=== PATIENT | female | born 1995 | race Caucasian/White ===

== ENCOUNTER → 2021-03-18 12:07 | Outpatient (CLI) | payer OTHER, SELFPAY ==
[2021-03-18 09:28] VITALS: BMI 33.2
[2021-03-31 20:36] LABS: HPV Reflexed? NOT INDICATED
== END ==
PROVIDERS: PCP Registered Nurse; Referring Provider Nurse Practitioner Women's Health; Visit Provider Nurse Practitioner Women's Health
DX: Z12.4 Encounter for screening for malignant neoplasm of cervix (principal)
CPT/HCPCS: 88175; G0145

== ENCOUNTER → 2021-04-01 13:58 | Outpatient (CLI) | payer OTHER, SELFPAY ==
[2021-03-18 09:28] VITALS: BMI 33.2
== END ==
PROVIDERS: PCP Registered Nurse; Referring Provider Nurse Practitioner Women's Health; Visit Provider Nurse Practitioner Women's Health
DX: N97.0 Female infertility associated with anovulation (principal)
CPT/HCPCS: 36415

== ENCOUNTER → 2021-04-20 07:49 | Outpatient (CLI) | payer OTHER, SELFPAY ==
[2021-03-18 09:28] VITALS: BMI 33.2
[2021-04-20 08:50] LABS: Progesterone Level 0.51 ng/mL (See Comment)
== END ==
PROVIDERS: PCP Registered Nurse; Referring Provider Nurse Practitioner Women's Health; Visit Provider Nurse Practitioner Women's Health
DX: N91.2 Amenorrhea, unspecified (principal)
CPT/HCPCS: 36415; 84144

== ENCOUNTER → 2021-05-25 07:36 | Outpatient (CLI) | payer OTHER, SELFPAY ==
[2021-05-25 08:19] LABS: Progesterone Level 6.31 ng/mL (See Comment)
== END ==
PROVIDERS: PCP Registered Nurse; Referring Provider Nurse Practitioner Women's Health; Visit Provider Nurse Practitioner Women's Health
DX: N91.2 Amenorrhea, unspecified (principal)
CPT/HCPCS: 36415; 84144

== ENCOUNTER → 2021-06-23 16:00 | Outpatient (CLI) | payer OTHER, SELFPAY ==
--- NOTE | 2021-06-23 16:02 | US_ITS ---
History: viability-bleeding Pelvic Ultrasound: Findings: Endovaginal ultrasound imaging of the pelvis performed No evidence of an intra- or extrauterine gestational sac. Uterus is normal in size. 10 mm nabothian cyst is noted. Endometrial stripe measures 13 mm mm. No adnexal mass or cul de sac fluid noted. Ovaries are normal in size, echogenicity and perfusion. Right ovary measures 4.2 x 3.2 x 2.2 cm. Left ovary measures 3.2 x 3.0 x 2.0 cm. IMPRESSION: No evidence of intra- or extra-uterine . Follow up US in 7 to 10 days recommended to further differentiate between early intrauterine , ectopic and miscarriage if hCG titers are positive. at 1654 Reported and signed by: Rashad Gonzalez MD Electronically Signed: Rashad Gonzalez MD at 16:53 EDT Tel , Service support , US/Transvaginal w/Preg US
[2021-06-23 17:00] LABS: hCG Titer Quant., Serum 779 mIU/mL (1-3)
== END ==
PROVIDERS: PCP Registered Nurse; Referring Provider Obstetrics & Gynecology; Visit Provider Obstetrics & Gynecology
DX: O20.0 Threatened abortion (principal)
CPT/HCPCS: 36415; 76817; 84702; 86850; 86900; 86901

== ENCOUNTER → 2021-06-25 07:45 | Outpatient (CLI) | payer OTHER, SELFPAY ==
[2021-06-25 08:44] LABS: hCG Titer Quant., Serum 184 mIU/mL (1-3)
== END ==
PROVIDERS: Obstetrics & Gynecology; PCP Registered Nurse; Referring Provider Nurse Practitioner Women's Health; Visit Provider Nurse Practitioner Women's Health
DX: Z34.90 Encounter for supervision of normal pregnancy, unspecified, unspecified trimester (principal)
CPT/HCPCS: 36415; 84702

== ENCOUNTER → 2021-07-02 10:52 | Outpatient (CLI) | payer OTHER, SELFPAY ==
[2021-07-02 11:38] LABS: hCG Titer Quant., Serum 6 mIU/mL (1-3)
== END ==
PROVIDERS: PCP Registered Nurse; Referring Provider Obstetrics & Gynecology; Visit Provider Obstetrics & Gynecology
DX: O03.9 Complete or unspecified spontaneous abortion without complication (principal)
CPT/HCPCS: 36415; 84702

== ENCOUNTER 2021-11-30 07:38 | Outpatient (CLI) | payer OTHER, SELFPAY ==
[2021-11-30 08:26] LABS: Progesterone Level 1.05 ng/mL (See Comment); Vitamin D,25 Hydroxy 21.1 ng/mL
[2021-11-30 08:35] LABS: Cholesterol 172 mg/dL (200); Glucose 95 mg/dL (74-106); High Density Lipoprotein 60 mg/dL; Thyroid Stim Hormone (TSH) 2.41 uIU/mL (0.358-3.74); Triglycerides 77 mg/dL; Very Low Density Lipoprotein 15 mg/dL (5-40)
== END 2021-11-30 23:59 | disposition home or self-care (01) ==
LOC: PAVLAB 07:39
PROVIDERS: PCP Registered Nurse; Referring Provider Obstetrics & Gynecology; Visit Provider Obstetrics & Gynecology
DX: E28.2 Polycystic ovarian syndrome (principal); N97.9 Female infertility, unspecified
CPT/HCPCS: 36415; 80061; 82306; 82947; 84144; 84443

== ENCOUNTER 2021-12-24 07:40 | Outpatient (CLI) | payer OTHER, SELFPAY ==
[2021-12-24 08:36] LABS: hCG Titer Quant., Serum 257 mIU/mL (1-3)
== END 2021-12-24 23:59 | disposition home or self-care (01) ==
LOC: PAVLAB 07:41
PROVIDERS: PCP Registered Nurse; Referring Provider Obstetrics & Gynecology; Visit Provider Obstetrics & Gynecology
DX: Z34.90 Encounter for supervision of normal pregnancy, unspecified, unspecified trimester (principal)
CPT/HCPCS: 36415; 84702

== ENCOUNTER 2021-12-26 07:26 | Outpatient (CLI) | payer OTHER, SELFPAY ==
[2021-12-26 09:02] LABS: hCG Titer Quant., Serum 369 mIU/mL (1-3)
== END 2021-12-26 23:59 | disposition home or self-care (01) ==
LOC: LAB 07:28
PROVIDERS: PCP Registered Nurse; Referring Provider Obstetrics & Gynecology; Visit Provider Obstetrics & Gynecology
DX: Z87.59 Personal history of other complications of pregnancy, childbirth and the puerperium (principal)
CPT/HCPCS: 36415; 84702

== ENCOUNTER 2021-12-28 11:24 | Outpatient (CLI) | payer OTHER, SELFPAY ==
[2021-12-28 12:34] LABS: hCG Titer Quant., Serum 496 mIU/mL (1-3)
== END 2021-12-28 23:59 | disposition home or self-care (01) ==
LOC: PAVLAB 11:25
PROVIDERS: PCP Registered Nurse; Referring Provider Obstetrics & Gynecology; Visit Provider Obstetrics & Gynecology
DX: O20.0 Threatened abortion (principal)
CPT/HCPCS: 36415; 84702

== ENCOUNTER 2021-12-30 07:44 | Outpatient (CLI) | payer OTHER, SELFPAY ==
[2021-12-30 08:21] LABS: hCG Titer Quant., Serum 582 mIU/mL (1-3)
== END 2021-12-30 23:59 | disposition home or self-care (01) ==
LOC: PAVLAB 07:44
PROVIDERS: PCP Registered Nurse; Referring Provider Obstetrics & Gynecology; Visit Provider Obstetrics & Gynecology
DX: Z87.59 Personal history of other complications of pregnancy, childbirth and the puerperium (principal)
CPT/HCPCS: 36415; 84702

== ENCOUNTER 2022-01-04 10:23 | Outpatient (CLI) | payer OTHER, SELFPAY ==
[2022-01-04 10:58] LABS: hCG Titer Quant., Serum 289 mIU/mL (1-3)
== END 2022-01-04 23:59 | disposition home or self-care (01) ==
LOC: PAVLAB 10:23
PROVIDERS: PCP Registered Nurse; Referring Provider Nurse Practitioner Women's Health; Visit Provider Nurse Practitioner Women's Health
DX: Z87.59 Personal history of other complications of pregnancy, childbirth and the puerperium (principal)
CPT/HCPCS: 36415; 84702

== ENCOUNTER 2022-01-12 07:41 | Outpatient (CLI) | payer OTHER, SELFPAY ==
[2022-01-12 09:02] LABS: hCG Titer Quant., Serum 317 mIU/mL (1-3)
== END 2022-01-12 23:59 | disposition home or self-care (01) ==
LOC: PAVLAB 07:42
PROVIDERS: PCP Registered Nurse; Referring Provider Nurse Practitioner Women's Health; Visit Provider Nurse Practitioner Women's Health
DX: Z87.59 Personal history of other complications of pregnancy, childbirth and the puerperium (principal)
CPT/HCPCS: 36415; 84702

== ENCOUNTER 2022-01-12 11:30 | Emergency (ER) | payer OTHER, SELFPAY ==
[2022-01-12 11:31] VITALS: BP 154/106; PULSE 103; RESP 16; TEMP 36.1; O2SAT 100; BMI 34.9
--- NOTE | 2022-01-12 11:42 | US_ITS ---
STUDY: FIRST TRIMESTER OBSTETRICAL ULTRASOUND REASON FOR EXAM: Female, 26 years old increased HCG, prior miscarriage LMP: 11/10/2021 TECHNIQUE: Transvaginal TECHNICAL QUALITY: Adequate. PRIOR ULTRASOUND: None. FINDINGS: There is no demonstrated intrauterine gestational sac. The uterus measures 7.3 x 4.1 x 4.5 cm. There is no demonstrated uterine fibroid. There are nabothian cysts. The right ovary measures 3.8 x 2.7 x 2.2 cm. There is no right ovarian cyst. There is no visualized right adnexal mass or complex lesion. The left ovary measures 3.2 x 3.2 x 2.0 cm. There is no left ovarian cyst. There is no visualized left adnexal mass or complex lesion. There is no fluid in the cul de sac. US/Transvaginal w/Preg US IMPRESSION: 1. No intrauterine . No adnexal masses. Electronically Signed: Lee Corral MD (Brooks) at 13:14 EDT ,
[2022-01-12 12:16] LABS: Absolute Neutrophil Count 5.2 X10^3/uL (2.0-7.7); Basophil# 0.04 X10^3/uL; Basophil% 0.5 % (0-1); Eosinophil# 0.29 X10^3/uL; Eosinophils% 3.7 % (0-5); Hemoglobin 13.6 g/dL (12.0-15.0); Lymphocyte % 23.2 % (19-41); Mean Corp Hgb Conc 34.9 g/dL (32-36); Mean Corpuscular Hgb 31.6 pg (27.0-32.0); Mean Corpuscular Volume 90.5 fL (81-99); Mean Platelet Vol. 10.1 fl (6.2-12.0); Monocyte# 0.44 X10^3/uL; Monocyte% 5.7 % (0-10); NRBC Flagged by Analyzer 0 % (0-5); Neutrophil # 5.16 X10^3/uL (2.7-7.7); Neutrophil % 66.6 % (47-70); Platelet Count 266 K/mm3 (150-450); RBC Distribution Width CV 11.6 % (11.6-14.6); RBC Distribution Width SD 38.6 fl (35.1-43.9); Red Blood Count 4.31 M/mm3 (4.2-5.4); White Blood Count 7.8 K/mm3 (4.4-11.0)
--- NOTE | 2022-01-12 12:23 | ED.VIS.FEGU ---
HPI HPI - Female History of Present Illness Chief Complaint: Vag Bld, Preg Informant: patient Associated Symptoms P: 0 Narrative Narrative: Patient is 26-year-old female presenting for evaluation after miscarriage. Patient follows with Dr. Mackey. Patient has a history of PCOS and is on Femara for infertility. She had a positive quant on 12/24 at 257. She and up trending quant until 01/04 when she started having vaginal bleeding. She had 1 week of bleeding which subsided 4 days ago. She denies any pelvic pain or discomfort. Denies any urinary symptoms. Was sent in for evaluation as she is not had an ultrasound this and her quant is stagnant. No other complaints at this time. [facility] Medical History PCOS (polycystic ovarian syndrome) Home Medications letrozole 2.5 mg tablet 5 mg PO QDAY #10 tab 11/02/21 [Rx Last Taken Unknown] letrozole 2.5 mg tablet 7.5 mg PO QDAY 5 Days #15 tab 11/02/21 [Rx Last Taken Unknown] medroxyprogesterone 10 mg tablet 10 mg PO QDAY #5 tab 11/02/21 [Rx Last Taken Unknown] Allergy/AdvReac Type Severity Reaction Status Date / Time No Known Allergies Allergy Unverified 01/12/22 11:31 Social History household members: spouse number of children: 0 current occupational status: employed current occupation: [employer] history of recent travel: No sexually active: Yes Smoking Status: Never smoker alcohol intake: current alcohol intake frequency: a few times a month substance use type: does not use diet: other what type of physical activity do you participate in: walking seatbelt use: always do you feel safe at home: Yes additional social history: - [employer] ED Constitutional Constitutional ED: Denies chills or fever(s) Eyes Eyes: Denies change in vision ENT ENT ED: Denies rhinorrhea Cardiovascular Cardiovascular: Denies chest pain or palpitations Respiratory/Chest Respiratory/Chest: Denies dyspnea Gastrointestinal Gastrointestinal: Denies abdominal pain, nausea or vomiting Genitourinary Genitourinary ED: Denies dysuria, hematuria or urinary frequency Musculoskeletal Musculoskeletal: Denies myalgias Integumentary Denies rash Neurologic Neurologic: Denies headache(s) or weakness Psychiatric Psychiatric: Denies depression EXAM Physical Exam Const Vital Signs: 01/12/22 11:31 Temperature 96.9 F L Temperature Source Temporal Pulse Rate 103 H Respiratory Rate 16 Blood Pressure 154/106 H Blood Pressure Mean 122 Pulse Ox 100 Oxygen Delivery Method Room Air Positive well nourished and well developed General Appearance ED: well developed; Negative for pallor HEENT Reports moist mucous membranes Eyes PERRL and EOMs intact bilaterally General Eye ED: Negative for pale conjunctiva Neck supple Chest Wall inspection of chest normal Resp normal respiratory effort and clear to auscultation bilaterally Cardio regular rate, regular rhythm and no murmurs GI normal to inspection, nondistended, normoactive bowel sounds, soft to palpation and non-tender no CVA tenderness Neuro oriented x3 Sensorium / Orientation: alert Motor Exam: Negative for general weakness Psych mental status grossly normal Skin no rashes or lesions noted General Skin Exam: Negative for pallor MDM MDM MDM Narrative Medical decision making narrative: Patient evaluated for miscarriage and concern for ectopic versus incomplete miscarriage. Hemoglobin is normal at 13.6. Patient's quant is stable at 310. Its not going down significantly however it is not going up anymore. Patient is a positive and does not require RhoGAM. Ultrasound shows no intrauterine and no adnexal masses. Low likelihood for significant retained products of conception or ectopic at this time. Case is discussed with her VICE PRESIDENT OF SOFTWARE DEVELOPMENT who will follow the patient with serial hCGs. She will order for a 48-hour hCG. Patient is counseled return precautions including signs and symptoms of an ectopic . She verbalizes agreement and understands this plan. Patient discharged home in stable condition. Lab Data Attestation: I reviewed the patient's lab results. Labs: Laboratory Results - last 24 hr 01/12/22 01/12/22 01/12/22 11:50 11:56 11:56 WBC 7.8 RBC 4.31 Hgb 13.6 Hct 39.0 MCV 90.5 MCH 31.6 MCHC 34.9 RDW Std Deviation 38.6 RDW Coeff of Jacqueline 11.6 Plt Count 266 MPV 10.1 Immature Gran % (Auto) 0.300 Neut % (Auto) 66.6 Lymph % (Auto) 23.2 [place] % (Auto) 5.7 Eos % (Auto) 3.7 Baso % (Auto) 0.5 Absolute Neuts (auto) 5.2 Absolute Lymphs (auto) 1.80 Nucleated RBC % 0 HCG, Quant 310 H Blood Type A POSITIVE Antibody Screen NEGATIVE Radiography Diagnostic Testing: Clinical Impression(s) from Imaging Studies Obstetrics Ultrasound 01/12/22 11:42 IMPRESSION: 1. No intrauterine . No adnexal masses. Electronically Signed: Lee Corral MD (Brooks) at 13:14 EDT Reading Location ID and State: [facility] / [place] , Service support , Discharge Plan Triage Chief Complaint: Vag Bld, Preg ED Provider: Miriam Coleman Dx/Rx/DC Orders Clinical Impression: Miscarriage Instructions: ED MISCARRIAGE Completed Prescriptions: No Action medroxyprogesterone [Provera] 10 mg tablet 10 mg PO QDAY Qty: 5 RF: 9 letrozole 2.5 mg tablet 5 mg PO QDAY Qty: 10 RF: 0 letrozole 2.5 mg tablet 7.5 mg PO QDAY 5 Days Qty: 15 RF: 2 Primary Care Provider: Margaux Jay NP Referrals: Paradise Mackey MD [STAFF PHYSICIAN] - 2 Days (for HCG check ) Margaux Jay NP, DIRECTOR BIOLOGICS-C [Primary Care Provider] - Disposition Disposition: Home, Self Care
[2022-01-12 12:47] LABS: hCG Titer Quant., Serum 310 mIU/mL (1-3)
== END 2022-01-12 13:42 | disposition home or self-care (01) ==
PROVIDERS: Emergency Provider Emergency Medicine; PCP Registered Nurse; Visit Provider Emergency Medicine
DX: O03.9 Complete or unspecified spontaneous abortion without complication (principal); E28.2 Polycystic ovarian syndrome
CPT/HCPCS: 76817; 84702; 85025; 86850; 86900; 86901; 99282

== ENCOUNTER → 2022-01-14 | Outpatient (CLI) | payer OTHER, SELFPAY ==
[2022-01-14 08:11] LABS: hCG Titer Quant., Serum 325 mIU/mL (1-3)
== END | disposition home or self-care (01) ==
PROVIDERS: PCP Registered Nurse; Referring Provider Obstetrics & Gynecology; Visit Provider Obstetrics & Gynecology
DX: Z87.59 Personal history of other complications of pregnancy, childbirth and the puerperium (principal)
CPT/HCPCS: 36415; 84702

== ENCOUNTER → 2022-01-18 | Outpatient (CLI) | payer OTHER, SELFPAY ==
[2022-01-18 08:28] LABS: ALB/GLOB Ratio 1.3 RATIO (0.9-2.4); AST(SGOT) 17 U/L (15-37); Alanine Aminotransfer ALT/SGPT 34 U/L (13-56); Albumin, Serum 3.8 g/dL (3.2-5.0); Alkaline Phosphatase 36 U/L (45-117); Anion Gap 4 (5-15); BUN 6 mg/dL (7-18); BUN/Creat Ratio 7.2 RATIO (10-20); Calcium,Total 8.5 mg/dL (8.5-10.1); Chloride 107 mmol/L (98-107); Creatinine, Serum 0.83 mg/dL (0.55-1.02); EST Glomerular Filtration Rate 89 mL/min (>60); Est Glom Filt Rate - Afr Amer 107 mL/min (>60); Globulin 2.9 g/dL (2.2-4.2); Glucose 116 mg/dL (74-106); Potassium 3.7 mmol/L (3.5-5.1); Protein, Total 6.7 g/dL (6.4-8.2); Sodium Level 139 mmol/L (136-145); hCG Titer Quant., Serum 337 mIU/mL (1-3)
[2022-01-19 17:07] LABS: Dilute Prothrombin Time (dPT) 35.7 sec (0.0-47.6); Dilute Russell Viper Venom 33.6 sec (0.0-47.0); PTT-LA 31.4 sec (0.0-51.9); Thrombin Time 17.8 sec (0.0-23.0); dPT Confirm Ratio 1.02 Ratio (0.00-1.34)
[2022-01-19 20:11] LABS: Anti-Cardiolipin Ab, IgA, Qn < 9 APL U/mL (0-11); Anti-Cardiolipin Ab, IgG, Qn < 9 GPL U/mL (0-14); Anti-Cardiolipin Ab, IgM, Qn 12 MPL U/mL (0-12); Beta-2-Glycoprotein I IgA <9 (0-25); Beta-2-Glycoprotein I IgG <9 (0-20); Beta-2-Glycoprotein I IgM <9 (0-32); Interpretation Comment: (.)
== END | disposition home or self-care (01) ==
PROVIDERS: PCP Registered Nurse; Referring Provider Obstetrics & Gynecology; Visit Provider Obstetrics & Gynecology
DX: O03.9 Complete or unspecified spontaneous abortion without complication (principal); N96 Recurrent pregnancy loss
CPT/HCPCS: 36415; 80053; 84702; 86146; 86147

== ENCOUNTER → 2022-01-23 | Outpatient (CLI) | payer OTHER, SELFPAY ==
[2022-01-23 08:42] LABS: hCG Titer Quant., Serum 214 mIU/mL (1-3)
== END | disposition home or self-care (01) ==
LOC: LAB 07:52
PROVIDERS: PCP Registered Nurse; Referring Provider Nurse Practitioner Women's Health; Visit Provider Nurse Practitioner Women's Health
DX: O00.90 Unspecified ectopic pregnancy without intrauterine pregnancy (principal)
CPT/HCPCS: 36415; 84702

== ENCOUNTER → 2022-01-26 | Outpatient (CLI) | payer OTHER, SELFPAY ==
[2022-01-26 09:09] LABS: hCG Titer Quant., Serum 25 mIU/mL (1-3)
== END | disposition home or self-care (01) ==
LOC: PAVLAB 07:42
PROVIDERS: Obstetrics & Gynecology; PCP Registered Nurse; Referring Provider Nurse Practitioner Women's Health; Visit Provider Nurse Practitioner Women's Health
DX: O00.90 Unspecified ectopic pregnancy without intrauterine pregnancy (principal)
CPT/HCPCS: 36415; 84702

== ENCOUNTER → 2022-01-29 | Outpatient (CLI) | payer OTHER, SELFPAY ==
[2022-01-29 09:17] LABS: hCG Titer Quant., Serum 4 mIU/mL (1-3)
== END | disposition home or self-care (01) ==
LOC: PAVLAB 08:40
PROVIDERS: PCP Registered Nurse; Referring Provider Obstetrics & Gynecology; Visit Provider Obstetrics & Gynecology
DX: O09.90 Supervision of high risk pregnancy, unspecified, unspecified trimester (principal)
CPT/HCPCS: 36415; 84702

== ENCOUNTER → 2022-05-20 | Outpatient (CLI) | payer OTHER, SELFPAY ==
[2022-05-20 10:30] LABS: hCG Titer Quant., Serum 2023 mIU/mL (1-3)
== END | disposition home or self-care (01) ==
LOC: PAVLAB 09:14
PROVIDERS: PCP Registered Nurse; Referring Provider Obstetrics & Gynecology; Visit Provider Obstetrics & Gynecology
DX: N96 Recurrent pregnancy loss (principal)
CPT/HCPCS: 36415; 84702

== ENCOUNTER → 2022-05-22 | Outpatient (CLI) | payer OTHER, SELFPAY ==
[2022-05-22 11:38] LABS: hCG Titer Quant., Serum 4445 mIU/mL (1-3)
== END | disposition home or self-care (01) ==
LOC: LAB 09:39
PROVIDERS: PCP Registered Nurse; Referring Provider Obstetrics & Gynecology; Visit Provider Obstetrics & Gynecology
DX: N96 Recurrent pregnancy loss (principal)
CPT/HCPCS: 36415; 84702

== ENCOUNTER → 2022-06-01 | Outpatient (CLI) | payer OTHER, SELFPAY ==
--- NOTE | 2022-06-01 16:20 | US_ITS ---
STUDY: FIRST TRIMESTER OBSTETRICAL ULTRASOUND REASON FOR EXAM: Female, 26 years old patient presents for evaluation of viability. LMP: 04/12/2022. TECHNIQUE: Transvaginal TECHNICAL QUALITY: Adequate. PRIOR ULTRASOUND: None. FINDINGS: There is visualization of a single gestational sac in a normal intrauterine position. The mean sac diameter (MSD) measures 1.9 cm, indicating an estimated gestational age (EGA) of 6 weeks, 6 days. The gestational sac shape is within normal limits. There is a visualized yolk sac. The yolk sac measures 3 mm. The placenta is non-visualized. There is a small subchorionic hemorrhage measuring 10.3 x 3 mm in size. There is visualization of a live embryo. The crown-rump length (CRL) measures 8.4 mm, indicating an estimated gestational age (EGA) of 6 weeks, 6 days. There is demonstrated cardiac activity with a heart rate of 129 bpm. The estimated gestation age (EGA) by LMP is 7 weeks, 1 days. The estimated date of delivery (ANT) by LMP is 01/17/2023. The estimated gestation age (EGA) by US is 6 weeks, 6 days. The estimated date of delivery (ANT) by US is 01/19/2023. The uterus measures 9.2 x 4.7 x 6.4 cm. There is no demonstrated uterine fibroid. The cervix is closed. The right ovary measures 4.7 x 3.1 x 3.4 cm. There are multiple follicles of the right ovary with a dominant cyst. There is no visualized right adnexal mass or complex lesion. The left ovary measures 2.9 x 2.0 x 2.6 cm. There are multiple follicles of the left ovary without a dominant cyst. There is no visualized left adnexal mass or complex lesion. Color Doppler and Doppler documents posterior to both ovaries. There is no fluid in the cul de sac. US/Transvaginal w/Preg US IMPRESSION: 1. Single living intrauterine gestation with estimated gestational age by size of 6 weeks 6 days. 2. Small subchorionic hemorrhage. Electronically Signed: Eneida White MD at 3:02 EDT ,
== END | disposition home or self-care (01) ==
LOC: US 16:19
PROVIDERS: PCP Registered Nurse; Referring Provider Obstetrics & Gynecology; Visit Provider Obstetrics & Gynecology
DX: O20.0 Threatened abortion (principal)
CPT/HCPCS: 76817

== ENCOUNTER → 2022-06-17 | Outpatient (CLI) | payer OTHER, SELFPAY ==
[2022-06-17 18:48] LABS: Amphetamine Urine VISTA NEGATIVE (<1000 ng/mL); Barbiturate Urine VISTA NEGATIVE (< 200 ng/mL); Benzodiazepine Urine VISTA NEGATIVE (< 200 ng/mL); Cocaine Urine VISTA NEGATIVE (< 300 ng/mL); Ecstacy Urine VISTA NEGATIVE (< 500 ng/mL); Methadone Urine VISTA NEGATIVE (< 300 ng/mL); PCP Urine VISTA NEGATIVE (< 25 ng/mL); THC Urine VISTA NEGATIVE (< 50 ng/mL); Vista UDS pH Range 6
[2022-06-21 05:06] LABS: Chlamydia By Nucleic Acid AMP Negative (Negative)
[2022-06-21 08:36] LABS: Gonococcus By Nucleic Acid AMP Negative (Negative)
== END | disposition home or self-care (01) ==
PROVIDERS: PCP Registered Nurse; Visit Provider Obstetrics & Gynecology
DX: Z34.90 Encounter for supervision of normal pregnancy, unspecified, unspecified trimester (principal)
CPT/HCPCS: 80307; 87086; 87088; 87491; 87591

== ENCOUNTER → 2022-07-08 | Outpatient (CLI) | payer OTHER, SELFPAY ==
[2022-07-08 13:10] LABS: Absolute Lymphocyte Count 1.67 X10^3/uL (0.83-4.51); Absolute Neutrophil Count 7.2 X10^3/uL (2.0-7.7); Basophil# 0.05 X10^3/uL; Basophil% 0.5 % (0-1); Eosinophil# 0.12 X10^3/uL; Eosinophils% 1.3 % (0-5); Hematocrit 36.5 % (37-47); Lymphocyte # 1.67 X10^3/ul (0.83-4.51); Lymphocyte % 17.5 % (19-41); Mean Corp Hgb Conc 35.6 g/dL (32-36); Mean Corpuscular Volume 89.9 fL (81-99); Mean Platelet Vol. 10.1 fl (6.2-12.0); Monocyte# 0.45 X10^3/uL; Monocyte% 4.7 % (0-10); NRBC Flagged by Analyzer 0 % (0-5); Neutrophil % 75.7 % (47-70); Platelet Count 266 K/mm3 (150-450); RBC Distribution Width CV 11.3 % (11.6-14.6); RBC Distribution Width SD 36.9 fl (35.1-43.9); Red Blood Count 4.06 M/mm3 (4.2-5.4); White Blood Count 9.5 K/mm3 (4.4-11.0)
[2022-07-08 13:20] LABS: Glucose Challenge Gest 1H 50g 147 mg/dL (70-140)
[2022-07-08 14:25] LABS: HIV - WCH Non-Reactive (Nonreactive); Hepatitis B Surface Antigen Non-Reactive (Nonreactive); Hepatitis C Antibody Non-Reactive (Nonreactive); Rubella IgG Reactive (Nonreactive); Syphilis Antibodies Non-reactive
== END | disposition home or self-care (01) ==
LOC: PAVLAB 12:40
PROVIDERS: PCP Registered Nurse; Referring Provider Obstetrics & Gynecology; Visit Provider Obstetrics & Gynecology
DX: Z34.90 Encounter for supervision of normal pregnancy, unspecified, unspecified trimester (principal)
CPT/HCPCS: 36415; 82950; 85025; 86703; 86762; 86780; 86803; 86850; 86900; 86901; 87340

== ENCOUNTER → 2022-07-20 | Outpatient (CLI) | payer OTHER, SELFPAY ==
[2022-07-20 08:00] LABS: Glucose GTT-Gestation. Fasting 88 mg/dL (<105)
[2022-07-20 09:12] LABS: Glucose GTT-Gestational 1 Hr 159 mg/dL (<190)
[2022-07-20 09:25] LABS: Glucose GTT-Gestational 2 Hr 146 mg/dL (<165)
[2022-07-20 11:19] LABS: Glucose GTT-Gestational 3 Hr 75 L (<145)
== END | disposition home or self-care (01) ==
LOC: LAB 06:58
PROVIDERS: PCP Registered Nurse; Referring Provider Obstetrics & Gynecology; Visit Provider Obstetrics & Gynecology
DX: Z13.1 Encounter for screening for diabetes mellitus (principal)
CPT/HCPCS: 36415; 82951; 82952

== ENCOUNTER → 2022-10-19 | Outpatient (CLI) | payer OTHER, SELFPAY ==
[2022-10-19 08:04] LABS: Absolute Lymphocyte Count 1.62 X10^3/uL (0.83-4.51); Absolute Neutrophil Count 5.9 X10^3/uL (2.0-7.7); Basophil# 0.03 X10^3/uL; Basophil% 0.4 % (0-1); Eosinophil# 0.24 X10^3/uL; Hematocrit 33.5 % (37-47); Hemoglobin 11.8 g/dL (12.0-15.0); Lymphocyte # 1.62 X10^3/ul (0.83-4.51); Lymphocyte % 19.9 % (19-41); Mean Corp Hgb Conc 35.2 g/dL (32-36); Mean Corpuscular Volume 90.8 fL (81-99); Mean Platelet Vol. 9.9 fl (6.2-12.0); Monocyte# 0.36 X10^3/uL; Monocyte% 4.4 % (0-10); NRBC Flagged by Analyzer 0 % (0-5); Neutrophil # 5.85 X10^3/uL (2.7-7.7); Neutrophil % 71.9 % (47-70); Platelet Count 236 K/mm3 (150-450); RBC Distribution Width CV 12.6 % (11.6-14.6); RBC Distribution Width SD 41.4 fl (35.1-43.9); Red Blood Count 3.69 M/mm3 (4.2-5.4); White Blood Count 8.1 K/mm3 (4.4-11.0)
[2022-10-19 08:16] LABS: Glucose Challenge Gest 1H 50g 170 mg/dL (70-140)
[2022-10-19 09:03] LABS: HIV - WCH Non-Reactive (Nonreactive); Syphilis Antibodies Non-reactive
== END | disposition home or self-care (01) ==
PROVIDERS: PCP Registered Nurse; Referring Provider Registered Nurse; Visit Provider Registered Nurse
DX: O09.90 Supervision of high risk pregnancy, unspecified, unspecified trimester (principal)
CPT/HCPCS: 36415; 82950; 85025; 86703; 86780

== ENCOUNTER → 2022-11-11 | Outpatient (CLI) | payer OTHER, SELFPAY ==
[2022-11-11 08:22] LABS: Glucose GTT-Gestation. Fasting 88 mg/dL (<105)
[2022-11-11 09:24] LABS: Glucose GTT-Gestational 1 Hr 193 mg/dL (<190)
[2022-11-11 10:13] LABS: Glucose GTT-Gestational 2 Hr 174 mg/dL (<165)
[2022-11-11 11:30] LABS: Glucose GTT-Gestational 3 Hr 100 L (<145)
== END | disposition home or self-care (01) ==
LOC: LAB 06:54
PROVIDERS: PCP Registered Nurse; Referring Provider Nurse Practitioner Women's Health; Visit Provider Nurse Practitioner Women's Health
DX: Z13.1 Encounter for screening for diabetes mellitus (principal)
CPT/HCPCS: 36415; 82951; 82952

== ENCOUNTER 2022-11-29 08:30 | Outpatient (RCR) | payer OTHER, SELFPAY | END 2022-12-24 23:59 | LOC: DC 08:30 | PROVIDERS: PCP Registered Nurse; Visit Provider Nurse Practitioner Women's Health | DX: O24.419 Gestational diabetes mellitus in pregnancy, unspecified control (principal); Z3A.00 Weeks of gestation of pregnancy not specified | CPT/HCPCS: 97802 ==

== ENCOUNTER → 2022-12-21 | Outpatient (CLI) | payer OTHER, SELFPAY | END | disposition home or self-care (01) | LOC: LABSPEC 11:44 | PROVIDERS: PCP Registered Nurse; Referring Provider Obstetrics & Gynecology; Visit Provider Obstetrics & Gynecology | DX: O09.90 Supervision of high risk pregnancy, unspecified, unspecified trimester (principal) | CPT/HCPCS: 87081 ==

== ENCOUNTER → 2022-12-21 | Outpatient (CLI) | payer OTHER, SELFPAY ==
--- NOTE | 2022-12-21 12:55 | US_ITS ---
EXAM: US , LIMITED CLINICAL INDICATION: growth scan, gestational diabetes TECHNIQUE: Real-time limited ultrasound of the maternal uterus with image documentation. This report was created using Lasso report generation technology. COMPARISON: None. FINDINGS: FETUS: Single intrauterine gestation. GESTATIONAL AGE: Composite gestational age is 37 weeks 4 days. ANT: 01/07/2023. EFW: Estimated weight is 3036 g corresponding to the 69th percentile. BPD: 38 weeks 4 days. HC: 38 weeks 4 days. AC: 36 weeks 5 days. FL: 35 weeks 1 day. POSITION: Cephalic presentation. HEART RATE: heart rate 144 bpm. PLACENTA: Placenta is posterior without placenta previa. AMNIOTIC FLUID: Amniotic fluid index is 17.1 cm. Deepest vertical pocket is 4.9 cm. CERVIX: Cervix not visualized. US/OB Limited With Biometrics IMPRESSION: Single intrauterine at approximately 37 weeks 4 days. No specific abnormality. Electronically Signed: Levy Patel MD at 0:23 EDT ,
== END | disposition home or self-care (01) ==
PROVIDERS: PCP Registered Nurse; Visit Provider Obstetrics & Gynecology
DX: O24.419 Gestational diabetes mellitus in pregnancy, unspecified control (principal)
CPT/HCPCS: 76816

== ENCOUNTER 2023-01-18 07:05 | Inpatient (IN) | payer OTHER, SELFPAY ==
[2023-01-18] VITALS (43 sets, daily range): BP systolic 98–138; BP diastolic 51–98; PULSE 77–129; TEMP 36.4–37.3; O2SAT 97–100; BMI 38.9
[2023-01-18] MEDS: Lactated Ringers 1,000 ML 50 ML IV ×2 (07:25→16:45)
[2023-01-18 07:39] LABS: Absolute Lymphocyte Count 1.43 X10^3/uL (0.83-4.51); Absolute Neutrophil Count 4.2 X10^3/uL (2.0-7.7); Basophil# 0.04 X10^3/uL; Basophil% 0.6 % (0-1); Eosinophil# 0.17 X10^3/uL; Eosinophils% 2.8 % (0-5); Hematocrit 36.2 % (37-47); Hemoglobin 12.4 g/dL (12.0-15.0); Lymphocyte # 1.43 X10^3/ul (0.83-4.51); Lymphocyte % 23.2 % (19-41); Mean Corp Hgb Conc 34.3 g/dL (32-36); Mean Corpuscular Hgb 31.6 pg (27.0-32.0); Mean Corpuscular Volume 92.3 fL (81-99); Mean Platelet Vol. 10.9 fl (6.2-12.0); Monocyte# 0.33 X10^3/uL; Monocyte% 5.3 % (0-10); NRBC Flagged by Analyzer 0 % (0-5); Neutrophil # 4.16 X10^3/uL (2.7-7.7); Neutrophil % 67.5 % (47-70); Platelet Count 157 K/mm3 (150-450); RBC Distribution Width CV 12.9 % (11.6-14.6); RBC Distribution Width SD 42.1 fl (35.1-43.9); Red Blood Count 3.92 M/mm3 (4.2-5.4); White Blood Count 6.2 K/mm3 (4.4-11.0)
--- NOTE | 2023-01-18 07:55 | HP.PCM.OB_ITS ---
HPI - General General Date of Admission: 01/18/23 Date of Service: 01/18/23 HPI Narrative WAGNER IABRRA, is a 27 F at 40.1 weeks who presents for IOL secondary to GDM Maternal Data Information ANT Calculator Estimated Delivery Date Method Current WG Current Estimate 01/17/23 LMP (Certain) 40w 1d Final ANT: 01/17/23 Final ANT Source: US >20 weeks Gestational age: 40 weeks 1 day PFSH PFSH Medical History PCOS (polycystic ovarian syndrome) Home Medications multivitamin no.47-iron fum 27 mg-folate no.1 1 mg-dha 300 mg capsule (PNV-DHA) 1 cap PO DAILY Check with primary doctor 06/11/22 [History Last Taken 01/17/23 21:00] blood sugar diagnostic (True Metrix Glucose Test Strip) #100 ea 11/15/22 [Rx La st Taken Unknown] blood-glucose meter (True Metrix Air Glucose Meter) #1 ea 11/15/22 [Rx Last Taken Unknown] magnesium 1 cap PO/SL DAILY leg cramps 01/18/23 [History Last Taken 01/17/23 21:00] Allergy/AdvReac Type Severity Reaction Status Date / Time No Known Allergies Allergy Verified 01/13/23 08:33 no significant family history no surgical history Social History adopted: No household members: spouse housing: house number of children: 0 current occupational status: employed current occupation: [employer] current occupational exposures/hazards: No pets and animals: Yes pets and animals: dog(s) history of recent travel: No sexually active: Yes Smoking Status: Never smoker alcohol intake: former details: social substance use type: does not use well-balanced diet: about half the time caffeine: No eating out: 1-3 times/week during the past year weight has: remained stable what type of physical activity do you participate in: walking frequency: 1-2 times per week duration: 15-30 minutes/day ok/latter day: Religious seatbelt use: always do you feel safe at home: Yes additional social history: - [employer] History 3 Elective abortions Hx Para 0 Spontaneous abortions 1 Hx # Term Pregnancies Ectopic pregnancies 1 Hx # Pregnancies Multiple births # of living children 0 Visit Details Expected Delivery Route/Plan Labor Preferences- CB/BF classes: encouraged labor support person: Cody labor intervention preferences: min intervention pain management options preferred: limited intervention. epidural ok cut cord/dad catch: cord : yes PP control planned: discussed discussed possible routes of delivery and associated risks: [] special requests: [] Plans Covid status: discussed Flu vaccine: declines Tdap vaccine: Rhogam: na LARC form signed: yes movement and labor precautions reviewed. Problem list reviewed and updated with the most current plan of care details and appropriate orders placed. Relevant counseling for the gestational age provided. Continue routine care and follow up unless otherwise noted in visit notes/problem list details OB Flowsheet Initial Weight: Not Recorded Date -?-?-?-?-?-?-?-?-?-?-?-?- EGA Weight BP Urine Prot -?-?-?-?-?-?-?-?-?-?-?-?- Glucose FHR FuHt Pres Dilation -?-?-?-?-?-?-?-?-?-?-?-?- Effaced St Visit Note 06/17/22 -?-?-?-?-?-?-?-?-?-?-?-?- 9w 3d 202 lb 123/75 -?-?-?-?-?-?-?-?-?-?-?-?- 160 -?-?-?-?-?-?-?-?-?-?-?-?- SM- CRL 2.18cm c ons with LMP 07/08/22 -?-?-?-?-?-?-?-?-?-?-?-?- 12w 3d 202 lb 6 oz 116/73 -?-?-?-?-?-?-?-?-?-?-?-?- 160 -?-?-?-?-?-?-?-?-?-?-?-?- JV- CRL consiste nt with 12 weeks. no complaints. wants to continue progesterone for another 2 weeks. 07/22/22 -?-?-?-?-?-?-?-?-?-?-?-?- 14w 3d 203 lb 127/60 -?-?-?-?-?-?-?-?-?-?-?-?- 150 -?-?-?-?-?-?-?-?-?-?-?-?- SM- no vb crampi ng 08/16/22 -?-?-?-?-?-?-?-?-?-?-?-?- 18w 0d 209 lb 118/80 Negative -?-?-?-?-?-?-?-?-?-?-?-?- Negative 150 -?-?-?-?-?-?-?-?-?-?-?-?- Lc- no vb, cramp ing. has anatomy scan ordered. discussed and declined afp 09/22/22 -?-?-?-?-?-?-?-?-?-?-?-?- 23w 2d 210 lb 12.8 oz 104/74 -?-?-?-?-?-?-?-?-?-?-?-?- 141 24 -?-?-?-?-?-?-?-?-?-?-?-?- LC- no vb/crampi ng. being followed by MFM for short cervix. being seen tomorrow. on vag progesterone. 10/19/22 -?-?-?-?-?-?-?-?-?-?-?-?- 27w 1d 216 lb 4 oz 124/78 Nega tive -?-?-?-?-?-?-?-?-?-?-?-?- Negative 141 28 -?-?-?-?-?-?-?-?-?-?-?-?- MH-no VB, LOF. G ood FM. Taking prometrium PV. No further fu at this time with MFM. Larc. 28 wk labs:needs 3 hr GTT. 11/10/22 -?-?-?-?-?-?-?-?-?--?-?-?- 30w 2d 218 lb 8 oz 130/83 Nega tive -?-?-?-?-?-?-?-?-?-?-?-?- Negative 145 30 -?-?-?-?-?-?-?-?-?-?-?-?- LC-no vb/lof. no concerns. has 3 hr gtt scheduled for tomorrow. getting a belly band for comfort. 11/23/22 -?-?-?-?-?-?-?-?-?-?-?-?- 32w 1d 220 lb 123/77 Negative -?-?-?-?-?-?-?-?-?-?-?-?- Negative 135 33 -?-?-?-?-?-?-?-?-?-?-?-?- SM- BS controlle d with diet, hasn't met with level vial setter yet. 12/07/22 -?-?-?-?-?-?-?-?-?-?-?-?- 34w 1d 222 lb 2 oz 118/77 Nega tive -?-?-?-?-?-?-?-?-?-?-?-?- Negative 155 35 -?-?-?-?-?-?-?-?-?-?-?-?- KW- +FM. No VB/L OF/Ctx. BS controlled and testing 2x/daily. Encouraged to do fasting as one of them. All under 95 and 120 per pt. Discussed GBS at next appt. would like minimal interventions for 12/21/22 -?-?-?-?-?-?-?-?-?-?-?--?- 36w 1d 225 lb 8 oz 120/82 Nega tive -?-?-?-?-?-?-?-?-?-?-?-?- Negative 138 37 -?-?-?-?-?-?-?-?-?-?-?-?- JV- glucose leve ls normal. has growth scan scheduled for today. declines pelvic exam. 12/28/22 -?-?-?-?-?-?-?-?-?-?-?-?- 37w 1d 225 lb 2 oz 119/80 Nega tive -?-?-?-?-?-?-?-?-?-?-?-?- Negative 125 39 Cephalic -?-?-?-?-?-?-?-?-?-?-?-?- KW- +FM. No lof/ vb. BH Ctx noted. Declines exam today. D/C'ed vaginal progesterone. Fasting BS still 85-90. postprandial 120-125 over last couple days. Continue to monitor and notify end of week if still elevated. 01/04/23 -?-?-?-?-?-?-?-?-?-?-?-?- 38w 1d 226 lb 124/82 Negative -?-?-?-?-?-?-?-?-?-?-?-?- Negative 138 40 Cephalic -?-?-?-?-?-?-?-?-?-?-?-?- KW-+ FM. No lof/ vb/ctx KW-+ FM. No lof/vb/ctx. BS s table. declines VE today. discussed setting up IOL at next visit. 01/11/23 -?-?-?-?-?-?-?-?-?-?-?-?- 39w 1d 227 lb 4 oz 131/87 Nega tive -?-?-?-?-?-?-?-?-?-?-?-?- Negative 140 41 Cephalic 3 -?-?-?-?-?-?-?-?-?-?-?-?- 70 -2 KW- +FM. N o Lof/vb. some ctx noted. membrane sweep done. labor precautions reviewed. BS stable. KW- +FM. No Lof/vb. some ctx noted. BS stable. membrane sweep done. labor precautions reviewed. Plan for another membrane sweep or tuesday if needed and set up IOL for tuesday. 01/13/23 -?-?-?-?-?-?-?-?-?-?-?-?- 39w 3d 224 lb 8 oz 112/72 Nega tive -?-?-?-?-?-?-?-?-?-?-?-?- Negative 140 41 Cephalic 4 -?-?-?-?-?-?-?-?-?-?-?-?- 80 -2 KW- +FM KW- +FM. no lof/vb. ctx note d after last sweep. BS stable. IOL scheduled Jordan score 10. 04/ -?-?-?-?-?-?-?-?-?-?-?-?- 40w 1d 227 lb 1.218 oz 135/77 -?-?-?-?-?-?-?-?-?-?-?-?- -?-?-?-?-?-?-?-?-?-?-?-?- NST FHR Rate Baby A Baseline: 130 Variability:: Moderate Accelerations:: 15 x 15 Decelerations:: None NST Reactive:: Yes FHR Category:: Category I FHR Rate Baby B Uterine Activity:: no contractions noted at this time ROS Constitutional Constitutional: Denies change in weight, fatigue, fever(s), headache(s), poor appetite or weakness Eyes Eyes: Denies blurry vision, change in vision, floaters, seeing flashes or spots in vision ENT HEENT: Denies dizziness, headache(s), loss taste/smell or sore throat Cardiovascular Cardiovascular: Denies chest pain, dizziness, dyspnea, irregular heart rhythm, lightheadedness, palpitations or rapid heart rate Respiratory/Chest Respiratory/Chest: Denies change in mental status, chest tightness, cough, dyspnea or breast pain Gastrointestinal Gastrointestinal: Denies anorexia, chewing difficulty, constipation, diarrhea or weight changes Genitourinary Genitourinary: Denies difficulty urinating, dysuria, flank pain, genital pain, urinary frequency or urinary urgency Musculoskeletal Musculoskeletal: Denies back pain, difficulty walking, extremity pain, joint pain, muscle cramps or muscle weakness Integumentary Integumentary: Denies lesions or unusual bruising Neurologic Neurologic: Denies abnormal movements, abnormal speech, dizziness, numbness, seizure-like activity, syncope or weakness Psychiatric Psychiatric: Denies behavioral changes, change in appetite, confusion, depression, homicidal ideation, suicidal ideation or suicidal thoughts Endocrine Endocrinology: Denies excessive sweating, polydipsia or polyuria Hematologic/Lymphatic Hematologic/Lymphatic: Denies anemia Allergic/Immunologic Allergic/Immunologic: Denies itchy eyes, lip swelling, throat swelling, tongue swelling or wheezing Vital Signs Vital Signs Vital Signs: 01/18/23 07:31 01/18/23 07:31 01/18/23 07:32 Pulse Rate 105 H 109 H Blood Pressure 135/77 H BP Systolic 135 BP Diastolic 77 Pulse Ox 01/18/23 07:32 Pulse Rate Blood Pressure BP Systolic BP Diastolic Pulse Ox 97 Weight Weight: 227 lb 1.218 oz Body Mass Index (BMI) 38.9 Physical Exam Const alert, oriented x3 and no apparent distress General Appearance: cooperative Orientation / Consciousness: awake HEENT normocephalic Neck full ROM Lymph Lymphatic: no lymphadenopathy noted Chest inspection of chest normal Resp normal respiratory effort and normal air movement Effort and Inspection: able to speak in complete sentences and symmetric chest movement GI soft to palpation and non-tender Inspection: gravid Palpation: soft; Negative for tender external exam normal Manual OB Exam: estimated gestational size, presentation cephalic, dilated 4, effaced 70 and station -2 Back/Spine normal to inspection Extremity normal to inspection and full ROM Skin no rashes or lesions noted Psych mental status grossly normal Appearance: grossly normal Speech: normal speech Labs Labs Labs: Blood Type A POSITIVE Antibody Screen NEGATIVE Hct 36.2 % (37-47) L Hgb 12.4 g/dL (12.0-15.0) Obstetrics US Syphilis Total Ab Non-reactive Rubella IgG Antibody Reactive (Nonreactive) Hep Bs Antigen Non-Reactive (Nonreactive) Chlamydia DNA (MINDY) Negative (Negative) Neisseria gonorrhoeae DNA (MINDY) Negative (Negative) HIV 1&2 Antibody Non-Reactive (Nonreactive) Glucose 1 Hr 50 gm 170 mg/dL (70-140) H Miscellaneous Test Assessment & Plan (1) Gestational diabetes: COMMENT: divisional storekeeper referral done, Glucose testing 2x/day-controlled PLAN: per protocol (2) Supervision of high risk , antepartum: COMMENT: PRR , ANT 01/19/23(per US), boy Spouse Guerrero PLAN: Patient presents IOL, plan management for with pitocin/AROM. Pain management: plans no epidural, but is open to it if needed GBS negative. Management of any complications: GDM I have reviewed the PFSH and made any clinically relevant updates. Reviewed POC with Dr Garcia and she agrees with plan of care (3) : QUALIFIERS: Weeks of gestation: 39 weeks Qualified Code(s): Z3A.39 - 39 weeks gestation of COMMENT: GBS neg, declined ntd genetic & carrier testing. nl anatomy. 12/22 nl growth EFW 3036, 69th% Charges/Coding Multi Select Codes Urinary/Genital Urinary/Genital CPT Codes: No Charge
[2023-01-18] MEDS: Oxytocin 15 Units/NS 250ml 15 UNITS/250 ML IV.SOLN 2 UNITS IV (08:20)
[2023-01-18 08:54] LABS: Syphilis Antibodies Non-reactive
[2023-01-18 08:56] LABS: Bedside Glucose 82 mg/dL (74-106)
[2023-01-18 10:11] LABS: Bedside Glucose 78 mg/dL (74-106)
[2023-01-18 10:56] LABS: Bedside Glucose 73 mg/dL (74-106)
[2023-01-18 12:16] LABS: Bedside Glucose 72 mg/dL (74-106)
[2023-01-18 13:00] LABS: Bedside Glucose 64 mg/dL (74-106)
[2023-01-18 13:45] LABS: Bedside Glucose 87 mg/dL (74-106)
--- NOTE | 2023-01-18 14:00 | PCM.PN.BLA ---
Progress Note Patient coping well with contractions. Denies need for epidural. current tracing: FHT: 115 Moderate variability reactive no decelerations category I tracing [place]: moderate to strong Contractions q 4 minutes Pitocin at 14mu AROM for bloody fluid at 1315 6/80/-1 A/P: Epidural PRN continue current POC anticipate Reviewed with CEE. Agrees with POC Multi Select Codes Urinary/Genital Urinary/Genital CPT Codes: No Charge
[2023-01-18 14:30] LABS: Bedside Glucose 86 mg/dL (74-106)
[2023-01-18 15:45] LABS: Bedside Glucose 77 mg/dL (74-106)
[2023-01-18 16:26] LABS: Bedside Glucose 73 mg/dL (74-106)
--- NOTE | 2023-01-18 16:34 | PCM.PN.BLA ---
Progress Note Patient tolerating contractions well. denies need for epidural current tracing: FHT: 115 Moderate variability reactive no decelerations category I tracing [place]: every 2-3 minutes strong Contractions Pitocin at 18 SVE 8/90/0 A/P: continue position changes anticipate Multi Select Codes Urinary/Genital Urinary/Genital CPT Codes: No Charge
[2023-01-18 18:30] LABS: Bedside Glucose 91 mg/dL (74-106)
[2023-01-18] MEDS: LACTATED RINGERS 500 ML 999 ML IV ×2 (18:40→19:55)
[2023-01-18 19:05] LABS: Bedside Glucose 88 mg/dL (74-106)
[2023-01-18] MEDS: fentaNYL-bupivacaine (epidural) 100 ML BAG EPIDURAL (19:27)
[2023-01-18 20:11] LABS: Bedside Glucose 82 mg/dL (74-106)
--- NOTE | 2023-01-18 20:40 | PCM.PN.BLA ---
Progress Note Comfortable with epidural current tracing: FHT: 120 Moderate variability reactive, some variables and early decelerations noted, category II tracing, overall reassuring [place]: Contractions every 2-3 palpating strong Pitocin at 5 mu Internal monitors placed SVE 9.5/90/0 A/P: anticipate Multi Select Codes Urinary/Genital Urinary/Genital CPT Codes: No Charge
[2023-01-18 21:16] LABS: Bedside Glucose 90 mg/dL (74-106)
[2023-01-18 21:56] LABS: Bedside Glucose 85 mg/dL (74-106)
[2023-01-19] VITALS (49 sets, daily range): BP systolic 103–137; BP diastolic 41–68; PULSE 73–138; RESP 15–18; TEMP 36.4–37.1; O2SAT 93–100
[2023-01-19] MEDS: fentaNYL-bupivacaine (epidural) 100 ML BAG EPIDURAL (00:02)
[2023-01-19] MEDS: Lactated Ringers 1,000 ML 200 ML IV (00:38)
[2023-01-19] MEDS: LACTATED RINGERS 500 ML 999 ML IV (00:45)
[2023-01-19] MEDS: Oxytocin 15 Units/NS 250ml 15 UNITS/250 ML IV.SOLN 83 UNITS IV (01:28)
[2023-01-19] MEDS: Oxytocin 10 UNITS/ML Vial IM (01:28)
[2023-01-19] MEDS: Ondansetron 4 MG/2 ML Vial IV (01:31)
--- NOTE | 2023-01-19 01:41 | EX.PCM.OBRPT ---
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 discussed chromosomal testing also. discussed progesterone 1tm support- ordered prometrium (3) : QUALIFIERS: Weeks of gestation: 39 weeks Qualified Code(s): Z3A.39 - 39 weeks gestation of COMMENT: GBS neg, declined ntd genetic & carrier testing. nl anatomy. 12/22 nl growth EFW 3036, 69th% (4) Supervision of high risk , antepartum: COMMENT: PRR , ANT 01/19/23(per [place]), boy Spouse Guerrero (5) Short cervix affecting : COMMENT: D/Glenn at 37 weeks- prometrium 200 mg PV . 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, Glucose testing 2x/day-controlled Maternal Data Information ANT Calculator Estimated Delivery Date Method Current WG Current Estimate 01/17/23 LMP (Certain) 40w 2d Final ANT: 01/17/23 Final ANT Source: LMP Doctor Who Attended Delivery: Leela Puentes Vaginal Delivery Operative Information Date of Procedure: 01/19/23 Pre-Operative Diagnosis: 27 y/o @ 40 weeks 2 days, gestational diabetes, diet controlled Post-Operative Diagnosis: 27 y/o @ 40 weeks 2 days, gestational diabetes, diet controlled, bradycardia, maternal exhaustion Surgery / Procedure Performed: Vacuum Assisted Vaginal Delivery Type of Anesthesia: Epidural Drain: Howe to straight drain Estimated Blood Loss: 400cc Findings Description of Procedure: Details of delivery: This is a[ 27 year old woman who was admitted to labor and delivery for induction of labor at 40 weeks for gestational diabetes. The decision was made to perform a vacuum extraction due to decelerations and maternal exhaustion of pushing for 3 hours. The risk benefits and alternatives of the procedure were discussed with the patient and verbal consent was obtained. The was noted to be at a +2 station, the cervix was completely dilated. The 's head was noted to be in the right occiput posterior presentation. The vacuum was placed in the correct placement in front of the posterior fontanelle. This was confirmed digitally. With the patient's next contraction, the vacuum was inflated and a gentle downward pressure was used to assist with bringing the baby's head to a +3 station. With 3 pull and 3 pop offs. a small right mediolateral episiotomy was performed and the head was repositioned to a LOP and the patient pushed another 4- 5 times. The head was then at a more than +3 station, the vacuum was applied one last time and only pumped to just below the green zone to allow for a light suction. With one last gentle pull, the head was delivered atraumatically. No nuchal cord was noted. The anterior shoulder followed by the posterior shoulder were delivered without difficulty. The was handed off to the patient's chest. The infant was found to be vigorous and crying and moving of all 4 extremities. The mouth and nares were bulb suctioned. After 45 second delay the cord was clamped and cut and the was handed off to the awaiting nurses for routine assessment. The placenta was delivered with gentle traction and uterine massage. Inspection of the vagina cervix and perineum was performed. There were no lacerations to the vagina or to the cervix. The peritoneum was found to have a 2nd degree perineal laceration. The perineal laceration was closed using a 2-0 Vicryl in the usual sterile fashion. The patient tolerated the procedure well sponge lap and needle counts were correct x2 and she is now recovering in stable condition. Presentation: Vertex Amniotic Fluid Description: Clear Placental Delivery Description: Spontaneous Placenta Disposition: [facility] Cord Vessel Description: 3 Vessels Cord Entanglement: None Cord Gases: ABG and VBG Infant A Gender: Male (1 minute): 8 (5 minute): 9 Delayed Cord Clamping: Yes Post Vaginal Delivery Medications Given After Delivery: IV Pitocin and IM Pitocin Episiotomy Description: Right Mediolateral Laceration: 2nd degree Complication Complications: None Multi Select Codes Urinary/Genital Urinary/Genital CPT Codes: 03317 Vaginal Delivery global pkg and Other Procedure See Report (vacuum assisted vaginal delivery )
--- NOTE | 2023-01-19 01:45 | PCM.DC ---
Discharge Instructions Diet Discharge Diet: No restrictions Activity Discharge Activity: Return to Normal Activity May resume sexual activity in: 6-8 weeks Dressing / Incision Call your doctor if you observe: Fever of 101 or Higher, Coldness, Increased Pain, Numbness or Tingling, Change in Color, Inability to urinate, Inability to have a bowel movement, Using more than 1 pad per hour, Shortness of breath, Dizziness, Fainting spells, Swelling in the ankles, Chest pain, Increased palpitations (irregular heartbeat), Calf discomfort and Uncontrolled pain Follow Up Care Please Follow Up With: Margarita Rollins CNM When: Please call the office to schedule your follow up appointment in 6 weeks. If you had high blood pressure please call to schedule an appointment in 2 weeks. Test Results: Test results from this visit will be discussed in further detail at your follow-up appointment, if applicable. Discharge Plan Admission Admit Date/Time: 01/18/23 07:05 Attending Provider: Guadalupe Garcia Primary Care Provider: Margaux Jay NP Discharge Orders/Prescriptions Prescriptions: No Action PNV-DHA 27 mg iron-1 mg -300 mg capsule 1 cap PO DAILY magnesium capsule 1 cap PO/SL DAILY (DME) blood-glucose meter [True Metrix Air Glucose Meter[place] [facility] [place] Inst[place] .ROUTE .MEDSUPPLY Qty: 1 0RF Rx Instructions: As directed (DME) True Metrix Glucose Test Strip Strip See Rx Instructions .ROUTE .MEDSUPPLY Qty: 100 4RF Rx Instructions: As directed Referrals / Follow Up: Margaux Jay NP, AIRCRAFT COMMUNICATOR-[employer] [Primary Care Provider] -
[2023-01-19 02:36] LABS: Bedside Glucose 107 mg/dL (74-106)
[2023-01-19 02:36] LABS: Bedside Glucose 113 mg/dL (74-106)
[2023-01-19 02:36] LABS: Bedside Glucose 111 mg/dL (74-106)
[2023-01-19] MEDS: Ibuprofen 600 MG Tablet PO ×2 (04:29→11:02)
[2023-01-19] MEDS: 0.9% Saline Lock 10 ML Syringe IV (04:29)
[2023-01-19] MEDS: Benzocaine/Lanolin/Aloe Vera 1 SPRAY EACH TOPICAL (04:29)
[2023-01-20 01:35] VITALS: BP 105/49; PULSE 80; RESP 15; TEMP 36.8; O2SAT 97
[2023-01-20 05:12] LABS: Hematocrit 27.4 % (37-47); Hemoglobin 9.2 g/dL (12.0-15.0); Mean Corp Hgb Conc 33.6 g/dL (32-36); Mean Corpuscular Hgb 31.7 pg (27.0-32.0); Mean Corpuscular Volume 94.5 fL (81-99); Mean Platelet Vol. 11.1 fl (6.2-12.0); Platelet Count 144 K/mm3 (150-450); RBC Distribution Width CV 13.4 % (11.6-14.6); White Blood Count 12.1 K/mm3 (4.4-11.0)
[2023-01-20 06:00] LABS: Bedside Glucose 83 mg/dL (74-106)
--- NOTE | 2023-01-20 07:48 | PCM.PN.OB ---
Subjective Subjective Patient doing well without complaints. Tolerating PO. Ambulating and voiding without difficulty. Feeding well. Denies chest pain, shortness of breath, calf pain/swelling, fevers, chills, lightheadedness. Objective Data Objective Data Vital Signs: Vital Signs Temp Pulse Resp BP Pulse Ox O2 Del Method 98.2 F 80 15 105/49 L 97 Room Air 01/20/23 01:35 01/20/23 01:35 01/20/23 01:35 01/20/23 01:35 01/20/23 01:35 01/20/23 01:35 Oxygen Delivery Method Room Air Weight: 227 lb 1.218 oz Body Mass Index (BMI) 38.9 Intake & Output: Intake and Output for Last 24 Hours 01/18/23 01/19/23 01/20/23 23:59 23:59 23:59 Intake Total 1773.68 / 1773.68 1785.83 / 1785.83 Output Total 700 / 700 1500 / 1500 Balance 1073.68 / 1073.68 285.83 / 285.83 Lab / Micro Data Result Diagrams: 01/20/23 05:00 Labs: Laboratory Results - last 24 hr 01/20/23 05:00: WBC 12.1 H, RBC 2.90 L, Hgb 9.2 L, Hct 27.4 L, MCV 94.5, MCH 31.7, MCHC 33.6, RDW Std Deviation 45.0 H, RDW Coeff of Jacqueline 13.4, Plt Count 144 L, MPV 11.1 01/20/23 05:41: POC Glucose 83 Physical Exam Const alert and oriented x3 HEENT normocephalic Eyes PERRL Neck full ROM Resp normal respiratory effort GI soft to palpation GI Narrative: FF below U Assessment & Plan (1) Vacuum extractor delivery, delivered: COMMENT: VAVD 01/19/23 boy Benny MIKE (2) Gestational diabetes: COMMENT: diet controlled PLAN: Plan s/p PPD # 1 1. routine post delivery care 2. breast feeding- support given 3. rh positive 4. rubella immune 5. glucose controlled 6. home today
[2023-01-20] MEDS: Ibuprofen 600 MG Tablet PO (08:04)
[2023-01-20 08:06] VITALS: BP 108/60; PULSE 89; RESP 16; TEMP 36.3; O2SAT 96
[2023-01-20 13:01] VITALS: BP 107/64; PULSE 89; RESP 16; TEMP 36.6; O2SAT 100
== END 2023-01-20 13:45 | disposition home or self-care (01) | DRG 807 ==
PROVIDERS: Advanced Practice Midwife; Admitting Provider Obstetrics & Gynecology; PCP Registered Nurse; Visit Provider Obstetrics & Gynecology
DX: O24.429 Gestational diabetes mellitus in childbirth, unspecified control (principal); Z37.0 Single live birth; O26.23 Pregnancy care for patient with recurrent pregnancy loss, third trimester; O76 Abnormality in fetal heart rate and rhythm complicating labor and delivery; O75.81 Maternal exhaustion complicating labor and delivery; O70.1 Second degree perineal laceration during delivery; Z3A.40 40 weeks gestation of pregnancy
CPT/HCPCS: 59025; 59050; 82962; 85025; 85027; 86780; 86850; 86900; 86901; 99221; J7120; A4216; G0378; J2405

== ENCOUNTER → 2024-11-01 | Outpatient (CLI) | payer SELFPAY ==
[2024-11-02 04:07] LABS: PROGESTERONE 0.1 ng/mL (.)
== END | disposition home or self-care (01) ==
LOC: LAB 08:10
PROVIDERS: Referring Provider Advanced Practice Midwife; Visit Provider Advanced Practice Midwife
DX: N96 Recurrent pregnancy loss (principal)
CPT/HCPCS: 36415; 84144; 84443

== ENCOUNTER → 2024-12-10 | Outpatient (CLI) | payer SELFPAY ==
[2024-12-10 14:18] LABS: hCG Titer Quant., Serum 30 mIU/mL (<9 non-preg)
== END | disposition home or self-care (01) ==
LOC: BWCLAB 11:41
PROVIDERS: Referring Provider Advanced Practice Midwife; Visit Provider Advanced Practice Midwife
DX: O09.299 Supervision of pregnancy with other poor reproductive or obstetric history, unspecified trimester (principal); Z3A.00 Weeks of gestation of pregnancy not specified
CPT/HCPCS: 36415; 84702

== ENCOUNTER → 2024-12-12 | Outpatient (CLI) | payer SELFPAY ==
[2024-12-12 12:46] LABS: hCG Titer Quant., Serum 86 mIU/mL (<9 non-preg)
== END | disposition home or self-care (01) ==
PROVIDERS: Referring Provider Advanced Practice Midwife; Visit Provider Advanced Practice Midwife
DX: O09.299 Supervision of pregnancy with other poor reproductive or obstetric history, unspecified trimester (principal); Z3A.00 Weeks of gestation of pregnancy not specified
CPT/HCPCS: 36415; 84702

== ENCOUNTER → 2024-12-18 | Outpatient (CLI) | payer SELFPAY ==
[2024-12-18 13:37] LABS: hCG Titer Quant., Serum 1470 mIU/mL (<9 non-preg)
== END | disposition home or self-care (01) ==
LOC: BWCLAB 08:16
PROVIDERS: Referring Provider Advanced Practice Midwife; Visit Provider Advanced Practice Midwife
DX: O09.299 Supervision of pregnancy with other poor reproductive or obstetric history, unspecified trimester (principal); N91.2 Amenorrhea, unspecified; Z3A.00 Weeks of gestation of pregnancy not specified; O99.891 Other specified diseases and conditions complicating pregnancy
CPT/HCPCS: 36415; 84702

== ENCOUNTER → 2025-01-23 | Outpatient (CLI) | payer SELFPAY ==
[2025-01-23 12:10] LABS: Absolute Lymphocyte Count 0.62 X10^3/uL (0.83-4.51); Absolute Neutrophil Count 7.5 X10^3/uL (2.0-7.7); Basophil# 0.02 X10^3/uL; Basophil% 0.2 % (0-1); Eosinophil# 0.04 X10^3/uL; Eosinophils% 0.5 % (0-5); Hematocrit 37.8 % (37-47); Hemoglobin 13.4 g/dL (12.0-15.0); Lymphocyte # 0.62 X10^3/ul (0.83-4.51); Lymphocyte % 7.2 % (19-41); Mean Corp Hgb Conc 35.4 g/dL (32-36); Mean Corpuscular Hgb 31.5 pg (27.0-32.0); Mean Corpuscular Volume 88.7 fL (81-99); Mean Platelet Vol. 10.6 fl (6.2-12.0); Monocyte# 0.41 X10^3/uL; Monocyte% 4.8 % (0-10); NRBC Flagged by Analyzer 0 % (0-5); Neutrophil # 7.48 X10^3/uL (2.7-7.7); Platelet Count 227 K/mm3 (150-450); RBC Distribution Width CV 11.5 % (11.6-14.6); RBC Distribution Width SD 36.6 fl (35.1-43.9); Red Blood Count 4.26 M/mm3 (4.2-5.4); White Blood Count 8.6 K/mm3 (4.4-11.0)
[2025-01-23 13:15] LABS: HIV Nonreactive (Nonreactive); Hepatitis B Surface Antigen Nonreactive (Nonreactive); Hepatitis C Antibody Nonreactive (Nonreactive); Rubella IgG REAC (Nonreactive); Syphilis Antibodies Nonreactive (Nonreactive)
[2025-01-25 07:08] LABS: Chlamydia By Nucleic Acid AMP Negative (Negative); Gonococcus By Nucleic Acid AMP Negative (Negative)
[2025-01-25 21:33] LABS: HPV Reflexed? NOT INDICATED
== END | disposition home or self-care (01) ==
PROVIDERS: Referring Provider Obstetrics & Gynecology; Visit Provider Obstetrics & Gynecology
DX: O99.210 Obesity complicating pregnancy, unspecified trimester (principal); Z3A.00 Weeks of gestation of pregnancy not specified
CPT/HCPCS: 36415; 83036; 85025; 86703; 86762; 86780; 86803; 86850; 86900; 86901; 87086; 87340; 87491; 87591; 88175; G0145

== ENCOUNTER → 2025-05-15 | Outpatient (CLI) | payer SELFPAY ==
[2025-05-15 12:21] LABS: Hematocrit 32.5 % (37-47); Hemoglobin 11.5 g/dL (12.0-15.0); Immature Granulocytes Count 0.010 X10^3/uL (0.0-0.0); Mean Corp Hgb Conc 35.4 g/dL (32-36); Mean Corpuscular Volume 90.3 fL (81-99); Mean Platelet Vol. 10.6 fl (6.2-12.0); NRBC Flagged by Analyzer 0 % (0-5); Platelet Count 206 K/mm3 (150-450); RBC Distribution Width CV 12.3 % (11.6-14.6); RBC Distribution Width SD 40.2 fl (35.1-43.9); Red Blood Count 3.60 M/mm3 (4.2-5.4); White Blood Count 6.1 K/mm3 (4.4-11.0)
[2025-05-15 13:34] LABS: Glucose Challenge Gest 1H 50g 158 mg/dL (70-140); HIV Nonreactive (Nonreactive); Syphilis Antibodies Nonreactive (Nonreactive)
== END | disposition home or self-care (01) ==
LOC: BWCLAB 09:27
PROVIDERS: Visit Provider Nurse Practitioner Women's Health
DX: O09.92 Supervision of high risk pregnancy, unspecified, second trimester (principal); Z3A.00 Weeks of gestation of pregnancy not specified
CPT/HCPCS: 36415; 82950; 85025; 86703; 86780

== ENCOUNTER → 2025-07-30 | Outpatient (CLI) | payer SELFPAY ==
--- NOTE | 2025-07-30 08:52 | US_ITS ---
PROCEDURE: OB LIMITED WITH BIOMETRICS 07/30/2025 REASON FOR EXAM: GROWTH US TECHNIQUE: Procedure Code: [id number] Modality: US Procedure: OB LIMITED WITH BIOMETRICS FINDINGS Number: 1 Position: Vertex Placental Position: Anterior and not low-lying Placental Abnormalities: No evidence of previa. DIMENSIONS: Biparietal Diameter: 9.3 cm: 37 weeks and 6 days: 87 percentile/ Head Circumference: 32.8 cm: 36 weeks and 8 days: 37 percentile/ Abdominal Circumference: 33.5 cm: 37 weeks and 3 days: 81 percentile/ Femur Length: 7.3 cm: 37 weeks and 1 day: 60 percentile/ ESTIMATED WEIGHT: 3247 g plus/-487 g ESTIMATED WEIGHT PERCENTILE (24+ weeks): 76 ESTIMATED GESTATIONAL AGE: Baseline: 36 weeks and 5 days By Ultrasound: 37 weeks and 3 days ESTIMATED DATE OF DELIVERY: Baseline: August 22, 2025 By Ultrasound: August 17, 2025 BIOPHYSICAL ASSESSMENT: Amniotic Fluid Volume: 4.3 cm Amniotic Fluid Index: 11.1 cm (8-24 cm normal range) Cardiac Motion: 143 beats per minute (average) Trunk and Limb Motion: Present. MATERNAL ANATOMY: Adnexa: Neither maternal ovary is successfully identified. US/OB Limited With Biometrics IMPRESSION: Single live intrauterine gestation with a mean gestational age of 37 weeks and 3 days. Reading Location: [id number]
== END | disposition home or self-care (01) ==
LOC: OPUS 08:52
PROVIDERS: Referring Provider Advanced Practice Midwife; Visit Provider Advanced Practice Midwife
DX: O09.299 Supervision of pregnancy with other poor reproductive or obstetric history, unspecified trimester (principal); Z86.32 Personal history of gestational diabetes; Z3A.00 Weeks of gestation of pregnancy not specified
CPT/HCPCS: 76816

== ENCOUNTER → 2025-07-30 | Outpatient (CLI) | payer SELFPAY ==
[2025-07-30 12:16] LABS: Hematocrit 33.6 % (37-47); Hemoglobin 12.1 g/dL (12.0-15.0); Immature Granulocytes Count 0.020 X10^3/uL (0.0-0.0); Mean Corp Hgb Conc 36.0 g/dL (32-36); Mean Corpuscular Volume 89.1 fL (81-99); Mean Platelet Vol. 11.0 fl (6.2-12.0); NRBC Flagged by Analyzer 0 % (0-5); Platelet Count 147 K/mm3 (150-450); RBC Distribution Width CV 13.0 % (11.6-14.6); RBC Distribution Width SD 42.5 fl (35.1-43.9); Red Blood Count 3.77 M/mm3 (4.2-5.4); White Blood Count 5.2 K/mm3 (4.4-11.0)
[2025-07-30 12:36] LABS: AST(SGOT) 19 U/L (<=31); Alanine Aminotransfer ALT/SGPT 15 U/L (<=34); Albumin, Serum 3.5 g/dL (3.5-5.0); Alkaline Phosphatase 75 U/L (35-104); Anion Gap 9 (5-15); BUN 10 mg/dL (4-19); BUN/Creat Ratio 14.5 RATIO (10-20); Calcium,Total 8.6 mg/dL (7.6-11.0); Carbon Dioxide 23.8 mmol/L (21.0-32.0); Chloride 105 mmol/L (98-108); Globulin 2.3 g/dL (2.2-4.2); Glucose 112 mg/dL (70-99); Potassium 3.8 mmol/L (3.3-5.1)
== END | disposition home or self-care (01) ==
PROVIDERS: Obstetrics & Gynecology; Referring Provider Obstetrics & Gynecology; Visit Provider Obstetrics & Gynecology
DX: O09.93 Supervision of high risk pregnancy, unspecified, third trimester (principal); I49.8 Other specified cardiac arrhythmias; Z3A.36 36 weeks gestation of pregnancy; O99.413 Diseases of the circulatory system complicating pregnancy, third trimester
CPT/HCPCS: 36415; 80053; 85025; 87081

== ENCOUNTER 2025-08-24 07:12 | Inpatient (IN) | payer SELFPAY ==
[2025-08-24] VITALS (16 sets, daily range): BP systolic 111–140; BP diastolic 56–67; PULSE 64–105; RESP 16; TEMP 36.3–37.1; O2SAT 94–97; BMI 37.0
--- OUTSIDE RECORDS SUMMARY | 2025-08-24 07:05 | XMS RPT_ITS | CCD ---
Author Organization [facility] Care Team Providers Care Server Security Administrator Name Role Phone Haagen REAL ESTATE EXECUTIVE ASSISTANT, REAL ESTATE EXECUTIVE ASSISTANT-C Margaux Primary Care Provider Haagen REAL ESTATE EXECUTIVE ASSISTANT, REAL ESTATE EXECUTIVE ASSISTANT-C Margaux Referring Provider Dr. Paradise Mackey Attending Provider Haagen REAL ESTATE EXECUTIVE ASSISTANT, REAL ESTATE EXECUTIVE ASSISTANT-C Margaux Primary Care Provider [phone] Haagen REAL ESTATE EXECUTIVE ASSISTANT, REAL ESTATE EXECUTIVE ASSISTANT-C Margaux Referring Provider Dr. Paradise Mackey Attending Provider Dr. Guadalupe Garcia Attending Provider Haagen REAL ESTATE EXECUTIVE ASSISTANT, REAL ESTATE EXECUTIVE ASSISTANT-C Margaux Primary Care Provider Haagen REAL ESTATE EXECUTIVE ASSISTANT, REAL ESTATE EXECUTIVE ASSISTANT-C Margaux Referring Provider Dr. Guadalupe Garcia Attending Provider Dr. Paradise Mackey Attending Provider AVIS Hough Attending Provider Shayne REAL ESTATE EXECUTIVE ASSISTANT, REAL ESTATE EXECUTIVE ASSISTANT-C Jessica Attending Provider Haagen REAL ESTATE EXECUTIVE ASSISTANT, REAL ESTATE EXECUTIVE ASSISTANT-C Margaux Primary Care Provider Haagen REAL ESTATE EXECUTIVE ASSISTANT, REAL ESTATE EXECUTIVE ASSISTANT-C Margaux Referring Provider Igor Richardson DO Primary Care Provider Haagen REAL ESTATE EXECUTIVE ASSISTANT, REAL ESTATE EXECUTIVE ASSISTANT-C Margaux Primary Care Provider Haagen REAL ESTATE EXECUTIVE ASSISTANT, REAL ESTATE EXECUTIVE ASSISTANT-C Margaux Referring Provider AVIS Hough Attending Provider Holden REAL ESTATE EXECUTIVE ASSISTANT, REAL ESTATE EXECUTIVE ASSISTANT-C Jessica Attending Provider Dr. Paradise Mackey Attending Provider [phone] AVIS Rollins Attending Provider [phone] Dr. Guadalupe Garcia Attending Provider [phone] AVIS Rollins Admit Provider [phone] AVIS Rollins Referring Provider [phone] AVIS Rollins Other Provider [phone] Guadalupe Garcia Admit Provider Dr. Guadalupe Garcia Other Provider Haagen REAL ESTATE EXECUTIVE ASSISTANT-C, Margaux Primary Care Provider Haagen REAL ESTATE EXECUTIVE ASSISTANT-C, Margaux Referring Provider Margarita Rollins CNM Attending Provider [phone] Care Physician, No Primary Primary Care Provider Unavailable Margarita Rollins CNM Referring Provider [phone] Care Physician, No Primary Referring Provider Un available Dr. Guadalupe Garcia DO Attending Provider Dr. Guadalupe Garcia DO Referring Provider Margarita Rollins CNM Attending Provider [phone] Care Physician, No Primary Primary Care Provider Unavailable Margarita Rollins CNM Attending Provider [phone] Margarita Rollins CNM Referring Provider [phone] Holden REAL ESTATE EXECUTIVE ASSISTANT-CJessica Attending Provider [phone] GUADALUPE OCONNOR Referring Unavailab KACIE Garcia Attending Unavailable NO PRIMARY CARE, Primary Care Unavailable GUADALUPE OCONNOR Referring Unavailab KACIE Garcia Attending Unavailable NO PRIMARY CARE, Primary Care Unavailable GUADALUPE OCONNOR Referring Unavailab le NO PRIMARY CARE, Primary Care Unavailable KRYS STUART Attending Unavailable Care Physician, No Primary Primary Care Provider Unavailable Margarita Rollins CNM Attending Provider [phone] Margarita Rollins CNM Referring Provider [phone] Dr. Paradise Mackey MD Attending Provider Care Physician, No Primary Primary Care Provider Unavailable Margarita Rollins CNM Attending Provider [phone] Care Physician, No Primary Primary Care Physicia n Unavailable Care Physician, No Primary Referring Provider Un available Margarita Rollins CNM Attending Physician [phone] Shayne KNIGHT-CJessica Attending Physician [phone] Key ALLEN, Dr. Ghotra Attending Physician Care Physician, No Primary Primary Care Physicia n Unavailable Care Physician, No Primary Referring Provider Un available Yuly Reyes DO, Dr. Butcher Attending Physician Care Physician, No Primary Primary Care Physicia n Unavailable Care Physician, No Primary Referring Provider Un available Jessica Mitchell Attending Physician [phone] Margarita Rollins CNM Attending Physician [phone] Care Physician, No Primary Primary Care Unava ilable Care Physician, No Primary Referring Unava ilable Paradise Mackey Attending Unavailable Guadalupe Garcia Attending Unavailabl e Care Physician, No Primary Primary Care Unava ilable Care Physician, No Primary Referring Unava ilable Guadalupe Garcia Attending Unavailabl e Care Physician, No Primary Primary Care Unava ilable Care Physician, No Primary Referring Unava ilable Care Physician, No Primary Primary Care Unava ilable Margarita Rollins Referring Unavailable Margarita Rollins Attending Unavailable Care Physician, No Primary Primary Care Unava ilable Care Physician, No Primary Referring Unava ilable Margarita Rollins Attending Unavailable Care Physician, No Primary Primary Care Unava ilable Margarita Rollins Referring Unavailable Margarita Rollins Attending Unavailable Guadalupe Garcia Referring Unavailabl e Guadalupe Garcia Attending Unavailabl e Care Physician, No Primary Primary Care Unava ilable Jessica Bella NP Attending Unavailable Care Physician, No Primary Primary Care Unava ilable Paradise Mackey Attending Unavailable Paradise Mackey Admitting Unavailable Care Physician, No Primary Primary Care Unava ilable Care Physician, No Primary Primary Care Unava ilable Margarita Rollins Referring Unavailable Margarita Rollins Attending Unavailable Care Physician, No Primary Primary Care Unava ilable Praadise Mackey Referring Unavailable Paradise Mackey Attending Unavailable Care Physician, No Primary Primary Care Unava ilable Margarita Rollins Referring Unavailable Margarita Rollins Attending Unavailable Haagen REAL ESTATE EXECUTIVE ASSISTANT, Margaux Referring Unavailable Pierre REAL ESTATE EXECUTIVE ASSISTANT, Margaux Primary Care Unavailable Margarita Rollins Attending Unavailable Care Physician, No Primary Referring Unava ilable Guadalupe Garcia Attending Unavailabl e Care Physician, No Primary Primary Care Unava ilable Care Physician, No Primary Referring Unava ilable Care Physician, No Primary Primary Care Unava ilable Margarita Rollins Attending Unavailable Care Physician, No Primary Referring Unava ilable Shayne REAL ESTATE EXECUTIVE ASSISTANT, Jessica Attending Unavailable Care Physician, No Primary Primary Care Unava ilable Care Physician, No Primary Referring Unava ilable Care Physician, No Primary Primary Care Unava ilable Paradise Mackey Attending Unavailable Marcanthony, Paradise Attending Unavailable Care Physician, No Primary Referring Unava ilable Care Physician, No Primary Primary Care Unava ilable Care Physician, No Primary Referring Unava ilable Shayne REAL ESTATE EXECUTIVE ASSISTANT, Jessica Attending Unavailable Care Physician, No Primary Primary Care Unava ilable Care Physician, No Primary Primary Care Unava ilable Margarita Rollins Attending Unavailable Care Physician, No Primary Referring Unava ilable Care Physician, No Primary Primary Care Unava ilable Margariat Rollins Referring Unavailable Margarita Rollins Attending Unavailable Allergies Allergy Classification Reported Allergen(s) Allergy Type Date of Onset Reaction(s) Facility (2 sources) Amoxicillin / Clavulanate; Translations: [AMOXICILLIN-POT CLAVULANATE] Drug Allergy 09-04-2005 Rash [facility] Medications Current Medications Medication Drug Class(es) Dates Sig (Normalized) Sig (Original) doxylamine succinate 25 mg oral tablet (9 sources) Start: 01-10-2025 take 1 tablet by mouth at bedtime as needed Magnesium (13 sources) Start: 01-18-2023 Start: 01-18-2023 magnesium caps ule Active 1 NMA SL/PO DAILY January 18, 2023 12:00am leg cramps Complies with drug therapy Start: 01-18-2023 magnesium caps ule Active 1 NMA SL/PO DAILY January 18, 2023 12:00am leg cramps Start: 01-18-2023 magnesium caps ule Active 1 NMA SL/PO DAILY January 18, 2023 12:00am Start: 01-18-2023 take 1 capsule by [facility] once daily magnesium Active 1 CAP SL/PO DAILY January 18, 2023 12:00am Multivit 49-Dxlx-Wbkhrq 1-Dh a (Pnv-Dha) 27 mg iron-1 mg -300 mg capsule (20 sources) Start: 06-11-2022 Start: 06-11-2022 Multivit 47-Ir on-Folate 1-Dha (Pnv-Dha) 27 mg iron-1 mg -300 mg capsule Active 1 NMA PO DAILY June 11, 2022 12:00am Check with primary doctor Complies with drug therapy Start: 06-11-2022 Multivit 47-Ir on-Folate 1-Dha (Pnv-Dha) 27 mg iron-1 mg -300 mg capsule Active 1 NMA PO DAILY June 11, 2022 12:00am Check with primary doctor Start: 06-11-2022 Multivit 47-Ir on-Folate 1-Dha (Pnv-Dha) 27 mg iron-1 mg -300 mg capsule Active 1 NMA PO DAILY June 11, 2022 12:00am Start: 06-11-2022 take 1 capsule by mo uth once daily Multivit 51-Vnlh-Rucewo 1-Dha (Pnv-Dha) 27 mg iron-1 mg -300 mg capsule Active 1 CAP PO DAILY June 11, 2022 12:00am Start: 06-11-2022 Multivit 47-Ir on-Folate 1-Dha (Pnv-Dha) 27 mg iron-1 mg -300 mg capsule Active CAP PO June 10, 2022 11:00pm Start: 06-11-2022 Multivit 47-Ir on-Folate 1-Dha (Pnv-Dha) 27 mg iron-1 mg -300 mg capsule Active CAP PO June 11, 2022 12:00am progesterone 200 mg oral cap enma (20 sources) Progesterone Start: 12-10-2024 End: 04-01-2025 Start: 02-12-2022 End: 12-28-2022 Progesterone Micronized 200 mg capsule Discontinued 200 mg VAGINAL AT BEDTIME 30 30 3 February 12, 2022 12:00am December 28, 2022 8:39am continue until 10 weeks vitamin b6 10 mg oral tablet (9 sources) Start: 01-10-2025 take 1 tablet by mouth once da nain Completed/Discontinued Medications Medication Drug Class(es) Dates Sig (Normalized) Sig (Original) Blood-Glucose Meter (True Metrix Air Glucose Meter) misc (17 sources) Start: 11-15-2022 End: 01-10-2025 Blood-Glucose Meter (True Metrix Air Glucose Meter) misc Discontinued 0 .ROUTE .MEDSUPPLY 1 0 November 15, 2022 1:00am January 10, 2025 11:28am As directed Start: 11-15-2022 End: 01-10-2025 Blood-Glucose Meter (True Me trix Air Glucose Meter) misc Discontinued 0 .ROUTE .MEDSUPPLY November 15, 2022 1:00am January 10, 2025 11:28am As directed Start: 11-15-2022 Blood-Glucose Meter (True Metrix Air Glucose Meter) misc Active 0 .ROUTE .MEDSUPPLY 1 November 15, 2022 1:00am As directed Start: 11-15-2022 Blood-Glucose Meter (True Metrix Air Glucose Meter) misc Active 0 .ROUTE .MEDSUPPLY November 15, 2022 12:00am As directed docosahexaenoic acid 200 mg oral capsule (20 sources) Start: 01-14-2022 End: 06-11-2022 Docosahexaenoic Acid ( Dha) 200 mg capsule Discontinued mg PO January 14, 2022 12:00am June 11, 2022 9:04am letrozole 2.5 mg oral tablet (20 sources) Aromatase Inhibitor Start: 11-02-2024 End: 11-07-2024 Letrozole 2.5 mg tablet Discontinued 2.5 mg PO DAILY 5 5 0 November 02, 2024 1:00am November 06, 2024 1:00am November 07, 2024 1:10am Polycystic ovary syndrome Infertility Polycystic ovarian syndrome begin between days 3 and 7 of menstrual cycle Start: 11-02-2021 End: 01-14-2022 take 1 tablet by mouth once daily Letrozole 2.5 mg tablet Discontinued 5 mg PO daily 10 November 02, 2021 1:00am January 14, 2022 12:21pm take daily cycle day 3-7 Start: 11-02-2021 End: 01-14-2022 take 5 mg by mouth once daily Letrozole Discontinued 5 MG PO daily November 02, 2021 1:00am January 14, 2022 12:21pm take daily cycle day 3-7 Start: 11-02-2021 End: 01-14-2022 Letrozole Discontinued 7.5 M G PO daily 15 5 November 02, 2021 1:00am January 14, 2022 12:21pm take one daily cycle day 3-7 Start: 05-25-2021 End: 06-19-2021 take 5 mg by mouth once daily Letrozole Discontinued 5 MG PO DAILY 10 May 25, 2021 11:47am June 19, 2021 9:15am Take cycle days 3-7 Start: 04-21-2021 End: 06-19-2021 take 1 tablet by mouth once daily Letrozole 2.5 mg tablet Discontinued 5 mg PO DAILY 10 0 May 25, 2021 11:47am June 19, 2021 9:15am Take cycle days 3-7 medroxyPROGESTERone acetate 5 mg oral tablet (20 sources) Progestin Start: 10-19-2024 End: 01-10-2025 Medroxyprogesterone (Provera) 5 mg tablet Discontinued 10 mg PO DAILY 10 5 October 19, 2024 1:00am January 10, 2025 11:02am Abnormal uterine bleeding Abnormal uterine and vaginal bleeding, unspecified 2 tabs daily for 5 days. if neg preg test and no menses in 35-40 days. Start: 02-12-2022 End: 06-11-2022 Medroxyprogesterone (Provera ) 10 mg tablet Discontinued 10 mg PO daily 5 February 12, 2022 12:00am June 11, 2022 9:03am take for five days if neg preg test and no menses after 35-40 days Start: 11-02-2021 End: 01-14-2022 Medroxyprogesterone (Provera ) 10 mg tablet Discontinued 10 mg PO daily 5 November 02, 2021 1:00am January 14, 2022 12:21pm take for five days if neg preg test and no menses after 35-40 days Start: 11-10-2020 End: 06-19-2021 take 1 tablet by mouth once daily Medroxyprogesterone 10 mg tablet Discontinued 10 mg PO daily 10 10 4 March 18, 2021 12:00am June 19, 2021 9:15am Comment on above: Take 1 tablet by stan once daily. methylPREDNISolone 4 mg oral tablet (12 sources) Corticosteroid Start: 2023 End: 2023 take 1 tablet by mouth once Methylprednisolone (Medrol (Lang)) 4 mg tablets,dose pack Discontinued 4 mg PO per package directions 21 6 0 January 26, 2024 12:00am January 31, 2024 12:00am February 01, 2024 12:06am Problems Active Problems Problem Classification Problem Date Documented Date Episodic/Chronic Acute bronchitis (12 sources) Acute bronchitis; Translations: [Acute bronchitis, unspecified] 01-27-2024 Episodic Cardiac dysrhythmias (2 sources) Other specified cardiac arrhythmias; Translations: [Other specified cardiac arrhythmias] Onset: 07-30-2025 Chronic Diabetes mellitus without complication (20 sources) Abnormal glucose level; Translations: [Other abnormal glucose] Episodic Comment on above: 3 Hr GTT, 07/20 nl G TT; 3 hr GTT for trim: Diabetes or abnormal glucose tolerance complicating ; childbirth; or the puerperium (20 sources) Gestational diabetes mellitus; Translations: [Gestational diabetes mellitus in , unspecified control] Onset: 07-30-2025 11-15-2022 Episodic Comment on above: diet controlled Ectopic (20 sources) Ectopic ; Translations: [Unspecified ectopic without intrauterine ] Episodic Comment on above: MTX- 01/19, day 0-325 , d4-214 , d7- Headache; including migraine (1 source) Migraine; Translations: [Migraine, unspecified, not intractable, without status migrainosus] Onset: 10-13-2015 10-13-2015 Chronic Menstrual disorders (20 sources) Amenorrhea; Translations: [Amenorrhea, unspecified] 06-19-2021 Chronic Other complications of ; puerperium affecting management of mother (13 sources) Vacuum extractor delivery - delivered; Translations: [Complication of labor and delivery, unspecified] 01-20-2023 Episodic Comment on above: VAVD 01/19/23 boy Srinivas MIKE Other complications of ; puerperium affecting management of mother (1 source) Complication of labor and delivery, unspecified; Translations: [Forceps or vacuum extractor delivery without mention of indication, delivered, with or without mention of antepartum condition] 01-20-2023 Episodic Other complications of (20 sources) Maternal obesity complicating , childbirth and the puerperium, antepartum; Translations: [Obesity complicating , unspecified trimester] 01-10-2025 Chronic Comment on above: BMI 32.6% Other complications of (1 source) Obesity complicating , second trimester; Translations: [Obesity complicating , second trimester] Onset: 07-30-2025 Chronic Other complications of (1 source) Obesity complicating , unspecified trimester; Translations: [Obesity complicating , unspecified trimester] Onset: 03-27-2025 Chronic Other complications of (20 sources) High risk ; Translations: [Supervision of high risk , unspecified, unspecified trimester] 07-22-2022 Episodic Comment on above: PRR , ANT 01/19/ 3(per US), boy Spouse Guerrero , ANT 08/22/25, PC Benny Guerrero PRR , ANT ,boy PC Benny Guerrero Other complications of (20 sources) Short cervical length in ; Translations: [Cervical shortening, unspecified trimester] 09-08-2022 Episodic Comment on above: D/Glenn at 37 weeks- p rometrium 200 mg PV . with last preg- prom etrium 200 mg PV .mfm scan ordered for 16 weeks with last preg- prom etrium 200 mg PV .mfm scan ordered for 16 weeks:40mm with last preg- prom etrium 200 mg PV/causes her to cramp and would like to DC after anatomy scan if CX stablemfm scan ordered for 16 weeks:40mm; Anatomy US:42mm. Patient has elected to cont vag progesterone due to hx. Other complications of (20 sources) Cervical shortening, unspecified trimester; Translations: [Cervical shortening, unspecified as to episode of care or not applicable] Onset: 07-30-2025 09-22-2022 Episodic Other complications of (20 sources) History of gynecological disorder; Translations: [Supervision of with other poor reproductive or obstetric history, unspecified trimester] 01-10-2025 Episodic Other complications of (11 sources) History of gestational diabetes mellitus; Translations: [Supervision of with other poor reproductive or obstetric history, unspecified trimester] 05-15-2025 Episodic Comment on above: If abnormal 1 hr glu cose, she prefers to do QID testing and defer 3 hr GTT If abnormal 1 hr glu cose, she prefers to do QID testing and defer 3 hr GTTFailed 1 hr: will do QID BS testing. Decline chemical process project engineer consult Other complications of (2 sources) Supervision of with other poor reproductive or obstetric history, unspecified trimester; Translations: [Supervision of with other poor reproductive or obstetric history, unspecified trimester] Onset: 07-30-2025 Episodic Other complications of (1 source) Supervision of high risk , unspecified, second trimester; Translations: [Supervision of high risk , unspecified, second trimester] Onset: 07-30-2025 Episodic Other endocrine disorders (20 sources) Polycystic ovary syndrome; Translations: [Polycystic ovarian syndrome] 06-18-2022 Chronic Comment on above: conceived cycle 1 fe andreia 2.5, plan 5 mg x 1 cycle, 7.5 x 3 cycles. day 21 progesterone this 5mg cycle to confirm ovulation. fasting labs also ordered. Other endocrine disorders (19 sources) Polycystic ovarian syndrome; Translations: [Polycystic ovaries] Chronic Other female genital disorders (1 source) Abnormal uterine and vaginal bleeding, unspecified; Translations: [Abnormal uterine and vaginal bleeding, unspecified] Onset: 10-19-2024 Chronic Other female genital disorders (20 sources) Recurrent loss; Translations: [Recurrent loss without current ] Onset: 07-30-2025 Episodic Comment on above: APL negative. discus sed chromosomal testing also. discussed progesterone 1tm support- ordered prometrium Residual codes; unclassified (20 sources) H/O: miscarriage; Translations: [Personal history of other complications of , childbirth and the puerperium] 02-12-2022 Episodic Comment on above: plan serial HCGs nex t Residual codes; unclassified (16 sources) Infertile 06-18-2022 Episodic Comment on above: s/p femara Residual codes; unclassified (20 sources) H/O: ectopic ; Translations: [Personal history of other complications of , childbirth and the puerperium] 01-10-2025 Episodic Residual codes; unclassified (1 source) Personal history of other complications of , childbirth and the puerperium; Translations: [Personal history of other complications of , childbirth and the puerperium] Onset: 07-30-2025 Episodic Residual codes; unclassified (1 source) 36 weeks gestation of ; Translations: [36 weeks gestation of ] Onset: 07-30-2025 Episodic Residual codes; unclassified (1 source) 35 weeks gestation of ; Translations: [35 weeks gestation of ] Onset: 07-23-2025 Episodic Residual codes; unclassified (1 source) 33 weeks gestation of ; Translations: [33 weeks gestation of ] Onset: 07-08-2025 Episodic Residual codes; unclassified (1 source) 25 weeks gestation of ; Translations: [25 weeks gestation of ] Onset: 05-15-2025 Episodic Residual codes; unclassified (1 source) 21 weeks gestation of ; Translations: [21 weeks gestation of ] Onset: 05-10-2025 Episodic Spontaneous (20 sources) Miscarriage; Translations: [Complete or unspecified spontaneous without complication] Episodic Comment on above: follow hcg levels, n eeds to repeat tuesday due to abnormal values, discussed methotrexate versus exp management Unclassified (20 sources) Infertile; Translations: [Infertility] Past or Other Problems Problem Classification Problem Date Documented Da te Episodic/Chronic Other complications of (20 sources) Supervision of high risk , unspecified, unspecified trimester; Translations: [Supervision of unspecified high-risk ] Onset: 01-23-2025 Episodic Other and delivery including normal (20 sources) Normal ; Translations: [Encounter for supervision of normal first , unspecified trimester] Onset: 01-23-2025 Episodic Comment on above: ANT: 02/08/22 Sp ouse: Guerrero discussed carrier, g enetic and NTD GBS neg, declined nt d genetic & carrier testing. nl anatomy. 12/22 nl growth EFW 3036, 69th% NIPT w gender & flores ier - declines NIPT w gender & flores ier - declinesOn US incomplete visual of nose but states palate, lips profile ok. Patient elects not to rpt US for nose. Results Test Name Value Interpretation Reference Range Facility Airline Hostess Office Visit Reporton 08-06-2025 Airline Hostess Office Visit Report [facility] [address], [address] [place] [address] OFFICE VISIT Date of Service: 08/06/25 MR#: [id number] Acct: [id number] Name: JENNY IBARRA Rep #: [id number] : 1995 Provider: AVIS Doe ams Age/Sex: 29/F Location: [facility] [place] Status: Signed Intake Vital Signs 06/12/25 09:27 07/30/25 08:27 08/06/25 10:21 08/06/25 10:22 Height 5 ft 4 in 5 ft 4 in 5 ft 4 in 5 ft 4 in Weight: 219 lb 2 oz BMI 37.5 BP 113/71 Intake Visit Reasons: 37w 5d ob Property Maintenance Technician Required: No Is patient in pain?: No Allergies No Known Allergies Allergy (Verified 08/06/25 10:21) Medications ???Medication ???Instructions ???Recorded ???Confirmed ???Type multivitamin no.47-iron fum 27 1 cap PO DAILY Check with primary 06/11/22 08/06/25 History mg-folate no.1 1 mg-dha 300 mg doctor capsule (PNV-DHA) magnesium 1 cap PO/SL DAILY leg cramps 01/1808/06/25 History doxylamine succinate 25 mg tablet 25 mg PO QHS PRN 01/10/25 5 History (Unisom (doxylamine)) pyridoxine (vitamin B6) 10 mg 10 mg PO QDAY 01/10/25 08/06/25 Hi story tablet Last Menstrual Period: 10/08/24 Zika: Zika virus screening: Negative : No PFSH PFSH Medical History Short cervix affecting History of miscarriage, currently Gestational diabetes Infertility Vacuum extractor delivery, delivered care and examination Acute bronchitis Gestational diabetes PCOS (polycystic ovarian syndrome) Surgical History History of surgery Family History Father Cancer mouth/throat Social History adopted: No household members: spouse and children housing: house number of children: 1 current occupational status: employed current occupation: [employer] current occupational exposures/hazards: No pets and animals: Yes pets and animals: dog(s) history of recent travel: No sexually active: Yes Smoking Status: Never smoker alcohol intake: former details: not while pregnany, social only substance use type: does not use well-balanced diet: about half the time caffeine: No eating out: 1-3 times/week during the past year weight has: remained stable what type of physical activity do you participate in: walking frequency: 1-2 times per week duration: 15-30 minutes/day keturah/baptist: Uatsdin seatbelt use: always do you feel safe at home: Yes additional social history: - Guerrero, Faithful Juliet Fay History 4 Elective abortions Hx Para 1 Spontaneous abortions 1 Hx # Term Pregnancies Ectopic pregnancies 1 Hx # Pregnancies Multiple births # of living children 1 Past Pregnancies Del. Date Name GA/Weeks Outcome Route Bth Weight Infant Gen Labor Lgth Anesthesia Del Locatn Provider FOB Unknown ectopic Unknown spontaneous 01/19/23 Benny 40 live - full term Male [facility] Dr. Alma Delia Masters Delivery Date: 01/19/23 Last Updated by: Anitha Cook Shortened cervix, gestational diabetes HPI 37w 5d ob Details: JENNY IBARRA is a 29 year old who presents for routine OB visit. OB Visit ANT Calculator Estimated Delivery Date Method Current WG Current Estimate 08/22/25 Ultrasound #1 37w 5d Other Estimates 07/15/25 LMP (Uncertain) 43w 1d Expected Delivery Route/Plan Labor Preferences- CB/BF classes:no labor support person: Guerrero labor intervention preferences: [] pain management options preferred: epidural if requested cut cord/dad catch: yes : yes PP control planned: discussed discussed possible routes of delivery and associated risks: [] special requests: [] Specific Issue/Plans Covid status: [] Flu vaccine: declined Tdap vaccine: declined Rhogam: na LARC form signed: yes movement and labor precautions reviewed. Problem list reviewed and updated with the most current plan of care details and appropriate orders placed. Relevant counseling for the gestational age provided. Continue routine care and follow up unless otherwise noted in visit notes/problem list details Initial Weight: Not Recorded Date -???-???-???-???-???-?? ?-???-???-???-???-???-? ??- EGA Weight BP Urine Prot -???-???-???-???-???-?? ?-???-???-???-???-???-? ??- Glucose FHR FuHt Pres Dilation -???-???-???-???-???-?? ?-???-???-???-???-???-? ??- Effaced St Visit Note 01/23/25 -???-???-???-???-???-?? ?-???-???-???-???-???-? ??- 9w 6d 201 lb 4 oz 122/77 -???-???-???-???-???-?? ?-???-? (more content not included)... Normal [facility] Rule out Beta Strep (Grp. B) on 08-01-2025 ABILIO Group B Beta Streptococcus is not isolated. Normal [facility] Comment on above: Performed By: #### M 100.3400 ####[facility] [address] [place], [address] CBC W/Diff, Automatedon 11-0 Absolute Lymph 1.30 X10 3/uL Normal 0.83-4.51 [facility] Comment on above: Performed By: #### L 100.0100, L500.4050 ####[facility] [address] [place], [address] Absolute Neut 3.4 X10 3/uL Normal 2.0-7.7 [facility] Comment on above: Performed By: #### L 100.0100, L500.4050 ####[facility] [address] [place], [address] Basophils/100 WBC (Bld) 0.6 % Normal 0-1 [facility] Comment on above: Performed By: #### L 100.0100, L500.4050 ####[facility] [address] [place], [address] Eosinophils/100 WBC (Bld) 1.9 % Normal 0-5 [facility] Comment on above: Performed By: #### L 100.0100, L500.4050 ####[facility] [address] [place], [address] Erythrocyte distribution width (RBC) [Ratio] 13.0 % Normal 11.6-14.6 [facility] Comment on above: Performed By: #### L 100.0100, L500.4050 ####[facility] [address] [place], [address] Hematocrit (Bld) [Volume fraction] 33.6 % Low 37-47 [facility] Comment on above: Performed By: #### L 100.0100, L500.4050 ####[facility] [address] [place], [address] Hemoglobin (Bld) [Mass/Vol] 12.1 g/dL Normal 12.0-15.0 [facility] Comment on above: Performed By: #### L 100.0100, L500.4050 ####[facility] [address] [place], [address] IG% 0.400 Normal 0.0-0.9 [facility] Comment on above: Result Comment: IG% - Immature Granulocytes (promyelocytes, myelocytes and metamyelocytes) > 1% indicates that a LEFT SHIFT is Present. Performed By: #### L 100.0100, L500.4050 ####[facility] [address] [place], [address] Lymphocytes/100 WBC (Bld) 25.1 % Normal 19-41 [facility] Comment on above: Performed By: #### L 100.0100, L500.4050 ####[facility] [address] [place], [address] MCH (RBC) [Entitic mass] 32.1 pg High 27.0-32.0 [facility] Comment on above: Performed By: #### L 100.0100, L500.4050 ####[facility] [address] [place], [address] MCHC (RBC) [Mass/Vol] 36.0 g/dL Normal 32-36 [facility] Comment on above: Performed By: #### L 100.0100, L500.4050 ####[facility] [address] [place], [address] MCV (RBC) [Entitic vol] 89.1 fL Normal 81-99 [facility] Comment on above: Performed By: #### L 100.0100, L500.4050 ####[facility] [address] [place], [address] Monocytes/100 WBC (Bld) 5.4 % Normal 0-10 [facility] Comment on above: Performed By: #### L 100.0100, L500.4050 ####[facility] [address] [place], [address] Neutrophils/100 WBC (Bld) 66.6 % Normal 47-70 [facility] Comment on above: Performed By: #### L 100.0100, L500.4050 ####[facility] [address] [place], [address] Nucleated RBC (Bld) [#/Vol] 0 10*3/uL Normal 0-5 [facility] Comment on above: Performed By: #### L 100.0100, L500.4050 ####[facility] [address] [place], [address] Platelet mean volume (Bld) [Entitic vol] 11.0 fL Normal 6.2-12.0 [facility] Comment on above: Performed By: #### L 100.0100, L500.4050 ####[facility] [address] [place], [address] Platelets (Bld) [#/Vol] 147 10*3/uL Low 150-450 [facility] Comment on above: Performed By: #### L 100.0100, L500.4050 ####[facility] [address] [place], [address] RBC (Bld) [#/Vol] 3.77 10*6/uL Low 4.2-5.4 [facility] Comment on above: Performed By: #### L 100.0100, L500.4050 ####[facility] [address] [place], [address] RDW SD 42.5 fl Normal 35.1-43.9 [facility] Comment on above: Performed By: #### L 100.0100, L500.4050 ####[facility] [address] [place], [address] WBC (Bld) [#/Vol] 5.2 10*3/uL Normal 4.4-11.0 [facility] Comment on above: Performed By: #### L 100.0100, L500.4050 ####[facility] [address] [place], [address] Comprehensive Metabolic Prof ilon 07-30-2025 Albumin [Mass/Vol] 3.5 g/dL Normal 3.5-5.0 [facility] Comment on above: Performed By: #### L 100.0100, L500.4050 ####[facility] [address] [place], [address] Albumin/Globulin [Mass ratio] 1.6 {ratio} Normal 0.9-2.4 [facility] Comment on above: Performed By: #### L 100.0100, L500.4050 ####[facility] [address] [place], [address] ALK PHOS 75 U/L Normal 35-104 [facility] Comment on above: Performed By: #### L 100.0100, L500.4050 ####[facility] [address] [place], [address] ALT [Catalytic activity/Vol] 15 U/L Normal <=34 [facility] Comment on above: Performed By: #### L 100.0100, L500.4050 ####[facility] [address] [place], [address] AST [Catalytic activity/Vol] 19 U/L Normal <=31 [facility] Comment on above: Performed By: #### L 100.0100, L500.4050 ####[facility] [address] [place], [address] Bilirubin [Mass/Vol] 0.30 mg/dL Normal 0.00-1.30 [facility] Comment on above: Performed By: #### L 100.0100, L500.4050 ####[facility] [address] [place], [address] BUN/CRE 14.5 RATIO Normal 10-20 [facility] Comment on above: Performed By: #### L 100.0100, L500.4050 ####[facility] [address] [place], [address] Calcium [Mass/Vol] 8.6 mg/dL Normal 7.6-11.0 [facility] Comment on above: Performed By: #### L 100.0100, L500.4050 ####[facility] [address] [place], [address] Chloride [Moles/Vol] 105 mmol/L Normal 98-108 [facility] Comment on above: Performed By: #### L 100.0100, L500.4050 ####[facility] [address] [place], [address] CO2 [Moles/Vol] 23.8 mmol/L Normal 21.0-32.0 [facility] Comment on above: Performed By: #### L 100.0100, L500.4050 ####[facility] [address] [place], [address] Creatinine [Mass/Vol] 0.66 mg/dL Low 0.70-1.20 [facility] Comment on above: Performed By: #### L 100.0100, L500.4050 ####[facility] [address] [place], [address] GAP 9 Normal 5-15 [facility] Comment on above: Performed By: #### L 100.0100, L500.4050 ####[facility] [address] [place], [address] GFR/1.73 sq M.predicted among non-blacks MDRD (S/P/Bld) [Vol rate/Area] 122 mL/min/{1.73_m2} Normal >60 [facility] Comment on above: Result Comment: mL/m in/1.73m2 CKD-EPI Creatinine Equation (2020) Performed By: #### L 100.0100, L500.4050 ####[facility] [address] [place], [address] Globulin (S) [Mass/Vol] 2.3 g/dL Normal 2.2-4.2 [facility] Comment on above: Performed By: #### L 100.0100, L500.4050 ####[facility] [address] [place], [address] Glucose [Mass/Vol] 112 mg/dL High 70-99 [facility] Comment on above: Performed By: #### L 100.0100, L500.4050 ####[facility] [address] [place], [address] Potassium [Moles/Vol] 3.8 mmol/L Normal 3.3-5.1 [facility] Comment on above: Performed By: #### L 100.0100, L500.4050 ####[facility] [address] [place], [address] Sodium [Moles/Vol] 138 mmol/L Normal 133-145 [facility] Comment on above: Performed By: #### L 100.0100, L500.4050 ####[facility] [address] [place], [address] T PROT 5.7 g/dL Low 5.9-8.4 [facility] Comment on above: Performed By: #### L 100.0100, L500.4050 ####[facility] [address] [place], [address] Urea nitrogen [Mass/Vol] 10 mg/dL Normal 4-19 [facility] Comment on above: Performed By: #### L 100.0100, L500.4050 ####[facility] [address] [place], [address] OB Limited With Biometricson 07-30-2025 OB Limited With Biometrics [facility] [address] [place] [address] OB Limited With Biometrics MR#: [id number] Acct: [id number] Name: JENNY IBARRA Rep #: [id number] : 1995 F 29 From: Julio Cesar benitez MD PCP: Care Physician,No Primary Status: REG CLI Study: OB Limited With Biometrics Date of Exam: 07/30 Exam# [id number] Ordering Dr: Margarita Rollins CNM PROCEDURE: OB LIMITED WITH BIOMETRICS 07/30/2025 REASON FOR EXAM: GROWTH US TECHNIQUE: Procedure Code: USOBGROWTH Modality: US Procedure: OB LIMITED WITH BIOMETRICS FINDINGS Number: 1 Position: Vertex Placental Position: Anterior and not low-lying Placental Abnormalities: No evidence of previa. DIMENSIONS: Biparietal Diameter: 9.3 cm: 37 weeks and 6 days: 87 percentile/ Head Circumference: 32.8 cm: 36 weeks and 8 days: 37 percentile/ Abdominal Circumference: 33.5 cm: 37 weeks and 3 days: 81 percentile/ Femur Length: 7.3 cm: 37 weeks and 1 day: 60 percentile/ ESTIMATED WEIGHT: 3247 g plus/-487 g ESTIMATED WEIGHT PERCENTILE (24+ weeks): 76 ESTIMATED GESTATIONAL AGE: Baseline: 36 weeks and 5 days By Ultrasound: 37 weeks and 3 days ESTIMATED DATE OF DELIVERY: Baseline: August 22, 2025 By Ultrasound: 2025 BIOPHYSICAL ASSESSMENT: Amniotic Fluid Volume: 4.3 cm Amniotic Fluid Index: 11.1 cm (8-24 cm normal range) Cardiac Motion: 143 beats per minute (average) Trunk and Limb Motion: Present. MATERNAL ANATOMY: Adnexa: Neither maternal ovary is successfully identified. US/OB Limited With Biometrics IMPRESSION: Single live intrauterine gestation with a mean gestational age of 37 weeks and 3 days. Reading Location: [facility] CC: AVIS Rollins; No Primary Care Physician Back Up Machine Operator: Signed Normal [facility] Airline Hostess Office Visit Reporton 07-30-2025 Airline Hostess Office Visit Report [facility]'s [address], [address] [place] [address] OFFICE VISIT Date of Service: 07/30/25 MR#: [id number] Acct: [id number] Name: JENNY IBARRA Rep #: [id number] : 1995 Provider: Dr. Guadalupe Jarvis DO Age/Sex: 29/F Location: [facility] [place] Status: Signed Intake Vital Signs 06/12/25 09:27 07/23/25 14:05 07/30/25 08:27 Height 5 ft 4 in 5 ft 4 in 5 ft 4 in Weight: 218 lb 3 oz BMI 37.4 BP 116/69 Intake Visit Reasons: 36w 5 d ob Chief Complaint: 36wk OB Property Maintenance Technician Required: No Is patient in pain?: No Allergies No Known Allergies Allergy (Verified 07/30/25 08:30) Medications ???Medication ???Instructions ???Recorded ???Confirmed ???Type multivitamin no.47-iron fum 27 1 cap PO DAILY Check with primary 06/11/22 07/30/25 History mg-folate no.1 1 mg-dha 300 mg doctor capsule (PNV-DHA) magnesium 1 cap PO/SL DAILY leg cramps 01/1807/30/25 History doxylamine succinate 25 mg tablet 25 mg PO QHS PRN 01/10/25 5 History (Unisom (doxylamine)) pyridoxine (vitamin B6) 10 mg 10 mg PO QDAY 01/10/25 07/30/25 Hi story tablet Last Menstrual Period: 10/08/24 : No Have you fallen in the past year?: No PFSH PFSH Medical History Short cervix affecting History of miscarriage, currently Gestational diabetes Infertility Vacuum extractor delivery, delivered care and examination Acute bronchitis Gestational diabetes PCOS (polycystic ovarian syndrome) Surgical History History of surgery Family History Father Cancer mouth/throat Social History adopted: No household members: spouse and children housing: house number of children: 1 current occupational status: employed current occupation: [employer] current occupational exposures/hazards: No pets and animals: Yes pets and animals: dog(s) history of recent travel: No sexually active: Yes Smoking Status: Never smoker alcohol intake: former details: not while pregnany, social only substance use type: does not use well-balanced diet: about half the time caffeine: No eating out: 1-3 times/week during the past year weight has: remained stable what type of physical activity do you participate in: walking frequency: 1-2 times per week duration: 15-30 minutes/day keturah/baptist: Uatsdin seatbelt use: always do you feel safe at home: Yes additional social history: - Guerrero, [employer] [place] [employer] History 4 Elective abortions Hx Para 1 Spontaneous abortions 1 Hx # Term Pregnancies Ectopic pregnancies 1 Hx # Pregnancies Multiple births # of living children 1 Past Pregnancies Del. Date Name GA/Weeks Outcome Route Bth Weight Infant Gen [facility] F[facility] Unknown ectopic Unknown spontaneous 01/19/23 Benny 40 live - full term Male [facility] Dr. Alma Delia Reyes Guerrero Delivery Date: 01/19/23 Last Updated by: Anitha Cook Shortened cervix, gestational diabetes HPI 36w 5 d ob Details: JENNY IBARRA is a 29 year old who presents for routine OB visit. OB Visit ANT Calculator Estimated Delivery Date Method Current WG Current Estimate 08/22/25 Ultrasound #1 36w 5d Other Estimates 07/15/25 LMP (Uncertain) 42w 1d Expected Delivery Route/Plan Labor Preferences- CB/BF classes:no labor support person: Guerrero labor intervention preferences: [] pain management options preferred: epidural if requested cut cord/dad catch: yes : yes PP control planned: discussed discussed possible routes of delivery and associated risks: [] special requests: [] Specific Issue/Plans Covid status: [] Flu vaccine: declined Tdap vaccine: declined Rhogam: na LARC form signed: yes movement and labor precautions reviewed. Problem list reviewed and updated with the most current plan of care details and appropriate orders placed. Relevant counseling for the gestational age provided. Continue routine care and follow up unless otherwise noted in visit notes/problem list details Initial Weight: Not Recorded Date -???-???-???-???-???-?? ?-???-???-???-???-???-? ??- EGA Weight BP Urine Prot -???-???-???-???-???-?? ?-???-???-???-???-???-? ??- Glucose FHR FuHt Pres Dilation -???-???-???-???-???-?? ?-???-???-???-???-???-? ??- Effaced St Visit Note 01/23/25 -???-???-???-???-???-?? ?-???-???-???-???-???-? ??- 9w 6d 201 lb 4 oz 122/77 -???-???-???-???-???-?? ?-???-???-???- (more content not included)... Normal [facility] Airline Hostess Office Visit Reporton 07-23-2025 Airline Hostess Office Visit Report [facility]'s [address], [address] [place] [address] OFFICE VISIT Date of Service: 07/23/25 MR#: [id number] Acct: [id number] Name: JENNY IBARRA Rep #: [id number] : 1995 Provider: Dr. Paradise bright MD Age/Sex: 29/F Location: [facility] [place] Status: Signed Intake Vital Signs 06/12/25 09:27 07/08/25 10:42 07/23/25 14:05 Height 5 ft 4 in 5 ft 4 in 5 ft 4 in Weight: 219 lb 8 oz BMI 37.6 BP 127/75 H Intake Visit Reasons: 35w 5d ob Property Maintenance Technician Required: No Is patient in pain?: No Allergies No Known Allergies Allergy (Verified 07/23/25 14:01) Medications ???Medication ???Instructions ???Recorded ???Confirmed ???Type multivitamin no.47-iron fum 27 1 cap PO DAILY Check with primary 06/11/22 07/23/25 History mg-folate no.1 1 mg-dha 300 mg doctor capsule (PNV-DHA) magnesium 1 cap PO/SL DAILY leg cramps 01/1807/23/25 History doxylamine succinate 25 mg tablet 25 mg PO QHS PRN 01/10/25 5 History (Unisom (doxylamine)) pyridoxine (vitamin B6) 10 mg 10 mg PO QDAY 01/10/25 07/23/25 Hi story tablet Last Menstrual Period: 10/08/24 Zika: Zika virus screening: Negative : No PFSH PFSH Medical History Short cervix affecting History of miscarriage, currently Gestational diabetes Infertility Vacuum extractor delivery, delivered care and examination Acute bronchitis Gestational diabetes PCOS (polycystic ovarian syndrome) Surgical History History of surgery Family History Father Cancer mouth/throat Social History adopted: No household members: spouse and children housing: house number of children: 1 current occupational status: employed current occupation: [employer] current occupational exposures/hazards: No pets and animals: Yes pets and animals: dog(s) history of recent travel: No sexually active: Yes Smoking Status: Never smoker alcohol intake: former details: not while pregnany, social only substance use type: does not use well-balanced diet: about half the time caffeine: No eating out: 1-3 times/week during the past year weight has: remained stable what type of physical activity do you participate in: walking frequency: 1-2 times per week duration: 15-30 minutes/day keturah/baptist: Uatsdin seatbelt use: always do you feel safe at home: Yes additional social history: - Guerrero, [employer] History 4 Elective abortions Hx Para 1 Spontaneous abortions 1 Hx # Term Pregnancies Ectopic pregnancies 1 Hx # Pregnancies Multiple births # of living children 1 Past Pregnancies Del. Date Name GA/Weeks Outcome Route Bth Weight Infant Gen Labor Lgth Anesthesia Del Locatn Provider FOB Unknown ectopic Unknown spontaneous 01/19/23 Benny 40 live - full term Male [facility] Dr. Alma Delia Reyes Guerrero Delivery Date: 01/19/23 Last Updated by: Anitha Cook Shortened cervix, gestational diabetes HPI 35w 5d ob Details: JENNY IBARRA is a 29 year old who presents for routine OB visit. OB Visit ANT Calculator Estimated Delivery Date Method Current WG Current Estimate 08/22/25 Ultrasound #1 35w 5d Other Estimates 07/15/25 LMP (Uncertain) 41w 1d Expected Delivery Route/Plan Labor Preferences- CB/BF classes:no labor support person: Guerrero labor intervention preferences: [] pain management options preferred: epidural if requested cut cord/dad catch: yes : yes PP control planned: discussed discussed possible routes of delivery and associated risks: [] special requests: [] Specific Issue/Plans Covid status: [] Flu vaccine: declined Tdap vaccine: declined Rhogam: na LARC form signed: yes movement and labor precautions reviewed. Problem list reviewed and updated with the most current plan of care details and appropriate orders placed. Relevant counseling for the gestational age provided. Continue routine care and follow up unless otherwise noted in visit notes/problem list details Initial Weight: Not Recorded Date -???-???-???-???-???-?? ?-???-???-???-???-???-? ??- EGA Weight BP Urine Prot -???-???-???-???-???-?? ?-???-???-???-???-???-? ??- Glucose FHR FuHt Pres Dilation -???-???-???-???-???-?? ?-???-???-???-???-???-? ??- Effaced St Visit Note 01/23/25 -???-???-???-???-???-?? ?-???-???-???-???-???-? ??- 9w 6d 201 lb 4 oz 122/77 -???-???-???-???-???-?? ?-???-???-???-???-???-? ??- 170 (more content not included)... Normal [facility] - Chemistry and C hemistry - challengeOrdered By: Margarita Rollins on 10-13-2025 Glucose Ql (U) Negative [facility] - UrinalysisOrder ed By: Margarita Rollins on 07-08-2025 Protein Ql (U) Negative [facility] Airline Hostess Office Visit Reporton 07-08-2025 Airline Hostess Office Visit Report [facility] [address], [address] [place] [address] OFFICE VISIT Date of Service: 07/08/25 MR#: [id number] Acct: [id number] Name: JENNY IBARRA Rep #: [id number] : 1995 Provider: AVIS Doe ams Age/Sex: 29/F Location: [facility] [place] Status: Signed Intake Vital Signs 06/12/25 09:27 06/26/25 09:29 07/08/25 10:42 Height 5 ft 4 in 5 ft 4 in 5 ft 4 in Weight: 216 lb 9 oz 219 lb 7 oz 217 lb 9 oz BMI 37.1 37.6 37.3 BP 110/71 104/63 117/81 H Intake Visit Reasons: 33w 4d ob Chief Complaint: 33wk OB Property Maintenance Technician Required: No Is patient in pain?: No Allergies No Known Allergies Allergy (Verified 07/08/25 10:40) Medications ???Medication ???Instructions ???Recorded ???Confirmed ???Type multivitamin no.47-iron fum 27 1 cap PO DAILY Check with primary 06/11/22 07/08/25 History mg-folate no.1 1 mg-dha 300 mg doctor capsule (PNV-DHA) magnesium 1 cap PO/SL DAILY leg cramps 01/1807/08/25 History doxylamine succinate 25 mg tablet 25 mg PO QHS PRN 01/10/25 5 History (Unisom (doxylamine)) pyridoxine (vitamin B6) 10 mg 10 mg PO QDAY 01/10/25 07/08/25 Hi story tablet progesterone micronized 200 mg 200 mg vaginal ONCE #30 caps 04/0107/08/25 Rx capsule (Prometrium) Last Menstrual Period: 10/08/24 : No Have you fallen in the past year?: No PFSH PFSH Medical History Short cervix affecting History of miscarriage, currently Gestational diabetes Infertility Vacuum extractor delivery, delivered care and examination Acute bronchitis Gestational diabetes PCOS (polycystic ovarian syndrome) Surgical History History of surgery Family History Father Cancer mouth/throat Social History adopted: No household members: spouse and children housing: house number of children: 1 current occupational status: employed current occupation: [employer] [place] [employer] current occupational exposures/hazards: No pets and animals: Yes pets and animals: dog(s) history of recent travel: No sexually active: Yes Smoking Status: Never smoker alcohol intake: former details: not while pregnany, social only substance use type: does not use well-balanced diet: about half the time caffeine: No eating out: 1-3 times/week during the past year weight has: remained stable what type of physical activity do you participate in: walking frequency: 1-2 times per week duration: 15-30 minutes/day keturah/baptist: Uatsdin seatbelt use: always do you feel safe at home: Yes additional social history: - Guerrero, [employer] Fay History 4 Elective abortions Hx Para 1 Spontaneous abortions 1 Hx # Term Pregnancies Ectopic pregnancies 1 Hx # Pregnancies Multiple births # of living children 1 Past Pregnancies Del. Date Name GA/Weeks Outcome Route Bth Weight Gen Labor Lgth Anesthesia Del Locatn Provider FOB Unknown ectopic Unknown spontaneous 01/19/23 Benny 40 live - full term Male [facility] Dr. Alma Delia Masters Delivery Date: 01/19/23 Last Updated by: Anitha Cook Shortened cervix, gestational diabetes HPI 33w 4d ob Details: JENNY IBARRA is a 29 year old who presents for routine OB visit. OB Visit ANT Calculator Estimated Delivery Date Method Current WG Current Estimate 08/22/25 Ultrasound #1 33w 4d Other Estimates 07/15/25 LMP (Uncertain) 39w 0d Expected Delivery Route/Plan Labor Preferences- CB/BF classes:no labor support person: Guerrero labor intervention preferences: [] pain management options preferred: epidural if requested cut cord/dad catch: yes : yes PP control planned: discussed discussed possible routes of delivery and associated risks: [] special requests: [] Specific Issue/Plans Covid status: [] Flu vaccine: [] Tdap vaccine: [] Rhogam: na LARC form signed: yes Problem list reviewed and updated with the most current plan of care details and appropriate orders placed. Relevant counseling for the gestational age provided. Continue routine care and follow up unless otherwise noted in visit notes/problem list details Initial Weight: Not Recorded Date -???-???-???-???-???-?? ?-???-???-???-???-???-? ??- EGA Weight BP Urine Prot -???-???-???-???-???-?? ?-???-???-???-???-???-? ??- Glucose FHR FuHt Pres Dilation -???-???-???-???-???-?? ?-???-???-???-???-???-? ??- Effaced St Visit Note 01/23/25 -???-???-???-???-???-?? ?-? (more content not included)... Normal [facility] - Chemistry and C hemistry - challengeOrdered By: Guadalupe Reyes on 06-26-2025 Glucose Ql (U) Negative [facility] - UrinalysisOrder ed By: Guadalupe Reyes on 06-26-2025 Protein Ql (U) Negative [facility] Airline Hostess Office Visit Reporton 06-26-2025 Airline Hostess Office Visit Report [facility]'s [address], [address] [place] [address] OFFICE VISIT Date of Service: 06/26/25 MR#: [id number] Acct: [id number] Name: JENNY IBARRA Rep #: [id number] : 1995 Provider: Dr. Guadalupe Jarvis, Age/Sex: 29/F Location: [facility] Status: Signed Intake Vital Signs 04/16/25 15:11 06/12/25 09:27 06/26/25 09:29 Height 5 ft 4 in 5 ft 4 in 5 ft 4 in Weight: 219 lb 7 oz BMI 37.6 BP 104/63 Intake Visit Reasons: 31w 6d ob Property Maintenance Technician Required: No Is patient in pain?: No Allergies No Known Allergies Allergy (Verified 06/26/25 09:28) Medications ???Medication ???Instructions ???Recorded ???Confirmed ???Type multivitamin no.47-iron fum 27 1 cap PO DAILY Check with primary 06/11/22 06/26/25 History mg-folate no.1 1 mg-dha 300 mg doctor capsule (PNV-DHA) magnesium 1 cap PO/SL DAILY leg cramps 01/1806/26/25 History doxylamine succinate 25 mg tablet 25 mg PO QHS PRN 01/10/25 5 History (Unisom (doxylamine)) pyridoxine (vitamin B6) 10 mg 10 mg PO QDAY 01/10/25 06/26/25 Hi story tablet progesterone micronized 200 mg 200 mg vaginal ONCE #30 caps 04/0106/26/25 Rx capsule (Prometrium) Last Menstrual Period: 10/08/24 Zika: Zika virus screening: Negative : No Have you fallen in the past year?: No PFSH PFSH Medical History Short cervix affecting History of miscarriage, currently Gestational diabetes Infertility Vacuum extractor delivery, delivered care and examination Acute bronchitis Gestational diabetes PCOS (polycystic ovarian syndrome) Surgical History History of surgery Family History Father Cancer mouth/throat Social History adopted: No household members: spouse and children housing: house number of children: 1 current occupational status: employed current occupation: [employer] current occupational exposures/hazards: No pets and animals: Yes pets and animals: dog(s) history of recent travel: No sexually active: Yes Smoking Status: Never smoker alcohol intake: former details: not while pregnany, social only substance use type: does not use well-balanced diet: about half the time caffeine: No eating out: 1-3 times/week during the past year weight has: remained stable what type of physical activity do you participate in: walking frequency: 1-2 times per week duration: 15-30 minutes/day keturah/baptist: Uatsdin seatbelt use: always do you feel safe at home: Yes additional social history: - Guerrero, [employer] History 4 Elective abortions Hx Para 1 Spontaneous abortions 1 Hx # Term Pregnancies Ectopic pregnancies 1 Hx # Pregnancies Multiple births # of living children 1 Past Pregnancies Del. Date Name GA/Weeks Outcome Route Bth Weight Infant Gen Labor Lgth Anesthesia Del Locatn Provider FOB Unknown ectopic Unknown spontaneous 01/19/23 Benny 40 live - full term Male [facility] Dr. Alma Delia Masters Delivery Date: 01/19/23 Last Updated by: Anitha Cook Shortened cervix, gestational diabetes HPI 31w 6d ob Details: JENNY IBARRA is a 29 year old who presents for routine OB visit. OB Visit ANT Calculator Estimated Delivery Date Method Current WG Current Estimate 08/22/25 Ultrasound #1 31w 6d Other Estimates 07/15/25 LMP (Uncertain) 37w 2d Expected Delivery Route/Plan Labor Preferences- CB/BF classes:no labor support person: Guerrero labor intervention preferences: [] pain management options preferred: epidural if requested cut cord/dad catch: yes : yes PP control planned: discussed discussed possible routes of delivery and associated risks: [] special requests: [] Specific Issue/Plans Covid status: [] Flu vaccine: [] Tdap vaccine: [] Rhogam: na LARC form signed: yes Problem list reviewed and updated with the most current plan of care details and appropriate orders placed. Relevant counseling for the gestational age provided. Continue routine care and follow up unless otherwise noted in visit notes/problem list details Initial Weight: Not Recorded Date -???-???-???-???-???-?? ?-???-???-???-???-???-? ??- EGA Weight BP Urine Prot -???-???-???-???-???-?? ?-???-???-???-???-???-? ??- Glucose FHR FuHt Pres Dilation -???-???-???-???-???-?? ?-???-???-???-???-???-? ??- Effaced St Visit Note 01/23/25 -???-???-???-???-???-?? ?-???-???-???-???-???-? ??- (more content not included)... Normal [facility] - Chemistry and C hemistry - challengeOrdered By: Paradise Mackey on 06-12-2025 Glucose Ql (U) Negative [facility] - UrinalysisOrder ed By: Paradise Mackey on 06-12-2025 Protein Ql (U) Negative [facility] Airline Hostess Office Visit Reporton 06-12-2025 Airline Hostess Office Visit Report [facility] [address], [address] [place] [address] OFFICE VISIT Date of Service: 06/12/25 MR#: [id number] Acct: [id number] Name: JENNY IBARRA Rep #: [id number] : 1995 Provider: Dr. Paradise bright MD Age/Sex: 29/F Location: [facility] [place] Status: Signed Intake Vital Signs 04/16/25 15:11 05/15/25 09:35 06/12/25 09:27 Height 5 ft 4 in 5 ft 4 in 5 ft 4 in Weight: 216 lb 9 oz BMI 37.1 BP 110/71 Intake Visit Reasons: 30wk ob Property Maintenance Technician Required: No Is patient in pain?: No Allergies No Known Allergies Allergy (Verified 06/12/25 09:42) Medications ???Medication ???Instructions ???Recorded ???Confirmed ???Type multivitamin no.47-iron fum 27 1 cap PO DAILY Check with primary 06/11/22 06/12/25 History mg-folate no.1 1 mg-dha 300 mg doctor capsule (PNV-DHA) magnesium 1 cap PO/SL DAILY leg cramps 01/1806/12/25 History doxylamine succinate 25 mg tablet 25 mg PO QHS PRN 01/10/25 5 History (Unisom (doxylamine)) pyridoxine (vitamin B6) 10 mg 10 mg PO QDAY 01/10/25 06/12/25 Hi story tablet progesterone micronized 200 mg 200 mg vaginal ONCE #30 caps 04/0106/12/25 Rx capsule (Prometrium) Last Menstrual Period: 10/08/24 Zika: Zika virus screening: Negative : No PFSH PFSH Medical History Short cervix affecting History of miscarriage, currently Gestational diabetes Infertility Vacuum extractor delivery, delivered care and examination Acute bronchitis Gestational diabetes PCOS (polycystic ovarian syndrome) Surgical History History of surgery Family History Father Cancer mouth/throat Social History adopted: No household members: spouse and children housing: house number of children: 1 current occupational status: employed current occupation: [employer] current occupational exposures/hazards: No pets and animals: Yes pets and animals: dog(s) history of recent travel: No sexually active: Yes Smoking Status: Never smoker alcohol intake: former details: not while pregnany, social only substance use type: does not use well-balanced diet: about half the time caffeine: No eating out: 1-3 times/week during the past year weight has: remained stable what type of physical activity do you participate in: walking frequency: 1-2 times per week duration: 15-30 minutes/day keturah/baptist: Uatsdin seatbelt use: always do you feel safe at home: Yes additional social history: - Guerrero, [employer] History 4 Elective abortions Hx Para 1 Spontaneous abortions 1 Hx # Term Pregnancies Ectopic pregnancies 1 Hx # Pregnancies Multiple births # of living children 1 Past Pregnancies Del. Date Name GA/Weeks Outcome Route Bth Weight Gen Labor Lgth Anesthesia Del Locatn Provider FOB Unknown ectopic Unknown spontaneous 01/19/23 Benny 40 live - full term Male [facility] Dr. Alma Delia Reyes Guerrero Delivery Date: 01/19/23 Last Updated by: Anitha Cook Shortened cervix, gestational diabetes HPI 30wk ob Details: JENNY IBARRA is a 29 year old who presents for routine OB visit. OB Visit ANT Calculator Estimated Delivery Date Method Current WG Current Estimate 08/22/25 Ultrasound #1 29w 6d Other Estimates 07/15/25 LMP (Uncertain) 35w 2d Expected Delivery Route/Plan Labor Preferences- CB/BF classes:no labor support person: Guerrero labor intervention preferences: [] pain management options preferred: epidural if requested cut cord/dad catch: yes : yes PP control planned: discussed discussed possible routes of delivery and associated risks: [] special requests: [] Specific Issue/Plans Covid status: [] Flu vaccine: [] Tdap vaccine: [] Rhogam: na LARC form signed: yes Problem list reviewed and updated with the most current plan of care details and appropriate orders placed. Relevant counseling for the gestational age provided. Continue routine care and follow up unless otherwise noted in visit notes/problem list details Initial Weight: Not Recorded Date -???-???-???-???-???-?? ?-???-???-???-???-???-? ??- EGA Weight BP Urine Prot -???-???-???-???-???-?? ?-???-???-???-???-???-? ??- Glucose FHR FuHt Pres Dilation -???-???-???-???-???-?? ?-???-???-???-???-???-? ??- Effaced St Visit Note 01/23/25 -???-???-???-???-???-?? ?-???-???-???-???-???-? ??- 9w 6d 201 lb 4 oz 122/77 -???-???- (more content not included)... Normal [facility] Absolute lymphocyte countOrd ered By: Jessica Bella on 05-15-2025 Lymphocytes Auto (Unsp spec) [#/Vol] 1.25 10*3/uL 0.83-4.51 [facility] Absolute neutrophil countOrd ered By: Jessica Bella on 05-15-2025 Neutrophils (Bld) [#/Vol] 4.4 10*3/uL 2.0-7.7 [facility] Automated lymphocyte count a s percentage of total leukocytesOrdered By: Jessica Bella on 05-15-2025 Lymphocytes/100 WBC Auto (Unsp spec) 20.4 % 19-41 [facility] Basophil percentageOrdered B y: Jessica Bella on 05-15-2025 Basophils/100 WBC (Bld) 0.5 % 0-1 [facility] CBC W/Diff, Automatedon 04-27 Absolute Lymph 1.25 X10 3/uL Normal 0.83-4.51 [facility] Comment on above: Performed By: #### L 3890.6006, L509.8002, L501.0250, L100.0100 #### [facility] [address] [place], [address] Absolute Neut 4.4 X10 3/uL Normal 2.0-7.7 [facility] Comment on above: Performed By: #### L 3890.6006, L509.8002, L501.0250, L100.0100 #### [facility] [address] [place], [address] Basophils/100 WBC (Bld) 0.5 % Normal 0-1 [facility] Comment on above: Performed By: #### L 3890.6006, L509.8002, L501.0250, L100.0100 #### [facility] [address] [place], [address] Eosinophils/100 WBC (Bld) 2.4 % Normal 0-5 [facility] Comment on above: Performed By: #### L 3890.6006, L509.8002, L501.0250, L100.0100 #### [facility] [address] [place], [address] Erythrocyte distribution width (RBC) [Ratio] 12.3 % Normal 11.6-14.6 [facility] Comment on above: Performed By: #### L 3890.6006, L509.8002, L501.0250, L100.0100 #### [facility] [address] [place], [address] Hematocrit (Bld) [Volume fraction] 32.5 % Low 37-47 [facility] Comment on above: Performed By: #### L 3890.6006, L509.8002, L501.0250, L100.0100 #### [facility] [address] [place], [address] Hemoglobin (Bld) [Mass/Vol] 11.5 g/dL Low 12.0-15.0 [facility] Comment on above: Performed By: #### L 3890.6006, L509.8002, L501.0250, L100.0100 #### [facility] [address] [place], [address] IG% 0.200 Normal 0.0-0.9 [facility] Comment on above: Result Comment: IG% - Immature Granulocytes (promyelocytes, myelocytes and metamyelocytes) > 1% indicates that a LEFT SHIFT is Present. Performed By: #### L 3890.6006, L509.8002, L501.0250, L100.0100 #### [facility] [address] [place], [address] Lymphocytes/100 WBC (Bld) 20.4 % Normal 19-41 [facility] Comment on above: Performed By: #### L 3890.6006, L509.8002, L501.0250, L100.0100 #### [facility] [address] [place], [address] MCH (RBC) [Entitic mass] 31.9 pg Normal 27.0-32.0 [facility] Comment on above: Performed By: #### L 3890.6006, L509.8002, L501.0250, L100.0100 #### [facility] [address] [place], [address] MCHC (RBC) [Mass/Vol] 35.4 g/dL Normal 32-36 [facility] Comment on above: Performed By: #### L 3890.6006, L509.8002, L501.0250, L100.0100 #### [facility] [address] [place], [address] MCV (RBC) [Entitic vol] 90.3 fL Normal 81-99 [facility] Comment on above: Performed By: #### L 3890.6006, L509.8002, L501.0250, L100.0100 #### [facility] [address] [place], [address] Monocytes/100 WBC (Bld) 4.1 % Normal 0-10 [facility] Comment on above: Performed By: #### L 3890.6006, L509.8002, L501.0250, L100.0100 #### [facility] [address] [place], [address] Neutrophils/100 WBC (Bld) 72.4 % High 47-70 [facility] Comment on above: Performed By: #### L 3890.6006, L509.8002, L501.0250, L100.0100 #### [facility] [address] [place], [address] Nucleated RBC (Bld) [#/Vol] 0 10*3/uL Normal 0-5 [facility] Comment on above: Performed By: #### L 3890.6006, L509.8002, L501.0250, L100.0100 #### [facility] [address] [place], [address] Platelet mean volume (Bld) [Entitic vol] 10.6 fL Normal 6.2-12.0 [facility] Comment on above: Performed By: #### L 3890.6006, L509.8002, L501.0250, L100.0100 #### [facility] [address] [place], [address] Platelets (Bld) [#/Vol] 206 10*3/uL Normal 150-450 [facility] Comment on above: Performed By: #### L 3890.6006, L509.8002, L501.0250, L100.0100 #### [facility] [address] [place], [address] RBC (Bld) [#/Vol] 3.60 10*6/uL Low 4.2-5.4 [facility] Comment on above: Performed By: #### L 3890.6006, L509.8002, L501.0250, L100.0100 #### [facility] [address] [place], [address] RDW SD 40.2 fl Normal 35.1-43.9 [facility] Comment on above: Performed By: #### L 3890.6006, L509.8002, L501.0250, L100.0100 #### [facility] [address] [place], [address] WBC (Bld) [#/Vol] 6.1 10*3/uL Normal 4.4-11.0 [facility] Comment on above: Performed By: #### L 3890.6006, L509.8002, L501.0250, L100.0100 #### [facility] [address] [place], [address] Eosinophil percentageOrdered By: Jessica Bella on 05-15-2025 Eosinophils/100 WBC (Bld) 2.4 % 0-5 [facility] Erythrocyte distribution wid th ratioOrdered By: Jessica Aguiartings on 05-15-2025 Erythrocyte distribution width (RBC) [Ratio] 12.3 % 11.6-14.6 [facility] Erythrocyte distribution wid th standard deviationOrdered By: Jessicakleber Bella on 05-15-2025 Erythrocyte distribution width (RBC) [Ratio] 40.2 fl 35.1-43.9 [facility] Glucose Challenge Gest 1H 50 chevy 05-15-2025 GLU GEST 50g 1H 158 mg/dL High 70-140 [facility] Comment on above: Performed By: #### L 3890.6006, L509.8002, L501.0250, L100.0100 #### [facility] [address] [place], [address] Glucose measurement at 2 aide rs post-dose gestational glucose tolerance testOrdered By: Jessica Bella on 05-15-2025 Glucose [Mass/Vol] 158 mg/dL High 70-140 [facility] HIVon 05-15-2025 HIV Non-Reactive Normal Nonreactive [facility] Comment on above: Result Comment: Non- Reactive Reactive Repeatedly reactive samples must be confirmed according to CDC recommended confirmatory algorithms. The subresults for either HIVAG or AHIV can be used as an aid in the selection of the confirmation algorithm for reactive samples. Send out specimens with Reactive results to [facility] for confirmation. Order the HIV antibody detection and differentiation: lc#[id number] Performed By: #### L 3890.6006, L509.8002, L501.0250, L100.0100 #### [facility] [address] [place], [address] Hematocrit Auto (Bld) [Volum e fraction]Ordered By: Jessica Bella on 05-15-2025 Hematocrit (Bld) [Volume fraction] 32.5 % Low 37-47 [facility] Hemoglobin measurementOrdere d By: Jessica Bella on 05-15-2025 Hemoglobin (Bld) [Mass/Vol] 11.5 g/dL Low 12.0-15.0 [facility] Immature granulocytes/100 WB C Auto (Bld)Ordered By: Jessica Bella on 05-15-2025 Immature granulocytes/100 WBC (Bld) 0.200 % 0.0-0.9 [facility] Comment on above: IG% - Immature Granu locytes (promyelocytes, myelocytes and metamyelocytes) > 1% indicates that a LEFT SHIFT is Present. Laboratory - Chemistry and C hemistry - challengeOrdered By: Jessica Bella on 05-15-2025 Glucose Ql (U) Negative [facility] - UrinalysisOrder ed By: Jessica Bella on 05-15-2025 Protein Ql (U) Negative [facility] MCV (mean corpuscular volume ) determinationOrdered By: Jessica Bella on 05-15-2025 MCV (RBC) [Entitic vol] 90.3 fL 81-99 [facility] Mean corpuscular hemoglobin (MCH) determinationOrdered By: Jessica Bella on 05-15-2025 MCH (RBC) [Entitic mass] 31.9 pg 27.0-32.0 [facility] Mean corpuscular hemoglobin concentration (MCHC) determinationOrdered By: Jessica Bella on 05-15-2025 MCHC (RBC) [Mass/Vol] 35.4 g/dL 32-36 [facility] Mean platelet volume determi nationOrdered By: Jessica Bella on 05-15-2025 Platelet mean volume (Bld) [Entitic vol] 10.6 fL 6.2-12.0 [facility] Monocyte percentageOrdered B y: Jessica Bella on 05-15-2025 Monocytes/100 WBC (Bld) 4.1 % 0-10 [facility] Neutrophil percentageOrdered By: Jessica Bella on 05-15-2025 Neutrophils/100 WBC (Bld) 72.4 % High 47-70 [facility] No Panel InformationOrdered By: Jessica Bella on 05-15-2025 HIV (1&2) Antibody Non-Reactive Nonreactive [facility] Comment on above: Non-ReactiveReactive Repeatedly reactive samples must be confirmed according to CDC recommended confirmatory algorithms. The subresults for either HIVAG or AHIV can be used as an aid in the selection of the confirmation algorithm for reactive samples.Send out specimens with Reactive results to [facility] for confirmation.Order the HIV antibody detection and differentiation: #[id number] Nucleated red blood cell per centageOrdered By: Jessica Bella on 05-15-2025 Nucleated RBC/100 WBC (Bld) [Ratio] 0 % 0-5 [facility] Airline Hostess Office Visit Reporton 05-15-2025 Airline Hostess Office Visit Report [facility]'s [address], [address] [place] [address] OFFICE VISIT Date of Service: 05/15/25 MR#: [id number] Acct: [id number] Name: JENNY IBARRA Rep #: [id number] : 1995 Provider: KENDY brown Age/Sex: 29/F Location: [facility] [place] Status: Signed Intake Vital Signs 02/19/25 14:19 04/16/25 15:11 05/15/25 09:26 05/15/25 09:35 Height 5 ft 4 in 5 ft 4 in 5 ft 4 in 5 ft 4 in Weight: 214 lb 4 oz BMI 36.8 BP 114/72 Intake Visit Reasons: 26wk ob/glucose Chief Complaint: 26 Week OB/Glucose Property Maintenance Technician Required: No Is patient in pain?: No Allergies No Known Allergies Allergy (Verified 05/15/25 09:25) Medications ???Medication ???Instructions ???Recorded ???Confirmed ???Type multivitamin no.47-iron fum 27 1 cap PO DAILY Check with primary 06/11/22 05/15/25 History mg-folate no.1 1 mg-dha 300 mg doctor capsule (PNV-DHA) magnesium 1 cap PO/SL DAILY leg cramps 01/1805/15/25 History doxylamine succinate 25 mg tablet 25 mg PO QHS PRN 01/10/25 5 History (Unisom (doxylamine)) pyridoxine (vitamin B6) 10 mg 10 mg PO QDAY 01/10/25 05/15/25 Hi story tablet progesterone micronized 200 mg 200 mg vaginal ONCE #30 caps 04/0105/15/25 Rx capsule (Prometrium) Last Menstrual Period: 10/08/24 Zika: Zika virus screening: Negative : Yes PFSH PFSH Medical History Short cervix affecting History of miscarriage, currently Gestational diabetes Infertility Vacuum extractor delivery, delivered care and examination Acute bronchitis Gestational diabetes PCOS (polycystic ovarian syndrome) Surgical History History of surgery Family History Father Cancer mouth/throat Social History adopted: No household members: spouse and children housing: house number of children: 1 current occupational status: employed current occupation: [employer] current occupational exposures/hazards: No pets and animals: Yes pets and animals: dog(s) history of recent travel: No sexually active: Yes Smoking Status: Never smoker alcohol intake: former details: not while pregnany, social only substance use type: does not use well-balanced diet: about half the time caffeine: No eating out: 1-3 times/week during the past year weight has: remained stable what type of physical activity do you participate in: walking frequency: 1-2 times per week duration: 15-30 minutes/day keturah/baptist: Uatsdin seatbelt use: always do you feel safe at home: Yes additional social history: - Guerrero, [employer] History 4 Elective abortions Hx Para 1 Spontaneous abortions 1 Hx # Term Pregnancies Ectopic pregnancies 1 Hx # Pregnancies Multiple births # of living children 1 Past Pregnancies Del. Date Name GA/Weeks Outcome Route Bth Weight Gen Labor Lgth Anesthesia Del Locatn Provider FOB Unknown ectopic Unknown spontaneous 01/19/23 Benny 40 live - full term Male [facility] Dr. Alma Delia Masters Delivery Date: 01/19/23 Last Updated by: Anitha Cook Shortened cervix, gestational diabetes HPI 26wk ob/glucose Details: JENNY IBARRA is a 29 year old who presents for routine OB visit. OB Visit ANT Calculator Estimated Delivery Date Method Current WG Current Estimate 08/22/25 Ultrasound #1 25w 6d Other Estimates 07/15/25 LMP (Uncertain) 31w 2d Expected Delivery Route/Plan Labor Preferences- CB/BF classes:no labor support person: Guerrero labor intervention preferences: [] pain management options preferred: epidural if requested cut cord/dad catch: yes : yes PP control planned: discussed discussed possible routes of delivery and associated risks: [] special requests: [] Specific Issue/Plans Covid status: [] Flu vaccine: [] Tdap vaccine: [] Rhogam: na LARC form signed: yes Problem list reviewed and updated with the most current plan of care details and appropriate orders placed. Relevant counseling for the gestational age provided. Continue routine care and follow up unless otherwise noted in visit notes/problem list details Initial Weight: Not Recorded Date -???-???-???-???-???-?? ?-???-???-???-???-???-? ??- EGA Weight BP Urine Prot -???-???-???-???-???-?? ?-???-???-???-???-???-? ??- Glucose FHR FuHt Pres Dilation -???-???-???-???-???-?? ?-???-???-???-???-???-? ??- Effaced St Visit Note 01/23/25 - (more content not included)... Normal [facility] Platelet countOrdered By: Toño Bella on 05-15-2025 Platelets (Bld) [#/Vol] 206 10*3/uL 150-450 [facility] RBC Auto (Bld) [#/Vol]Ordere d By: Jessica Bella on 05-15-2025 RBC (Bld) [#/Vol] 3.60 10*6/uL Low 4.2-5.4 [facility] Syphilis Antibodieson 2024 Syphilis Abs Non-Reactive Normal Nonreactive [facility] Comment on above: Performed By: #### L 3890.6006, L509.8002, L501.0250, L100.0100 #### [facility] [address] [place], [address] White blood cell (WBC) count Ordered By: Jessica Bella on 05-15-2025 WBC (Bld) [#/Vol] 6.1 10*3/uL 4.4-11.0 [facility] Airline Hostess Office Visit Reporton 04-16-2025 Airline Hostess Office Visit Report [facility] [address], [address] [place] [address] OFFICE VISIT Date of Service: 04/16/25 MR#: [id number] Acct: [id number] Name: JENNY IBARRA Rep #: [id number] : 1995 Provider: Dr. Paradise bright MD Age/Sex: 29/F Location: [facility] [place] Status: Signed Intake Vital Signs 02/19/25 14:19 03/20/25 08:43 04/16/25 15:11 Height 5 ft 4 in 5 ft 4 in 5 ft 4 in Weight: 211 lb 4 oz BMI 36.2 BP 117/75 Intake Visit Reasons: 22wk ob Property Maintenance Technician Required: No Is patient in pain?: No Allergies No Known Allergies Allergy (Verified 04/16/25 15:18) Medications ???Medication ???Instructions ???Recorded ???Confirmed ???Type multivitamin no.47-iron fum 27 1 cap PO DAILY Check with primary 06/11/22 04/16/25 History mg-folate no.1 1 mg-dha 300 mg doctor capsule (PNV-DHA) magnesium 1 cap PO/SL DAILY leg cramps 01/1804/16/25 History doxylamine succinate 25 mg tablet 25 mg PO QHS PRN 01/10/25 5 History (Unisom (doxylamine)) pyridoxine (vitamin B6) 10 mg 10 mg PO QDAY 01/10/25 04/16/25 Hi story tablet progesterone micronized 200 mg 200 mg vaginal ONCE #30 caps 04/0104/16/25 Rx capsule (Prometrium) Last Menstrual Period: 10/08/24 Zika: Zika virus screening: Negative : No PFSH PFSH Medical History Short cervix affecting History of miscarriage, currently Gestational diabetes Infertility Vacuum extractor delivery, delivered care and examination Acute bronchitis Gestational diabetes PCOS (polycystic ovarian syndrome) Surgical History History of surgery Family History Father Cancer mouth/throat Social History adopted: No household members: spouse and children housing: house number of children: 1 current occupational status: employed current occupation: [employer] current occupational exposures/hazards: No pets and animals: Yes pets and animals: dog(s) history of recent travel: No sexually active: Yes Smoking Status: Never smoker alcohol intake: former details: not while pregnany, social only substance use type: does not use well-balanced diet: about half the time caffeine: No eating out: 1-3 times/week during the past year weight has: remained stable what type of physical activity do you participate in: walking frequency: 1-2 times per week duration: 15-30 minutes/day keturah/baptist: Uatsdin seatbelt use: always do you feel safe at home: Yes additional social history: - Guerrero, [employer] History 4 Elective abortions Hx Para 1 Spontaneous abortions 1 Hx # Term Pregnancies Ectopic pregnancies 1 Hx # Pregnancies Multiple births # of living children 1 Past Pregnancies Del. Date Name GA/Weeks Outcome Route Bth Weight Gen Labor Lgth Anesthesia Del Locatn Provider FOB Unknown ectopic Unknown spontaneous 01/19/23 Benny 40 live - full term Male [facility] Dr. Alma Delia Reyes Guerrero Delivery Date: 01/19/23 Last Updated by: Anitha Cook Shortened cervix, gestational diabetes HPI 22wk ob Details: JENNY IBARRA is a 29 year old who presents for routine OB visit. OB Visit ANT Calculator Estimated Delivery Date Method Current WG Current Estimate 08/22/25 Ultrasound #1 21w 5d Other Estimates 07/15/25 LMP (Uncertain) 27w 1d Expected Delivery Route/Plan Labor Preferences- CB/BF classes: [] labor support person: [] labor intervention preferences: [] pain management options preferred: [] cut cord/dad catch: [] : [] PP control planned: [] discussed possible routes of delivery and associated risks: [] special requests: [] Specific Issue/Plans Covid status: [] Flu vaccine: [] Tdap vaccine: [] Rhogam: [] LARC form signed: [] Problem list reviewed and updated with the most current plan of care details and appropriate orders placed. Relevant counseling for the gestational age provided. Continue routine care and follow up unless otherwise noted in visit notes/problem list details Initial Weight: Not Recorded Date -???-???-???-???-???-?? ?-???-???-???-???-???-? ??- EGA Weight BP Urine Prot -???-???-???-???-???-?? ?-???-???-???-???-???-? ??- Glucose FHR FuHt Pres Dilation -???-???-???-???-???-?? ?-???-???-???-???-???-? ??- Effaced St Visit Note 01/23/25 -???-???-???-???-???-?? ?-???-???-???-???-???-? ??- 9w 6d 201 lb 4 oz 122/77 -???-???-???-???-???-?? ?-???-???-???-???- (more content not included)... Normal [facility] - Chemistry and C hemistry - challengeOrdered By: Jessica Bella on 03-20-2025 Glucose Ql (U) Negative [facility] - UrinalysisOrder ed By: Jessica Bella on 03-20-2025 Protein Ql (U) Negative [facility] Airline Hostess Office Visit Reporton 03-20-2025 Airline Hostess Office Visit Report [facility] [address] [place] [address], [address] [place] [address] OFFICE VISIT Date of Service: 03/20/25 MR#: [id number] Acct: [id number] Name: JENNY IBARRA Rep #: [id number] : 1995 Provider: KENDY brown Age/Sex: 29/F Location: [facility] [place] Status: Signed Intake Vital Signs 01/23/25 08:57 02/19/25 14:19 03/20/25 08:38 03/20/25 08:43 Height 5 ft 4 in 5 ft 4 in 5 ft 4 in 5 ft 4 in Weight: 206 lb BMI 35.3 BP 120/64 Intake Visit Reasons: 18wk2d ob Chief Complaint: 18 Week OB Property Maintenance Technician Required: No Is patient in pain?: No Allergies No Known Allergies Allergy (Verified 03/20/25 08:37) Medications ???Medication ???Instructions ???Recorded ???Confirmed ???Type multivitamin no.47-iron fum 27 1 cap PO DAILY Check with primary 06/11/22 03/20/25 History mg-folate no.1 1 mg-dha 300 mg doctor capsule (PNV-DHA) magnesium 1 cap PO/SL DAILY leg cramps 01/1803/20/25 History progesterone micronized 200 mg 200 mg vaginal ONCE #30 caps 12/1003/20/25 Rx capsule (Prometrium) doxylamine succinate 25 mg tablet 25 mg PO QHS PRN 01/10/25 5 History (Unisom (doxylamine)) pyridoxine (vitamin B6) 10 mg 10 mg PO QDAY 01/10/25 03/20/25 Hi story tablet Last Menstrual Period: 10/08/24 Zika: Zika virus screening: Negative : No PFSH PFSH Medical History (Updated 03/20/25 @ 08:56 by Jessica Bella REAL ESTATE EXECUTIVE ASSISTANT, REAL ESTATE EXECUTIVE ASSISTANT-C) Short cervix affecting History of miscarriage, currently Gestational diabetes Infertility Vacuum extractor delivery, delivered care and examination Acute bronchitis Gestational diabetes PCOS (polycystic ovarian syndrome) Surgical History History of surgery Family History Father Cancer mouth/throat Social History adopted: No household members: spouse and children housing: house number of children: 1 current occupational status: employed current occupation: [employer] current occupational exposures/hazards: No pets and animals: Yes pets and animals: dog(s) history of recent travel: No sexually active: Yes Smoking Status: Never smoker alcohol intake: former details: not while pregnany, social only substance use type: does not use well-balanced diet: about half the time caffeine: No eating out: 1-3 times/week during the past year weight has: remained stable what type of physical activity do you participate in: walking frequency: 1-2 times per week duration: 15-30 minutes/day keturah/baptist: Uatsdin seatbelt use: always do you feel safe at home: Yes additional social history: - Guerrero, [employer] Fay History 4 Elective abortions Hx Para 1 Spontaneous abortions 1 Hx # Term Pregnancies Ectopic pregnancies 1 Hx # Pregnancies Multiple births # of living children 1 Past Pregnancies Del. Date Name GA/Weeks Outcome Route Bth Weight Gen Labor Lgth Anesthesia Del Locatn Provider FOB Unknown ectopic Unknown spontaneous 01/19/23 Benny 40 live - full term Male [facility] Dr. Alma Delia Reyes Guerrero Delivery Date: 01/19/23 Last Updated by: Anitha Cook Shortened cervix, gestational diabetes HPI 18wk2d ob Details: JENNY IBARRA is a 29 year old who presents for routine OB visit. OB Visit ANT Calculator Estimated Delivery Date Method Current WG Current Estimate 08/22/25 Ultrasound #1 17w 6d Other Estimates 07/15/25 LMP (Uncertain) 23w 2d Expected Delivery Route/Plan Labor Preferences- CB/BF classes: [] labor support person: [] labor intervention preferences: [] pain management options preferred: [] cut cord/dad catch: [] : [] PP control planned: [] discussed possible routes of delivery and associated risks: [] special requests: [] Specific Issue/Plans Covid status: [] Flu vaccine: [] Tdap vaccine: [] Rhogam: [] LARC form signed: [] Problem list reviewed and updated with the most current plan of care details and appropriate orders placed. Relevant counseling for the gestational age provided. Continue routine care and follow up unless otherwise noted in visit notes/problem list details Initial Weight: Not Recorded Date -???-???-???-???-???-?? ?-???-???-???-???-???-? ??- EGA Weight BP Urine Prot -???-???-???-???-???-?? ?-???-???-???-???-???-? ??- Glucose FHR FuHt Pres Dilation -???-???-???-???-???-?? ?-???-???-???-???-???-? ??- Effaced St Visit Note 01/23/25 -???-???-???-???-???-?? ?-???-???-???-???-???-? ??- 9w 6d 20 (more content not included)... Normal [facility] Progress Noteon 03-04-2025 Health Type Technician Authentication Interface Message Text [facility]- MEDICINE CONSULT Referring/Requesting Provider: Guadalupe Oconnor, * PCP: No Primary Care, MD Danielle INDICATION FOR CONSULT: prior with short cervix HISTORY OF PRESENT ILLNESS: Patient is a 29 y.o. at 15w4d who presents for consultation regarding her OB history. Her prior on 2022, she had an incidentally found short cervix. She was treated with vaginal progesterone and had a term vaginal delivery at 40w2d. No history of . She is on vaginal progesterone, and tolerating it well. No personal history of VTE. Her dad had DVT about 2 years ago, unknown if there were risk factors or provoking event. OB History Para Term AB Living 4 1 1 2 SAB IAB Ectopic Multiple Live Births 1 1 # Outcome Date GA Lbr Paresh/2nd Weight Sex Type Anes PTL Lv 4 Current 3 Term 01/19/23 40w2d 4.281 kg M Vag-Spont 2 Ectopic 2021 1 SAB 2020 Past Medical History: Diagnosis Date Gestational diabetes mellitus (GDM) diet controlled with last Obesity Past Surgical History: Procedure Laterality Date WISDOM TOOTH EXTRACTION PERTINENT FAMILY HISTORY: Family History Problem Relation Age of Onset Cancer Father MEDS: Outpatient Medications Marked as Taking for the 03/04/25 encounter (Office Visit) with aKcie Sahver, DO Medication Sig Dispense Refill Doxylamine Succinate, Sleep, 25 MG TABS 1 Tablet (25 mg) Pyridoxine HCl 10 MG TABS 1 Tablet (10 mg) Magnesium 200 MG CHEW Take by mouth [DISCONTINUED] Doxylamine Succinate, Sleep, (UNISOM PO) Take by mouth Prenat w/o G-OE-Pzbkumf-FA-DHA (PNV-DHA PO) Take by mouth Progesterone 200 MG CAPS Prometrium 200mg capsule per vagina nightly to 37 weeks 30 Capsule 5 ALLERGY: Allergies[1] REVIEW OF SYSTEMS: ROS PHYSICAL EXAM: VITAL SIGNS: BP 125/63 Pulse 69 Resp 18 Ht 162.6 cm Wt 92.5 kg (204 lb) LMP 10/08/2024 SpO2 98% BMI 35.02 kg/m Physical Exam AAOx3, NAD IMAGIN. Chandler living intrauterine at 15w 4d with biometry consistent with clinical dates. 2. Normal early appearing anatomy, with limitations as noted above. 3. Amniotic fluid appeared normal. 4. Placenta is anterior , grade 0. 5. Transvaginal cervical length to evaluate for risk for labor was performed and appeared normal, 40.3 mm. CONSULT SUMMARY: We reviewed that the information and recommendations for progesterone use in continues to evolve as we gather more data. At this time, vaginal progesterone is indicated when a is complicated by a short cervix. We don't have data to guide us when there is a history of a short cervix treated successfully with vaginal progesterone. It is reasonable to continue the vaginal progesterone until she reaches 37 0/7 weeks. Recommend first trimester MFM consult with future to review if vaginal progesterone should be used. I recommend she has a cervical length screen at her anatomy ultrasound at 18 weeks. Consider cerclage if she has cervical dilation or very short cervix <10 mm prior to viability. Recommend she reports any increase vaginal discharge, vaginal bleeding, contractions to her OB if they occur. IMPRESSION AND RECOMMENDATIONS: Jenny is a 29 y.o. at 15w4d with Active Non-Hospital Problems Diagnosis Date Noted History of prior with short cervix, currently in second trimester 03/04/2025 Cervical shortening, antepartum condition or complication 09/09/202209/02 incidental cervical length shortening 1.9 Prometrium 200mg PV initiated 09/09 Cervical length 2.1cm- 2.4cm Follow up: Detailed anatomy in 2-3 weeks with transvaginal cervical length assessment. Refill vaginal progesterone sent to Jenny's pharmacy. Chart review and preparation:.10 minutes. Face to face: 15 minutes. Documentation and care coordination: 12 minutes. Total time spent on patient care today: 37 minutes. [1] Allergies Allergen Reactions Amoxicillin-Pot Clavulanate Rash Normal [facility] - Chemistry and C hemistry - challengeOrdered By: Margarita Rollins on 02-19-2025 Glucose Ql (U) Negative [facility] - UrinalysisOrder ed By: Margarita Rollins on 02-19-2025 Protein Ql (U) Negative [facility] Airline Hostess Office Visit Reporton 02-19-2025 Airline Hostess Office Visit Report [facility] [address], [address] [place] [address] OFFICE VISIT Date of Service: 02/19/25 MR#: [id number] Acct: [id number] Name: JENNY IBARRA Rep #: [id number] : 1995 Provider: AVIS Doe ams Age/Sex: 29/F Location: [facility] [place] Status: Signed Intake Vital Signs 10/19/24 13:39 01/23/25 08:57 02/19/25 14:19 Height 5 ft 4 in 5 ft 4 in 5 ft 4 in Weight: 205 lb 6 oz BMI 35.2 BP 106/74 Intake Visit Reasons: 14wk1d ob Chief Complaint: 14wk OB Property Maintenance Technician Required: No Is patient in pain?: No Allergies No Known Allergies Allergy (Verified 02/19/25 14:15) Medications ???Medication ???Instructions ???Recorded ???Confirmed ???Type multivitamin no.47-iron fum 27 1 cap PO DAILY Check with primary 06/11/22 02/19/25 History mg-folate no.1 1 mg-dha 300 mg doctor capsule (PNV-DHA) magnesium 1 cap PO/SL DAILY leg cramps 01/1802/19/25 History progesterone micronized 200 mg 200 mg vaginal ONCE #30 caps 12/1002/19/25 Rx capsule (Prometrium) doxylamine succinate 25 mg tablet 25 mg PO QHS PRN 01/10/25 5 History (Unisom (doxylamine)) pyridoxine (vitamin B6) 10 mg 10 mg PO QDAY 01/10/25 02/19/25 Hi story tablet Last Menstrual Period: 10/08/24 : No Have you fallen in the past year?: No PFSH PFSH Medical History Short cervix affecting History of miscarriage, currently Gestational diabetes Infertility Vacuum extractor delivery, delivered care and examination Acute bronchitis Gestational diabetes PCOS (polycystic ovarian syndrome) Surgical History History of surgery Family History Father Cancer mouth/throat Social History adopted: No household members: spouse and children housing: house number of children: 1 current occupational status: employed current occupation: [employer] current occupational exposures/hazards: No pets and animals: Yes pets and animals: dog(s) history of recent travel: No sexually active: Yes Smoking Status: Never smoker alcohol intake: former details: not while pregnany, social only substance use type: does not use well-balanced diet: about half the time caffeine: No eating out: 1-3 times/week during the past year weight has: remained stable what type of physical activity do you participate in: walking frequency: 1-2 times per week duration: 15-30 minutes/day keturah/baptist: Uatsdin seatbelt use: always do you feel safe at home: Yes additional social history: - Guerrero, [employer] Juliet Fay History 4 Elective abortions Hx Para 1 Spontaneous abortions 1 Hx # Term Pregnancies Ectopic pregnancies 1 Hx # Pregnancies Multiple births # of living children 1 Past Pregnancies Del. Date Name GA/Weeks Outcome Route Bth Weight Gen Labor Lgth Anesthesia Del Locatn Provider FOB Unknown ectopic Unknown spontaneous 01/19/23 Benny 40 live - full term Male [facility] Dr. Alma Delia johnson Jordanjossy Guerrero Delivery Date: 01/19/23 Last Updated by: Anitha Cook Shortened cervix, gestational diabetes HPI 14wk1d ob Details: JENNY IBARRA is a 29 year old who presents for routine OB visit. OB Visit ANT Calculator Estimated Delivery Date Method Current WG Current Estimate 08/22/25 Ultrasound #1 13w 5d Other Estimates 07/15/25 LMP (Uncertain) 19w 1d Expected Delivery Route/Plan Labor Preferences- CB/BF classes: [] labor support person: [] labor intervention preferences: [] pain management options preferred: [] cut cord/dad catch: [] : [] PP control planned: [] discussed possible routes of delivery and associated risks: [] special requests: [] Specific Issue/Plans Covid status: [] Flu vaccine: [] Tdap vaccine: [] Rhogam: [] LARC form signed: [] Problem list reviewed and updated with the most current plan of care details and appropriate orders placed. Relevant counseling for the gestational age provided. Continue routine care and follow up unless otherwise noted in visit notes/problem list details Initial Weight: Not Recorded Date -???-???-???-???-???-?? ?-???-???-???-???-???-? ??- EGA Weight BP Urine Prot -???-???-???-???-???-?? ?-???-???-???-???-???-? ??- Glucose FHR FuHt Pres Dilation -???-???-???-???-???-?? ?-???-???-???-???-???-? ??- Effaced St Visit Note 01/23/25 -???-???-???-???-???-?? ?-???-???-???-???-???-? ??- 9w 6d 201 lb 4 oz 122/77 -???-???-???-???-???-?? ?-???-???-?? (more content not included)... Normal [facility] Chlamydia/GC MINDY aptimaon CHLAMY,NUC ACID Negative Normal Negative [facility] Comment on above: Performed By: #### L 7000.1800, L7400.0353, M1 ####[facility] [address] [place], [place], [id number] GC BY NUC ACID Negative Normal Negative [facility] Comment on above: Result Comment: Perf ormed at: =G - [facility] [address] [id number] Set Up And Lay Out Inspector: Mabel Kruse MD, Phone: [phone] Performed By: #### L 7000.1800, L7400.0353, ####[facility] [address] [place], [place], [id number] PAP I-G w/rfx hrHPV-Aptimaon 01-25-2025 ADEQ Comment Normal . [facility] Comment on above: Order Comment: Hua monsivais Comment: [id number] Comment: No. of containers..01 ThinPrep Vial Result Comment: Sati sfactory for evaluation. No endocervical component is identified. An endocervical component is not commonly seen in the patient. Performed By: #### L 7000.1800, L7400.0353, M1.2199 ####[facility] [address] [place], [address] COMM . Normal . [facility] Comment on above: Order Comment: Speci men Comment: [id number] Comment: No. of containers..01 ThinPrep Vial Performed By: #### L 7000.1800, L7400.0353, M100.2199 ####[facility] [address] [place], [address] COMMENT Comment Normal . [facility] Comment on above: Order Comment: Speci men Comment: [id number] Comment: No. of containers..01 ThinPrep Vial Result Comment: This liquid based ThinPrep(R) pap test was screened with the use of an image guided system. Performed By: #### L 7000.1800, L7400.0353, M1.2199 ####[facility] [address] [place], [place], [id number] DIAG Comment Normal . [facility] Comment on above: Order Comment: Speci men Comment: [id number] Comment: No. of containers..01 ThinPrep Vial Result Comment: NEGA TIVE FOR INTRAEPITHELIAL LESION OR MALIGNANCY. Performed By: #### L 7000.1800, L7400.0353, ####[facility] [address] [place], [place], [phone] HPV RFLX Comment Normal . [facility] Comment on above: Order Comment: Speci men Comment: [id number] Comment: No. of containers..01 ThinPrep Vial Result Comment: The HPV DNA reflex criteria were not met with this specimen result therefore, no HPV testing was performed. Performed at: [address] [id number] Set Up And Lay Out Inspector: Mable Kruse MD, Phone: [phone] Performed By: #### L 7000.1800, L7400.0353, M100.0 ####[facility] [address] [place], [place], [address] PAPSMR Comment Normal . [facility] Comment on above: Order Comment: Speci men Comment: [id number] Comment: No. of containers..01 ThinPrep Vial Result Comment: The Pap smear is a screening test designed to aid in the detection of premalignant and malignant conditions of the uterine cervix. It is not a diagnostic procedure and should not be used as the sole means of detecting cervical cancer. Both false-positive and false-negative reports do occur. Performed By: #### L 7000.1800, L7400.0353, M100.2200 ####[facility] [address] [place], [place], [phone] PERFORM Comment Normal . [facility] Comment on above: Order Comment: Speci men Comment: [id number] Comment: No. of containers..01 ThinPrep Vial Result Comment: Chichi Kasper, Team Leader Surgery (ASCP) Performed By: #### L 7000.1800, L7400.0353, M100.2200 ####[facility] [address] [place], [address] Urine Cultureon 01-24-2025 URC Culture exhibits no growth. Normal [facility] Comment on above: Performed By: #### L 7000.1800, L7400.0353, M100.2200 ####[facility] [address] [place], [address] Absolute lymphocyte countOrd ered By: Guadalupe Reyes on 01-23-2025 Lymphocytes Auto (Unsp spec) [#/Vol] 0.62 10*3/uL Low 0.83-4.51 [facility] Absolute neutrophil countOrd ered By: Guadalupe Reyes on 01-23-2025 Neutrophils (Bld) [#/Vol] 7.5 10*3/uL 2.0-7.7 [facility] Automated lymphocyte count a s percentage of total leukocytesOrdered By: Guadalupe Reyes on 01-23-2025 Lymphocytes/100 WBC Auto (Unsp spec) 7.2 % Low 19-41 [facility] Basophil percentageOrdered B y: Guadalupe Reyes on 01-23-2025 Basophils/100 WBC (Bld) 0.2 % 0-1 [facility] CBC W/Diff, Automatedon - 0-2024 Absolute Lymph 0.62 X10 3/uL Low 0.83-4.51 [facility] Comment on above: Performed By: #### L 509.4006, L3890.6301, BTS, L501.9985, L3890.6006, L3890.6102, L509.8002, L100.0100 ####[facility] [address] [place], [address] Absolute Neut 7.5 X10 3/uL Normal 2.0-7.7 [facility] Comment on above: Performed By: #### L 509.4006, L3890.6301, BTS, L501.9985, L3890.6006, L3890.6102, L509.8002, L100.0100 ####[facility] [address] [place], [address] Basophils/100 WBC (Bld) 0.2 % Normal 0-1 [facility] Comment on above: Performed By: #### L 509.4006, L3890.6301, BTS, L501.9985, L3890.6006, L3890.6102, L509.8002, L100.0100 ####[facility] [address] [place], [address] Eosinophils/100 WBC (Bld) 0.5 % Normal 0-5 [facility] Comment on above: Performed By: #### L 509.4006, L3890.6301, BTS, L501.9985, L3890.6006, L3890.6102, L509.8002, L100.0100 ####[facility] [address] [place], [address] Erythrocyte distribution width (RBC) [Ratio] 11.5 % Low 11.6-14.6 [facility] Comment on above: Performed By: #### L 509.4006, L3890.6301, BTS, L501.9985, L3890.6006, L3890.6102, L509.8002, L100.0100 ####[facility] [address] [place], [address] Hematocrit (Bld) [Volume fraction] 37.8 % Normal 37-47 [facility] Comment on above: Performed By: #### L 509.4006, L3890.6301, BTS, L501.9985, L3890.6006, L3890.6102, L509.8002, L100.0100 ####[facility] [address] [place], [address] Hemoglobin (Bld) [Mass/Vol] 13.4 g/dL Normal 12.0-15.0 [facility] Comment on above: Performed By: #### L 509.4006, L3890.6301, BTS, L501.9985, L3890.6006, L3890.6102, L509.8002, L100.0100 ####[facility] [address] [place], [address] IG% 0.300 Normal 0.0-0.9 [facility] Comment on above: Result Comment: IG% - Immature Granulocytes (promyelocytes, myelocytes and metamyelocytes) > 1% indicates that a LEFT SHIFT is Present. Performed By: #### L 509.4006, L3890.6301, BTS, L501.9985, L3890.6006, L3890.6102, L509.8002, L100.0100 ####[facility] [address] [place], [address] Lymphocytes/100 WBC (Bld) 7.2 % Low 19-41 [facility] Comment on above: Performed By: #### L 509.4006, L3890.6301, BTS, L501.9985, L3890.6006, L3890.6102, L509.8002, L100.0100 ####[facility] [address] [place], [address] MCH (RBC) [Entitic mass] 31.5 pg Normal 27.0-32.0 [facility] Comment on above: Performed By: #### L 509.4006, L3890.6301, BTS, L501.9985, L3890.6006, L3890.6102, L509.8002, L100.0100 ####[facility] [address] [place], [address] MCHC (RBC) [Mass/Vol] 35.4 g/dL Normal 32-36 [facility] [facility] Comment on above: Performed By: #### L 509.4006, L3890.6301, BTS, L501.9985, L3890.6006, L3890.6102, L509.8002, L100.0100 ####[facility] [address] [place], [address] MCV (RBC) [Entitic vol] 88.7 fL Normal 81-99 [facility] Comment on above: Performed By: #### L 509.4006, L3890.6301, BTS, L501.9985, L3890.6006, L3890.6102, L509.8002, L100.0100 ####[facility] [address] [place], [address] Monocytes/100 WBC (Bld) 4.8 % Normal 0-10 [facility] Comment on above: Performed By: #### L 509.4006, L3890.6301, BTS, L501.9985, L3890.6006, L3890.6102, L509.8002, L100.0100 ####[facility] [address] [place], [address] Neutrophils/100 WBC (Bld) 87.0 % High 47-70 [facility] Comment on above: Performed By: #### L 509.4006, L3890.6301, BTS, L501.9985, L3890.6006, L3890.6102, L509.8002, L100.0100 ####[facility] [address] [place], [address] Nucleated RBC (Bld) [#/Vol] 0 10*3/uL Normal 0-5 [facility] Comment on above: Performed By: #### L 509.4006, L3890.6301, BTS, L501.9985, L3890.6006, L3890.6102, L509.8002, L100.0100 ####[facility] [address] [place], [address] Platelet mean volume (Bld) [Entitic vol] 10.6 fL Normal 6.2-12.0 [facility] Comment on above: Performed By: #### L 509.4006, L3890.6301, BTS, L501.9985, L3890.6006, L3890.6102, L509.8002, L100.0100 ####[facility] [address] [place], [address] Platelets (Bld) [#/Vol] 227 10*3/uL Normal 150-450 [facility] Comment on above: Performed By: #### L 509.4006, L3890.6301, BTS, L501.9985, L3890.6006, L3890.6102, L509.8002, L100.0100 ####[facility] [address] [place], [address] RBC (Bld) [#/Vol] 4.26 10*6/uL Normal 4.2-5.4 [facility] Comment on above: Performed By: #### L 509.4006, L3890.6301, BTS, L501.9985, L3890.6006, L3890.6102, L509.8002, L100.0100 ####[facility] [address] [place], [address] RDW SD 36.6 fl Normal 35.1-43.9 [facility] Comment on above: Performed By: #### L 509.4006, L3890.6301, BTS, L501.9985, L3890.6006, L3890.6102, L509.8002, L100.0100 ####[facility] [address] [place], [address] WBC (Bld) [#/Vol] 8.6 10*3/uL Normal 4.4-11.0 [facility] Comment on above: Performed By: #### L 509.4006, L3890.6301, BTS, L501.9985, L3890.6006, L3890.6102, L509.8002, L100.0100 ####[facility] [address] [place], [address] Cervical or vagninal specime n microscopic examination by cytology stain (reported asOrdered By: Guadalupe Reyes on 01-23-2025 Cytology report Cyto stain Doc (Cvx/Vag) Comment . [facility] Comment on above: The Pap smear is a s creening test designed to aid in thedetection of premalignant and malignant conditions of theuterine cervix. It is not a diagnostic procedure andshould not be used as the sole means of detecting cervicalcancer. Both false-positive and false-negative reports dooccur. Chlamydia trachomatis rRNA d etection by probe and target amplification methodOrdered By: Guadalupe Reyes on 01-23-2025 C. trachomatis rRNA MINDY+probe Ql (Unsp spec) Negative Negative [facility] Eosinophil percentageOrdered By: Guadalupe Reyes on 01-23-2025 Eosinophils/100 WBC (Bld) 0.5 % 0-5 [facility] Erythrocyte distribution wid th ratioOrdered By: Guadalupe Reyes on 01-23-2025 Erythrocyte distribution width (RBC) [Ratio] 11.5 % Low 11.6-14.6 [facility] Erythrocyte distribution wid th standard deviationOrdered By: Guadalupe Reyes on 01-23-2025 Erythrocyte distribution width (RBC) [Ratio] 36.6 fl 35.1-43.9 [facility] HIVon 01-23-2025 HIV Non-Reactive Normal Nonreactive [facility] Comment on above: Result Comment: Non- Reactive Reactive Repeatedly reactive samples must be confirmed according to CDC recommended confirmatory algorithms. The subresults for either HIVAG or AHIV can be used as an aid in the selection of the confirmation algorithm for reactive samples. Send out specimens with Reactive results to [facility] for confirmation. Order the HIV antibody detection and differentiation: #[id number] Performed By: #### L 509.4006, L3890.6301, BTS, L501.9985, L3890.6006, L3890.6102, L509.8002, L100.0100 ####[facility] [address] [place], [address] Hematocrit Auto (Bld) [Volum e fraction]Ordered By: Guadalupe Amy on 01-23-2025 Hematocrit (Bld) [Volume fraction] 37.8 % 37-47 [facility] Hemoglobin A1con 01-23-2025 HbA1c (Bld) [Mass fraction] 5.0 % Normal <=5.6 [facility] Comment on above: Result Comment: Norm al < 5.7 % Prediabetic 5.7 - 6.4 % Diabetic >or= 6.5 % Please note range changes. Performed By: #### L 509.4006, L3890.6301, BTS, L501.9985, L3890.6006, L3890.6102, L509.8002, L100.0100 ####[facility] [address] [place], [place], [id number] Hemoglobin A1c percentageOrd ered By: Guadalupe Ortegajossy on 01-23-2025 HbA1c (Bld) [Mass fraction] 5.0 % <5.7 [facility] Comment on above: Normal < 5.7 % Predi abetic 5.7 - 6.4 % Diabetic >or= 6.5 % Please note range changes. Hemoglobin measurementOrdere d By: Guadalupe Ortegajossy on 01-23-2025 Hemoglobin (Bld) [Mass/Vol] 13.4 g/dL 12.0-15.0 [facility] Hepatitis C Antibodyon 01-23 Hepatitis C Ab Non-Reactive Normal Nonreactive [facility] Comment on above: Result Comment: Reac tive: Presumptive evidence of antibodies to HCV. Follow CDC recommendations for supplemental testing. Non-Reactive: Antibodies to HCV were not detected; does not exclude the possibility of exposure to HCV Reactive Results are presumptive evidence of antibodies to HCV. Follow CDC recommendations for supplemental testing. Order confirmation testing: HCV Quant by PCR testing - [facility]PCR #[id number] Non Reactive: < 0.8 Equivocal: >/= 0.8 to < 1.0 Reactive: >/= 1.0 The CDC requires that a reactive/equivocal HCV antibody result be sent out for confirmation. HCV Quant by PCR testing. Performed By: #### L 509.4006, L3890.6301, BTS, L501.9985, L3890.6006, L3890.6102, L509.8002, L100.0100 ####[facility] [address] [place], [address] Immature granulocytes/100 WB C Auto (Bld)Ordered By: Guadalupe Amy on 01-23-2025 Immature granulocytes/100 WBC (Bld) 0.300 % 0.0-0.9 [facility] Comment on above: IG% - Immature Granu locytes (promyelocytes, myelocytes and metamyelocytes) > 1% indicates that a LEFT SHIFT is Present. L3890.6102on 01-23-2025 HEP B Surf Ag Non-Reactive Normal Nonreactive [facility] Comment on above: Result Comment: Reac tive: Presumptive evidence of HBV. Repeatedly reactive samples must be confirmed using a neutralization test ([employer] HBsAg Confirmatory Test) Non-Reactive: HBsAg not detected; does not exclude the possibility of exposure to HBV Performed By: #### L 509.4006, L3890.6301, BTS, L501.9985, L3890.6006, L3890.6102, L509.8002, L100.0100 ####[facility] [address] [place], [place], [address] L509.4006on 01-23-2025 Rubella IgG REAC Normal Nonreactive [facility] Comment on above: Result Comment: Anti body Result: Interpretation Non-Reactive: Non-Immune Reactive: Immune The following results were obtained with the [employer] Rubella IgG assay. Results from assays of other manufacturers cannot be used interchangeably. Performed By: #### L 509.4006, L3890.6301, BTS, L501.9985, L3890.6006, L3890.6102, L509.8002, L100.0100 ####[facility] [address] [place], [place], [id number] Laboratory - CytologyOrdered By: Guadalupe Reyes on 01-23-2025 Team Leader Surgery Cyto stain Nom (Cvx/Vag) [ID] Comment . [facility] Comment on above: [place] tologist ([facility]) Laboratory - Microbiology an d Antimicrobial susceptibilityOrdered By: Guadalupe Reyes on 01-23-2025 HBV surface Ag Ql (S) Non-Reactive Nonreactive [facility] Comment on above: Reactive: Presumptiv e evidence of HBV. Repeatedly reactive samples must be confirmed using a neutralization test ([employer] HBsAg Confirmatory Test)Non-Reactive: HBsAg not detected; does not exclude the possibility of exposure to HBV Laboratory - Miscellaneous t estsOrdered By: Guadalupe Reyes on 01-23-2025 Service comment (Unsp spec) [Interp] . . [facility] MCV (mean corpuscular volume ) determinationOrdered By: Guadalupe Reyes on 01-23-2025 MCV (RBC) [Entitic vol] 88.7 fL 81-99 [facility] Mean corpuscular hemoglobin (MCH) determinationOrdered By: Guadalupe Reyes on 01-23-2025 MCH (RBC) [Entitic mass] 31.5 pg 27.0-32.0 [facility] Mean corpuscular hemoglobin concentration (MCHC) determinationOrdered By: Guadalupe Reyes on 01-23-2025 MCHC (RBC) [Mass/Vol] 35.4 g/dL 32-36 [facility] Mean platelet volume determi nationOrdered By: Guadalupe Reyes on 01-23-2025 Platelet mean volume (Bld) [Entitic vol] 10.6 fL 6.2-12.0 [facility] Monocyte percentageOrdered B y: Guadalupe Reyes on 01-23-2025 Monocytes/100 WBC (Bld) 4.8 % 0-10 [facility] Neisseria gonorrhoeae nuclei c acid detection by amplified probe techniqueOrdered By: Guadalupe Reyes on 01-23-2025 N. gonorrhoeae DNA MINDY+probe Ql (Unsp spec) Negative Negative [facility] Comment on above: Performed at: =[address] [id number] Director: Mable Kruse MD, Phone: [phone] Neutrophil percentageOrdered By: Guadalupe Reyes on 01-23-2025 Neutrophils/100 WBC (Bld) 87.0 % High 47-70 [facility] No Panel InformationOrdered By: Guadalupe Reyes on 01-23-2025 Pap Smear Specimen Adequacy Comment . [facility] Comment on above: Satisfactory for tameka luation. No endocervical component is identified.An endocervical component is not commonly seen in the patient. HIV (1&2) Antibody Non-Reactive Nonreactive [facility] Comment on above: Non-ReactiveReactive Repeatedly reactive samples must be confirmed according to CDC recommended confirmatory algorithms. The subresults for either HIVAG or AHIV can be used as an aid in the selection of the confirmation algorithm for reactive samples.Send out specimens with Reactive results to [facility] for confirmation.Order the HIV antibody detection and differentiation: #[id number] Nucleated red blood cell per centageOrdered By: Guadalupe Reyes on 01-23-2025 Nucleated RBC/100 WBC (Bld) [Ratio] 0 % 0-5 [facility] Airline Hostess Office Visit Reporton 01-23-2025 Airline Hostess Office Visit Report [facility]'s [address], [address] [place] [address] OFFICE VISIT Date of Service: 01/23/25 MR#: [id number] Acct: [id number] Name: JENNY IBARRA Rep #: [id number] : 1995 Provider: Dr. Guadalupe Jarvis DO Age/Sex: 29/F Location: [facility] Status: Signed Intake Vital Signs 10/19/24 13:39 01/23/25 08:57 01/23/25 08:57 Height 5 ft 4 in 5 ft 4 in 5 ft 4 in Weight: 201 lb 4 oz BMI 34.5 BP 122/77 H Intake Visit Reasons: NOB US #1 ANT 08/22/25 Property Maintenance Technician Required: No Is patient in pain?: No Allergies No Known Allergies Allergy (Verified 01/23/25 08:55) Medications ???Medication ???Instructions ???Recorded ???Confirmed ???Type multivitamin no.47-iron fum 27 1 cap PO DAILY Check with primary 06/11/22 01/23/25 History mg-folate no.1 1 mg-dha 300 mg doctor capsule (PNV-DHA) magnesium 1 cap PO/SL DAILY leg cramps 01/1801/23/25 History progesterone micronized 200 mg 200 mg vaginal ONCE #30 caps 12/1001/23/25 Rx capsule (Prometrium) doxylamine succinate 25 mg tablet 25 mg PO QHS PRN 01/10/25 5 History (Unisom (doxylamine)) pyridoxine (vitamin B6) 10 mg 10 mg PO QDAY 01/10/25 01/23/25 Hi story tablet Last Menstrual Period: 10/08/24 Zika: Zika virus screening: Negative : No PFSH PFSH Medical History (Updated 01/23/25 @ 09:[address] Guadalupe Garcia DO) Short cervix affecting History of miscarriage, currently Gestational diabetes Infertility Vacuum extractor delivery, delivered care and examination Acute bronchitis Gestational diabetes PCOS (polycystic ovarian syndrome) Surgical History History of surgery Family History Father Cancer mouth/throat Social History adopted: No household members: spouse and children housing: house number of children: 1 current occupational status: employed current occupation: [employer] current occupational exposures/hazards: No pets and animals: Yes pets and animals: dog(s) history of recent travel: No sexually active: Yes Smoking Status: Never smoker alcohol intake: former details: not while pregnany, social only substance use type: does not use well-balanced diet: about half the time caffeine: No eating out: 1-3 times/week during the past year weight has: remained stable what type of physical activity do you participate in: walking frequency: 1-2 times per week duration: 15-30 minutes/day keturah/baptist: Uatsdin seatbelt use: always do you feel safe at home: Yes additional social history: - Guerrero, Dinora [employer] History 4 Elective abortions Hx Para 1 Spontaneous abortions 1 Hx # Term Pregnancies Ectopic pregnancies 1 Hx # Pregnancies Multiple births # of living children 1 Past Pregnancies Del. Date Name GA/Weeks Outcome Route Bth Weight Infant Gen Labor Lgth Anesthesia Del Locatn Provider FOB Unknown ectopic Unknown spontaneous 01/19/23 Benny 40 live - full term Male [facility] Dr. Alma Delia Masters Delivery Date: 01/19/23 Last Updated by: Anitha Cook Shortened cervix, gestational diabetes HPI NOB US #1 ANT 08/22/25 Details: JENNY IBARRA is a 29 year old who presents for New OB visit. She is taking progesterone for h/o short cervix last . OB Visit ANT Calculator Estimated Delivery Date Method Current WG Current Estimate 07/15/25 LMP (Uncertain) 15w 2d Comments: HIV: Urine Culture: Sequential Screen: NIPT Screen: Estimated Due Date: 08/22/02 Expected Delivery Route/Plan Labor Preferences- CB/BF classes: [] labor support person: [] labor intervention preferences: [] pain management options preferred: [] cut cord/dad catch: [] : [] PP control planned: [] discussed possible routes of delivery and associated risks: [] special requests: [] Specific Issue/Plans Covid status: [] Flu vaccine: [] Tdap vaccine: [] Rhogam: [] LARC form signed: [] Problem list reviewed and updated with the most current plan of care details and appropriate orders placed. Relevant counseling for the gestational age provided. Continue routine care and follow up unless otherwise noted in visit notes/problem list details Initial Weight: Not Recorded Date -???-???-???-???-???-?? ?-???-???-???-???-???-? ??- EGA Weight BP Urine Prot -???-???-???-???-???-?? ?-???-???-???-???-???-? ??- Glucose FHR FuHt Pres Dilation -???-???-???-???-???-?? ?-???-???-???-???-???-? ??- (more content not included)... Normal [facility] Platelet countOrdered By: Nikko Reyes on 01-23-2025 Platelets (Bld) [#/Vol] 227 10*3/uL 150-450 [facility] RBC Auto (Bld) [#/Vol]Ordere d By: Guadalupe Reyes on 01-23-2025 RBC (Bld) [#/Vol] 4.26 10*6/uL 4.2-5.4 [facility] Syphilis Antibodieson 2024 Syphilis Abs Non-Reactive Normal Nonreactive [facility] Comment on above: Performed By: #### L 509.4006, L3890.6301, BTS, L501.9985, L3890.6006, L3890.6102, L509.8002, L100.0100 ####[facility] [address] [place], [address] Type AND Screenon 01-23-2025 Ab SCREEN GEL Negative Normal [facility] Comment on above: Order Comment: PN Performed By: #### L 509.4006, L3890.6301, BTS, L501.9985, L3890.6006, L3890.6102, L509.8002, L100.0100 ####[facility] [address] [place], [place], [address] Urine cultureOrdered By: Rae Reyes on 01-23-2025 Bacteria identified Cx Nom (U) Culture exhibits no growth. [facility] White blood cell (WBC) count Ordered By: Guadalupe Reyes on 01-23-2025 WBC (Bld) [#/Vol] 8.6 10*3/uL 4.4-11.0 [facility] HCG ( test) QlOrder ed By: Margarita Rollins on 12-18-2024 Human Chorionic Gonadotropin, Quant 1470 mIU/mL High <9 [facility] Comment on above: Gestational Age0.2-1 Week: 5-50 mIU/mL1-2 Weeks: 50-500 mIU/mL2-3 Weeks: 100-5000 mIU/mL3-4 Weeks: 500-10,000 mIU/mL4-5 Weeks:1000-50,000 mIU/mL5-6 Weeks: 10,000-100,000 mIU/mL6-8 Weeks: 15,000-200,000 mIU/mL2-3 Months:10,000-100,000 mIU/mL Serum human chorionic gonado tropin detection for pregnancyOrdered By: Margarita Rollins on 12-18-2024 HCG ( test) Ql 1470 mIU/mL High <9 [facility] Comment on above: Gestational Age0.2-1 Week: 5-50 mIU/mL1-2 Weeks: 50-500 mIU/mL2-3 Weeks: 100-5000 mIU/mL3-4 Weeks: 500-10,000 mIU/mL4-5 Weeks:1000-50,000 mIU/mL5-6 Weeks: 10,000-100,000 mIU/mL6-8 Weeks: 15,000-200,000 mIU/mL2-3 Months:10,000-100,000 mIU/mL hCG Titer Quant., Serumon HCG QUANT. 1470 mIU/mL High <9 non-preg [facility] Comment on above: Result Comment: Gest ational Age 0.2-1 Week: 5-50 mIU/mL 1-2 Weeks: 50-500 mIU/mL 2-3 Weeks: 100-5000 mIU/mL 3-4 Weeks: 500-10,000 mIU/mL 4-5 Weeks:1000-50,000 mIU/mL 5-6 Weeks: 10,000-100,000 mIU/mL 6-8 Weeks: 15,000-200,000 mIU/mL 2-3 Months:10,000-100,000 mIU/mL Performed By: #### L 700.8000 ####[facility] [address] [place], [address] HCG ( test) QlOrder ed By: Margarita Rollins on 12-12-2024 Human Chorionic Gonadotropin, Quant 86 mIU/mL High <9 [facility] Comment on above: Gestational Age0.2-1 Week: 5-50 mIU/mL1-2 Weeks: 50-500 mIU/mL2-3 Weeks: 100-5000 mIU/mL3-4 Weeks: 500-10,000 mIU/mL4-5 Weeks:1000-50,000 mIU/mL5-6 Weeks: 10,000-100,000 mIU/mL6-8 Weeks: 15,000-200,000 mIU/mL2-3 Months:10,000-100,000 mIU/mL Serum human chorionic gonado tropin detection for pregnancyOrdered By: Margarita Rollins on 12-12-2024 HCG ( test) Ql 86 mIU/mL High <9 [facility] Comment on above: Gestational Age0.2-1 Week: 5-50 mIU/mL1-2 Weeks: 50-500 mIU/mL2-3 Weeks: 100-5000 mIU/mL3-4 Weeks: 500-10,000 mIU/mL4-5 Weeks:1000-50,000 mIU/mL5-6 Weeks: 10,000-100,000 mIU/mL6-8 Weeks: 15,000-200,000 mIU/mL2-3 Months:10,000-100,000 mIU/mL hCG Titer Quant., Serumon HCG QUANT. 86 mIU/mL High <9 non-preg [facility] Comment on above: Result Comment: Gest ational Age 0.2-1 Week: 5-50 mIU/mL 1-2 Weeks: 50-500 mIU/mL 2-3 Weeks: 100-5000 mIU/mL 3-4 Weeks: 500-10,000 mIU/mL 4-5 Weeks:1000-50,000 mIU/mL 5-6 Weeks: 10,000-100,000 mIU/mL 6-8 Weeks: 15,000-200,000 mIU/mL 2-3 Months:10,000-100,000 mIU/mL Performed By: #### L 700.8000 ####[facility] [address], [place], [address] HCG ( test) QlOrder ed By: Margarita Rollins on 12-10-2024 Human Chorionic Gonadotropin, Quant 30 mIU/mL High <9 [facility] Comment on above: Gestational Age0.2-1 Week: 5-50 mIU/mL1-2 Weeks: 50-500 mIU/mL2-3 Weeks: 100-5000 mIU/mL3-4 Weeks: 500-10,000 mIU/mL4-5 Weeks:1000-50,000 mIU/mL5-6 Weeks: 10,000-100,000 mIU/mL6-8 Weeks: 15,000-200,000 mIU/mL2-3 Months:10,000-100,000 mIU/mL Serum human chorionic gonado tropin detection for pregnancyOrdered By: Margarita Rollins on 12-10-2024 HCG ( test) Ql 30 mIU/mL High <9 [facility] Comment on above: Gestational Age0.2-1 Week: 5-50 mIU/mL1-2 Weeks: 50-500 mIU/mL2-3 Weeks: 100-5000 mIU/mL3-4 Weeks: 500-10,000 mIU/mL4-5 Weeks:1000-50,000 mIU/mL5-6 Weeks: 10,000-100,000 mIU/mL6-8 Weeks: 15,000-200,000 mIU/mL2-3 Months:10,000-100,000 mIU/mL hCG Titer Quant., Serumon HCG QUANT. 30 mIU/mL High <9 non-preg [facility] Comment on above: Result Comment: Gest ational Age 0.2-1 Week: 5-50 mIU/mL 1-2 Weeks: 50-500 mIU/mL 2-3 Weeks: 100-5000 mIU/mL 3-4 Weeks: 500-10,000 mIU/mL 4-5 Weeks:1000-50,000 mIU/mL 5-6 Weeks: 10,000-100,000 mIU/mL 6-8 Weeks: 15,000-200,000 mIU/mL 2-3 Months:10,000-100,000 mIU/mL Performed By: #### L 700.8000 #### [facility] [address] [facility] [place], [address] PROGESTERONE 4317on 11-02-19 25 PROGESTERONE 0.1 ng/mL Normal . [facility] Comment on above: Order Comment: N Result Comment: Foll icular phase 0.1 - 0.9 Luteal phase 1.8 - 23.9 Ovulation phase 0.1 - 12.0 First trimester 11.0 - 44.3 Second trimester 25.4 - 83.3 Third trimester 58.7 - 214.0 Postmenopausal 0.0 - 0.1 Performed at: [address] [id number] Set Up And Lay Out Inspector: Houston Steve PhD, Phone: [phone] Performed By: #### L 049.8240, L704.0001 #### [facility] [address] [place], [address] Quantitative serum progester one measurement by electrochemiluminescence immunoassay (Ordered By: Margarita Rollins on 11-01-2024 Progesterone Level 0.1 ng/mL . [facility] Comment on above: Follicular phase 0.1 - 0.9 Luteal phase 1.8 - 23.9 Ovulation phase 0.1 - 12.0 First trimester 11.0 - 44.3 Second trimester 25.4 - 83.3 Third trimester 58.7 - 214.0 Postmenopausal 0.0 - 0.1Performed at: CB - [facility] [address] [place], [place] [id number] Director: Houston Steve PhD, Phone: [phone] Serum or plasma thyroid stim ulating hormone (TSH) measurement (units/volume)Ordered By: Margarita Rollins on 11-01-2024 TSH Qn 2.250 uIU/mL 0.358-3.740 [facility] TSH QnOrdered By: Margarita evans on 11-01-2024 Thyroid Stimulating Hormone (TSH) 2.250 uIU/mL 0.358-3.740 [facility] Thyroid Stim Hormone (TSH)on 11-01-2024 TSH 2.250 uIU/mL Normal 0.358-3.740 [facility] Comment on above: Performed By: #### L 501.9520, L801.2600 #### [facility] [address] [place], [place], [id number] Airline Hostess Office Visit Reporton 10-19-2024 Airline Hostess Office Visit Report [facility]'s [address], [address] [place] [address] OFFICE VISIT Date of Service: 10/19/24 MR#: [id number] Acct: [id number] Name: JENNY IBARRA Rep #: [id number] : 1995 Provider: AVIS Doe ams Age/Sex: 29/F Location: [facility] [place] [facility] Status: Signed Intake Vital Signs 01/26/24 13:38 10/19/24 13:38 10/19/24 13:39 Height 5 ft 4 in 5 ft 4 in 5 ft 4 in Weight: 206 lb 200 lb BMI 35.3 34.3 BP 118/64 142/82 H Blood Pressure Location Lt brachial Position Sitting Respiration 12 Pulse 110 H Pulse Source Monitor Temp 98 F Pulse Oximetry (%) 97 Oxygen Delivery Method room air Intake Visit Reasons: FERTILITY CONSULT Property Maintenance Technician Required: No Is patient in pain?: No Allergies No Known Allergies Allergy (Verified 10/19/24 13:38) Medications ???Medication ???Instructions ???Recorded ???Confirmed ???Type multivitamin no.47-iron fum 27 1 cap PO DAILY Check with primary 06/11/22 10/19/24 History mg-folate no.1 1 mg-dha 300 mg doctor capsule (PNV-DHA) blood sugar diagnostic (True #100 ea 11/15/22 10/19/24 Rx Metrix Glucose Test Strip) blood-glucose meter (True Metrix #1 ea 11/15/22 10/19/24 Rx Air Glucose Meter) magnesium 1 cap PO/SL DAILY leg cramps 01/18/23 10/19/24 History medroxyprogesterone 5 mg tablet 10 mg (2 x 5 mg) PO DAILY 5 days 10/19/24 10/19/24 Rx (Provera) #10 tabs Is last menstrual period known: Yes Last Menstrual Period: 10/08/24 Post menopausal: No Patient : No Control Method: none PFSH Medical History Gestational diabetes Short cervix affecting PCOS (polycystic ovarian syndrome) Surgical History History of surgery Social History adopted: No household members: spouse housing: house number of children: 0 current occupational status: employed current occupation: [employer] current occupational exposures/hazards: No pets and animals: Yes pets and animals: dog(s) history of recent travel: No sexually active: Yes Smoking Status: Never smoker alcohol intake: former details: social substance use type: does not use well-balanced diet: about half the time caffeine: No eating out: 1-3 times/week during the past year weight has: remained stable what type of physical activity do you participate in: walking frequency: 1-2 times per week duration: 15-30 minutes/day keturah/baptist: Uatsdin seatbelt use: always do you feel safe at home: Yes additional social history: - Gu[employer]ro [employer] [facility] FERTILITY CONSULT Details: JENNY IBARRA is a 29 year old who presents for preconception consult. Stopped in april and had not yet had menses. Menses spontaneously started on 10/08 and was normal for patient. Would like to conceive again but was on provera and femera prior to conceiving with her son. Concerns that she may need these medications again, although, she would like to conceive spontaneously. Discussed giving her body time (1-2 months) to adjust to menses and tracking cycles. Plans to use ovulation strips and tracking to determine ovulation and timing of intercourse. will get serum progesterone done. Female Reproductive History Last Menstrual Period: 10/08/24 Cycle Length: 21-35 Questions: metorrhagia: No, sexually active: Yes, dyspareunia: No and PCB: No History 3 Elective abortions Hx Para 1 Spontaneous abortions 1 Hx # Term Pregnancies Ectopic pregnancies 1 Hx # Pregnancies Multiple births # of living children 1 Past Pregnancies Del. Date Name GA/Weeks Outcome Route Bth Weight Gen Labor Lgth Anesthesia Del Locatn Provider FOB 01/19/23 40 live - full term [facility] Dr. Alma Delia Masters Delivery Date: 01/19/23 Last Updated by: Anitha Cook Shortened cervix, gestational diabetes ROS Const Constitutional: Reports system reviewed and no additional complaints, except as documented Cardio Card: Reports system reviewed and no additional complaints, except as documented Resp Resp: Reports system reviewed and no additional complaints, except as documented GI GI: Reports system reviewed and no additional complaints, except as documented : Reports system reviewed and no additional complaints, except as documented Skin Skin/Breast: Reports system reviewed and no additional complaints, except as documented Neuro Neuro: Reports system reviewed and no additional complaints, except as documented Psych Psych: Reports system reviewed and no additional complaints, except as documented Exam Const General: cooperative, healthy (more content not included)... Normal [facility] Basophil percentageOrdered B y: Margarita Rollins on 01-20-2023 WBC (Bld) [#/Vol] 12.1 10*3/uL 4.4-11.0 [facility] Blood erythrocytes count (nu mber/volume)Ordered By: Margarita Rollins on 01-20-2023 RBC (Bld) [#/Vol] 2.90 10*6/uL 4.2-5.4 [facility] Blood hemoglobin measurement (mass/volume)Ordered By: Margarita Rollins on 01-20-2023 Hemoglobin (Bld) [Mass/Vol] 9.2 g/dL 12.0-15.0 [facility] Blood platelet mean volumeOr dered By: Margarita Rollins on 01-20-2023 Platelet mean volume (Bld) [Entitic vol] 11.1 fL 6.2-12.0 [facility] Determination of erythrocyte mean corpuscular volume (MCV)Ordered By: Margarita Rollins on 01-20-2023 MCV (RBC) [Entitic vol] 94.5 fL 81-99 [facility] Glucose Glucometer (BldC) [M ass/Vol]Ordered By: Dr. Reyes on 01-20-2023 Glucose [Mass/Vol] 83 mg/dL 74-106 [facility] Comment on above: MANAGEMENT OF PATIEN T CARE PER NURSING PROTOCOL Hematocrit Auto (Bld) [Volum e fraction]Ordered By: Margarita Rollins on 01-20-2023 Hematocrit (Bld) [Volume fraction] 27.4 % 37-47 [facility] Laboratory - Hematology and Cell countsOrdered By: Margarita Rollins on 01-20-2023 Erythrocyte distribution width (RBC) [Entitic vol] 45.0 fL 35.1-43.9 [facility] Erythrocyte distribution width (RBC) [Ratio] 13.4 % 11.6-14.6 [facility] MCH (RBC) [Entitic mass] 31.7 pg 27.0-32.0 [facility] MCHC Auto (RBC) [Mass/Vol]Or dered By: Margarita Rollins on 01-20-2023 MCHC (RBC) [Mass/Vol] 33.6 g/dL 32-36 [facility] Platelets bldOrdered By: Compa Rollins on 01-20-2023 Platelets (Bld) [#/Vol] 144 10*3/uL 150-450 [facility] Absolute lymphocyte countOrd ered By: Margarita Rollins on 01-18-2023 Lymphocytes Auto (Unsp spec) [#/Vol] 1.43 10*3/uL 0.83-4.51 [facility] Basophil percentageOrdered B y: Margarita Rollins on 01-18-2023 Basophils/100 WBC (Bld) 0.6 % 0-1 [facility] Eosinophils/100 WBC (Bld) 2.8 % 0-5 [facility] Neutrophils (Bld) [#/Vol] 4.2 10*3/uL 2.0-7.7 [facility] Neutrophils/100 WBC (Bld) 67.5 % 47-70 [facility] Blood lymphocytes/100 leukoc ytesOrdered By: Margarita Rollins on 01-18-2023 Lymphocytes/100 WBC (Bld) 23.2 % 19-41 [facility] Blood monocytes/100 leukocyt esOrdered By: Margarita Rollins on 01-18-2023 Monocytes/100 WBC (Bld) 5.3 % 0-10 [facility] Laboratory - Hematology and Cell countsOrdered By: Margarita Rollins on 01-18-2023 Immature granulocytes/100 WBC (Bld) 0.600 % 0.0-0.9 [facility] Comment on above: IG% - Immature Granu locytes (promyelocytes, myelocytes and metamyelocytes) > 1% indicates that a LEFT SHIFT is Present. Nucleated RBC/100 WBC (Bld) [Ratio] 0 % 0-5 [facility] Serum Treponema species anti body detectionOrdered By: Margarita Rollins on 01-18-2023 Treponema sp Ab Ql (S) Non-Reactive [facility] Laboratory - Chemistry and C hemistry - challengeon 01-13-2023 Glucose Ql (U) Negative [facility] Laboratory - Urinalysison Protein Ql (U) Negative [facility] Laboratory - Chemistry and C hemistry - challengeon 01-11-2023 Glucose Ql (U) Negative [facility] Laboratory - Urinalysison Protein Ql (U) Negative [facility] Laboratory - Chemistry and C hemistry - challengeon 01-04-2023 Glucose Ql (U) Negative [facility] Laboratory - Urinalysison Protein Ql (U) Negative [facility] Laboratory - Chemistry and C hemistry - challengeon 12-28-2022 Glucose Ql (U) Negative [facility] Laboratory - Urinalysison Protein Ql (U) Negative [facility] No Panel InformationOrdered By: Dr. Reyes on 12-24-2022 Group B Streptococcus Culture Group B Beta Streptococcus is not isolated. [facility] Laboratory - Chemistry and C hemistry - challengeon 12-21-2022 Glucose Ql (U) Negative [facility] Laboratory - Urinalysison Protein Ql (U) Negative [facility] Laboratory - Chemistry and C hemistry - challengeon 12-07-2022 Glucose Ql (U) Negative [facility] Laboratory - Urinalysison Protein Ql (U) Negative [facility] CNPNon 12-01-2022 CNPN Telephone ([facility]) JENNY IBARRA ([id number]) 1995 F Date Time Provider Department 12/01/22 [facility] During your visit today, we recorded the following information about you: Sayda Boyd 12/01/2022 3:00 PM Signed Pt calling in as she is (due this summer) and wanting to have her child establish care with Dr. Villanueva. Please advise Dayanara Bird RN 12/01/2022 3:54 PM Signed message left for mom to call office Dayanara Bird RN 12/01/2022 4:26 PM Signed spoke with mother, is aware that once baby is born to call office. Verbalizes understanding Dayanara Bird RN Allergies As of Date: 12/01/2022 Noted Allergy Reaction AUGMENTIN (AMOXICILLIN-POT CLAVUL*09/04/2005 2 - Rash Date Reviewed: 10/21/2020 Reviewed by: Shaggy Meier LPN - Fully Assessed Reason for Visit: Appointment [186] Prescriptions as of 12/01/2022 - medroxyPROGESTERone (PROVERA) 10 mg tablet Take 1 tablet by mouth once daily. Problem List As Of Date 12/01/2022 Noted Resolved Migraine without status migrainosus, not intrac*10/13/2015 Well adult exam [Z00.00] 10/13/2015 Encounter Status:Closed by DAYANARA BIRD RN on 12/01/22 Normal [facility] Laboratory - Chemistry and C hemistry - challengeon 11-23-2022 Glucose Ql (U) Negative [facility] Laboratory - Urinalysison Protein Ql (U) Negative [facility] Quantitative serum or plasma 3 hour gestational glucose tolerance panelOrdered By: Jessica Bella on 11-11-2022 Glucose tolerance 3 hours gestational panel See comment [facility] Comment on above: FASTING 88 Col: 10/27 03/18 0704GLUCOSE TOLERANCE TEST FOR Reference Interval GESTATIONAL DIABETES Fasting <105 mg/dL 1 hour <190 mg/dl 2 hour <165 mg/dl 3 hour <145 mg/dl 1 HR GLU 193 H Col: 11/11/22 0809 2 HR GLU 174 H Col: 11/11/22 0908 3 HR GLU 100 Col: 11/11/22 1007 Laboratory - Chemistry and C hemistry - challengeon 11-10-2022 Glucose Ql (U) Negative [facility] Laboratory - Urinalysison Protein Ql (U) Negative [facility] Absolute lymphocyte countOrd ered By: Leela Hough on 10-19-2022 Lymphocytes Auto (Unsp spec) [#/Vol] 1.62 10*3/uL 0.83-4.51 [facility] Basophil percentageOrdered B y: Leela Hough on 10-19-2022 Basophils/100 WBC (Bld) 0.4 % 0-1 [facility] Eosinophils/100 WBC (Bld) 3.0 % 0-5 [facility] Neutrophils (Bld) [#/Vol] 5.9 10*3/uL 2.0-7.7 [facility] Neutrophils/100 WBC (Bld) 71.9 % 47-70 [facility] WBC (Bld) [#/Vol] 8.1 10*3/uL 4.4-11.0 [facility] Blood erythrocytes count (nu mber/volume)Ordered By: Leela Hough on 10-19-2022 RBC (Bld) [#/Vol] 3.69 10*6/uL 4.2-5.4 [facility] Blood hemoglobin measurement (mass/volume)Ordered By: Leela Hough on 10-19-2022 Hemoglobin (Bld) [Mass/Vol] 11.8 g/dL 12.0-15.0 [facility] Blood lymphocytes/100 leukoc ytesOrdered By: Leela Hough on 10-19-2022 Lymphocytes/100 WBC (Bld) 19.9 % 19-41 [facility] Blood monocytes/100 leukocyt esOrdered By: Leela Hough on 10-19-2022 Monocytes/100 WBC (Bld) 4.4 % 0-10 [facility] Blood platelet mean volumeOr dered By: Leela Hough on 10-19-2022 Platelet mean volume (Bld) [Entitic vol] 9.9 fL 6.2-12.0 [facility] Determination of erythrocyte mean corpuscular volume (MCV)Ordered By: Leela Hough on 10-19-2022 MCV (RBC) [Entitic vol] 90.8 fL 81-99 [facility] Gestational diabetes screen 1-hour screen with 50g oral glucose loadOrdered By: Leela Hough on 10-19-2022 Glucose 1 Hr post 50 g glucose PO [Mass/Vol] 170 mg/dL 70-140 [facility] HIV 1 and HIV-2 antibody ass ay with HIV-1 p24 antigen detectionOrdered By: Leela Hough on 10-19-2022 HIV 1+2 Ab+HIV1 p24 Ag IA Ql Non-Reactive Nonreactive [facility] Hematocrit Auto (Bld) [Volum e fraction]Ordered By: Leela Hough on 10-19-2022 Hematocrit (Bld) [Volume fraction] 33.5 % 37-47 [facility] Laboratory - Chemistry and C hemistry - challengeon 10-19-2022 Glucose Ql (U) Negative [facility] Laboratory - Hematology and Cell countsOrdered By: Leela Hough on 10-19-2022 Erythrocyte distribution width (RBC) [Entitic vol] 41.4 fL 35.1-43.9 [facility] Erythrocyte distribution width (RBC) [Ratio] 12.6 % 11.6-14.6 [facility] Immature granulocytes/100 WBC (Bld) 0.400 % 0.0-0.9 [facility] Comment on above: IG% - Immature Granu locytes (promyelocytes, myelocytes and metamyelocytes) > 1% indicates that a LEFT SHIFT is Present. MCH (RBC) [Entitic mass] 32.0 pg 27.0-32.0 [facility] Nucleated RBC/100 WBC (Bld) [Ratio] 0 % 0-5 [facility] Laboratory - Urinalysison Protein Ql (U) Negative [facility] MCHC Auto (RBC) [Mass/Vol]Or dered By: Leela Hough on 10-19-2022 MCHC (RBC) [Mass/Vol] 35.2 g/dL 32-36 [facility] Platelets bldOrdered By: Leslie Hough on 10-19-2022 Platelets (Bld) [#/Vol] 236 10*3/uL 150-450 [facility] Serum Treponema species anti body detectionOrdered By: Leela Hough on 10-19-2022 Treponema sp Ab Ql (S) Non-Reactive [facility] Laboratory - Chemistry and C hemistry - challengeon 08-16-2022 Glucose Ql (U) Negative [facility] Laboratory - Urinalysison Protein Ql (U) Negative [facility] Quantitative serum or plasma 3 hour gestational glucose tolerance panelOrdered By: Dr. Mackey on 07-20-2022 Glucose tolerance 3 hours gestational panel See comment [facility] Comment on above: FASTING 88 Col: 06/27 02/14 0700GLUCOSE TOLERANCE TEST FOR Reference Interval GESTATIONAL DIABETES Fasting <105 mg/dL 1 hour <190 mg/dl 2 hour <165 mg/dl 3 hour <145 mg/dl 1 HR GLU 159 Col: 07/20/22 0807 2 HR GLU 146 Col: 07/20/22 0905 3 HR GLU 75 Col: 07/20/22 1006 Absolute lymphocyte countOrd ered By: Dr. Mackey on 07-08-2022 Lymphocytes Auto (Unsp spec) [#/Vol] 1.67 10*3/uL 0.83-4.51 [facility] Basophil percentageOrdered B y: Dr. Mackey on 07-08-2022 Basophils/100 WBC (Bld) 0.5 % 0-1 [facility] Eosinophils/100 WBC (Bld) 1.3 % 0-5 [facility] Neutrophils (Bld) [#/Vol] 7.2 10*3/uL 2.0-7.7 [facility] Neutrophils/100 WBC (Bld) 75.7 % 47-70 [facility] WBC (Bld) [#/Vol] 9.5 10*3/uL 4.4-11.0 [facility] Blood erythrocytes count (nu mber/volume)Ordered By: Dr. Mackey on 07-08-2022 RBC (Bld) [#/Vol] 4.06 10*6/uL 4.2-5.4 [facility] Blood hemoglobin measurement (mass/volume)Ordered By: Dr. Mackey on 07-08-2022 Hemoglobin (Bld) [Mass/Vol] 13.0 g/dL 12.0-15.0 [facility] Blood lymphocytes/100 leukoc ytesOrdered By: Dr. Mackey on 07-08-2022 Lymphocytes/100 WBC (Bld) 17.5 % 19-41 [facility] Blood monocytes/100 leukocyt esOrdered By: Dr. Mackey on 07-08-2022 Monocytes/100 WBC (Bld) 4.7 % 0-10 [facility] Blood platelet mean volumeOr dered By: Dr. Mackey on 07-08-2022 Platelet mean volume (Bld) [Entitic vol] 10.1 fL 6.2-12.0 [facility] Determination of erythrocyte mean corpuscular volume (MCV)Ordered By: Dr. Mackey on 07-08-2022 MCV (RBC) [Entitic vol] 89.9 fL 81-99 [facility] Gestational diabetes screen 1-hour screen with 50g oral glucose loadOrdered By: Dr. Mackey on 07-08-2022 Glucose 1 Hr post 50 g glucose PO [Mass/Vol] 147 mg/dL 70-140 [facility] HIV 1 and HIV-2 antibody ass ay with HIV-1 p24 antigen detectionOrdered By: Dr. Mackey on 07-08-2022 HIV 1+2 Ab+HIV1 p24 Ag IA Ql Non-Reactive Nonreactive [facility] Hematocrit Auto (Bld) [Volum e fraction]Ordered By: Dr. Mackey on 07-08-2022 Hematocrit (Bld) [Volume fraction] 36.5 % 37-47 [facility] Laboratory - Hematology and Cell countsOrdered By: Dr. Mackey on 07-08-2022 Erythrocyte distribution width (RBC) [Entitic vol] 36.9 fL 35.1-43.9 [facility] Erythrocyte distribution width (RBC) [Ratio] 11.3 % 11.6-14.6 [facility] Immature granulocytes/100 WBC (Bld) 0.300 % 0.0-0.9 [facility] Comment on above: IG% - Immature Granu locytes (promyelocytes, myelocytes and metamyelocytes) > 1% indicates that a LEFT SHIFT is Present. MCH (RBC) [Entitic mass] 32.0 pg 27.0-32.0 [facility] Nucleated RBC/100 WBC (Bld) [Ratio] 0 % 0-5 [facility] MCHC Auto (RBC) [Mass/Vol]Or dered By: Dr. Mackey on 07-08-2022 MCHC (RBC) [Mass/Vol] 35.6 g/dL 32-36 [facility] No Panel InformationOrdered By: Dr. Mackey on 07-08-2022 Hepatitis B Surface Antigen Non-Reactive Nonreactive [facility] Hepatitis C Antibody Non-Reactive Nonreactive [facility] Comment on above: Non Reactive: < 0.8 Equivocal: >/= 0.8 to < 1.0 Reactive: >/= 1.0The CDC recommends that a reactive/equivocal HCV antibody result be followed up by the HCV Nucleic Acid Amplificationtest ([id number]) Rubella IgG Antibody Reactive Nonreactive [facility] Comment on above: Antibody Results Int erpretation of Immune Status Non Reactive Presumed Non-Immune Equivocal Equivocal Reactive Presumed Immune Platelets bldOrdered By: Dr. Mackey on 07-08-2022 Platelets (Bld) [#/Vol] 266 10*3/uL 150-450 [facility] Serum Treponema species anti body detectionOrdered By: Dr. Mackey on 07-08-2022 Treponema sp Ab Ql (S) Non-Reactive [facility] Chlamydia trachomatis rRNA d etection by probe and target amplification methodon 06-17-2022 C. trachomatis rRNA MINDY+probe Ql (Unsp spec) Negative Negative [facility] Work Phone: Laboratory - Drug toxicology on 06-17-2022 Amphetamines Ql (U) Negative <1000 ng/mL [facility] Work Phone: Benzodiazepines Ql (U) Negative < 200 ng/mL [facility] Work Phone: Cannabinoids Screen Ql (U) Negative < 50 ng/mL [facility] Work Phone: Cocaine Ql (U) Negative < 300 ng/mL [facility] Work Phone: Opiates Ql (U) Negative < 300 ng/mL [facility] Work Phone: Laboratory - Microbiology an d Antimicrobial susceptibilityon 06-17-2022 N. gonorrhoeae DNA MINDY+probe Ql (Unsp spec) Negative Negative [facility] Work Phone: Comment on above: Performed at: =[address] [id number] Director: Mable Kruse MD, Phone: [phone] No Panel Informationon 06-17 MDMA (Ecstasy) Screen Negative < 500 ng/mL [facility] Work Phone: Urine Barbiturates Screen Negative < 200 ng/m L [facility] Work Phone: Urine Drug Screen Comment [facility] Work Phone: Comment on above: CONFIRMATORY TESTING FOR ALL POSITIVE URINE DRUG SCREENRESULTS WILL ONLY BE SENT OUT UPON PHYSICIAN ORDER. VISTA Urine Drug Screen methods provide only preliminaryanalytical test results. A more specific alternate chemicalmethod must be used in order to obtain a confirmedanalytical result. Gas chromatography/mass spectrometery(GC/MS) is the preferred confirmatory method. Clinicalconsideration and professional judgement should be appliedto any drug of abuse test result, particularly whenpreliminary positive results are used. URINE TCA TESTING MUST BE ORDERED SEPARATELY. USE TESTMNEMONIC: [facility] Urine Methadone Screen Negative < 300 ng/mL [facility] Work Phone: Urine phencyclidine (PCP) de tectionon 06-17-2022 Phencyclidine Ql (U) Negative < 25 ng/mL [facility] Work Phone: Serum or plasma choriogonado tropin detectionon 05-22-2022 HCG ( test) Ql 4445 mIU/mL <4 [facility] Work Phone: Comment on above: hCG levels with Gest ational AgeGestational Age hCG mIU/mL (IU/L)0.2 - 1 week 5 - 501-2 weeks 50 - 5002-3 weeks 100 - 37781-6 weeks 500 - 167666-5 weeks 1000 - 978523-0 weeks 07379 - 100,0006-8 weeks 70558 - 200,0002-3 months 55148 - 100,000 Serum or plasma choriogonado tropin detectionon 05-20-2022 HCG ( test) Ql 2023 mIU/mL <4 [facility] Work Phone: Comment on above: hCG levels with Gest ational AgeGestational Age hCG mIU/mL (IU/L)0.2 - 1 week 5 - 501-2 weeks 50 - 5002-3 weeks 100 - 63937-1 weeks 500 - 300516-6 weeks 1000 - 615669-0 weeks 63480 - 100,0006-8 weeks 61863 - 200,0002-3 months 67496 - 100,000 Serum or plasma choriogonado tropin detectionon 01-29-2022 HCG ( test) Ql 4 mIU/mL <4 [facility] Work Phone: Comment on above: hCG levels with Gest ational AgeGestational Age hCG mIU/mL (IU/L)0.2 - 1 week 5 - 501-2 weeks 50 - 5002-3 weeks 100 - 41041-9 weeks 500 - 596529-9 weeks 1000 - 097299-8 weeks 17628 - 100,0006-8 weeks 35534 - 200,0002-3 months 66729 - 100,000 Serum or plasma choriogonado tropin detectionon 01-26-2022 HCG ( test) Ql 25 mIU/mL <4 [facility] Work Phone: Comment on above: hCG levels with Gest ational AgeGestational Age hCG mIU/mL (IU/L)0.2 - 1 week 5 - 501-2 weeks 50 - 5002-3 weeks 100 - 12614-2 weeks 500 - 434203-0 weeks 1000 - 098076-1 weeks 17194 - 100,0006-8 weeks 74598 - 200,0002-3 months 74481 - 100,000 Serum or plasma choriogonado tropin detectionon 01-23-2022 HCG ( test) Ql 214 mIU/mL <4 [facility] Work Phone: Comment on above: hCG levels with Gest ational AgeGestational Age hCG mIU/mL (IU/L)0.2 - 1 week 5 - 501-2 weeks 50 - 5002-3 weeks 100 - 92233-7 weeks 500 - 336462-7 weeks 1000 - 788409-3 weeks 93543 - 100,0006-8 weeks 46746 - 200,0002-3 months 95709 - 100,000 Basophil percentageon 2021 Bilirubin [Mass/Vol] 0.50 mg/dL 0.20-1.00 [facility] Work Phone: Comment on above: For patients on eltr ombopag therapy, use of Dimension [place] TBIL is not recommended. Chloride [Moles/Vol] 107 mmol/L 98-107 [facility] Work Phone: Glucose [Mass/Vol] 116 mg/dL 74-106 [facility] Work Phone: Comment on above: Fasting Glucose resu lt from 100 to 125 mg/dL suggests IMPAIRED HOMEOSTASIS per A.D.A. criteria. Potassium [Moles/Vol] 3.7 mmol/L 3.5-5.1 [facility] Work Phone: Protein [Mass/Vol] 6.7 g/dL 6.4-8.2 [facility] Work Phone: Sodium [Moles/Vol] 139 mmol/L 136-145 [facility] Work Phone: Dilute Jorje's viper venom timeon 01-18-2022 dRVVT Coag (PPP) [Time] 33.6 s [facility] Work Phone: Laboratory - Chemistry and C hemistry - challengeon 01-18-2022 ALP [Catalytic activity/Vol] 36 U/L 45-117 [facility] Work Phone: ALT [Catalytic activity/Vol] 34 U/L 13-56 [facility] Work Phone: CO2 [Moles/Vol] 28.0 mmol/L 21.0-32.0 [facility] Work Phone: Globulin (S) [Mass/Vol] 2.9 g/dL 2.2-4.2 [facility] Work Phone: Urea nitrogen/Creatinine [Mass ratio] 7.2 mg/mg 10-20 [facility] Work Phone: No Panel Informationon 01-18 Anti-Cardiolipin IgM Antibody 12 MPL U/mL [facility] Work Phone: Comment on above: Negative: <13 Indete rminate: 13 - 20 Low-Med Positive: >20 - 80 High Positive: >80 Estimated GFR (MDRD) Amer 107 mL/min >60 [facility] Work Phone: Comment on above: GFR Calc Estimated GFR (MDRD) Non-Af Amer 89 mL/min >60 [facility] Work Phone: Comment on above: Non- GFR Calc Serum beta 2 glycoprotein 1 IgA antibody detectionon 01-18-2022 Beta 2 glycoprotein 1 IgA Ql (S) <9 [facility] Work Phone: Comment on above: Result Units: GPI Ig A unitsThe reference interval reflects a 3SD or 99th percentileinterval, which is thought to represent a potentiallyclinically significant result in accordance with theInternational Consensus Statement on the classificationcriteria for definitive antiphospholipid syndrome (APS). JThromb Haem 2006;4:295-306. Serum beta 2 glycoprotein 1 IgG antibody detectionon 01-18-2022 Beta 2 glycoprotein 1 IgG Ql (S) <9 [facility] Work Phone: Comment on above: Result Units: GPI Ig G unitsThe reference interval reflects a 3SD or 99th percentileinterval, which is thought to represent a potentiallyclinically significant result in accordance with theInternational Consensus Statement on the classificationcriteria for definitive antiphospholipid syndrome (APS). JThromb Haem 2006;4:295-306. Serum beta 2 glycoprotein 1 IgM antibody detectionon 01-18-2022 Beta 2 glycoprotein 1 IgM Ql (S) <9 [facility] Work Phone: Comment on above: Result Units: GPI Ig M unitsThe reference interval reflects a 3SD or 99th percentileinterval, which is thought to represent a potentiallyclinically significant result in accordance with theInternational Consensus Statement on the classificationcriteria for definitive antiphospholipid syndrome (APS). JThromb Haem 2006;4:295-306.Performed at: [facility] [address] [id number] Director: Carl Torres MD, Phone: [phone] at: [facility] [address] [id number] Director: [place] Steve PhD, Phone: [phone] Serum cardiolipin IgG antibo dy assay by immunoassay (units/volume)on 01-18-2022 Cardiolipin IgG IA Qn (S) < 9 GPL U/mL [facility] Work Phone: Comment on above: Negative: <15 Indete rminate: 15 - 20 Low-Med Positive: >20 - 80 High Positive: >80 Serum or plasma albumin ruiz urement (mass/volume)on 01-18-2022 Albumin [Mass/Vol] 3.8 g/dL 3.2-5.0 [facility] Work Phone: Serum or plasma albumin/glob ulin mass ratioon 01-18-2022 Albumin/Globulin [Mass ratio] 1.3 {ratio} 0.9-2.4 [facility] Work Phone: Serum or plasma calcium ruiz urement (mass/volume)on 01-18-2022 Calcium [Mass/Vol] 8.5 mg/dL 8.5-10.1 [facility] Work Phone: Serum or plasma cardiolipin IgA antibody assay (units/volume)on 01-18-2022 Cardiolipin IgA Qn < 9 APL U/mL [facility] Work Phone: Comment on above: Negative: <12 Indete rminate: 12 - 20 Low-Med Positive: >20 - 80 High Positive: >80 Serum or plasma choriogonado tropin detectionon 01-18-2022 HCG ( test) Ql 337 mIU/mL <4 [facility] Work Phone: Comment on above: hCG levels with Gest ational AgeGestational Age hCG mIU/mL (IU/L)0.2 - 1 week 5 - 501-2 weeks 50 - 5002-3 weeks 100 - 41402-2 weeks 500 - 918887-2 weeks 1000 - 727187-8 weeks 59185 - 100,0006-8 weeks 37904 - 200,0002-3 months 44527 - 100,000 Serum or plasma creatinine m easurement (mass/volume)on 01-18-2022 Creatinine [Mass/Vol] 0.83 mg/dL 0.55-1.02 [facility] Work Phone: Comment on above: The validity of the calculated GFR & GFRAA in patients over 70 years has not been determined. Clinical correlation is essential. Serum or plasma urea nitroge n measurement (mass/volume)on 01-18-2022 Urea nitrogen [Mass/Vol] 6 mg/dL 7-18 [facility] Work Phone: Thin prep Papanicolaou smear with manual screeningon 01-18-2022 Thin prep Papanicolaou smear with manual screening 17 U/L 15-37 [facility] Work Phone: Thin prep Papanicolaou smear with manual screening 4 5-15 [facility] Work Phone: Thin prep Papanicolaou smear with manual screening 35.7 sec [facility] [facility] Work Phone: Thin prep Papanicolaou smear with manual screening 1.02 Ratio [facility] Work Phone: Thin prep Papanicolaou smear with manual screening 31.4 sec [facility] Work Phone: Thin prep Papanicolaou smear with manual screening Comment: [facility] Work Phone: Comment on above: No lupus anticoagula nt was detected. Thrombin time in platelet po or plasmaon 01-18-2022 Thrombin time Coag (PPP) [Time] 17.8 sec [facility] Work Phone: Serum or plasma choriogonado tropin detectionon 01-14-2022 HCG ( test) Ql 325 mIU/mL <4 [facility] Work Phone: Comment on above: hCG levels with Gest ational AgeGestational Age hCG mIU/mL (IU/L)0.2 - 1 week 5 - 501-2 weeks 50 - 5002-3 weeks 100 - 59961-2 weeks 500 - 201561-9 weeks 1000 - 529173-7 weeks 08144 - 100,0006-8 weeks 97488 - 200,0002-3 months 22575 - 100,000 Absolute lymphocyte counton 01-12-2022 Lymphocytes Auto (Unsp spec) [#/Vol] 1.80 10*3/uL 0.83-4.51 [facility] Work Phone: Basophil percentageon 2021 Basophils/100 WBC (Bld) 0.5 % 0-1 [facility] Work Phone: Eosinophils/100 WBC (Bld) 3.7 % 0-5 [facility] Work Phone: Neutrophils (Bld) [#/Vol] 5.2 10*3/uL 2.0-7.7 [facility] Work Phone: Neutrophils/100 WBC (Bld) 66.6 % 47-70 [facility] Work Phone: WBC (Bld) [#/Vol] 7.8 10*3/uL 4.4-11.0 [facility] Work Phone: [phone] Blood erythrocytes count (nu mber/volume)on 01-12-2022 RBC (Bld) [#/Vol] 4.31 10*6/uL 4.2-5.4 [facility] Work Phone: Blood hemoglobin measurement (mass/volume)on 01-12-2022 Hemoglobin (Bld) [Mass/Vol] 13.6 g/dL 12.0-15.0 [facility] Work Phone: [phone] Blood lymphocytes/100 leukoc yteson 01-12-2022 Lymphocytes/100 WBC (Bld) 23.2 % 19-41 [facility] Work Phone: Blood monocytes/100 leukocyt eson 01-12-2022 Monocytes/100 WBC (Bld) 5.7 % 0-10 [facility] Work Phone: [phone] Blood platelet mean volumeon 01-12-2022 Platelet mean volume (Bld) [Entitic vol] 10.1 fL 6.2-12.0 [facility] Work Phone: Determination of erythrocyte mean corpuscular volume (MCV)on 01-12-2022 MCV (RBC) [Entitic vol] 90.5 fL 81-99 [facility] Work Phone: [phone] Hematocrit Auto (Bld) [Volum e fraction]on 01-12-2022 Hematocrit (Bld) [Volume fraction] 39.0 % 37-47 [facility] Work Phone: [phone] Laboratory - Hematology and Cell countson 01-12-2022 Erythrocyte distribution width (RBC) [Entitic vol] 38.6 fL 35.1-43.9 [facility] Work Phone: [phone] Erythrocyte distribution width (RBC) [Ratio] 11.6 % 11.6-14.6 [facility] Work Phone: [phone] Immature granulocytes/100 WBC (Bld) 0.300 % 0.0-0.9 [facility] Work Phone: [phone] Comment on above: IG% - Immature Granu locytes (promyelocytes, myelocytes and metamyelocytes) > 1% indicates that a LEFT SHIFT is Present. MCH (RBC) [Entitic mass] 31.6 pg 27.0-32.0 [facility] Work Phone: Nucleated RBC/100 WBC (Bld) [Ratio] 0 % 0-5 [facility] Work Phone: MCHC Auto (RBC) [Mass/Vol]on 01-12-2022 MCHC (RBC) [Mass/Vol] 34.9 g/dL 32-36 [facility] Work Phone: Platelets bldon 01-12-2022 Platelets (Bld) [#/Vol] 266 10*3/uL 150-450 [facility] Work Phone: Serum or plasma choriogonado tropin detectionon 01-12-2022 HCG ( test) Ql 310 mIU/mL <4 [facility] Work Phone: Comment on above: hCG levels with Gest ational AgeGestational Age hCG mIU/mL (IU/L)0.2 - 1 week 5 - 501-2 weeks 50 - 5002-3 weeks 100 - 01869-9 weeks 500 - 608302-0 weeks 1000 - 146892-6 weeks 68782 - 100,0006-8 weeks 33278 - 200,0002-3 months 26005 - 100,000 HCG ( test) Ql 317 mIU/mL <4 [facility] Work Phone: Comment on above: hCG levels with Gest ational AgeGestational Age hCG mIU/mL (IU/L)0.2 - 1 week 5 - 501-2 weeks 50 - 5002-3 weeks 100 - 83520-7 weeks 500 - 114809-8 weeks 1000 - 623198-4 weeks 81534 - 100,0006-8 weeks 81222 - 200,0002-3 months 35755 - 100,000 Serum or plasma choriogonado tropin detectionon 01-04-2022 HCG ( test) Ql 289 mIU/mL <4 [facility] Work Phone: Comment on above: hCG levels with Gest ational AgeGestational Age hCG mIU/mL (IU/L)0.2 - 1 week 5 - 501-2 weeks 50 - 5002-3 weeks 100 - 95948-5 weeks 500 - 462106-1 weeks 1000 - 927873-9 weeks 76506 - 100,0006-8 weeks 67010 - 200,0002-3 months 57775 - 100,000 Serum or plasma choriogonado tropin detectionon 12-30-2021 HCG ( test) Ql 582 mIU/mL <4 [facility] Work Phone: Comment on above: hCG levels with Gest ational AgeGestational Age hCG mIU/mL (IU/L)0.2 - 1 week 5 - 501-2 weeks 50 - 5002-3 weeks 100 - 40736-9 weeks 500 - 923037-9 weeks 1000 - 339658-3 weeks 97684 - 100,0006-8 weeks 11040 - 200,0002-3 months 87713 - 100,000 Serum or plasma choriogonado tropin detectionon 12-28-2021 HCG ( test) Ql 496 mIU/mL <4 [facility] Work Phone: Comment on above: hCG levels with Gest ational AgeGestational Age hCG mIU/mL (IU/L)0.2 - 1 week 5 - 501-2 weeks 50 - 5002-3 weeks 100 - 32322-3 weeks 500 - 736030-3 weeks 1000 - 290172-3 weeks 41005 - 100,0006-8 weeks 16071 - 200,0002-3 months 30471 - 100,000 Serum or plasma choriogonado tropin detectionon 12-26-2021 HCG ( test) Ql 369 mIU/mL <4 [facility] Work Phone: Comment on above: hCG levels with Gest ational AgeGestational Age hCG mIU/mL (IU/L)0.2 - 1 week 5 - 501-2 weeks 50 - 5002-3 weeks 100 - 71881-2 weeks 500 - 783343-4 weeks 1000 - 049638-6 weeks 62715 - 100,0006-8 weeks 46458 - 200,0002-3 months 76203 - 100,000 Serum or plasma choriogonado tropin detectionon 12-24-2021 HCG ( test) Ql 257 mIU/mL <4 [facility] Work Phone: Comment on above: hCG levels with Gest ational AgeGestational Age hCG mIU/mL (IU/L)0.2 - 1 week 5 - 501-2 weeks 50 - 5002-3 weeks 100 - 20715-8 weeks 500 - 400767-4 weeks 1000 - 573785-9 weeks 06832 - 100,0006-8 weeks 85794 - 200,0002-3 months 68992 - 100,000 Basophil percentageon 2021 Cholesterol [Mass/Vol] 172 mg/dL <200 [facility] Work Phone: Comment on above: <200 mg/dL Desirable 200-240 mg/dL Borderline >240 mg/dL High Risk Glucose [Mass/Vol] 95 mg/dL 74-106 [facility] Work Phone: Triglyceride [Mass/Vol] 77 mg/dL [facility] Work Phone: Comment on above: The drugs N-Acetylcy steine and Metamizole may falsely depress this assay.Serum Triglycerides Reference Interval Normal <150 mg/dL Borderline high 150 - 199 mg/dL High 200 - 499 mg/dL Very High > or = 500 mg/dL No Panel Informationon 11-30 Thyroid Stimulating Hormone (TSH) 2.41 uIU/mL 0.358-3.74 [facility] Work Phone: Vitamin D 25-Hydroxy 21.1 ng/mL [facility] Work Phone: Comment on above: Vitamin D 25(OH) Sta tus Range Deficiency <20 ng/mL (50nmol/L) Insufficiency 20 - 30 ng/mL (50 - 75 nmol/L) Sufficiency 30 - 100 ng/mL (75 - 250 nmol/L) Toxicity >100 ng/mL (>250 nmol/L) Serum or plasma cholesterol in HDL measurement (mass/volume)on 11-30-2021 Cholesterol in HDL [Mass/Vol] 60 mg/dL [facility] Work Phone: Comment on above: The drugs N-Acetylcy steine and Metamizole may falsely depress this assay. Reference Range HDL <40 mg/dL Low HDL Cholesterol HDL >or= 60 mg/dL High HDL Cholesterol Serum or plasma cholesterol in VLDL measurement (mass/volume)on 11-30-2021 Cholesterol in VLDL [Mass/Vol] 15 mg/dL 5-40 [facility] Work Phone: Serum or plasma low density lipoprotein (LDL) cholesterol measurement (mass/volume)on 11-30-2021 Cholesterol in LDL [Mass/Vol] 97 mg/dL 0-130 [facility] Work Phone: Serum or plasma progesterone measurement (mass/volume)on 11-30-2021 Progesterone [Mass/Vol] 1.05 ng/mL See Comment [facility] Work Phone: Comment on above: Progesterone Referen ce Table: UNITS Female: Follicular 0.15 - 1.40 ng/mL Luteal 3.34 - 25.56 ng/mL Mid-luteal 4.44 - 28.03 ng/mL Postmenopausal 0.0 - 0.73 ng/mL : 1st Trimester 11.22 - 90.00 ng/mL 2nd Trimester 25.55 - 89.40 ng/mL 3rd Trimester 48.40 -422.50 ng/mL Culture, urine Bacteria identified Cx Nom (U) Positive [facility] Work Phone: Vital Signs Date Time Vital Sign Value Performing Clinician Faci lity 07-08-2025 10:42-0400 Body height 162.56 cm No Primary Care Physician [facility] 07-08-2025 10:42-0400 Body mass index (BMI) [Ratio] 37.3 kg/m2 No Primary Care Physician [facility] 07-08-2025 10:42-0400 Body weight 98.68 kg No Primary Care Physician [facility] 07-08-2025 10:42-0400 Diastolic blood pressure 81 mm[Hg] No Primary Care Physician [facility] 07-08-2025 10:42-0400 Systolic blood pressure 117 mm[Hg] No Primary Care Physician [facility] 06-26-2025 09:29-0400 Body height 162.56 cm No Primary Care Physician [facility] 06-26-2025 09:29-0400 Body mass index (BMI) [Ratio] 37.6 kg/m2 No Primary Care Physician [facility] 06-26-2025 09:29-0400 Body weight 99.53 kg No Primary Care Physician [facility] 06-26-2025 09:29-0400 Diastolic blood pressure 63 mm[Hg] No Primary Care Physician [facility] 06-26-2025 09:29-0400 Systolic blood pressure 104 mm[Hg] No Primary Care Physician [facility] 06-12-2025 09:270400 Body height 162.56 cm No Primary Care Physician [facility] 06-12-2025 09:270400 Body mass index (BMI) [Ratio] 37.1 kg/m2 No Primary Care Physician [facility] 06-12-2025 09:27-0400 Body weight 98.23 kg No Primary Care Physician [facility] 06-12-2025 09:27-0400 Diastolic blood pressure 71 mm[Hg] No Primary Care Physician [facility] 06-12-2025 09:27-0400 Systolic blood pressure 110 mm[Hg] No Primary Care Physician [facility] 05-15-2025 09:35-0400 Body height 162.56 cm No Primary Care Physician [facility] 05-15-2025 09:26-0400 Body mass index (BMI) [Ratio] 36.8 kg/m2 No Primary Care Physician [facility] 05-15-2025 09:260400 Body weight 97.18 kg No Primary Care Physician [facility] 05-15-2025 09:26-0400 Diastolic blood pressure 72 mm[Hg] No Primary Care Physician [facility] 05-15-2025 09:26-0400 Systolic blood pressure 114 mm[Hg] No Primary Care Physician [facility] 04-16-2025 15:11-0400 Body height 162.56 cm No Primary Care Physician [facility] 04-16-2025 15:11-0400 Body mass index (BMI) [Ratio] 36.2 kg/m2 No Primary Care Physician [facility] 04-16-2025 15:11-0400 Body weight 95.82 kg No Primary Care Physician [facility] 04-16-2025 15:11-0400 Diastolic blood pressure 75 mm[Hg] No Primary Care Physician [facility] 04-16-2025 15:11-0400 Systolic blood pressure 117 mm[Hg] No Primary Care Physician [facility] 03-20-2025 08:43-0400 Body height 162.56 cm No Primary Care Physician [facility] 03-20-2025 08:38-0400 Body mass index (BMI) [Ratio] 35.3 kg/m2 No Primary Care Physician [facility] 03-20-2025 08:38-0400 Body weight 93.44 kg No Primary Care Physician [facility] 03-20-2025 08:38-0400 Diastolic blood pressure 64 mm[Hg] No Primary Care Physician [facility] 03-20-2025 08:38-0400 Systolic blood pressure 120 mm[Hg] No Primary Care Physician [facility] 02-19-2025 14:19-0400 Body height 162.56 cm No Primary Care Physician [facility] 02-19-2025 14:19-0400 Body mass index (BMI) [Ratio] 35.2 kg/m2 No Primary Care Physician [facility] 02-19-2025 14:19-0400 Body weight 93.15 kg No Primary Care Physician [facility] 02-19-2025 14:19-0400 Diastolic blood pressure 74 mm[Hg] No Primary Care Physician [facility] 02-19-2025 14:19-0400 Systolic blood pressure 106 mm[Hg] No Primary Care Physician [facility] 01-23-2025 08:57-0400 Body height 162.56 cm Margaux Jay [employer] Work Phone: 3(798)983-958710 [place] [address] 01-23-2025 08:57-0400 Body mass index (BMI) [Ratio] 34.5 kg/m2 Margaux Haagen [employer]IVE [employer] Work Phone: 8(455)598-323610 [place] [address] 01-23-2025 08:57-0400 Body weight 91.28 kg Margaux Haagen [employer]IVE [employer] Work Phone: 3(179)372-859326 [place] [address] 01-23-2025 08:57-0400 Diastolic blood pressure 77 mm[Hg] Margaux Haagen [employer] EXEC[employer]IVE [employer] Work Phone: 8(511)311-490526 [place] [address] 01-23-2025 08:57-0400 Systolic blood pressure 122 mm[Hg] Margaux Haagen [employer] EXEC[employer]IVE [employer] Work Phone: 9(524)594-754310 [place] [address] 10-19-2024 13:39-0500 Body height 162.56 cm Margaux Mataagen [employer] EXEC[employer]IVE ASSIST[employer] Work Phone: 3(864)639-389310 [place] [address] 10-19-2024 13:38-0500 Body mass index (BMI) [Ratio] 34.3 kg/m2 Margaux Jay [employer]IVE [employer] Work Phone: 6(720)372-040810 [place] [address] 10-19-2024 13:38-0500 Body weight 90.71 kg Margaux Jay [employer]IVE [employer] Work Phone: 4(619)314-424210 [place] [address] 10-19-2024 13:38-0500 Diastolic blood pressure 82 mm[Hg] Margaux Jay [employer]IVE [employer] Work Phone: 4(832)199-018610 [place] [address] 10-19-2024 13:38-0500 Systolic blood pressure 142 mm[Hg] Margaux Jay [employer]IVE [employer] Work Phone: 1(097)661-218010 [place] [address] 01-20-2023 13:01-0400 Body temperature 98 [degF] [employer] Margaux Jay [employer] EX[employer]IVE ASSIST[employer] Work Phone: 4(782)238-485510 [place] [address] 01-20-2023 13:01-0400 Diastolic blood pressure 64 mm[Hg] [employer]IVE [employer] Margaux Jay [employer] EX[employer]IVE [employer] Work Phone: 3(056)163-919410 [place] [address] 01-20-2023 13:01-0400 Heart rate 89 /min [employer] Margaux Jay [employer] EX[employer]IVE ASSIST[employer] Work Phone: 9(295)628-469210 [place] [address] 01-20-2023 13:01-0400 Respiratory rate 16 /min [employer] Margaux Jay [employer] EX[employer]IVE ASSIST[employer] Work Phone: 3(386)058-252010 [place] [address] 01-20-2023 13:01-0400 SaO2% (BldA) [Mass fraction] 100 % [employer] Margaux Jay [employer] EX[employer]IVE ASSIST[employer] Work Phone: 6(474)052-792710 [place] [address] 01-20-2023 13:01-0400 Systolic blood pressure 107 mm[Hg] [employer]IVE [employer] Margaux Jay [employer] EX[employer]IVE ASSIST[employer] Work Phone: 1(992)064-273810 [place] [address] 01-18-2023 07:13-0400 Body height 162.56 cm [employer]IVE [employer] Margaux Jay [employer] EXEC[employer]IVE ASSISTANT Work Phone: 8(766)952-324610 [place] [address] 01-18-2023 07:13-0400 Body mass index (BMI) [Ratio] 38.9 kg/m2 [employer] Margaux Jay [employer] EXEC[employer]IVE ASSIST[employer] Work Phone: 4(732)362-457510 [place] [address] 01-18-2023 07:13-0400 Body weight 103 kg [employer] Margaux Mataagen [employer] EXEC[employer]IVE ASSISTANT Work Phone: 3(386)504-449710 [place] [address] 01-13-2023 08:34-0400 Body mass index (BMI) [Ratio] 38.5 kg/m2 [employer] Margaux Haagen [employer] EXEC[employer]IVE ASSISTANT Work Phone: 4(280)903-191610 [place] [address] 01-13-2023 08:34-0400 Body weight 101.83 kg [employer]IVE [employer] Margaux Haagen [employer] EXEC[employer]IVE ASSISTANT Work Phone: 4(995)028-616110 [place] [address] 01-13-2023 08:34-0400 Diastolic blood pressure 72 mm[Hg] [employer]IVE [employer] Margaux Mataagen [employer] EXEC[employer]IVE ASSISTANT Work Phone: 3(303)664-963510 [place] [address] 01-13-2023 08:34-0400 Systolic blood pressure 112 mm[Hg] [employer]IVE [employer] Margaux Haagen [employer] EXEC[employer]IVE ASSISTANT Work Phone: 4(270)868-832610 [place] [address] 01-11-2023 10:23-0400 Body mass index (BMI) [Ratio] 38.9 kg/m2 [employer] Margaux Haagen [employer] EXEC[employer]IVE ASSISTANT Work Phone: 6(788)339-218510 [place] [address] 01-11-2023 10:23-0400 Body weight 103.07 kg [employer]IVE [employer] Margaux Haagen [employer] EXEC[employer]IVE ASSISTANT Work Phone: 3(131)562-236210 [place] [address] 01-11-2023 10:23-0400 Diastolic blood pressure 87 mm[Hg] [employer] EXEC[employer]IVE ASSIST[employer] Margaux Mataagen [employer] EXECUTIVE ASSISTANT Work Phone: 9(188)673-022010 [place] [address] 01-11-2023 10:23-0400 Systolic blood pressure 131 mm[Hg] [employer]IVE ASSIST[employer] Margaux Haagen [employer] EXEC[employer]IVE ASSISTANT Work Phone: 5(597)729-176010 [place] [address] 01-04-2023 10:44-0400 Body mass index (BMI) [Ratio] 38.7 kg/m2 [employer] Margaux Haagen REAL [employer] EXECUTIVE ASSISTANT Work Phone: 9(974)373-932510 [place] [address] 01-04-2023 10:44-0400 Body weight 102.51 kg [employer]IVE [employer] Margaux Mataagen [employer] EXECUTIVE ASSISTANT Work Phone: 8(285)558-012610 [place] [address] 01-04-2023 10:44-0400 Diastolic blood pressure 82 mm[Hg] [employer] EX[employer]IVE ASSIST[employer] Margaux Haagen [employer] EXEC[employer]IVE ASSISTANT Work Phone: [facility] 01-04-2023 10:44-0400 Systolic blood pressure 124 mm[Hg] [employer]IVE ASSIST[employer] Margaux Haagen REAL [employer] EXECUTIVE ASSISTANT Work Phone: [facility] 12-28-2022 08:38-0400 Body height 162.56 cm [employer]IVE ASSIST[employer] Margaux Haagen [employer] EXECUTIVE ASSISTANT Work Phone: 2(790)548-455226 [place] [address] 12-28-2022 08:38-0400 Body mass index (BMI) [Ratio] 38.6 kg/m2 [employer] Margaux Haagen [employer] EXEC[employer]IVE ASSISTANT Work Phone: 5(031)377-709310 [place] [address] 12-28-2022 08:38-0400 Body weight 102.11 kg [employer]EC[employer]IVE ASSIST[employer] Margaux Jay [employer] EXECUTIVE ASSISTANT Work Phone: 4(245)838-131710 [place] [address] 12-28-2022 08:38-0400 Diastolic blood pressure 80 mm[Hg] [employer] EXEC[employer]IVE ASSIST[employer] Margaux Haagen [employer] EXEC[employer]IVE ASSISTANT Work Phone: 0(643)230-898510 [place] [address] 12-28-2022 08:38-0400 Systolic blood pressure 119 mm[Hg] [employer] EXEC[employer]IVE ASSIST[employer] Margaux Haagen [employer]STATE EXECUTIVE ASSISTANT Work Phone: 0(821)899-809310 [place] [address] 12-21-2022 11:00-0400 Body height 162.56 cm [employer]IVE [employer] Margaux Jay [employer] EXECUTIVE ASSISTANT Work Phone: 0(573)619-914710 [place] [address] 12-21-2022 11:00-0400 Body mass index (BMI) [Ratio] 38.7 kg/m2 [employer] Margaux Haagen [employer] EXECUTIVE ASSISTANT Work Phone: 8(417)746-513426 [place] [address] 12-21-2022 11:00-0400 Body weight 102.28 kg [employer]IVE ASSIST[employer] Margaux Haagen REAL [employer] EXECUTIVE ASSISTANT Work Phone: 8(796)704-534810 [place] [address] 12-21-2022 11:00-0400 Diastolic blood pressure 82 mm[Hg] [employer] EXEC[employer]IVE ASSIST[employer] Margaux Haagen [employer]STATE EXECUTIVE ASSISTANT Work Phone: 6(500)250-694410 [place] [address] 12-21-2022 11:00-0400 Systolic blood pressure 120 mm[Hg] [employer]EC[employer]IVE ASSIST[employer] Margaux Hanasrin [employer]STATE EXECUTIVE ASSISTANT Work Phone: 7(003)574-627710 [place] [address] 12-07-2022 08:20-0400 Body mass index (BMI) [Ratio] 38.1 kg/m2 [employer] Margaux Haagen REAL [employer]STATE EXECUTIVE ASSISTANT Work Phone: 6(189)036-306610 [place] [address] 12-07-2022 08:20-0400 Body weight 100.75 kg [employer]IVE [employer]IST[employer] Margaux Haagen REAL [employer]STATE EXECUTIVE ASSISTANT Work Phone: 4(350)246-996810 [place] [address] 12-07-2022 08:20-0400 Diastolic blood pressure 77 mm[Hg] [employer] EXEC[employer]IVE ASSIST[employer] Margaux Haagen REAL ESTATE EXECUTIVE ASSISTANT Work Phone: 6(128)107-714810 [place] [address] 12-07-2022 08:20-0400 Systolic blood pressure 118 mm[Hg] [employer] EXEC[employer]IVE ASSIST[employer] Margaux Haagen REAL ESTATE EXECUTIVE ASSISTANT Work Phone: 0(074)048-275010 [place] [address] 11-29-2022 16:37-0500 Body weight 99.79 kg [employer]IVE ASSIST[employer] Margaux Haagen REAL ESTATE EXECUTIVE ASSISTANT Work Phone: 8(947)680-233010 [place] [address] 11-23-2022 10:11-0500 Body mass index (BMI) [Ratio] 37.8 kg/m2 [employer] Margaux Haagen REAL ESTATE EXECUTIVE ASSISTANT Work Phone: 7(382)421-897710 [place] [address] 11-23-2022 10:11-0500 Body weight 99.79 kg [employer] EXEC[employer]IVE ASSIST[employer]-C Margaux Haagen REAL ESTATE EXECUTIVE ASSISTANT Work Phone: 6(023)507-512710 [place] [address] 11-23-2022 10:11-0500 Diastolic blood pressure 77 mm[Hg] [employer] EXECUTIVE ASSISTANT-C Margaux Haagen REAL ESTATE EXECUTIVE ASSISTANT Work Phone: 7(253)325-549910 [place] [address] 11-23-2022 10:11-0500 Systolic blood pressure 123 mm[Hg] [employer] EXEC[employer]IVE ASSISTANT-C Margaux Haagen REAL ESTATE EXECUTIVE ASSISTANT Work Phone: 3(221)400-703710 [place] [address] 11-10-2022 10:06-0500 Diastolic blood pressure 83 mm[Hg] [employer] EXECUTIVE ASSISTANT-C Margaux Haagen REAL ESTATE EXECUTIVE ASSISTANT Work Phone: 8(751)711-508610 [place] [address] 11-10-2022 10:06-0500 Systolic blood pressure 130 mm[Hg] [employer] EXEC[employer]IVE ASSISTANT-C Margaux Haagen REAL ESTATE EXECUTIVE ASSISTANT Work Phone: 2(632)870-356010 [place] [address] 11-10-2022 09:43-0500 Body height 162.56 cm [employer] EXEC[employer]IVE ASSIST[employer] Margaux Jay REAL ESTATE EXECUTIVE ASSISTANT Work Phone: 3(385)292-392410 [place] [address] 11-10-2022 09:40-0500 Body mass index (BMI) [Ratio] 37.5 kg/m2 [employer]IVE [employer] Margaux Mataagen REAL ESTATE EXECUTIVE ASSISTANT Work Phone: 5(153)683-697410 [place] [address] 11-10-2022 09:40-0500 Body weight 99.1 kg [employer] EXEC[employer]IVE ASSIST[employer] Margaux Mataagen REAL ESTATE EXECUTIVE ASSISTANT Work Phone: 4(862)674-839310 [place] [address] 10-19-2022 08:13-0500 Body height 162.56 cm [employer] EXEC[employer]IVE ASSIST[employer] Margaux Jay REAL ESTATE EXECUTIVE ASSISTANT Work Phone: 6(772)483-922410 [place] [address] 10-19-2022 08:09-0500 Body mass index (BMI) [Ratio] 37 kg/m2 [employer]IVE ASSIST[employer] Margaux Jay REAL ESTATE EXECUTIVE ASSISTANT Work Phone: 5(252)590-272310 [place] [address] 10-19-2022 08:09-0500 Body weight 98.08 kg [employer] EXEC[employer]IVE ASSIST[employer] Margaux Jay REAL ESTATE EXECUTIVE ASSISTANT Work Phone: 8(512)160-661010 [place] [address] 10-19-2022 08:09-0500 Diastolic blood pressure 78 mm[Hg] [employer] EXEC[employer]IVE ASSIST[employer] Margaux Jay REAL ESTATE EXECUTIVE ASSISTANT Work Phone: 7(212)955-948410 [place] [address] 10-19-2022 08:09-0500 Systolic blood pressure 124 mm[Hg] [employer] EXEC[employer]IVE ASSIST[employer] Margaux Jay REAL ESTATE EXECUTIVE ASSISTANT Work Phone: 8(295)039-266710 [place] [address] 09-22-2022 14:34-0500 Body weight 95.61 kg [employer] EX[employer]IVE [employer]IST[employer] Margaux Jay REAL [employer]STATE EXECUTIVE ASSISTANT Work Phone: 4(587)362-363110 [place] [address] 09-22-2022 14:34-0500 Diastolic blood pressure 74 mm[Hg] [employer] EXEC[employer]IVE ASSISTANT-[employer] Margaux Haagen REAL ESTATE EXECUTIVE ASSISTANT Work Phone: 6(322)803-407910 [place] [address] 09-22-2022 14:34-0500 Systolic blood pressure 104 mm[Hg] [employer] EXEC[employer]IVE ASSISTANT-[employer] Margaux Mataagen REAL ESTATE EXECUTIVE ASSISTANT Work Phone: 9(405)923-818310 [place] [address] 08-16-2022 15:27-0500 Body mass index (BMI) [Ratio] 35.9 kg/m2 [employer]IVE [employer] Margaux Mataagen REAL ESTATE EXECUTIVE ASSISTANT Work Phone: 9(732)634-694926 [address] [place] [id number] 08-16-2022 15:27-0500 Body weight 94.8 kg REAL ESTATE EXECUTIVE ASSISTANT-C Margaux Haagen REAL ESTATE EXECUTIVE ASSISTANT Work Phone: 2([phone] [place] [address] 08-16-2022 15:27-0500 Diastolic blood pressure 80 mm[Hg] REAL ESTATE EXECUTIVE ASSISTANT-C Margaux Mataagen REAL ESTATE EXECUTIVE ASSISTANT Work Phone: [phone] [place] [address] 08-16-2022 15:27-0500 Systolic blood pressure 118 mm[Hg] REAL ESTATE EXECUTIVE ASSISTANT-C Margaux Mataagen REAL ESTATE EXECUTIVE ASSISTANT Work Phone: [phone] [place] [address] 07-22-2022 15:46-0400 Body height 162.56 cm REAL ESTATE EXECUTIVE ASSISTANT-C Margaux Mataagen REAL ESTATE EXECUTIVE ASSISTANT Work Phone: [phone] [place] [address] Work Phone: 07-22-2022 15:46-0400 Body mass index (BMI) [Ratio] 34.8 kg/m2 REAL ESTATE EXECUTIVE ASSISTANT-C Margaux Mataagen REAL ESTATE EXECUTIVE ASSISTANT Work Phone: [phone])[phone] [place] [address] 07-22-2022 15:46-0400 Body weight 92.07 kg REAL ESTATE EXECUTIVE ASSISTANT-C Margaux Haagen REAL ESTATE EXECUTIVE ASSISTANT Work Phone: [phone] [place] [address] 07-22-2022 15:46-0400 Diastolic blood pressure 60 mm[Hg] REAL ESTATE EXECUTIVE ASSISTANT-C Margaux Mataagen REAL ESTATE EXECUTIVE ASSISTANT Work Phone: [phone] [place] [address] 07-22-2022 15:46-0400 Systolic blood pressure 127 mm[Hg] REAL ESTATE EXECUTIVE ASSISTANT-C Margaux Haagen REAL ESTATE EXECUTIVE ASSISTANT Work Phone: [phone] [place] [address] 07-08-2022 13:16-0400 Body height 162.56 cm REAL ESTATE EXECUTIVE ASSISTANT-C Margaux Haagen REAL ESTATE EXECUTIVE ASSISTANT Work Phone: [facility] Work Phone: 07-08-2022 13:13-0400 Body mass index (BMI) [Ratio] 34.7 kg/m2 REAL ESTATE EXECUTIVE ASSISTANT-C Margaux Haagen REAL ESTATE EXECUTIVE ASSISTANT Work Phone: [phone] [place] [address] 07-08-2022 13:13-0400 Body weight 91.79 kg REAL ESTATE EXECUTIVE ASSISTANT-C Margaux Jay REAL ESTATE EXECUTIVE ASSISTANT Work Phone: [facility] 07-08-2022 13:13-0400 Diastolic blood pressure 73 mm[Hg] REAL ESTATE EXECUTIVE ASSISTANT-C Margaux Jay REAL ESTATE EXECUTIVE ASSISTANT Work Phone: [facility] 07-08-2022 13:13-0400 Systolic blood pressure 116 mm[Hg] REAL ESTATE EXECUTIVE ASSISTANT-C Margaux Jay REAL ESTATE EXECUTIVE ASSISTANT Work Phone: [facility] 06-17-2022 13:51-0400 Body height 162.56 cm REAL ESTATE EXECUTIVE ASSISTANT-C Margaux Jay REAL ESTATE EXECUTIVE ASSISTANT Work Phone: [facility] Work Phone: 06-17-2022 13:49-0400 Body mass index (BMI) [Ratio] 34.7 kg/m2 REAL ESTATE EXECUTIVE ASSISTANT-C Margaux Jay REAL ESTATE EXECUTIVE ASSISTANT Work Phone: [facility] Work Phone: 06-17-2022 13:49-0400 Body weight 91.62 kg REAL ESTATE EXECUTIVE ASSISTANT-C Margaux Jay REAL ESTATE EXECUTIVE ASSISTANT Work Phone: [facility] Work Phone: 06-17-2022 13:49-0400 Diastolic blood pressure 75 mm[Hg] REAL ESTATE EXECUTIVE ASSISTANT-C Margaux Jay REAL ESTATE EXECUTIVE ASSISTANT Work Phone: [facility] Work Phone: 06-17-2022 13:49-0400 Systolic blood pressure 123 mm[Hg] REAL ESTATE EXECUTIVE ASSISTANT-C Margaux Jay REAL ESTATE EXECUTIVE ASSISTANT Work Phone: [facility] Work Phone: 02-12-2022 09:50-0400 Body height 162.56 cm REAL ESTATE EXECUTIVE ASSISTANT-C Margaux Jay REAL ESTATE EXECUTIVE ASSISTANT Work Phone: [facility] Work Phone: 02-12-2022 09:50-0400 Body mass index (BMI) [Ratio] 34.3 kg/m2 REAL ESTATE EXECUTIVE ASSISTANT-C Margaux Jay REAL ESTATE EXECUTIVE ASSISTANT Work Phone: [facility] Work Phone: 02-12-2022 09:50-0400 Body weight 90.71 kg REAL ESTATE EXECUTIVE ASSISTANT-C Margaux Jay REAL ESTATE EXECUTIVE ASSISTANT Work Phone: [facility] Work Phone: 02-12-2022 09:50-0400 Diastolic blood pressure 76 mm[Hg] REAL ESTATE EXECUTIVE ASSISTANT-C Margaux Jay REAL ESTATE EXECUTIVE ASSISTANT Work Phone: [facility] Work Phone: 02-12-2022 09:50-0400 Systolic blood pressure 120 mm[Hg] REAL ESTATE EXECUTIVE ASSISTANT-C Margaux Jay REAL ESTATE EXECUTIVE ASSISTANT Work Phone: [facility] Work Phone: 01-19-2022 08:05-0400 Body height 162.56 cm REAL ESTATE EXECUTIVE ASSISTANT-C Margaux Jay REAL ESTATE EXECUTIVE ASSISTANT Work Phone: [facility] Work Phone: 01-19-2022 08:05-0400 Body mass index (BMI) [Ratio] 34.8 kg/m2 REAL ESTATE EXECUTIVE ASSISTANT-C Margaux Jay REAL ESTATE EXECUTIVE ASSISTANT Work Phone: [facility] Work Phone: 01-19-2022 08:05-0400 Body weight 92.07 kg REAL ESTATE EXECUTIVE ASSISTANT-C Margaux Jay REAL ESTATE EXECUTIVE ASSISTANT Work Phone: [facility] Work Phone: 01-19-2022 08:05-0400 Diastolic blood pressure 74 mm[Hg] REAL ESTATE EXECUTIVE ASSISTANT-C Margaux Jay REAL ESTATE EXECUTIVE ASSISTANT Work Phone: [facility] Work Phone: 01-19-2022 08:05-0400 Systolic blood pressure 118 mm[Hg] REAL ESTATE EXECUTIVE ASSISTANT-C Margaux Jay REAL ESTATE EXECUTIVE ASSISTANT Work Phone: [facility] Work Phone: 01-14-2022 12:21-0400 Body height 162.56 cm REAL ESTATE EXECUTIVE ASSISTANT-C Margaux Jay REAL ESTATE EXECUTIVE ASSISTANT Work Phone: [facility] Work Phone: 01-14-2022 12:21-0400 Body mass index (BMI) [Ratio] 34.7 kg/m2 REAL ESTATE EXECUTIVE ASSISTANT-C Margaux Jay REAL ESTATE EXECUTIVE ASSISTANT Work Phone: [facility] Work Phone: 01-14-2022 12:21-0400 Body weight 91.85 kg REAL ESTATE EXECUTIVE ASSISTANT-C Margaux Jay REAL ESTATE EXECUTIVE ASSISTANT Work Phone: [facility] Work Phone: 01-14-2022 12:21-0400 Diastolic blood pressure 62 mm[Hg] REAL ESTATE EXECUTIVE ASSISTANT-C Margaux Jay REAL ESTATE EXECUTIVE ASSISTANT Work Phone: [facility] Work Phone: 01-14-2022 12:21-0400 Systolic blood pressure 118 mm[Hg] REAL ESTATE EXECUTIVE ASSISTANT-C Margaux Jay REAL ESTATE EXECUTIVE ASSISTANT Work Phone: [facility] Work Phone: 01-12-2022 11:31-0400 Body height 162.56 cm REAL ESTATE EXECUTIVE ASSISTANT-C Margaux Jay REAL ESTATE EXECUTIVE ASSISTANT Work Phone: [facility] Work Phone: 01-12-2022 11:31-0400 Body mass index (BMI) [Ratio] 34.9 kg/m2 REAL ESTATE EXECUTIVE ASSISTANT-C Margaux Jay REAL ESTATE EXECUTIVE ASSISTANT Work Phone: [facility] Work Phone: 01-12-2022 11:31-0400 Body temperature 96.9 [degF] REAL ESTATE EXECUTIVE ASSISTANT-C Margaux Jay REAL ESTATE EXECUTIVE ASSISTANT Work Phone: [facility] Work Phone: 01-12-2022 11:31-0400 Body weight 92.4 kg REAL ESTATE EXECUTIVE ASSISTANT-C Margaux Jay REAL ESTATE EXECUTIVE ASSISTANT Work Phone: [facility] Work Phone: 01-12-2022 11:31-0400 Diastolic blood pressure 106 mm[Hg] REAL ESTATE EXECUTIVE ASSISTANT-C Margaux Jay REAL ESTATE EXECUTIVE ASSISTANT Work Phone: [facility] Work Phone: 01-12-2022 11:31-0400 Heart rate 103 /min REAL ESTATE EXECUTIVE ASSISTANT-C Margaux Jay REAL ESTATE EXECUTIVE ASSISTANT Work Phone: [facility] Work Phone: 01-12-2022 11:31-0400 Respiratory rate 16 /min REAL ESTATE EXECUTIVE ASSISTANT-C Margaux Jay REAL ESTATE EXECUTIVE ASSISTANT Work Phone: [facility] Work Phone: 01-12-2022 11:31-0400 SaO2% (BldA) [Mass fraction] 100 % REAL ESTATE EXECUTIVE ASSISTANT-C Margaux Jay REAL ESTATE EXECUTIVE ASSISTANT Work Phone: [facility] Work Phone: 01-12-2022 11:31-0400 Systolic blood pressure 154 mm[Hg] REAL ESTATE EXECUTIVE ASSISTANT-C Margaux Jay REAL ESTATE EXECUTIVE ASSISTANT Work Phone: [facility] Work Phone: 11-02-2021 08:28-0500 Body mass index (BMI) [Ratio] 35.2 kg/m2 REAL ESTATE EXECUTIVE ASSISTANT-Daniel Jay REAL ESTATE EXECUTIVE ASSISTANT Work Phone: [facility] Work Phone: 11-02-2021 08:28-0500 Diastolic blood pressure 82 mm[Hg] REAL ESTATE EXECUTIVE ASSISTANT-C Margaux Jay REAL ESTATE EXECUTIVE ASSISTANT Work Phone: [facility] Work Phone: 11-02-2021 08:28-0500 Systolic blood pressure 142 mm[Hg] REAL ESTATE EXECUTIVE ASSISTANT-C Margaux Jay REAL ESTATE EXECUTIVE ASSISTANT Work Phone: [facility] Work Phone: 11-02-2021 07:57-0500 Body height 162.56 cm REAL ESTATE EXECUTIVE ASSISTANT-Daniel Jay REAL ESTATE EXECUTIVE ASSISTANT Work Phone: [facility] Work Phone: 11-02-2021 07:57-0500 Body weight 92.98 kg REAL ESTATE EXECUTIVE ASSISTANT-C Margaux Jay REAL ESTATE EXECUTIVE ASSISTANT Work Phone: [facility] Work Phone: Encounters Encounter Date Encounter Type Care Provider Facility Start: 08-06-2025 End: 08-06-2025 ambulatory No Primary Care Physician Facility:[facility] Start: 07-30-2025 ambulatory No Primary Car e Physician Facility:[facility] Start: 07-30-2025 End: 07-30-2025 ambulatory Guadalupe Garcia Facility:[facility] Start: 07-23-2025 End: 07-23-2025 ambulatory No Primary Care Physician Facility:[facility] Start: 07-08-2025 End: 07-08-2025 Patient encounter procedure Margarita Rollins CNM -[facility] Work Phone: Start: 07-08-2025 End: 07-08-2025 ambulatory No Primary Care Physician -[facility] Start: 06-26-2025 End: 06-26-[address] Guadalupe Garcia DO -[facility] Work Phone: Start: 06-26-2025 End: 06-26-2025 ambulatory No Primary Care Physician -[facility] Start: 06-12-2025 End: 06-12-[address] Paradise Mackey MD -[facility] Work Phone: Start: 06-12-2025 End: 06-12-2025 ambulatory No Primary Care Physician -[facility] Start: 05-15-2025 End: 05-15-2025 Patient encounter procedure Jessica Bella REAL ESTATE EXECUTIVE ASSISTANT- -[facility] Work Phone: Start: 05-15-2025 End: 05-15-2025 ambulatory No Primary Care Physician -[facility] Start: 05-15-2025 End: 05-15-2025 ambulatory Jessica Bella REAL ESTATE EXECUTIVE ASSISTANT Facility:[facility] Start: 04-16-2025 End: 04-16-[address] Paradise Mackey MD -[facility] Work Phone: Start: 04-16-2025 End: 04-16-2025 ambulatory No Primary Care Physician -[facility] Start: 03-26-2025 End: 03-26-2025 ambulatory GUADALUPE OCONNOR [facility] Start: 03-20-2025 End: 03-20-2025 Patient encounter procedure Jessica Bella REAL ESTATE EXECUTIVE ASSISTANT-C -[facility] Work Phone: Start: 03-20-2025 End: 03-20-2025 ambulatory No Primary Care Physician [facility] Work Phone: Start: 03-04-2025 End: 03-04-2025 ambulatory GUADALUPE OCONNOR [facility] Start: 02-19-2025 End: 02-19-2025 Patient encounter procedure Margarita Rollins CNM -[facility] Work Phone: Start: 02-19-2025 End: 02-19-2025 ambulatory No Primary Care Physician [facility] Work Phone: Start: 01-23-2025 End: 01-23-[address] Guadalupe Garcia DO -[facility] Work Phone: Start: 01-23-2025 End: 01-23-2025 ambulatory Margaux Haagen REAL ESTATE EXECUTIVE ASSISTANT-C Work Phone: [facility] Work Phone: Start: 01-23-2025 End: 01-23-2025 ambulatory Guadalupe Garcia Facility:[facility] Start: 12-18-2024 End: 12-18-2024 ambulatory Margaux Haagen REAL ESTATE EXECUTIVE ASSISTANT-C Work Phone: [facility] Work Phone: Start: 12-18-2024 End: 12-18-2024 Patient encounter procedure Margarita DAWSONM -Lab, [facility] Start: 12-18-2024 End: 12-18-2024 ambulatory No Primary Care Physician Facility:[facility] Start: 12-12-2024 End: 12-12-2024 ambulatory Margaux Haagen REAL ESTATE EXECUTIVE ASSISTANT-C Work Phone: [facility] Work Phone: Start: 12-12-2024 End: 12-12-2024 Patient encounter procedure Margarita DAWSONM -Lab, [facility] Start: 12-12-2024 End: 12-12-2024 ambulatory No Primary Care Physician Facility:[facility] Start: 12-10-2024 End: 12-10-2024 ambulatory Margaux Jay REAL ESTATE EXECUTIVE ASSISTANT-C Work Phone: [facility] Work Phone: Start: 12-10-2024 End: 12-10-2024 Patient encounter procedure Margarita Rollins CNM -Lab, [facility] Start: 12-10-2024 End: 12-10-2024 ambulatory No Primary Care Physician Facility:[facility] Start: 11-01-2024 End: 11-01-2024 Patient encounter procedure Margarita Rollins CNM -Laboratory Work Phone: Start: 11-01-2024 End: 11-01-2024 ambulatory No Primary Care Physician Facility:[facility] Start: 10-19-2024 End: 10-19-2024 Patient encounter procedure Margarita Rollins CNM -[facility] Work Phone: Start: 10-19-2024 End: 10-19-2024 ambulatory Margaux Jay REAL ESTATE EXECUTIVE ASSISTANT Facility:[facility] Start: 01-20-2023 Non-patient / Non-visit REAL ESTATE EXECUTIVE ASSISTANT-C C mich Jay REAL ESTATE EXECUTIVE ASSISTANT Work Phone: [facility] Start: 01-19-2023 Non-patient / Non-visit REAL ESTATE EXECUTIVE ASSISTANT-C C cristhiany Haagen REAL ESTATE EXECUTIVE ASSISTANT Work Phone: [facility] Start: 01-18-2023 Non-patient / Non-visit REAL ESTATE EXECUTIVE ASSISTANT-C C hristy Haagen REAL ESTATE EXECUTIVE ASSISTANT Work Phone: [facility] Start: 01-18-2023 End: 01-20-2023 Evaluation and management of inpatient REAL ESTATE EXECUTIVE ASSISTANT-C Margaux Jay REAL ESTATE EXECUTIVE ASSISTANT Work Phone: [facility] Start: 01-13-2023 End: 01-13-2023 Patient encounter procedure REAL ESTATE EXECUTIVE ASSISTANT-C Margaux Jay REAL ESTATE EXECUTIVE ASSISTANT Work Phone: [facility] Start: 01-11-2023 End: 01-11-2023 Patient encounter procedure REAL ESTATE EXECUTIVE ASSISTANT-C Margaux Jay REAL ESTATE EXECUTIVE ASSISTANT Work Phone: [facility] Start: 01-04-2023 End: 01-04-2023 Patient encounter procedure REAL ESTATE EXECUTIVE ASSISTANT-C Margaux Jay REAL ESTATE EXECUTIVE ASSISTANT Work Phone: [facility] Start: 12-28-2022 End: 12-28-2022 Patient encounter procedure REAL ESTATE EXECUTIVE ASSISTANT-C Margaux Jay REAL ESTATE EXECUTIVE ASSISTANT Work Phone: [facility] Start: 12-21-2022 End: 12-21-2022 ambulatory REAL ESTATE EXECUTIVE ASSISTANT-C Margaux Jay REAL ESTATE EXECUTIVE ASSISTANT Work Phone: [facility] Work Phone: Start: 12-21-2022 End: 12-21-2022 Patient encounter procedure REAL ESTATE EXECUTIVE ASSISTANT-C Margaux Jay REAL ESTATE EXECUTIVE ASSISTANT Work Phone: [facility] Start: 12-21-2022 End: 12-21-2022 ambulatory REAL ESTATE EXECUTIVE ASSISTANT-C Margaux Jay REAL ESTATE EXECUTIVE ASSISTANT Work Phone: [facility] Work Phone: Start: 12-21-2022 End: 12-21-2022 Patient encounter procedure REAL ESTATE EXECUTIVE ASSISTANT-Daniel Jay REAL ESTATE EXECUTIVE ASSISTANT Work Phone: [facility]Laboratory, Specimen Start: 12-07-2022 End: 12-07-2022 Patient encounter procedure REAL ESTATE EXECUTIVE ASSISTANT-C Margaux Jay REAL ESTATE EXECUTIVE ASSISTANT Work Phone: [facility] Start: 12-01-2022 Telephone encounter Igor mccormack DO Work Phone: [facility] Comment on above: Appointment Start: 11-29-2022 End: 12-24-2022 ambulatory REAL ESTATE EXECUTIVE ASSISTANT-Daniel Jay REAL ESTATE EXECUTIVE ASSISTANT Work Phone: [facility] Work Phone: Start: 11-29-2022 End: 03-31-2023 Discharged Recurring REAL ESTATE EXECUTIVE ASSISTANT-C Margaux Jay REAL ESTATE EXECUTIVE ASSISTANT Work Phone: [facility] Start: 11-23-2022 End: 11-23-2022 Patient encounter procedure REAL ESTATE EXECUTIVE ASSISTANT-Daniel Jay REAL ESTATE EXECUTIVE ASSISTANT Work Phone: [facility] Start: 11-11-2022 End: 11-11-2022 ambulatory REAL ESTATE EXECUTIVE ASSISTANT-Daniel Jay REAL ESTATE EXECUTIVE ASSISTANT Work Phone: [facility] Work Phone: Start: 11-11-2022 End: 11-11-2022 Patient encounter procedure REAL ESTATE EXECUTIVE ASSISTANT-C Margaux Jay REAL ESTATE EXECUTIVE ASSISTANT Work Phone: [facility]Labor[facility] Start: 11-10-2022 End: 11-10-2022 Patient encounter procedure REAL ESTATE EXECUTIVE ASSISTANT-Daniel Jay REAL ESTATE EXECUTIVE ASSISTANT Work Phone: [facility] Start: 10-19-2022 End: 10-19-2022 ambulatory REAL ESTATE EXECUTIVE ASSISTANT-C Margaux Jay REAL ESTATE EXECUTIVE ASSISTANT Work Phone: [facility] Work Phone: Start: 10-19-2022 End: 10-19-2022 Patient encounter procedure REAL ESTATE EXECUTIVE ASSISTANT-C Margaux Jay REAL ESTATE EXECUTIVE ASSISTANT Work Phone: [facility] Start: 09-22-2022 End: 09-22-2022 Patient encounter procedure REAL ESTATE EXECUTIVE ASSISTANT-Daniel Jay REAL ESTATE EXECUTIVE ASSISTANT Work Phone: [facility] Start: 08-16-2022 End: 08-16-2022 Patient encounter procedure REAL ESTATE EXECUTIVE ASSISTANT-Daniel Jay REAL ESTATE EXECUTIVE ASSISTANT Work Phone: [facility] Start: 07-22-2022 End: 07-22-2022 Patient encounter procedure REAL ESTATE EXECUTIVE ASSISTANT-Daniel Jay REAL ESTATE EXECUTIVE ASSISTANT Work Phone: [facility] Start: 07-20-2022 End: 07-20-2022 ambulatory REAL ESTATE EXECUTIVE ASSISTANT-C Margaux Jay REAL ESTATE EXECUTIVE ASSISTANT Work Phone: [facility] Work Phone: Start: 07-20-2022 End: 07-20-2022 Patient encounter procedure REAL ESTATE EXECUTIVE ASSISTANT-C Margaux Jay REAL ESTATE EXECUTIVE ASSISTANT Work Phone: [facility] Start: 07-08-2022 End: 07-08-2022 ambulatory REAL ESTATE EXECUTIVE ASSISTANT-C Margaux Jay REAL ESTATE EXECUTIVE ASSISTANT Work Phone: [facility] Work Phone: Start: 07-08-2022 End: 07-08-2022 Patient encounter procedure REAL ESTATE EXECUTIVE ASSISTANT-C Margaux Jay REAL ESTATE EXECUTIVE ASSISTANT Work Phone: [facility] Start: 06-17-2022 End: 06-17-2022 ambulatory REAL ESTATE EXECUTIVE ASSISTANT-C Margaux Jay REAL ESTATE EXECUTIVE ASSISTANT Work Phone: [facility] Work Phone: Start: 06-17-2022 End: 06-17-2022 Patient encounter procedure REAL ESTATE EXECUTIVE ASSISTANT-C Margaux Jay REAL ESTATE EXECUTIVE ASSISTANT [facility] Start: 06-17-2022 End: 06-17-2022 Patient encounter procedure REAL ESTATE EXECUTIVE ASSISTANT-C Margaux Jay REAL ESTATE EXECUTIVE ASSISTANT Work Phone: [facility] Start: 06-01-2022 End: 06-01-2022 ambulatory REAL ESTATE EXECUTIVE ASSISTANT-C Margaux Jay REAL ESTATE EXECUTIVE ASSISTANT Work Phone: [facility] Work Phone: Start: 06-01-2022 End: 06-01-2022 Patient encounter procedure REAL ESTATE EXECUTIVE ASSISTANT-C Margaux Jay REAL ESTATE EXECUTIVE ASSISTANT Work Phone: [facility] Start: 05-22-2022 End: 05-22-2022 ambulatory REAL ESTATE EXECUTIVE ASSISTANT-C Margaux Jay REAL ESTATE EXECUTIVE ASSISTANT Work Phone: [facility] Work Phone: Start: 05-22-2022 End: 05-22-2022 Patient encounter procedure REAL ESTATE EXECUTIVE ASSISTANT-C Margaux Jay REAL ESTATE EXECUTIVE ASSISTANT Work Phone: [facility] Start: 05-20-2022 End: 05-20-2022 ambulatory REAL ESTATE EXECUTIVE ASSISTANT-C Margaux Jay REAL ESTATE EXECUTIVE ASSISTANT Work Phone: [facility] Work Phone: Start: 05-20-2022 End: 05-20-2022 Patient encounter procedure REAL ESTATE EXECUTIVE ASSISTANT-Daniel Jay REAL ESTATE EXECUTIVE ASSISTANT [facility] Start: 02-12-2022 End: 02-12-2022 Patient encounter procedure REAL ESTATE EXECUTIVE ASSISTANT-Daniel Jay REAL ESTATE EXECUTIVE ASSISTANT Work Phone: [facility] Start: 01-29-2022 End: 01-29-2022 Patient encounter procedure REAL ESTATE EXECUTIVE ASSISTANT-C Margaux Jay REAL ESTATE EXECUTIVE ASSISTANT [facility] Start: 01-26-2022 End: 01-26-2022 Patient encounter procedure REAL ESTATE EXECUTIVE ASSISTANT-Daniel Jay REAL ESTATE EXECUTIVE ASSISTANT [facility] Start: 01-23-2022 End: 01-23-2022 Patient encounter procedure REAL ESTATE EXECUTIVE ASSISTANT-Daniel Jay REAL ESTATE EXECUTIVE ASSISTANT [facility] Start: 01-19-2022 End: 01-19-2022 Patient encounter procedure REAL ESTATE EXECUTIVE ASSISTANT-Daniel Jay REAL ESTATE EXECUTIVE ASSISTANT Work Phone: [facility] Start: 01-18-2022 End: 01-18-2022 Patient encounter procedure REAL ESTATE EXECUTIVE ASSISTANT-Daniel Jay REAL ESTATE EXECUTIVE ASSISTANT [facility] Start: 01-14-2022 End: 01-14-2022 Patient encounter procedure REAL ESTATE EXECUTIVE ASSISTANT-Daniel Jay REAL ESTATE EXECUTIVE ASSISTANT Work Phone: [facility] Start: 01-14-2022 End: 01-14-2022 Patient encounter procedure REAL ESTATE EXECUTIVE ASSISTANT-Daniel Jay REAL ESTATE EXECUTIVE ASSISTANT [facility] Start: 01-12-2022 End: 01-12-2022 Emergency department patient visit REAL ESTATE EXECUTIVE ASSISTANT-Daniel Jay REAL ESTATE EXECUTIVE ASSISTANT Work Phone: [facility] Start: 01-12-2022 End: 01-12-2022 Patient encounter procedure REAL ESTATE EXECUTIVE ASSISTANT-Daniel Jay REAL ESTATE EXECUTIVE ASSISTANT [facility] Start: 01-04-2022 End: 01-04-2022 Patient encounter procedure REAL ESTATE EXECUTIVE ASSISTANT-Daniel Jay REAL ESTATE EXECUTIVE ASSISTANT [facility] Start: 12-30-2021 End: 12-30-2021 Patient encounter procedure REAL ESTATE EXECUTIVE ASSISTANT-Daniel Jay REAL ESTATE EXECUTIVE ASSISTANT [facility] Start: 12-28-2021 End: 12-28-2021 Patient encounter procedure REAL ESTATE EXECUTIVE ASSISTANT-Daniel Jay REAL ESTATE EXECUTIVE ASSISTANT [facility] Start: 12-26-2021 End: 12-26-2021 Patient encounter procedure REAL ESTATE EXECUTIVE ASSISTANT-Daniel Jay REAL ESTATE EXECUTIVE ASSISTANT [facility] Start: 12-24-2021 End: 12-24-2021 Patient encounter procedure REAL ESTATE EXECUTIVE ASSISTANT-Daniel Jay REAL ESTATE EXECUTIVE ASSISTANT [facility] Start: 11-30-2021 End: 11-30-2021 Patient encounter procedure REAL ESTATE EXECUTIVE ASSISTANT-Daniel Jay REAL ESTATE EXECUTIVE ASSISTANT [facility] Start: 11-02-2021 End: 11-02-2021 Patient encounter procedure REAL ESTATE EXECUTIVE ASSISTANT-Dainel Jay REAL ESTATE EXECUTIVE ASSISTANT Work Phone: [facility] Start: 10-13-2015 Patient encounter status Igor Richardson DO Work Phone: [facility] Work Phone: Procedures Date Procedure Procedure Detail Performing Clinician Start: 05-15-2025 Serologic test for syphilis No Primary Care Physician Start: 01-23-2025 Liquid based cervica l cytology screening Margaux Jay REAL ESTATE EXECUTIVE ASSISTANT-C Work Phone: Comment on above: NEGATIVE FOR INTRAEP ITHELIAL LESION OR MALIGNANCY. This liquid based Th inPrep(R) pap test was screened withthe use of an image guided system. The HPV DNA reflex c riteria were not met with this specimenresult therefore, no HPV testing was performed.Performed at: [address] [id number] Director: Mable Kruse MD, Phone: [phone] Start: 01-23-2025 Urine culture Margaux galloway REAL ESTATE EXECUTIVE ASSISTANT-C Work Phone: Start: 01-23-2025 Hepatitis C antibody measurement Margaux Jay REAL ESTATE EXECUTIVE ASSISTANT-C Work Phone: Comment on above: Reactive: Presumptiv e evidence of antibodies to HCV. Follow CDC recommendations for supplemental testing.Non-Reactive: Antibodies to HCV were not detected; does not exclude the possibility of exposure to HCVReactive Results are presumptive evidence of antibodies to HCV. Follow CDC recommendations for supplemental testing.Order confirmation testing: HCV Quant by PCR testing - HCVPCR #[id number] Non Reactive: < 0.8 Equivocal: >/= 0.8 to < 1.0 Reactive: >/= 1.0The CDC requires that a reactive/equivocal HCV antibody result be sent out for confirmation. HCV Quant by PCR testing. Start: 01-23-2025 Rubella IgG measurement Margaux [employer] Work Phone: Comment on above: Antibody Result: Int erpretationNon-Reactive: Non- ImmuneReactive: ImmuneThe following results were obtained with the [employer] Rubella IgG assay. Results from assays of other manufacturers cannot be used interchangeably. Start: 01-23-2025 Serologic test for syphilis [employer] Work Phone: Start: 11-01-2024 Serum progesterone measurement [employer] Work Phone: Comment on above: Follicular phase 0.1 - 0.9 Luteal phase 1.8 - 23.9 Ovulation phase 0.1 - 12.0 First trimester 11.0 - 44.3 Second trimester 25.4 - 83.3 Third trimester 58.7 - 214.0 Postmenopausal 0.0 - 0.1Performed at: CB - [facility] [id number] [place], [place] [id number] Director: [place] Steve PhD, Phone: [phone] Start: 12-21-2022 Ultrasound scan for growth REAL ESTATE EXECUTIVE ASSISTANT-Daniel Jay REAL ESTATE EXECUTIVE ASSISTANT Work Phone: Start: 06-01-2022 Transvaginal obstetr ic ultrasonography REAL ESTATE EXECUTIVE ASSISTANT-C Margaux Jay REAL ESTATE EXECUTIVE ASSISTANT Work Phone: Start: 01-12-2022 Transvaginal obstetr ic ultrasonography REAL ESTATE EXECUTIVE ASSISTANT-C Margaux Jay REAL ESTATE EXECUTIVE ASSISTANT Work Phone: Group B Streptococcu s Culture REAL ESTATE EXECUTIVE ASSISTANT-Daniel Jay REAL ESTATE EXECUTIVE ASSISTANT Work Phone: Urine culture REAL ESTATE EXECUTIVE ASSISTANT-C Margaux galloway REAL ESTATE EXECUTIVE ASSISTANT Work Phone: Plan of Treatment Date Care Activity Detail Author Start: 08-19-2025 ambulatory Ambulatory Facility:[facility] Start: 06-12-2025 [facility] Start: 05-15-2025 CBC W Auto Differential panel - Blood [facility] Start: 05-15-2025 Measurement of glucose 2 hours after glucose challenge for glucose tolerance test [facility] Start: 05-15-2025 Serologic test for syphilis [facility] Start: 05-15-2025 [facility] Start: 04-16-2025 [facility] Start: 03-18-2024 PAP TESTING PAP TESTING [facility] Start: 01-20-2023 Patient discharge [facility] Start: 01-19-2023 Administration of medication [facility] Start: 01-19-2023 Application of ice collar, cap or bag [facility] Start: 01-19-2023 Catheterization of vein [facility] Start: 01-19-2023 Introduction of urinary catheter [facility] Start: 01-19-2023 Measuring intake and output [facility] Start: 01-19-2023 Notification of physician [facility] Start: 01-19-2023 Procedure discontinued [facility] Start: 01-19-2023 Provision of activity privileges [facility] Start: 01-19-2023 Vital signs measurements [facility] Start: 01-19-2023 [facility] Start: 01-18-2023 Admission procedure [facility] Start: 09-26-2022 DEPRESSION ASSESSMENT DEPRESSION ASSESSMENT [facility] Start: 05-27-2022 Influenza vaccination INFLUENZA (#1) [facility] Start: 03-18-2021 Urine microalbumin profile DTAP,TDAP,TD (7 - Td or Tdap) [facility] Start: 2014 HEPATITIS C SCREENING HEPATITIS C SCREENING [facility] Start: 2014 HIV SCREENING HIV SCREENING [facility] Start: 2010 PEDS TO ADULT TRANSITION ANNUAL ASSESSMENT PEDS TO ADULT TRANSITION ANNUAL ASSESSMENT [facility] Start: 2008 PEDS TO ADULT TRANSITION INITIAL DISCUSSION PEDS TO ADULT TRANSITION INITIAL DISCUSSION [facility] Start: 2006 MENINGOCOCCAL B: Consider based on risk (1 of 2 - Risk Bexsero 2-dose series) MENINGOCOCCAL B: Consider based on risk (1 of 2 - Risk Bexsero 2-dose series) [facility] Start: 02-14-1997 COVID-19 VACCINE (#1) COVID-19 VACCINE (#1) [facility] CBC W Auto Different ial panel - Blood [facility] Work Phone: Erythrocyte mean corpuscular volume determination [facility] Glucose [Mass/volume ] in Serum or Plasma --1 hour post 50 g glucose PO [facility] Work Phone: Hematocrit [Volume Fraction] of Blood [facility] Hemoglobin [Mass/vol ume] in Blood [facility] Hepatitis B surface antigen measurement [facility] Work Phone: Hepatitis C antibody measurement [facility] Work Phone: HIV 1+2 Ab+HIV1 p24 Ag [Presence] in Serum or Plasma by Immunoassay [facility] Work Phone: Leukocytes [#/volume ] in Blood [facility] Mean corpuscular hemoglobin concentration determination [facility] Mean corpuscular hemoglobin determination [facility] Measurement of gluco se 3 hours after glucose challenge for glucose tolerance test [facility] Neutrophil count [facility] Neutrophil percent differential count [facility] Patient Education [facility] Work Phone: Patient referral [facility] Work Phone: Platelets [#/volume] in Blood [facility] Procedure [facility] Work Phone: Red blood cell count [facility] Red cell distributio n width determination [facility] Rubella IgG measurement [facility] Work Phone: Treponema sp Ab [Pre sence] in Serum [facility] Work Phone: Ultrasound scan for growth [facility] Immunizations Immunization Date Immunization Notes Care Provider Jessica morris 11-24-2017 typhoid vaccine, unspecified formulation Igor Richardson DO Work Phone: [facility] Work Phone: 10-04-2014 hepatitis A vaccine, pediatric/adolescent dosage, 2 dose schedule Igor Richardson DO Work Phone: [facility] Work Phone: 03-13-2014 meningococcal polysaccharide (groups A, C, Y and W-135) diphtheria toxoid conjugate vaccine (MCV4P) Igor Richardson DO Work Phone: [facility] 03-13-2014 varicella virus vaccine Jord an Richardson DO Work Phone: [facility] 09-22-2011 human papilloma viru s vaccine, quadrivalent Igor Richardson DO Work Phone: [facility] Work Phone: 05-15-2011 human papilloma viru s vaccine, quadrivalent Igor Richardson DO Work Phone: [facility] 05-15-2011 Meningococcal, MCV4, unspecified conjugate formulation(groups A, C, Y and W-135) Igor Richardson DO Work Phone: [facility] 03-18-2011 human papilloma viru s vaccine, quadrivalent Igor Richardson DO Work Phone: [facility] Work Phone: 03-18-2011 tetanus toxoid, redu glenn diphtheria toxoid, and acellular pertussis vaccine, adsorbed Igor Richardson DO Work Phone: [facility] Work Phone: 09-04-2005 influenza virus vacc ine, unspecified formulation Igor Richardson DO Work Phone: [facility] 08-24-2003 influenza virus vacc ine, unspecified formulation Igor Richardson DO Work Phone: [facility] Work Phone: 08-23-2001 diphtheria, tetanus toxoids and acellular pertussis vaccine Igor Richardson DO Work Phone: [facility] Work Phone: 08-23-2001 measles, mumps and rubella virus vaccine Igor Richardson DO Work Phone: [facility] Work Phone: 08-24-2000 poliovirus vaccine, inactivated Igor Richardson DO Work Phone: [facility] Work Phone: 11-20-1997 diphtheria, tetanus toxoids and acellular pertussis vaccine Igor Richardson DO Work Phone: [facility] Work Phone: 11-20-1997 haemophilus influenz ae type b vaccine, HbOC conjugate Igor Richardson DO Work Phone: [facility] Work Phone: 11-20-1997 varicella virus vaccine Jord an Richardson DO Work Phone: [facility] Work Phone: 08-21-1997 measles, mumps and rubella virus vaccine Igor Richardson DO Work Phone: [facility] Work Phone: 08-21-1997 poliovirus vaccine, inactivated Igor Richardson DO Work Phone: [facility] Work Phone: 03-13-1997 diphtheria, tetanus toxoids and acellular pertussis vaccine Igor Richardson DO Work Phone: [facility] Work Phone: 03-13-1997 haemophilus influenz ae type b vaccine, HbOC conjugate Igor Richardson DO Work Phone: [facility] Work Phone: 03-13-1997 hepatitis B vaccine, pediatric or pediatric/adolescent dosage Igor Richardson DO Work Phone: [facility] Work Phone: 1996 diphtheria, tetanus toxoids and acellular pertussis vaccine Igor Richardson DO Work Phone: [facility] Work Phone: 1996 haemophilus influenz ae type b vaccine, HbOC conjugate Igor Richardson DO Work Phone: [facility] Work Phone: 1996 poliovirus vaccine, inactivated Igor Richardson DO Work Phone: [facility] Work Phone: 1996 diphtheria, tetanus toxoids and acellular pertussis vaccine Igor Richardson DO Work Phone: [facility] Work Phone: 1996 haemophilus influenz ae type b vaccine, HbOC conjugate Igor Richardson DO Work Phone: [facility] Work Phone: 1996 poliovirus vaccine, inactivated Igor Richardson DO Work Phone: [facility] Work Phone: 1996 hepatitis B vaccine, pediatric or pediatric/adolescent dosage Igor Richardson DO Work Phone: [facility] Work Phone: 1996 hepatitis B vaccine, pediatric or pediatric/adolescent dosage Igor Richardson DO Work Phone: [facility] Work Phone: Payers Date Payer Category Payer Unknown [id number] [id number] Self-pay [id number] 2019 Unknown [id number] 1996 Unknown [id number] 2.16. [id number] 1996 Unknown [id number] 2.16. [id number] Unknown [id number] Unknown [facility] [id number] Unknown [id number] 2.16.8 [id number] Unknown [id number] 2.16.8 40.1.275946.3.579.2.462 Unknown [id number] 2.16.8 40.1.615980.3.579.2.462 Unknown [id number] 2.16.8 40.1.203404.3.579.2.462 Unknown [id number] 2.16.8 40.1.009418.3.579.2.462 Unknown [id number] 2.16.8 40.1.172144.3.579.2.462 Unknown [id number] 2.16.8 40.1.158619.3.579.2.462 Unknown [id number] 2.16.8 40.1.494614.3.579.2.462 Unknown [id number] 2.16.8 40.1.148199.3.579.2.462 Unknown [id number] 2.16.8 40.1.353308.3.579.2.462 Unknown [id number] 2.16.8 40.1.643883.3.579.2.462 Unknown [id number] 2.16.8 40.1.086011.3.579.2.462 Unknown [id number] 2.16.8 40.1.715933.3.579.2.462 Unknown [id number] 2.16.8 40.1.822938.3.579.2.462 Unknown [id number] 2.16.8 40.1.557551.3.579.2.462 Unknown [id number] 2.16.8 40.1.405412.3.579.2.462 Unknown [id number] 2.16.8 40.1.300537.3.579.2.462 Unknown [id number] 2.16.8 40.1.472507.3.579.2.462 Unknown [id number] 2.16.8 40.1.968934.3.579.2.462 Unknown [id number] 2.16.8 40.1.652566.3.579.2.462 Unknown [id number] 2.16.8 40.1.002696.3.579.2.462 Social History Date Type Detail Facility Start: 11-02-2021 End: 01-18-2023 Tobacco smoking status VTIS Unknown if ever smoked [facility] Start: 1995 Sex Assigned At Female W [facility] Start: 05-03-2012 End: 01-10-2025 Tobacco smoking status VTIS Never smoked tobacco [facility] Work Phone: Start: 05-03-2012 Tobacco use and exposure Smokeless tobacco non-user [facility] Work Phone: Start: 10-21-2020 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) [facility] Start: 12-19-2024 End: 12-24-2024 Sex Female (finding) [facility] Sex Female [facility] Medical Equipment Procedure Code Equipment Code Equipment Origin al Text Equipment Identifier Dates Blood Sugar Diagnostic (True Metrix Glucose Test Strip) strip Start: 11-15-2022 Blood Sugar Diagnostic (True Metrix Glucose Test Strip) strip Start: 11-15-2022 Blood Sugar Diagnostic (True Metrix Glucose Test Strip) strip Start: 11-15-2022 Blood Sugar Diagnostic (True Metrix Glucose Test Strip) strip Start: 11-15-2022 Blood Sugar Diagnostic (True Metrix Glucose Test Strip) strip Start: 11-15-2022 Blood Sugar Diagnostic (True Metrix Glucose Test Strip) strip Start: 11-15-2022 Blood Sugar Diagnostic (True Metrix Glucose Test Strip) strip Start: 11-15-2022 Blood Sugar Diagnostic (True Metrix Glucose Test Strip) strip Start: 11-15-2022 Blood Sugar Diagnostic (True Metrix Glucose Test Strip) strip Start: 11-15-2022 End: 01-10-2025 Blood Sugar Diagnostic (True Metrix Glucose Test Strip) strip Start: 11-15-2022 End: 01-10-2025 Blood Sugar Diagnostic (True Metrix Glucose Test Strip) strip Start: 11-15-2022 End: 01-10-2025 Blood Sugar Diagnostic (True Metrix Glucose Test Strip) strip Start: 11-15-2022 End: 01-10-2025 Blood Sugar Diagnostic (True Metrix Glucose Test Strip) strip Start: 11-15-2022 End: 01-10-2025 Blood Sugar Diagnostic (True Metrix Glucose Test Strip) strip Start: 11-15-2022 End: 01-10-2025 Blood Sugar Diagnostic (True Metrix Glucose Test Strip) strip Start: 11-15-2022 End: 01-10-2025 Blood Sugar Diagnostic (True Metrix Glucose Test Strip) strip Start: 11-15-2022 End: 01-10-2025 Blood Sugar Diagnostic (True Metrix Glucose Test Strip) strip Start: 11-15-2022 End: 01-10-2025 Goals Date Patient Goal Desired Activity /State Clinical Notes 12-01-2022 to 07-08-2025 Note Date & Type Note Facility 07-08-2025 Progress note [facility] 06-26-2025 Progress note [facility] 06-12-2025 Progress note [facility] 05-15-2025 Progress note [facility] 04-16-2025 Evaluation note Diagnosis Onset Date Resolution History of ectopic acute April 16, 2025 3:01pm History of prior with short cervix, currently acute April 16, 2025 3:01pm History of recurrent miscarriages acute April 16, 2025 3:01pm Obesity affecting acute April 16, 2025 3:01pm acute April 16 3:01pm Short cervix affecting acute April 16, 2025 3:01pm Supervision of high-risk acute April 16, 025 3:01pm History of ectopic acute May 15 9:22am History of prior with short cervix, currently acute May 15 9:22am History of recurrent miscarriages acute May 15 9:22am Obesity affecting acute May 15 9:22am acute May 15, 9:22am Short cervix affecting acute May 15 9:22am Supervision of high-risk acute May 15, 2025 9:22am History of ectopic acute June 12, 2025 9:11am History of gestational diabetes in prior , currently acute June 12, 2025 9:11am History of prior with short cervix, currently acute June 12, 2025 9:11am History of recurrent miscarriages acute June 12, 2025 9:11am Obesity affecting acute June 12, 2025 9:11am acute May 9:11am Short cervix affecting acute June 12, 2025 9:11am Supervision of high-risk acute June 122024 9:11am History of ectopic acute June 26 9:17am History of gestational diabetes in prior , currently acute June 26 9:17am History of prior with short cervix, currently acute June 26 9:17am History of recurrent miscarriages acute June 26 9:17am Obesity affecting acute June 26 9:17am acute June 26, 025 9:17am Short cervix affecting acute June 26 9:17am Supervision of high-risk acute June 26, 2025 9:17am History of ectopic acute July 08 10:39am History of gestational diabetes in prior , currently acute July 08 10:39am History of prior with short cervix, currently acute July 08 10:39am History of recurrent miscarriages acute July 08 10:39am Obesity affecting acute July 08 10:39am acute July 08, 2025 10:39am Short cervix affecting acute July 08 10:39am Supervision of high-risk acute June 10:39am [facility] Work Phone: 1(259) 782-789207-22-2025 Progress [facility] [address] [place] [address], [address] [place] [address] OFFICE VISIT Date of Service: 04/16/25 MR#: [id number] Acct: [id number] Name: JENNY IBARRA Rep #: [id number] : 1995 Provider: Dr. Reinier Mackey MD Age/Sex: 29/F Location: [facility] Status: Signed Intake Vital Signs 02/19/25 14:19 03/20/25 08:43 04/16/25 15:11 Height 5 ft 4 in 5 ft 4 in 5 ft 4 in Weight: 211 lb 4 oz BMI 36.2 BP 117/75 Intake Visit Reasons: 22wk ob Property Maintenance Technician Required: No Is patient in pain?: No Allergies No Known Allergies Allergy (Verified 04/16/25 15:18) Medications ?Medication ?Instructions ?Recorded ?Confirmed ?Type multivitamin no.47-iron fum 27 1 cap PO DAILY Check wi th primary 06/11/22 04/16/25 History mg-folate no.1 1 mg-dha 300 mg doctor capsule (PNV-DHA) magnesium 1 cap PO/SL DAILY leg cramps 01/18/23 04/16/25 History doxylamine succinate 25 mg tablet 25 mg PO QHS PRN 04/16/25 History (Unisom (doxylamine)) pyridoxine (vitamin B6) 10 mg 10 mg PO QDAY 01/10/25 0 04/16/25 History tablet progesterone micronized 200 mg 200 mg vaginal ONCE #30 caps 04/01/25 04/16/25 Rx capsule (Prometrium) Last Menstrual Period: 10/08/24 Zika: Zika virus screening: Negative : No PFSH PFSH Medical History Short cervix affecting History of miscarriage, currently Gestational diabetes Infertility Vacuum extractor delivery, delivered care and examination Acute bronchitis Gestational diabetes PCOS (polycystic ovarian syndrome) Surgical History History of surgery Family History Father Cancer mouth/throat Social History adopted: No household members: spouse and children housing: house number of children: 1 current occupational status: employed current occupation: [employer] current occupational exposures/hazards: No pets and animals: Yes pets and animals: dog(s) history of recent travel: No sexually active: Yes Smoking Status: Never smoker alcohol intake: former details: not while pregnany, social only substance use type: does not use well-balanced diet: about half the time caffeine: No eating out: 1-3 times/week during the past year weight has: remained stable what type of physical activity do you participate in: walking frequency: 1-2 times per week duration: 15-30 minutes/day keturah/baptist: Uatsdin seatbelt use: always do you feel safe at home: Yes additional social history: - Guerrero, Dinora Fay History 4 Elective abortions Hx Para 1 Spontaneous abortions 1 Hx # Term Pregnancies Ectopic pregnancies 1 Hx # Pregnancies Multiple births # of living children 1 Past Pregnancies Del. Date Name GA/Weeks Outcome Route Bth Weight Gen Labor Lgth Anesthesia Del Locatn Provider FOB Unknown ectopic Unknown spontaneous 01/19/23 Benny 40 live - full term Male [facility] Dr. Araya Delivery Date: 01/19/23 Last Updated by: Anitha Cook Shortened cervix, gestational diabetes HPI 22wk ob Details: JENNY IBARRA is a 29 year old who presents for routine OB visit. OB Visit ANT Calculator Estimated Delivery Date Method Current WG Current Estimate 08/22/25 Ultrasound #1 21w 5d Other Estimates 07/15/25 LMP (Uncertain) 27w 1d Expected Delivery Route/Plan Labor Preferences- CB/BF classes: [] labor support person: [] labor intervention preferences: [] pain management options preferred: [] cut cord/dad catch: [] : [] PP control planned: [] discussed possible routes of delivery and associated risks: [] special requests: [] Specific Issue/Plans Covid status: [] Flu vaccine: [] Tdap vaccine: [] Rhogam: [] LARC form signed: [] Problem list reviewed and updated with the most current plan of care details and appropriate ordersplaced. Relevant counseling for the gestational age provided. Continue routine care and follow up unless otherwise noted in visit notes/problem list details Initial Weight: Not Recorded Date -?-?-?-?-?-?-?-?-?-?-?-?- EGA Weight BP Urine Prot -?-?-?-?-?-?-?-?-?-?-?-?- Glucose FHR FuHt Pres Dilation -?-?-?-?-?-?-?-?-?-?-?-?- Effaced St Visit Note 01/23/25 -?-?-?-?-?-?-?-?-?-?-?-?- 9w 6d 201 lb 4 oz 122/77 -?-?--?-?-?-?-?-?-?-?-?-?- 170 -?-?-?-?-?-?-?-?-?-?-?-?- JV - CRL consist ent with last scan at care center She is measuring 10 weeks 2 days today. Should be 9 weeks 6 days from first scan there. JV - CRL consistent with las t scan at care center She is measuring 10 weeks 2 days today. Should be 9 weeks 6 days from first scan there. Declines NIPT. Taking progesterone for short cx last . ordering 16 week cx 02/19/25 -?-?-?-?-?-?-?-?-?-?-?-?- 13w 5d 205 lb 6 oz 106/74 Nega tive -?-?-?-?-?-?-?-?-?-?-?-?- Negative 168 -?-?-?-?-?-?-?-?-?-?-?-?- KW- no vb/crampi ng. some low pelvic pressure at the end of the day. MFM consult in 2 weeks for cervical length. KW- no vb/cramping. some low pelvic pressure at the end of the day. MFM consult in 2 weeks for cervical length. M anatomy US ordered. 03/20/25 -?-?-?-?-?-?-?-?-?-?-?-?- 17w 6d 206 lb 120/64 Negative -?-?-?-?-?-?-?-?-?-?-?-?- Negative 152 -?-?-?-?-?-?-?-?-?-?-?-?- MH-No VB. Promet rium for hx short cervix-causes cramping. Hopes to DC after anatomy scan next week. Denies other concerns. 04/16/25 -?-?-?-?-?-?-?-?-?-?-?-?- 21w 5d 211 lb 4 oz 117/75 -?-?-?-?-?-?-?-?-?-?-?-?- 160 -?-?-?-?-?-?-?-?-?-?-?-?- SM- no vb lof go od fm no reuglar ctx SM- no vb lof good fm no reu glar ctx discussed limited views on anatomy scan ACOG First Trimester First Trimester: Discussed Second Trimester Second Trimester: Signs and Symptoms of Labor, Selecting a care provider, Reproductive Life Planning & Contreception, Care Planning, Depression/Anxiety and Intimate Partner Violence; Discussed Tobacco Cessation Third Trimester Third Trimester: Pain Management Plans, Labor support person(s), Immediate Larc, Circumcision preference, Movement Monitoring, Signs and Symptoms of Preeclampsia, Labor Signs, Cervical Ripening/Labor Induction Counseling, Infant Feeding No , [place] Education, Family Medical Leave or Disability Forms, Depression and Depression; Discussed Trial of Labor after Counseling and Discussed Tobacco Cessation Coding Level of Care Code OB Routine Diagnoses Short cervix affecting O26.879 Obesity affecting in second trimester, unspecified obesity type O99.212 Obesity type affecting : unspecified obesity Trimester: second trimester History of ectopic Z87.59 History of prior with short cervix, currently O09.299 Supervision of high risk in second trimester O09.92 Trimester: second trimester 21 weeks gestation of Z3A.21 Weeks of gestation: 21 weeks History of recurrent miscarriages N96 Assessment and Plan Assessment and Plan (1) Short cervix affecting : Status: Acute Comment: with last preg- prometrium 200 mg PV/causes her to cramp and would like to DC after anatomy scan ifCX stable mfm scan ordered for 16 weeks:40mm; Anatomy US:42mm. Patient has elected to cont vag progesterone due to hx. (2) Obesity affecting : Status: Acute Qualifiers: Obesity type affecting : unspecified obesity Trimester: second trimester Qualified Code(s): O99.212 - Obesity complicating , second trimester Comment: BMI 32.6% (3) History of ectopic : Status: Acute (4) History of prior with short cervix, currently : Status: Acute (5) Supervision of high-risk : Status: Acute Qualifiers: Trimester: second trimester Qualified Code(s): O09.92 - Supervision of high risk , unspecified, second trimester Comment: PRR , ANT 08/22/25,boy PC Benny Guerrero (6) : Status: Acute Qualifiers: Weeks of gestation: 21 weeks Qualified Code(s): Z3A.21 - 21 weeks gestation of Comment: NIPT w gender & carrier - declines On US incomplete visual of nose but states palate, lips profile ok. Patient elects not to rpt US for nose. (7) History of recurrent miscarriages: Status: Acute Comment: APL negative. discussed chromosomal testing also. discussed progesterone 1tm support- ordered prometrium Orders: Orders POC Urinalysis 2 Dip (Clinic) Today 04/16/25 1559 zonia ALLEN> Date _ Paradise Mackey MD Cosigner Signature: Date (if applicable) CC: ~ [facility]07-22-2025 Progress note Author Paradise Mackey [facility] Note Date/Time April 16, 2025 3:59 pm [facility] [address], [address] [place] [address] OFFICE VISIT Date of Service: 04/16/25 MR#: [id number] Acct: [id number] Name: JENNY IBARRA Rep #: [id number] : 1995 Provider: Dr. Reinier Mackey MD Age/Sex: 29/F Location: [facility] Status: Signed Intake Vital Signs 02/19/25 14:19 03/20/25 08:43 04/16/25 15:11 Height 5 ft 4 in 5 ft 4 in 5 ft 4 in Weight: 211 lb 4 oz BMI 36.2 BP 117/75 Intake Visit Reasons: 22wk ob Property Maintenance Technician Required: No Is patient in pain?: No Allergies No Known Allergies Allergy (Verified 04/16/25 15:18) Medications ?Medication ?Instructions ?Recorded ?Confirmed ?Type multivitamin no.47-iron fum 27 1 cap PO DAILY Check wi th primary 06/11/22 04/16/25 History mg-folate no.1 1 mg-dha 300 mg doctor capsule (PNV-DHA) magnesium 1 cap PO/SL DAILY leg cramps 01/18/23 04/16/25 History doxylamine succinate 25 mg tablet 25 mg PO QHS PRN 04/16/25 History (Unisom (doxylamine)) pyridoxine (vitamin B6) 10 mg 10 mg PO QDAY 01/10/25 0 04/16/25 History tablet progesterone micronized 200 mg 200 mg vaginal ONCE #30 caps 04/01/25 04/16/25 Rx capsule (Prometrium) Last Menstrual Period: 10/08/24 Zika: Zika virus screening: Negative : No PFSH PFSH Medical History Short cervix affecting History of miscarriage, currently Gestational diabetes Infertility Vacuum extractor delivery, delivered care and examination Acute bronchitis Gestational diabetes PCOS (polycystic ovarian syndrome) Surgical History History of surgery Family History Father Cancer mouth/throat Social History adopted: No household members: spouse and children housing: house number of children: 1 current occupational status: employed current occupation: [employer] current occupational exposures/hazards: No pets and animals: Yes pets and animals: dog(s) history of recent travel: No sexually active: Yes Smoking Status: Never smoker alcohol intake: former details: not while pregnany, social only substance use type: does not use well-balanced diet: about half the time caffeine: No eating out: 1-3 times/week during the past year weight has: remained stable what type of physical activity do you participate in: walking frequency: 1-2 times per week duration: 15-30 minutes/day keturah/baptist: Uatsdin seatbelt use: always do you feel safe at home: Yes additional social history: - Guerrero, [employer] History 4 Elective abortions Hx Para 1 Spontaneous abortions 1 Hx # Term Pregnancies Ectopic pregnancies 1 Hx # Pregnancies Multiple births # of living children 1 Past Pregnancies Del. Date Name GA/Weeks Outcome Route Bth Weight Infant Gen Labor Lgth Anesthesia Del Locatn Provider FOB Unknown ectopic Unknown spontaneous 01/19/23 Benny 40 live - full term Male [facility] Dr. Araya Delivery Date: 01/19/23 Last Updated by: Anitha Cook Shortened cervix, gestational diabetes HPI 22wk ob Details: JENNY IBARRA is a 29 year old who presents for routine OB visit. OB Visit ANT Calculator Estimated Delivery Date Method Current WG Current Estimate 08/22/25 Ultrasound #1 21w 5d Other Estimates 07/15/25 LMP (Uncertain) 27w 1d Expected Delivery Route/Plan Labor Preferences- CB/BF classes: [] labor support person: [] labor intervention preferences: [] pain management options preferred: [] cut cord/dad catch: [] : [] PP control planned: [] discussed possible routes of delivery and associated risks: [] special requests: [] Specific Issue/Plans Covid status: [] Flu vaccine: [] Tdap vaccine: [] Rhogam: [] LARC form signed: [] Problem list reviewed and updated with the most current plan of care details and appropriate orders placed. Relevant counseling for the gestational age provided. Continue routine care and follow up unless otherwise noted in visit notes/problem list details Initial Weight: Not Recorded Date -?-?-?-?-?-?-?-?-?-?-?-?- EGA Weight BP Urine Prot -?-?-?-?-?-?-?-?-?-?-?-?- Glucose FHR FuHt Pres Dilation -?-?-?-?-?-?-?-?-?-?-?-?- Effaced St Visit Note 01/23/25 -?-?-?-?-?-?-?-?-?-?-?-?- 9w 6d 201 lb 4 oz 122/77 -?-?--?-?-?-?-?-?-?-?-?-?- 170 -?-?-?-?-?-?-?-?-?-?-?-?- JV - CRL consist ent with last scan at [facility] She is measuring 10 weeks 2 days today. Should be 9 weeks 6 days from first scan there. JV - CRL consistent with las t scan at [facility] She is measuring 10 weeks 2 days today. Should be 9 weeks 6 days from first scan there. Declines NIPT. Taking progesterone for short cx last . ordering 16 week cx 02/19/25 -?-?-?-?-?-?-?-?-?-?-?-?- 13w 5d 205 lb 6 oz 106/74 Nega tive -?-?-?-?-?-?-?-?-?-?-?-?- Negative 168 -?-?-?-?-?-?-?-?-?-?-?-?- KW- no vb/crampi ng. some low pelvic pressure at the end of the day. MFM consult in 2 weeks for cervical length. KW- no vb/cramping. some low pelvic pressure at the end of the day. MFM consult in 2 weeks for cervical length. MFM anatomy US ordered. 03/20/25 -?-?-?-?-?-?-?-?-?-?-?-?- 17w 6d 206 lb 120/64 Negative -?-?-?-?-?-?-?-?-?-?-?-?- Negative 152 -?-?-?-?-?-?-?-?-?-?-?-?- MH-No VB. Promet rium for hx short cervix-causes cramping. Hopes to DC after anatomy scan next week. Denies other concerns. 04/16/25 -?-?-?-?-?-?-?-?-?-?-?-?- 21w 5d 211 lb 4 oz 117/75 -?-?-?-?-?-?-?-?-?-?-?-?- 160 -?-?-?-?-?-?-?-?-?-?-?-?- SM- no vb lof go od fm no reuglar ctx SM- no vb lof good fm no reu glar ctx discussed limited views on anatomy scan ACOG First Trimester First Trimester: Discussed Second Trimester Second Trimester: Signs and Symptoms of Labor, Selecting a care provider, Reproductive Life Planning & Contreception, Care Planning, Depression/Anxiety and Intimate Partner Violence; Discussed Tobacco Cessation Third Trimester Third Trimester: Pain Management Plans, Labor support person(s), Immediate Larc, Circumcision preference, Movement Monitoring, Signs and Symptoms of Preeclampsia, Labor Signs, Cervical Ripening/Labor Induction Counseling, Feeding No , Education, Family Medical Leave or Disability Forms, Depression and Depression; Discussed Trial of Labor after Counseling and Discussed Tobacco Cessation Coding Level of Care Code OB Routine Diagnoses Short cervix affecting O26.879 Obesity affecting in second trimester, unspecified obesity type O99.212 Obesity type affecting : unspecified obesity Trimester: second trimester History of ectopic Z87.59 History of prior with short cervix, currently O09.299 Supervision of high risk in second trimester O09.92 Trimester: second trimester 21 weeks gestation of Z3A.21 Weeks of gestation: 21 weeks History of recurrent miscarriages N96 Assessment and Plan Assessment and Plan (1) Short cervix affecting : Status: Acute Comment: with last preg- prometrium 200 mg PV/causes her to cramp and would like to DC after anatomy scan if CX stable mfm scan ordered for 16 weeks:40mm; Anatomy US:42mm. Patient has elected to cont vag progesterone due to hx. (2) Obesity affecting : Status: Acute Qualifiers: Obesity type affecting : unspecified obesity Trimester: second trimester Qualified Code(s): O99.212 - Obesity complicating , second trimester Comment: BMI 32.6% (3) History of ectopic : Status: Acute (4) History of prior with short cervix, currently : Status: Acute (5) Supervision of high-risk : Status: Acute Qualifiers: Trimester: second trimester Qualified Code(s): O09.92 - Supervision of high risk , unspecified, second trimester Comment: PRR , ANT 08/22/25,boy PC Benny Guerrero (6) : Status: Acute Qualifiers: Weeks of gestation: 21 weeks Qualified Code(s): Z3A.21 - 21 weeks gestation of Comment: NIPT w gender & carrier - declines On US incomplete visual of nose but states palate, lips profile ok. Patient elects not to rpt US for nose. (7) History of recurrent miscarriages: Status: Acute Comment: APL negative. discussed chromosomal testing also. discussed progesterone 1tm support- ordered prometrium Orders: Orders POC Urinalysis 2 Dip (Clinic) Today 04/16/25 7499 <Electronically signed by Paradise brar MD> Date _ Paradise Mackey MD Cosigner Signature: Date (if applicable) CC: ~ [place] [id number] Work Phone: 1(841) 774-294006-25-2025 Evaluation note* Diagnosis Onset Date Resolution Status Admit Date History of ectopic acute March 20, 2025 8:35am History of prior with short cervix, currently acute March 20, 2025 8:35am History of recurrent miscarriages acute March 20, 2025 8:35am Obesity affecting acute March 20, 2025 8:35am acute March 20 8:35am Short cervix affecting acute March 20, 2025 8:35am Supervision of high-risk acute March 20, 2025 8:35am History of ectopic acute April 16, 2025 3:01pm History of prior with short cervix, currently acute April 16, 2025 3:01pm History of recurrent miscarriages acute April 16, 2025 3:01pm Obesity affecting acute April 16, 2025 3:01pm acute April 16 3:01pm Short cervix affecting acute April 16, 2025 3:01pm Supervision of high-risk acute April 16, 2025 3:01pm History of ectopic acute May 15, 2025 9:22am History of prior with short cervix, currently acute May 15 9:22am History of recurrent miscarriages acute May 15 9:22am Obesity affecting acute May 15, 2025 9:22am acute May 15, 025 9:22am Short cervix affecting acute May 15 9:22am Supervision of high-risk acute May 15 9:22am History of ectopic acute June 12, 2025 9:11am History of gestational diabetes in prior , currently acute May 9:11am History of prior with short cervix, currently acute June 12, 2025 9:11am History of recurrent miscarriages acute June 12, 2025 9:11am Obesity affecting acute June 12, 2025 9:11am acute May 9:11am Short cervix affecting acute June 12, 2025 9:11am Supervision of high-risk acute June 12, 2025 9:11am History of ectopic acute June 26, 2025 9:17am History of gestational diabetes in prior , currently acute June 26, 2025 9:17am History of prior with short cervix, currently acute June 26 9:17am History of recurrent miscarriages acute June 26 9:17am Obesity affecting acute June 26, 2025 9:17am acute June 26, 2 025 9:17am Short cervix affecting acute June 26 9:17am Supervision of high-risk acute June 26 9:17am [facility] Work Phone: 1(842) 247-533605-27-2025 Evaluation note* Diagnosis Onset Date Resolution Status Admit Date History of ectopic acute February 19, 2025 2:14pm History of prior with short cervix, currently acute February 19, 2025 2 :14pm History of recurrent miscarriages acute February 19, 2025 2 :14pm Obesity affecting acute February 19, 2025 2:14pm acute February 19, 2025 2:14pm Short cervix affecting acute February 19, 2025 2 :14pm Supervision of high-risk acute February 19, 2025 2 :14pm History of ectopic acute March 20, 2025 8:35am History of prior with short cervix, currently acute March 20, 2025 8:35am History of recurrent miscarriages acute March 20, 2025 8:35am Obesity affecting acute March 20, 2025 8:35am acute March 20 8:35am Short cervix affecting acute March 20, 2025 8:35am Supervision of high-risk acute March 20, 2025 8:35am History of ectopic acute April 16, 2025 3:01pm History of prior with short cervix, currently acute April 16, 2025 3:01pm History of recurrent miscarriages acute April 16, 2025 3:01pm Obesity affecting acute April 16, 2025 3:01pm acute April 16 3:01pm Short cervix affecting acute April 16, 2025 3:01pm Supervision of high-risk acute April 16, 2025 3:01pm History of ectopic acute May 15, 2025 9:22am History of prior with short cervix, currently acute May 15 9:22am History of recurrent miscarriages acute May 15 9:22am Obesity affecting acute May 15, 2025 9:22am acute May 15, 2 025 9:22am Short cervix affecting acute May 15 9:22am Supervision of high-risk acute May 15 9:22am History of ectopic acute June 12, 2025 9:11am History of gestational diabetes in prior , currently acute May 9:11am History of prior with short cervix, currently acute June 12, 2025 9:11am History of recurrent miscarriages acute June 12, 2025 9:11am Obesity affecting acute June 12, 2025 9:11am acute May 9:11am Short cervix affecting acute June 12, 2025 9:11am Supervision of high-risk acute June 12, 2025 9:11am [facility] Work Phone: 1(394) 467-491105-27-2025 [facility] [address] [place] [address], [address] [place] [address] OFFICE VISIT Date of Service: 02/19/25 MR#: [id number] Acct: [id number] Name: JENNY IBARRA Rep #: [id number] : 1995 Provider: AVIS Rollins Age/Sex: 29/F Location: [facility] 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 Is patient in pain?: No Allergies No Known Allergies Allergy (Verified 02/19/25 14:15) Medications ?Medication ?Instructions ?Recorded ?Confirmed ?Type multivitamin no.47-iron fum 27 1 cap PO DAILY Check wi th primary 06/11/22 02/19/25 History mg-folate no.1 1 mg-dha 300 mg doctor capsule (PNV-DHA) magnesium 1 cap PO/SL DAILY leg cramps 01/18/23 02/19/25 History progesterone micronized 200 mg 200 mg vaginal ONCE #30 caps 12/10/24 02/19/25 Rx capsule (Prometrium) doxylamine succinate 25 mg tablet 25 mg PO QHS PRN 02/19/25 History (Unisom (doxylamine)) pyridoxine (vitamin B6) 10 mg 10 mg PO QDAY 01/10/25 0 02/19/25 History tablet Last Menstrual Period: 10/08/24 : No Have you fallen in the past year?: No PFSH PFSH Medical History Short cervix affecting History of miscarriage, currently Gestational diabetes Infertility Vacuum extractor delivery, delivered care and examination Acute bronchitis Gestational diabetes PCOS (polycystic ovarian syndrome) Surgical History History of surgery Family History Father Cancer mouth/throat Social History adopted: No household members: spouse and children housing: house number of children: 1 current occupational status: employed current occupation: [employer] current occupational exposures/hazards: No pets and animals: Yes pets and animals: dog(s) history of recent travel: No sexually active: Yes Smoking Status: Never smoker alcohol intake: former details: not while pregnany, social only substance use type: does not use well-balanced diet: about half the time caffeine: No eating out: 1-3 times/week during the past year weight has: remained stable what type of physical activity do you participate in: walking frequency: 1-2 times per week duration: 15-30 minutes/day keturah/baptist: Uatsdin seatbelt use: always do you feel safe at home: Yes additional social history: - Guerrero, [employer] History 4 Elective abortions Hx Para 1 Spontaneous abortions 1 Hx # Term Pregnancies Ectopic pregnancies 1 Hx # Pregnancies Multiple births # of living children 1 Past Pregnancies Del. Date Name GA/Weeks Outcome Route Bth Weight Infant Gen Labor Lgth Anesthesia Del Locatn Provider FOB Unknown ectopic Unknown spontaneous 01/19/23 Benny 40 live - full term Male [facility] Dr. Araya Delivery Date: 01/19/23 Last Updated by: Anitha Cook Shortened cervix, gestational diabetes HPI 14wk1d ob Details: JENNY IBARRA is a 29 year old who presents for routine OB visit. OB Visit ANT Calculator Estimated Delivery Date Method Current WG Current Estimate 08/22/25 Ultrasound #1 13w 5d Other Estimates 07/15/25 LMP (Uncertain) 19w 1d Expected Delivery Route/Plan Labor Preferences- CB/BF classes: [] labor support person: [] labor intervention preferences: [] pain management options preferred: [] cut cord/dad catch: [] : [] PP control planned: [] discussed possible routes of delivery and associated risks: [] special requests: [] Specific Issue/Plans Covid status: [] Flu vaccine: [] Tdap vaccine: [] Rhogam: [] LARC form signed: [] Problem list reviewed and updated with the most current plan of care details and appropriate ordersplaced. Relevant counseling for the gestational age provided. Continue routine care and follow up unless otherwise noted in visit notes/problem list details Initial Weight: Not Recorded Date -?-?-?-?-?-?-?-?-?-?-?-?- EGA Weight BP Urine Prot -?-?-?-?-?-?-?-?-?-?-?-?- Glucose FHR FuHt Pres Dilation -?-?-?-?-?-?-?-?-?-?-?-?- Effaced St Visit Note 01/23/25 -?-?-?-?-?-?-?-?-?-?-?-?- 9w 6d 201 lb 4 oz 122/77 -?-?-?-?-?-?-?-?-?-?-?-?- 170 -?-?-?-?-?-?-?-?-?-?-?-?- JV - CRL consist ent with [facility] scan at care center She is measuring 10 weeks 2 days today. Should be 9 weeks 6 days from first scan there. JV - CRL consistent with las t scan at care center She is measuring 10 weeks 2 days today. Should be 9 weeks 6 days from first scan there. Declines NIPT. Taking progesterone for short cx last . ordering 16 week cx 02/19/25 -?-?-?-?-?-?-?-?-?-?-?-?- 13w 5d 205 lb 6 oz 106/74 Nega tive -?-?-?-?-?-?-?-?-?-?-?-?- Negative 168 -?-?-?-?-?-?-?-?-?-?-?-?- KW- no vb/crampi ng. some low pelvic pressure at the end of the day. MFM consult in 2 weeks for cervical length. KW- no vb/cramping. some low pelvic pressure at the end of the day. MFM consult in 2 weeks for cervical length. MFM anatomy US ordered. ACOG First Trimester First Trimester: Discussed Second Trimester Second Trimester: Signs and Symptoms of Labor, Selecting a care provider, Reproductive Life Planning & Contreception, Care Planning, Depression/Anxiety and Intimate Partner Violence; Discussed Tobacco Cessation Third Trimester Third Trimester: Pain Management Plans, Labor support person(s), Immediate Larc, Circumcision preference, Movement Monitoring, Signs and Symptoms of Preeclampsia, Labor Signs, Cervical Ripening/Labor Induction Counseling, Infant Feeding No , [place] Education, Family Medical Leave or Disability Forms, Depression and Depression; Discussed Trial of Labor after Counseling and Discussed Tobacco Cessation ROS Const Reports system reviewed and no additional complaints, except as documented Eyes Reports system reviewed and no additional complaints, except as documented ENT Reports system reviewed and no additional complaints, except as documented Card Reports system reviewed and no additional complaints, except as documented Resp Reports system reviewed and no additional complaints, except as documented GI Reports system reviewed and no additional complaints, except as documented, Denies nausea and Denies vomiting Reports system reviewed and no additional complaints, except as documented Musc Reports system reviewed and no additional complaints, except as documented Skin/Breast Reports system reviewed and no additional complaints, except as documented Neuro Yes system reviewed and no additional complaints, except as documented Psych Reports system reviewed and no additional complaints, except as documented Endo Reports system reviewed and no additional complaints, except as documented Regan/Lymph Reports system reviewed and no additional complaints, except as documented Aller/Immun Reports system reviewed and no additional complaints, except as documented Exam Const General: cooperative, healthy appearing and no acute distress Orientation: alert, awake and oriented x3 Neck Neck: normal visual inspection and full ROM Resp Effort & Inspection: normal respiratory effort, able to speak in complete sentences and symmetric chest movement GI Inspection: normal to inspection Palpation: soft and other Other: gravid Skin General: no rashes or lesions noted Neuro General: patient alert, patient awake and patient oriented x3 Cognition: normal cognition Speech: speech normal Gait: normal gait Motor: muscle tone normal throughout Extrem General: normal to inspection and full ROM Psych Appearance: grossly normal Mental Status: mental status grossly normal Mood: congruent mood Affect: normal affect Speech and Movement: speech and movement normal Attitude: cooperative Thought Process: normal Thought Content: normal Judgment: judgment good Results POC Urinalysis 2 Dip (Clinic) Office Urine Glucose Negative Last Edit by Becca Gonzalez on 02/19/25 14:23 Office Urine Protein Negative Last Edit by Becca Gonzalez on 02/19/25 14:23 Coding Level of Care Code OB Routine Diagnoses Short cervix affecting O26.879 History of ectopic Z87.59 Obesity affecting O99.210 History of prior with short cervix, currently O09.299 Supervision of high-risk O09.90 13 weeks gestation of Z3A.13 Weeks of gestation: 13 weeks History of recurrent miscarriages N96 Assessment and Plan Assessment and Plan (1) Short cervix affecting : Status: Acute Comment: with last preg- prometrium 200 mg PV . mfm scan ordered for 16 weeks (2) History of ectopic : Status: Acute (3) Obesity affecting : Status: Acute Comment: BMI 32.6% (4) History of prior with short cervix, currently : Status: Acute (5) Supervision of high-risk : Status: Acute Comment: , ANT 08/22/25, NEDRA Zapata Guerrero (6) : Status: Acute Qualifiers: Weeks of gestation: 13 weeks Qualified Code(s): Z3A.13 - 13 weeks gestation of Comment: NIPT w gender & carrier - declines (7) History of recurrent miscarriages: Status: Acute Comment: APL negative. discussed chromosomal testing also. discussed progesterone 1tm support- ordered prometrium Orders: Orders POC Urinalysis 2 Dip (Clinic) Today Plan Details Additional Comments: ACOG trimester education reviewed and updated. see problem list details for updated plan management information and see below for orders placed atthis visit. [place] appropriate handout given. Clinical Quality Measures Falls Risk Screening/Assistive Devices Have you fallen in the past year?: No 02/19/25 1438 s AVIS> Date Khushbu Rollins CNM Cosigner Signature: Date (if applicable) CC: ~ [facility]05-27-2025 Progress note Author Margarita Rollins [facility] Note Date/Time February 19, 2025 2:38p m [facility] [place] [facility] [address] [place] [address], [address] [place] [address] OFFICE VISIT Date of Service: 02/19/25 MR#: [id number] Acct: [id number] Name: JENNY IBARRA Rep #: [id number] : 1995 Provider: AVIS Rollins Age/Sex: 29/F Location: [facility] 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 Is patient in pain?: No Allergies No Known Allergies Allergy (Verified 02/19/25 14:15) Medications ?Medication ?Instructions ?Recorded ?Confirmed ?Type multivitamin no.47-iron fum 27 1 cap PO DAILY Check wi th primary 06/11/22 02/19/25 History mg-folate no.1 1 mg-dha 300 mg doctor capsule (PNV-DHA) magnesium 1 cap PO/SL DAILY leg cramps 01/18/23 02/19/25 History progesterone micronized 200 mg 200 mg vaginal ONCE #30 caps 12/10/24 02/19/25 Rx capsule (Prometrium) doxylamine succinate 25 mg tablet 25 mg PO QHS PRN 02/19/25 History (Unisom (doxylamine)) pyridoxine (vitamin B6) 10 mg 10 mg PO QDAY 01/10/25 0 02/19/25 History tablet Last Menstrual Period: 10/08/24 : No Have you fallen in the past year?: No PFSH PFSH Medical History Short cervix affecting History of miscarriage, currently Gestational diabetes Infertility Vacuum extractor delivery, delivered care and examination Acute bronchitis Gestational diabetes PCOS (polycystic ovarian syndrome) Surgical History History of surgery Family History Father Cancer mouth/throat Social History adopted: No household members: spouse and children housing: house number of children: 1 current occupational status: employed current occupation: [employer] current occupational exposures/hazards: No pets and animals: Yes pets and animals: dog(s) history of recent travel: No sexually active: Yes Smoking Status: Never smoker alcohol intake: former details: not while pregnany, social only substance use type: does not use well-balanced diet: about half the time caffeine: No eating out: 1-3 times/week during the past year weight has: remained stable what type of physical activity do you participate in: walking frequency: 1-2 times per week duration: 15-30 minutes/day keturah/baptist: Uatsdin seatbelt use: always do you feel safe at home: Yes additional social history: - Guerrero, [employer]ora Fay History 4 Elective abortions Hx Para 1 Spontaneous abortions 1 Hx # Term Pregnancies Ectopic pregnancies 1 Hx # Pregnancies Multiple births # of living children 1 Past Pregnancies Del. Date Name GA/Weeks Outcome Route Bth Weight Gen Labor Lgth Anesthesia Del Locatn Provider FOB Unknown ectopic Unknown spontaneous 01/19/23 Benny 40 live - full term Male [facility] Dr. Araya Delivery Date: 01/19/23 Last Updated by: Anitha Cook Shortened cervix, gestational diabetes HPI 14wk1d ob Details: JENNY IBARRA is a 29 year old who presents for routine OB visit. OB Visit NAT Calculator Estimated Delivery Date Method Current WG Current Estimate 08/22/25 Ultrasound #1 13w 5d Other Estimates 07/15/25 LMP (Uncertain) 19w 1d Expected Delivery Route/Plan Labor Preferences- CB/BF classes: [] labor support person: [] labor intervention preferences: [] pain management options preferred: [] cut cord/dad catch: [] : [] PP control planned: [] discussed possible routes of delivery and associated risks: [] special requests: [] Specific Issue/Plans Covid status: [] Flu vaccine: [] Tdap vaccine: [] Rhogam: [] LARC form signed: [] Problem list reviewed and updated with the most current plan of care details and appropriate orders placed. Relevant counseling for the gestational age provided. Continue routine care and follow up unless otherwise noted in visit notes/problem list details Initial Weight: Not Recorded Date -?-?-?-?-?-?-?-?-?-?-?-?- EGA Weight BP Urine Prot -?-?-?-?-?-?-?-?-?-?-?-?- Glucose FHR FuHt Pres Dilation -?-?-?-?-?-?-?-?-?-?-?-?- Effaced St Visit Note 01/23/25 -?-?-?-?-?-?-?-?-?-?-?-?- 9w 6d 201 lb 4 oz 122/77 -?-?-?-?-?-?-?-?-?-?-?-?- 170 -?-?-?-?-?-?-?-?-?-?-?-?- JV - CRL consist ent with last scan at care center She is measuring 10 weeks 2 days today. Should be 9 weeks 6 days from first scan there. JV - CRL consistent with las t scan at care center She is measuring 10 weeks 2 days today. Should be 9 weeks 6 days from first scan there. Declines NIPT. Taking progesterone for short cx last . ordering 16 week cx 02/19/25 -?-?-?-?-?-?-?-?-?-?-?-?- 13w 5d 205 lb 6 oz 106/74 Nega tive -?-?-?-?-?-?-?-?-?-?-?-?- Negative 168 -?-?-?-?-?-?-?-?-?-?-?-?- KW- no vb/crampi ng. some low pelvic pressure at the end of the day. MFM consult in 2 weeks for cervical length. KW- no vb/cramping. some low pelvic pressure at the end of the day. MFM consult in 2 weeks for cervical length. MFM anatomy US ordered. ACOG First Trimester First Trimester: Discussed Second Trimester Second Trimester: Signs and Symptoms of Labor, Selecting a care provider, Reproductive Life Planning & Contreception, Care Planning, Depression/Anxiety and Intimate Partner Violence; Discussed Tobacco Cessation Third Trimester Third Trimester: Pain Management Plans, Labor support person(s), Immediate Larc, Circumcision preference, Movement Monitoring, Signs and Symptoms of Preeclampsia, Labor Signs, Cervical Ripening/Labor Induction Counseling, Feeding No , [place] Education, Family Medical Leave or Disability Forms, Depression and Depression; Discussed Trial of Labor after Counseling and Discussed Tobacco Cessation ROS Const Reports system reviewed and no additional complaints, except as documented Eyes Reports system reviewed and no additional complaints, except as documented ENT Reports system reviewed and no additional complaints, except as documented Card Reports system reviewed and no additional complaints, except as documented Resp Reports system reviewed and no additional complaints, except as documented GI Reports system reviewed and no additional complaints, except as documented, Denies nausea and Denies vomiting Reports system reviewed and no additional complaints, except as documented Musc Reports system reviewed and no additional complaints, except as documented Skin/Breast Reports system reviewed and no additional complaints, except as documented Neuro Yes system reviewed and no additional complaints, except as documented Psych Reports system reviewed and no additional complaints, except as documented Endo Reports system reviewed and no additional complaints, except as documented Regan/Lymph Reports system reviewed and no additional complaints, except as documented Aller/Immun Reports system reviewed and no additional complaints, except as documented Exam Const General: cooperative, healthy appearing and no acute distress Orientation: alert, awake and oriented x3 Neck Neck: normal visual inspection and full ROM Resp Effort & Inspection: normal respiratory effort, able to speak in complete sentences and symmetric chest movement GI Inspection: normal to inspection Palpation: soft and other Other: gravid Skin General: no rashes or lesions noted Neuro General: patient alert, patient awake and patient oriented x3 Cognition: normal cognition Speech: speech normal Gait: normal gait Motor: muscle tone normal throughout Extrem General: normal to inspection and full ROM Psych Appearance: grossly normal Mental Status: mental status grossly normal Mood: congruent mood Affect: normal affect Speech and Movement: speech and movement normal Attitude: cooperative Thought Process: normal Thought Content: normal Judgment: judgment good Results POC Urinalysis 2 Dip (Clinic) Office Urine Glucose Negative Last Edit by Becca Gonzalez on 02/19/25 14:23 Office Urine Protein Negative Last Edit by Becca Gonzalez on 02/19/25 14:23 Coding Level of Care Code OB Routine Diagnoses Short cervix affecting O26.879 History of ectopic Z87.59 Obesity affecting O99.210 History of prior with short cervix, currently O09.299 Supervision of high-risk O09.90 13 weeks gestation of Z3A.13 Weeks of gestation: 13 weeks History of recurrent miscarriages N96 Assessment and Plan Assessment and Plan (1) Short cervix affecting : Status: Acute Comment: with last preg- prometrium 200 mg PV . mfm scan ordered for 16 weeks (2) History of ectopic : Status: Acute (3) Obesity affecting : Status: Acute Comment: BMI 32.6% (4) History of prior with short cervix, currently : Status: Acute (5) Supervision of high-risk : Status: Acute Comment: , ANT 08/22/25, NEDRA Zapata Guerrero (6) : Status: Acute Qualifiers: Weeks of gestation: 13 weeks Qualified Code(s): Z3A.13 - 13 weeks gestation of Comment: NIPT w gender & carrier - declines (7) History of recurrent miscarriages: Status: Acute Comment: APL negative. discussed chromosomal testing also. discussed progesterone 1tm support- ordered prometrium Orders: Orders POC Urinalysis 2 Dip (Clinic) Today Plan Details Additional Comments: ACOG trimester education reviewed and updated. see problem list details for updated plan management information and see below for orders placed at this visit. GA appropriate handout given. Clinical Quality Measures Falls Risk Screening/Assistive Devices Have you fallen in the past year?: No 02/19/25 1438 <Electronically signed by Margarita boss CNM> Date _ Margarita Rollins CNM Cosigner Signature: Date (if applicable) CC: ~ [facility] Work Phone: 1(633) 385-365504-30-2025 Evaluation note* Diagnosis Onset Date Resolution Status Admit Date History of ectopic acute January 23, 2025 8:52am History of prior w ith short cervix, currently acute January 23, 2025 8:52am History of recurrent miscarriages acute January 23, 2025 8:52am Obesity affecting acute January 23, 2025 8:52am acute January 23 8:52am Supervision of high-risk acute January 23, 2025 8:52am History of ectopic acute February 19, 2025 2:14pm History of prior w ith short cervix, currently acute February 19, 2025 2:14pm History of recurrent miscarriages acute February 19, 2025 2 :14pm Obesity affecting acute February 19, 2025 2:14pm acute February 19, 2025 2:14pm Short cervix affecting acu te February 19, 2025 2:14pm Supervision of high-risk acute February 19, 2025 2 :14pm [place] [id number] Work Phone: 1(216) 967-235504-30-2025 Evaluation note* Diagnosis Onset Date Resolution Status Admit Date History of ectopic acute January 23, 2025 8:52am History of prior w ith short cervix, currently acute January 23, 2025 8:52am History of recurrent miscarriages acute January 23, 2025 8:52am Obesity affecting acute January 23, 2025 8:52am acute January 23 8:52am Supervision of high-risk acute January 23, 2025 8:52am History of ectopic acute February 19, 2025 2:14pm History of prior w ith short cervix, currently acute February 19, 2025 2:14pm History of recurrent miscarriages acute February 19, 2025 2 :14pm Obesity affecting acute February 19, 2025 2:14pm acute February 19, 2025 2:14pm Short cervix affecting acu te February 19, 2025 2:14pm Supervision of high-risk acute February 19, 2025 2 :14pm History of ectopic acute March 20, 2025 8:35am History of prior w ith short cervix, currently acute March 20, 2025 8:35am History of recurrent miscarriages acute March 20, 2025 8:35am Obesity affecting acute March 20, 2025 8:35am acute March 20 8:35am Short cervix affecting acu te March 20, 2025 8:35am Supervision of high-risk acute March 20, 2025 8:35am [facility] Work Phone: 1(151) 119-958004-30-2025 Evaluation note* Diagnosis Onset Date Resolution Status Admit Date History of ectopic acute January 23, 2025 8:52am History of prior w ith short cervix, currently acute January 23, 2025 8:52am History of recurrent miscarriages acute January 23, 2025 8:52am Obesity affecting acute January 23, 2025 8:52am acute January 23 8:52am Supervision of high-risk acute January 23, 2025 8:52am History of ectopic acute February 19, 2025 2:14pm History of prior w ith short cervix, currently acute February 19, 2025 2:14pm History of recurrent miscarriages acute February 19, 2025 2 :14pm Obesity affecting acute February 19, 2025 2:14pm acute February 19, 2025 2:14pm Short cervix affecting acu te February 19, 2025 2:14pm Supervision of high-risk acute February 19, 2025 2 :14pm History of ectopic acute March 20, 2025 8:35am History of prior w ith short cervix, currently acute March 20, 2025 8:35am History of recurrent miscarriages acute March 20, 2025 8:35am Obesity affecting acute March 20, 2025 8:35am acute March 20 8:35am Short cervix affecting acu te March 20, 2025 8:35am Supervision of high-risk acute March 20, 2025 8:35am History of ectopic acute April 16, 2025 3:01pm History of prior w ith short cervix, currently acute April 16, 2025 3:01pm History of recurrent miscarriages acute April 16, 2025 3:01pm Obesity affecting acute April 16, 2025 3:01pm acute April 16 3:01pm Short cervix affecting acu te April 16, 2025 3:01pm Supervision of high-risk acute April 16, 2025 3:01pm [facility] Work Phone: 1(274) 655-916004-30-2025 Evaluation note* Diagnosis Onset Date Resolution Status Admit Date History of ectopic acute January 23, 2025 8:52am History of prior w ith short cervix, currently acute January 23, 2025 8:52am History of recurrent miscarriages acute January 23, 2025 8:52am Obesity affecting acute January 23, 2025 8:52am acute January 23 8:52am Supervision of high-risk acute January 23, 2025 8:52am History of ectopic acute February 19, 2025 2:14pm History of prior w ith short cervix, currently acute February 19, 2025 2 :14pm History of recurrent miscarriages acute February 19, 2025 2 :14pm Obesity affecting acute February 19, 2025 2:14pm acute February 19, 2025 2:14pm Short cervix affecting acute February 19, 2025 2 :14pm Supervision of high-risk acute February 19, 2025 2 :14pm History of ectopic acute March 20, 2025 8:35am History of prior w ith short cervix, currently acute March 20, 2025 8:35am History of recurrent miscarriages acute March 20, 2025 8:35am Obesity affecting acute March 20, 2025 8:35am acute March 20 8:35am Short cervix affecting acute March 20, 2025 8:35am Supervision of high-risk acute March 20, 2025 8:35am History of ectopic acute April 16, 2025 3:01pm History of prior w ith short cervix, currently acute April 16, 2025 3:01pm History of recurrent miscarriages acute April 16, 2025 3:01pm Obesity affecting acute April 16, 2025 3:01pm acute April 16 3:01pm Short cervix affecting acute April 16, 2025 3:01pm Supervision of high-risk acute April 16, 2025 3:01pm History of ectopic acute May 15, 2025 9:22am History of prior w ith short cervix, currently acute May 15 9:22am History of recurrent miscarriages acute May 15 9:22am Obesity affecting acute May 15, 2025 9:22am acute May 15, 2 025 9:22am Short cervix affecting acute May 15 9:22am Supervision of high-risk acute May 15 9:22am [facility] Work Phone: 1(498) 394-346201-24-2025 Evaluation note* Diagnosis Onset Date Resolution Status Admit Date History of recurrent miscarriages acute October 19 1:34pm Infertility acute October 19, 2024 1:34pm [facility] Work Phone: 1(842) 102-955301-24-2025 Evaluation note* Diagnosis Onset Date Resolution Status Admit Date History of recurrent miscarriages acute October 19 1:34pm Infertility inactive October 19, 2024 1:34pm History of ectopic acute January 23, 2025 8:52am History of prior with short cervix, currently acute January 23, 2025 8:52am History of recurrent miscarriages acute January 23, 2025 8:52am Obesity affecting acute January 23, 2025 8:52am acute January 23 8:52am Supervision of high-risk acute January 23, 2025 8:52am [facility] Work Phone: 1(838) 718-126204-27-2023 Progress note Author Jessica Bella [facility] January 20, 2023 7:50am Note Date/Time January 20, 2023 7:5 0am [facility] Medical Records Department [address] [place] [address] Progress Note - OBGYN 01/20/23 0748 MR#: [id number] Acct: [id number] Name: JENNY IBARRA Rep #:[id number] : 1995 27 From: Jessica Bella NP REAL ESTATE EXECUTIVE ASSISTANT-C PCP: KENDY Olson Status:ADM I N Location: [place] [id number] Subjective Subjective Patient doing well without complaints. Tolerating PO. Ambulating and voiding without difficulty. Feeding well. Denies chest pain, shortness of breath, calf pain/swelling, fevers, chills, lightheadedness. Objective Data Objective Data Vital Signs: Vital Signs Temp Pulse Resp BP Pulse Ox O2 Del Method 98.2 F 80 15 105/49 L 97 Room Air 01/20/23 01:35 01/20/23 01:35 01/20/23 01:35 01/20/23 01:35 01/20/23 01:35 01/20/23 01:35 Oxygen Delivery Method Room Air Weight: 227 lb 1.218 oz Body Mass Index (BMI) 38.9 Intake & Output: Intake and Output for Last 24 Hours 01/18/23 01/19/23 01/20/23 23:59 23:59 23:59 Intake Total 1773.68 / 1773.68 1785.83 / 1785.83 Output Total 700 / 700 1500 / 1500 Balance 1073.68 / 1073.68 285.83 / 285.83 Lab / Micro Data Result Diagrams: 01/20/23 05:00 Labs: Laboratory Results - last 24 hr 01/20/23 05:00: WBC 12.1 H, RBC 2.90 L, Hgb 9.2 L, Hct 27.4 L, MCV 94.5, MCH 31.7, MCHC 33.6, RDW Std Deviation 45.0 H, RDW Coeff of Jacqueline 13.4, Plt Count 144 L, MPV 11.1 01/20/23 05:41: POC Glucose 83 Physical Exam Const alert and oriented x3 HEENT normocephalic Eyes PERRL Neck full ROM Resp normal respiratory effort GI soft to palpation GI Narrative: FF below U Assessment & Plan (1) Vacuum extractor delivery, delivered: COMMENT: VAVD 01/19/23 boy Benny MIKE (2) Gestational diabetes: COMMENT: diet controlled PLAN: Plan s/p PPD # 1 1. routine post delivery care 2. breast feeding- support given 3. rh positive 4. rubella immune 5. glucose controlled 6. home today 01/20/23 0750 <Electronically signed by Jessica Bella NP REAL ESTATE EXECUTIVE ASSISTANT-C> Cosigner Signature (if applicable): CC: ~ Signed [facility] Work Phone: 1(327) 252-479304-26-2023 Discharge summary Author Margarita Rollins [facility] January 19, 2023 1:45am Note Date/Time January 19, 2023 1:4 5am [facility] Medical Records Department [address] [place] [address] Instructions for Home/Discharge Instructions 01/19/23144 MR#: [id number] Acct: [id number] Name: JENNY IBARRA Rep #:[id number] : 1995 27 From: Margarita Rollins CNM PCP: KENDY Olson Status:ADM I N Discharge Instructions Diet Discharge Diet: No restrictions Activity Discharge Activity: Return to Normal Activity May resume sexual activity in: 6-8 weeks Dressing / Incision Call your doctor if you observe: Fever of 101 or Higher, Coldness, Increased Pain, Numbness or Tingling, Change in Color, Inability to urinate, Inability to have a bowel movement, Using more than 1 pad per hour, Shortness of breath, Dizziness, Fainting spells, Swelling in the ankles, Chest pain, Increased palpitations (irregular heartbeat), Calf discomfort and Uncontrolled pain Follow Up Care Please Follow Up With: Margarita Rollins CNM When: Please call the office to schedule your follow up appointment in 6 weeks. If you had high blood pressure please call to schedule an appointment in 2 weeks. Test Results: Test results from this visit will be discussed in further detail at your follow- up appointment, if applicable. Discharge Plan Admission Admit Date/Time: 01/18/23 07:05 Attending Provider: Guadalupe Garcia Primary Care Provider: Margaux Jay NP Discharge Orders/Prescriptions Prescriptions: No Action PNV-DHA 27 mg iron-1 mg -300 mg capsule 1 cap PO DAILY magnesium capsule 1 cap PO/SL DAILY (DME) blood-glucose meter [True Metrix Air Glucose Meter] Misc See Rx Instructions .ROUTE .MEDSUPPLY Qty: 1 0RF Rx Instructions: As directed (DME) True Metrix Glucose Test Strip Strip See Rx Instructions .ROUTE .MEDSUPPLY Qty: 100 4RF Rx Instructions: As directed Referrals / Follow Up: Margaux Jay NP, REAL ESTATE EXECUTIVE ASSISTANT-C [Primary Care Provider] - 01/19/23144<Electronically signed by Margarita Rollins CNM>Margarita Rollins CNM CC: REAL ESTATE EXECUTIVE ASSISTANT-C Margaux Jay ~ Signed [facility] Work Phone: 1(586) 170-493904-26-2023 Procedure [facility] 01-18-2023 Progress note Author Margarita Rollins [facility] January 18, 2023 8:53pm Note Date/Time January 18, 2023 8:4 3pm [facility] Medical Records Department [address] [place] [address] Progress Note 01/18/232039 MR#: [id number] Acct: [id number] Name: JENNY IBARRA Rep #:[id number] : 1995 27 From: Margarita Rollins CNM PCP: KENDY Olson Status:ADM I N Location: [place] [address] Progress Note Comfortable with epidural current tracing: FHT: 120 Moderate variability reactive, some variables and early decelerations noted, category II tracing, overall reassuring [place]: Contractions every 2-3 palpating strong Pitocin at 5 mu Internal monitors placed SVE 9.5/90/0 A/P: anticipate Multi Select Codes Urinary/Genital Urinary/Genital CPT Codes: No Charge 01/18/232052 <Electronically signed by Margarita Rollins CNM> Margarita Rollins CNM Cosigner Signature (if applicable): CC: ~ Signed [facility] Work Phone: 1(442) 991-900904-25-2023 Progress note Author Margarita Rollins [facility] January 18, 2023 4:36pm Note Date/Time January 18, 2023 4:3 6pm [facility] Medical Records Department [address] [place] [address] Progress Note 01/18/23 1634 MR#: [id number] Acct: [id number] Name: JENNY IBARRA Rep #:[id number] : 1995 27 From: Margarita Rollins CNM PCP: KENDY Olson Status:ADM I N Location: [place] [address] Progress Note Patient tolerating contractions well. denies need for epidural current tracing: FHT: 115 Moderate variability reactive no decelerations category I tracing [place]: every 2-3 minutes strong Contractions Pitocin at 18 SVE 8/90/0 A/P: continue position changes anticipate Multi Select Codes Urinary/Genital Urinary/Genital CPT Codes: No Charge 01/18/23 1636 <Electronically signed by Margarita Rollins CNM> Margarita Rollins CNM Cosigner Signature (if applicable): CC: ~ Signed [facility] Work Phone: 1(363) 897-820404-25-2023 Progress note Author Margarita Rollins [facility] January 18, 2023 2:05pm Note Date/Time January 18, 2023 2:0 5pm [facility] Medical Records Department [address] [place] [address] Progress Note 01/18/23 1400 MR#: [id number] Acct: [id number] Name: JENNY IBARRA Rep #:[id number] : 1995 27 From: Margarita Rollins CNM PCP: CODY OlsonC Status:ADM I N Location: [place] [address] Progress Note Patient coping well with contractions. Denies need for epidural. current tracing: FHT: 115 Moderate variability reactive no decelerations category I tracing [place]: moderate to strong Contractions q 4 minutes Pitocin at 14mu AROM for bloody fluid at 1315 6/80/-1 A/P: Epidural PRN continue current POC anticipate Reviewed with JAlma Delia. Agrees with POC Multi Select Codes Urinary/Genital Urinary/Genital CPT Codes: No Charge 01/18/23 1405 <Electronically signed by Margarita Rollins CNM> Margarita Rollins CNM Cosigner Signature (if applicable): CC: ~ Signed [facility] Work Phone: 1(878) 745-546104-25-2023 History and physical note Author Margarita Rollins [facility] January 18, 2023 8:01am Note Date/Time January 18, 2023 8:0 1am [facility] Medical Records Department [address] [place] [address] H&P Exam - MARKETING TRAFFIC MANAGER 01/18/23 0755 MR#: [id number] Acct: [id number] Name: JENNY IBARRA Rep #:[id number] : 1995 27 From: Margarita Rollins CNM PCP: Margaux Haagen, REAL ESTATE EXECUTIVE ASSISTANT-C Status:ADM I N Location: [id number] HPI - General General Date of Admission: 01/18/23 Date of Service: 01/18/23 HPI Narrative JENNY IBARRA, is a 27 F at 40.1 weeks who presents for IOL secondary to GDM Maternal Data Information ANT Calculator Estimated Delivery Date Method Current WG Current Estimate 01/17/23 LMP (Certain) 40w 1d Final ANT: 01/17/23 Final ANT Source: US >20 weeks Gestational age: 40 weeks 1 day PFSH PFS Medical History PCOS (polycystic ovarian syndrome) Home Medications multivitamin no.47-iron fum 27 mg-folate no.1 1 mg-dha 300 mg capsule (PNV-DHA)1 cap PO DAILY Check with primary doctor 06/11/22 [History Last Taken 01/17/23 21:00] blood sugar diagnostic (True Metrix Glucose Test Strip) #100 ea 11/15/22 [Rx Last Taken Unknown] blood-glucose meter (True Metrix Air Glucose Meter) #1 ea 11/15/22 [Rx Last Taken Unknown] magnesium 1 cap PO/SL DAILY leg cramps 01/18/23 [History Last Taken 01/17/23 21:00] Allergy/AdvReac Type Severity Reaction Status Date / Time No Known Allergies Allergy Verified 01/13/23 08:33 no significant family history no surgical history Social History adopted: No household members: spouse housing: house number of children: 0 current occupational status: employed current occupation: [employer] current occupational exposures/hazards: No pets and animals: Yes pets and animals: dog(s) history of recent travel: No sexually active: Yes Smoking Status: Never smoker alcohol intake: former details: social substance use type: does not use well-balanced diet: about half the time caffeine: No eating out: 1-3 times/week during the past year weight has: remained stable what type of physical activity do you participate in: walking frequency: 1-2 times per week duration: 15-30 minutes/day keturah/baptist: Uatsdin seatbelt use: always do you feel safe at home: Yes additional [facility] history: [facility] 3 Elective abortions Hx Para 0 Spontaneous abortions 1 Hx # Term Pregnancies Ectopic pregnancies 1 Hx # Pregnancies Multiple births # of living children 0 Visit Details Expected Delivery Route/Plan Labor Preferences- CB/BF classes: encouraged labor support person: [place] labor intervention preferences: min intervention pain management options preferred: limited intervention. epidural ok cut cord/dad catch: cord : yes PP control planned: discussed discussed possible routes of delivery and associated risks: [] special requests: [] Plans Covid status: discussed Flu vaccine: declines Tdap vaccine: Rhogam: na LARC form signed: yes movement and labor precautions reviewed. Problem list reviewed and updated with the most current plan of care details and appropriate orders placed. Relevant counseling for the gestational age provided. Continue routine care and follow up unless otherwise noted in visit notes/problem list details OB Flowsheet Initial Weight: Not Recorded Date -?-?-?-?-?-?-?-?-?-?-?-?- EGA Weight BP Urine Prot -?-?-?-?-?-?-?-?-?-?-?-?- Glucose FHR FuHt Pres Dilation -?-?-?-?-?-?-?-?-?-?-?-?- Effaced St Visit Note 06/17/22 -?-?-?-?-?-?-?-?-?-?-?-?- 9w 3d 202 lb 123/75 -?-?-?-?-?-?-?-?-?-?-?-?- 160 -?-?-?-?-?-?-?-?-?-?-?-?- SM- CRL 2.18cm c ons with LMP 07/08/22 -?-?-?-?-?-?-?-?-?-?-?-?- 12w 3d 202 lb 6 oz 116/73 -?-?-?-?-?-?-?-?-?-?-?-?- 160 -?-?-?-?-?-?-?-?-?-?-?-?- JV- CRL consiste nt with 12 weeks. no complaints. wants to continue progesterone for another 2 weeks. 07/22/22 -?-?-?-?-?-?-?-?-?-?-?-?- 14w 3d 203 lb 127/60 -?-?-?-?-?-?-?-?-?-?-?-?- 150 -?-?-?-?--?-?-?-?-?-?-?-?- SM- no vb crampi ng 08/16/22 -?-?-?-?-?-?-?-?-?-?-?-?- 18w 0d 209 lb 118/80 Negative -?-?-?-?-?-?-?-?-?-?-?-?- Negative 150 -?-?-?-?-?-?-?-?-?-?-?-?- Lc- no vb, cramp ing. has anatomy scan ordered. discussed and declined afp 09/22/22 -?-?-?-?-?-?-?-?-?-?-?-?- 23w 2d 210 lb 12.8 oz 104/74 -?-?-?-?-?-?-?-?-?-?-?-?- 141 24 -?-?-?-?-?-?-?-?-?-?-?-?- LC- no vb/crampi ng. being followed by MFM for short cervix. being seen to giovany. on vag progesterone. 10/19/22 -?-?-?-?-?-?-?-?-?-?-?-?- 27w 1d 216 lb 4 oz 124/78 Nega tive -?-?-?-?-?-?-?-?-?-?-?-?- Negative 141 28 -?-?-?-?-?-?-?-?-?-?-?-?- MH-no VB, LOF. G ood FM. Taking prometrium PV. No further fu at this time with MFM. Larc. 28 wk labs:needs 3 hr GTT. 11/10/22 -?-?-?-?-?-?-?-?-?-?-?-?- 30w 2d 218 lb 8 oz 130/83 Nega tive -?-?-?-?-?-?-?-?-?-?-?-?- Negative 145 30 -?-?-?-?-?-?-?-?-?-?-?-?- LC-no vb/lof. no concerns. has 3 hr gtt scheduled for tomorrow. getting a belly band for comfort. 11/23/22 -?-?-?-?-?-?-?-?-?-?-?-?- 32w 1d 220 lb 123/77 Negative -?-?-?-?-?-?-?-?-?-?-?-?- Negative 135 33 -?-?-?-?-?-?-?-?-?-?-?-?- SM- BS controlle d with diet, hasn't met with library aide yet. 12/07/22 -?-?-?-?-?-?-?-?-?-?-?-?- 34w 1d 222 lb 2 oz 118/77 Nega tive -?-?-?-?-?-?-?-?-?-?-?-?- Negative 155 35 -?-?-?-?-?-?-?-?-?-?-?-?- KW- +FM. No VB/L OF/Ctx. BS controlled and testing 2x/daily. Encouraged to do fasting as one of them. All under 95 and 120 per pt. Discussed GBS at next appt. would like minimal interventions for 12/21/22 -?-?-?-?-?-?-?-?-?-?-?-?- 36w 1d 225 lb 8 oz 120/82 Nega tive -?-?-?-?-?-?-?-?-?-?-?-?- Negative 138 37 -?-?-?-?-?-?-?-?-?-?-?-?- JV- glucose leve ls normal. has growth scan scheduled for today. declines pelvic exam. 12/28/22 -?-?-?-?-?-?-?-?-?-?-?-?- 37w 1d 225 lb 2 oz 119/80 Nega tive -?-?-?-?-?-?-?-?-?-?-?-?- Negative 125 39 Cephalic -?-?-?-?-?-?-?-?-?-?-?-?- KW- +FM. No lof/ vb. BH Ctx noted. Declines exam today. D/C'ed vaginal progesterone. Fasting BS still 85-90. postprandial 120-125 over last couple days. Continue to monitor and notify end of week if still elevated. 01/04/23 -?-?-?-?-?-?-?-?-?-?-?-?- 38w 1d 226 lb 124/82 Negative -?-?-?-?-?-?-?-?-?-?-?-?- Negative 138 40 Cephalic -?-?-?-?-?-?-?-?-?-?-?-?- KW-+ FM. No lof/ vb/ctx KW-+ FM. No lof/vb/ctx. BS s table. declines VE today. discussed setting up IOL at next visit. 01/11/23 -?-?-?-?-?-?-?-?-?-?-?-?- 39w 1d 227 lb 4 oz 131/87 Nega tive -?-?-?-?-?-?-?-?-?-?-?-?- Negative 140 41 Cephalic 3 -?-?-?-?-?-?-?-?-?-?-?-?- 70 -2 KW- +FM. N o Lof/vb. some ctx noted. membrane sweep done. labor precautions reviewed. BS stable. KW- +FM. No Lof/vb. some ctx noted. BS stable. membrane sweep done. labor precautions reviewed. Plan for another membrane sweep or tuesday if needed and set up IOL for tuesday. 01/13/23 -?-?-?-?-?-?-?-?-?-?-?-?- 39w 3d 224 lb 8 oz 112/72 Nega tive -?-?-?-?-?-?-?-?-?-?-?-?- Negative 140 41 Cephalic 4 -?-?-?-?-?-?-?-?-?-?-?-?- 80 -2 KW- +FM KW- +FM. no lof/vb. ctx note d after last sweep. BS stable. IOL scheduled Jordan score 10. 04/ -?-?-?-?-?-?-?-?-?-?-?-?- 40w 1d 227 lb 1.218 oz 135/77 -?-?-?-?-?-?-?-?-?-?-?-?- -?-?-?-?-?-?-?-?-?-?-?-?- NST FHR Rate Baby A Baseline: 130 Variability:: Moderate Accelerations:: 15 x 15 Decelerations:: None NST Reactive:: Yes FHR Category:: Category I FHR Rate Baby B Uterine Activity:: no contractions noted at this time ROS Constitutional Constitutional: Denies change in weight, fatigue, fever(s), headache(s), poor appetite or weakness Eyes Eyes: Denies blurry vision, change in vision, floaters, seeing flashes or spots in vision ENT HEENT: Denies dizziness, headache(s), loss taste/smell or sore throat Cardiovascular Cardiovascular: Denies chest pain, dizziness, dyspnea, irregular heart rhythm, lightheadedness, palpitations or rapid heart rate Respiratory/Chest Respiratory/Chest: Denies change in mental status, chest tightness, cough, dyspnea or breast pain Gastrointestinal Gastrointestinal: Denies anorexia, chewing difficulty, constipation, diarrhea or weight changes Genitourinary Genitourinary: Denies difficulty urinating, dysuria, flank pain, genital pain, urinary frequency or urinary urgency Musculoskeletal Musculoskeletal: Denies back pain, difficulty walking, extremity pain, joint pain, muscle cramps or muscle weakness Integumentary Integumentary: Denies lesions or unusual bruising Neurologic Neurologic: Denies abnormal movements, abnormal speech, dizziness, numbness, seizure-like activity, syncope or weakness Psychiatric Psychiatric: Denies behavioral changes, change in appetite, confusion, depression, homicidal ideation, suicidal ideation or suicidal thoughts Endocrine Endocrinology: Denies excessive sweating, polydipsia or polyuria Hematologic/Lymphatic Hematologic/Lymphatic: Denies anemia Allergic/Immunologic Allergic/Immunologic: Denies itchy eyes, lip swelling, throat swelling, tongue swelling or wheezing Vital Signs Vital Signs Vital Signs: 01/18/23 07:31 01/18/23 07:31 01/18/23 07:32 Pulse Rate 105 H 109 H Blood Pressure 135/77 H BP Systolic 135 BP Diastolic 77 Pulse Ox 01/18/23 07:32 Pulse Rate Blood Pressure BP Systolic BP Diastolic Pulse Ox 97 Weight Weight: 227 lb 1.218 oz Body Mass Index (BMI) 38.9 Physical Exam Const alert, oriented x3 and no apparent distress General Appearance: cooperative Orientation / Consciousness: awake HEENT normocephalic Neck full ROM Lymph Lymphatic: no lymphadenopathy noted Chest inspection of chest normal Resp normal respiratory effort and normal air movement Effort and Inspection: able to speak in complete sentences and symmetric chest movement GI soft to palpation and non-tender Inspection: gravid Palpation: soft; Negative for tender external exam normal Manual OB Exam: estimated gestational size, presentation cephalic, dilated 4, effaced 70 and station -2 Back/Spine normal to inspection Extremity normal to inspection and full ROM Skin no rashes or lesions noted Psych mental status grossly normal Appearance: grossly normal Speech: normal speech Labs Labs Labs: Blood Type A POSITIVE Antibody Screen NEGATIVE Hct 36.2 % (37-47) L Hgb 12.4 g/dL (12.0-15.0) Obstetrics US Syphilis Total Ab Non-reactive Rubella IgG Antibody Reactive (Nonreactive) Hep Bs Antigen Non-Reactive (Nonreactive) Chlamydia DNA (MINDY) Negative (Negative) Neisseria gonorrhoeae DNA (MINDY) Negative (Negative) HIV 1&2 Antibody Non-Reactive (Nonreactive) Glucose 1 Hr 50 gm 170 mg/dL (70-140) H Miscellaneous Test Assessment & Plan (1) Gestational diabetes: COMMENT: chemical process project engineer referral done, Glucose testing 2x/day-controlled PLAN: per protocol (2) Supervision of high risk , antepartum: COMMENT: PRR , ANT 01/19/23(per US), boy Spouse Guerrero PLAN: Patient presents IOL, plan management for with pitocin/AROM. Pain management: plans no epidural, but is open to it if needed GBS negative. Management of any complications: GDM I have reviewed the PFSH and made any clinically relevant updates. Reviewed POC with Dr Garcia and she agrees with plan of care (3) : QUALIFIERS: Weeks of gestation: 39 weeks Qualified Code(s): Z3A.39 - 39 weeks gestation of COMMENT: GBS neg, declined ntd genetic & carrier testing. nl anatomy. 12/22 nl growth EFW 3036, 69th% Charges/Coding Multi Select Codes Urinary/Genital Urinary/Genital CPT Codes: No Charge 01/18/23 0801 <Electronically signed by Margarita Rollins CNM> Cosigner Signature (if applicable): CC: AVIS Rollins; REAL ESTATE EXECUTIVE ASSISTANTMax Jay~ Signed [facility] Work Phone: [phone] Miscellaneous Notes* Telephone Encounter - Dayanara Bird RN - 12/01/2022 4:25 PM EST spoke with mother, is aware that once baby is born to call office. Verbalizes understanding Dayanara Bird RN * Telephone Encounter - Dayanara Bird RN - 12/01/2022 3:53 PM EST message left for mom to call office Dayanara Bird RN * Telephone Encounter - Sayda Boyd - 12/01/2022 2:57 PM EST Pt calling in as she is (due this summer) and wanting to have her child establish care with Dr. Villanueva. Please advise [facility]* Diagnosis Onset Date Resolution Status Infertility acute PCOS (polycystic ovarian syndrome) acute [facility] Work Phone: Evaluation note* Diagnosis Onset Date Resolution Status Infertility acute PCOS (polycystic ovarian syndrome) acute Miscarriage acute PCOS (polycystic ovarian syndrome) acute [facility] Work Phone: Evaluation note* Diagnosis Onset Date Resolution Status Infertility acute PCOS (polycystic ovarian syndrome) acute PCOS (polycystic ovarian syndrome) acute Ectopic acute [facility] Work Phone: evaluation note* Diagnosis Onset Date Resolution Status History of recurrent miscarriages acute PCOS (polycystic ovarian syndrome) acute [facility] Work Phone: evaluation note* Diagnosis Onset Date Resolution Status History of recurrent miscarriages acute Infertility acute acute Supervision of high risk , antepartum acute [facility] Work Phone: evaluation note* Diagnosis Onset Date Resolution Status History of recurrent miscarriages acute Infertility acute acute Supervision of high risk , antepartum acute History of recurrent miscarriages acute Infertility acute acute Supervision of high risk , antepartum acute [facility] Work Phone: evaluation note* Diagnosis Onset Date Resolution Status History of recurrent miscarriages acute Infertility acute acute Supervision of high risk , antepartum acute History of recurrent miscarriages acute Infertility acute acute Supervision of high risk , antepartum acute Abnormal glucose level acute History of recurrent miscarriages acute Infertility acute acute Supervision of high risk , antepartum acute [facility] Work Phone: evaluation note* Diagnosis Onset Date Resolution Status History of recurrent miscarriages acute Infertility acute acute Supervision of high risk , antepartum acute Abnormal glucose level acute History of recurrent miscarriages acute Infertility acute acute Supervision of high risk , antepartum acute Abnormal glucose level acute History of recurrent miscarriages acute Infertility acute acute Supervision of high risk , antepartum acute Abnormal glucose level acute History of recurrent miscarriages acute Infertility acute acute Short cervix affecting acute Supervision of high risk , antepartum acute Abnormal glucose level acute History of recurrent miscarriages acute Infertility acute acute Short cervix affecting acute Supervision of high risk , antepartum acute [facility] Work Phone: evaluation note* Diagnosis Onset Date Resolution Status Abnormal glucose level acute History of recurrent miscarriages acute Infertility acute acute Supervision of high risk , antepartum acute Abnormal glucose level acute History of recurrent miscarriages acute Infertility acute acute Short cervix affecting acute Supervision of high risk , antepartum acute Abnormal glucose level acute History of recurrent miscarriages acute Infertility acute acute Short cervix affecting acute Supervision of high risk , antepartum acute Abnormal glucose level acute History of recurrent miscarriages acute Infertility acute acute Short cervix affecting acute Supervision of high risk , antepartum acute [facility] Work Phone: Evaluation note* Diagnosis Onset Date Resolution Status History of recurrent miscarriages acute Infertility acute acute Short cervix affecting acute Supervision of high risk , antepartum acute Abnormal glucose level resol gregg History of recurrent miscarriages acute Infertility acute acute Short cervix affecting acute Supervision of high risk , antepartum acute Abnormal glucose level resol gregg History of recurrent miscarriages acute Infertility acute acute Short cervix affecting acute Supervision of high risk , antepartum acute Abnormal glucose level resol gregg Gestational diabetes acute History of recurrent miscarriages acute Infertility acute acute Short cervix affecting acute Supervision of high risk , antepartum acute Gestational diabetes acute History of recurrent miscarriages acute Infertility acute acute Short cervix affecting acute Supervision of high risk , antepartum acute Gestational diabetes acute History of recurrent miscarriages acute Infertility acute acute Short cervix affecting acute Supervision of high risk , antepartum acute [facility] Work Phone: evaluation note* Diagnosis Onset Date Resolution Status History of recurrent miscarriages acute Infertility acute acute Short cervix affecting acute Supervision of high risk , antepartum acute Abnormal glucose level resol gregg History of recurrent miscarriages acute Infertility acute acute Short cervix affecting acute Supervision of high risk , antepartum acute Abnormal glucose level resol gregg History of recurrent miscarriages acute Infertility acute acute Short cervix affecting acute Supervision of high risk , antepartum acute Abnormal glucose level resol gregg Gestational diabetes acute History of recurrent miscarriages acute Infertility acute acute Short cervix affecting acute Supervision of high risk , antepartum acute Gestational diabetes acute History of recurrent miscarriages acute Infertility acute acute Short cervix affecting acute Supervision of high risk , antepartum acute Gestational diabetes acute History of recurrent miscarriages acute Infertility acute acute Short cervix affecting acute Supervision of high risk , antepartum acute Gestational diabetes acute History of recurrent miscarriages acute Infertility acute acute Short cervix affecting acute Supervision of high risk , antepartum acute [facility] Work Phone: Evaluation note* Diagnosis Onset Date Resolution Status History of recurrent miscarriages acute Infertility acute Abnormal glucose level resol gregg resolved Supervision of high risk , antepartum resolved History of recurrent miscarriages acute Infertility acute Abnormal glucose level resol gregg resolved Supervision of high risk , antepartum resolved History of recurrent miscarriages acute Infertility acute Abnormal glucose level resol gregg resolved Supervision of high risk , antepartum resolved Gestational diabetes acute History of recurrent miscarriages acute Infertility acute resolved Supervision of high risk , antepartum resolved Gestational diabetes acute History of recurrent miscarriages acute Infertility acute resolved Supervision of high risk , antepartum resolved Gestational diabetes acute History of recurrent miscarriages acute Infertility acute resolved Supervision of high risk , antepartum resolved Gestational diabetes acute History of recurrent miscarriages acute Infertility acute resolved Supervision of high risk , antepartum resolved Gestational diabetes acute History of recurrent miscarriages acute Infertility acute resolved Supervision of high risk , antepartum resolved Gestational diabetes acute History of recurrent miscarriages acute Infertility acute resolved Supervision of high risk , antepartum resolved Gestational diabetes acute History of recurrent miscarriages acute Infertility acute resolved Supervision of high risk , antepartum resolved Gestational diabetes acute History of recurrent miscarriages acute Infertility acute Vacuum extractor delivery, delivered acute resolved Supervision of high risk , antepartum resolved [facility] Work Phone: Progress note Author Jessica Bella [facility] Note Date/Time May 15, 2025 9: 47am [facility] [address] [place] [address], [address] [place] [address] OFFICE VISIT Date of Service: 05/15/25 MR#: [id number] Acct: [id number] Name: JENNY IBARRA Rep #: [id number] : 1995 Provider: KENDY Bella Age/Sex: 29/F Location: [facility] [place] Status: Signed Intake Vital Signs 02/19/25 14:19 04/16/25 15:11 05/15/25 09:26 05/15/25 09:35 Height 5 ft 4 in 5 ft 4 in 5 ft 4 in 5 ft 4 in Weight: 214 lb 4 oz BMI 36.8 BP 114/72 Intake Visit Reasons: 26wk ob/glucose Chief Complaint: 26 Week OB/Glucose Property Maintenance Technician Required: No Is patient in pain?: No Allergies No Known Allergies Allergy (Verified 05/15/25 09:25) Medications ?Medication ?Instructions ?Recorded ?Confirmed ?Type multivitamin no.47-iron fum 27 1 cap PO DAILY Check wi th primary 06/11/2205/15 History mg-folate no.1 1 mg-dha 300 mg doctor capsule (PNV-DHA) magnesium 1 cap PO/SL DAILY leg cramps 01/18/23 05/15/25 History doxylamine succinate 25 mg tablet 25 mg PO QHS PRN 05/15/25 History (Unisom (doxylamine)) pyridoxine (vitamin B6) 10 mg 10 mg PO QDAY 01/10/25 0 05/15/25 History tablet progesterone micronized 200 mg 200 mg vaginal ONCE #30 caps 04/01/25 05/15/25 Rx capsule (Prometrium) Last Menstrual Period: 10/08/24 Zika: Zika virus screening: Negative : Yes PFSH PFS Medical History Short cervix affecting History of miscarriage, currently Gestational diabetes Infertility Vacuum extractor delivery, delivered care and examination Acute bronchitis Gestational diabetes PCOS (polycystic ovarian syndrome) Surgical History History of surgery Family History Father Cancer mouth/throat Social History adopted: No household members: spouse and children housing: house number of children: 1 current occupational status: employed current occupation: [employer] current occupational exposures/hazards: No pets and animals: Yes pets and animals: dog(s) history of recent travel: No sexually active: Yes Smoking Status: Never smoker alcohol intake: former details: not while pregnany, social only substance use type: does not use well-balanced diet: about half the time caffeine: No eating out: 1-3 times/week during the past year weight has: remained stable what type of physical activity do you participate in: walking frequency: 1-2 times per week duration: 15-30 minutes/day keturah/baptist: Uatsdin seatbelt use: always do you feel safe at home: Yes additional social history: - Guerrero, KeturahCorCardiaclaudio History 4 Elective abortions Hx Para 1 Spontaneous abortions 1 Hx # Term Pregnancies Ectopic pregnancies 1 Hx # Pregnancies Multiple births # of living children 1 Past Pregnancies Del. Date Name GA/Weeks Outcome Route Bth Weight Gen Labor Lgth Anesthesia Del Locatn Provider FOB Unknown ectopic Unknown spontaneous 01/19/23 Benny 40 live - full term Male [facility] Dr. Garcia Guerrero Delivery Date: 01/19/23 Last Updated by: Anitha Cook Shortened cervix, gestational diabetes HPI 26wk ob/glucose Details: JENNY IBARRA is a 29 year old who presents for routine OB visit. OB Visit ANT Calculator Estimated Delivery Date Method Current WG Current Estimate 08/22/25 Ultrasound #1 25w 6d Other Estimates 07/15/25 LMP (Uncertain) 31w 2d Expected Delivery Route/Plan Labor Preferences- CB/BF classes:no labor support person: Guerrero labor intervention preferences: [] pain management options preferred: epidural if requested cut cord/dad catch: yes : yes PP control planned: discussed discussed possible routes of delivery and associated risks: [] special requests: [] Specific Issue/Plans Covid status: [] Flu vaccine: [] Tdap vaccine: [] Rhogam: na LARC form signed: yes Problem list reviewed and updated with the most current plan of care details and appropriate orders placed. Relevant counseling for the gestational age provided. Continue routine care and follow up unless otherwise noted in visit notes/problem list details Initial Weight: Not Recorded Date -?-?-?-?-?-?-?-?-?-?-?-?- EGA Weight BP Urine Prot -?-?-?-?-?-?-?-?-?-?-?-?- Glucose FHR FuHt Pres Dilation -?-?-?-?-?-?-?-?-?-?-?-?- Effaced St Visit Note 01/23/25 -?-?-?-?-?-?-?-?-?-?-?-?- 9w 6d 201 lb 4 oz 122/77 -?-?-?-?-?-?-?-?-?-?-?-?- 170 -?-?-?-?-?-?-?-?-?-?-?-?- JV - CRL consist ent with last scan at [facility] She is measuring 10 weeks 2 days today. Should be 9 weeks 6 days from first scan there. JV - CRL consistent with las t scan at [facility] She is measuring 10 weeks 2 days today. Should be 9 weeks 6 days from first scan there. Declines NIPT. Taking progesterone for short cx last . ordering 16 week cx 02/19/25 -?-?-?-?-?-?-?-?-?-?-?-?- 13w 5d 205 lb 6 oz 106/74 Nega tive -?-?-?-?-?-?-?-?-?-?-?-?- Negative 168 -?-?-?-?-?-?-?-?-?-?-?-?- KW- no vb/crampi ng. some low pelvic pressure at the end of the day. MFM consult in 2 weeks for cervical length. KW- no vb/cramping. some low pelvic pressure at the end of the day. MFM consult in 2 weeks for cervical length. [facility] anatomy US ordered. 03/20/25 -?-?-?-?-?-?-?-?-?-?-?-?- 17w 6d 206 lb 120/64 Negative -?-?-?-?--?-?-?-?-?-?-?-?- Negative 152 -?-?-?-?-?-?-?-?-?-?-?-?- MH-No VB. Promet rium for hx short cervix-causes cramping. Hopes to DC after anatomy scan next week. Denies other concerns. 04/16/25 -?-?-?-?-?-?-?-?-?-?-?-?- 21w 5d 211 lb 4 oz 117/75 -?-?-?-?-?-?-?-?-?-?-?-?- 160 -?-?-?-?-?-?-?-?-?-?-?-?- SM- no vb lof go od fm no reuglar ctx SM- no vb lof good fm no reu glar ctx discussed limited views on anatomy scan 05/15/25 -?-?-?-?-?-?-?-?-?-?-?-?- 25w 6d 214 lb 4 oz 114/72 Nega tive -?-?-?-?-?-?-?-?-?-?-?-?- Negative 150 27 -?-?-?-?-?-?-?-?-?-?-?-?- MH-No Vb, LOF. G ood FM. 28 wk labs pending. Larc ACOG First Trimester First Trimester: Second Trimester Second Trimester: Signs and Symptoms of Labor, Selecting a care provider, Reproductive Life Planning & Contreception, Care Planning, Depression/Anxiety and Intimate Partner Violence; Discussed Tobacco Cessation Third Trimester Third Trimester: Pain Management Plans, Labor support person(s), Immediate Larc, Circumcision preference Yes Yes, Movement Monitoring, Labor Signs, Cervical Ripening/Labor Induction Counseling, Feeding Yes , Education, Family Medical Leave or Disability Forms, Depression and Depression; Discussed Trial of Labor after Counseling and Discussed Tobacco Cessation ROS Const Reports system reviewed and no additional complaints, except as documented GI Denies abdominal pain, Denies nausea and Denies vomiting Exam Const General: cooperative Nutritional Appearance: well nourished GI Palpation: soft, nontender and other (gravid) Results POC Urinalysis 2 Dip (Clinic) Office Urine Glucose Negative Last Edit by Desiree White on 05/15/25 09 :36 Office Urine Protein Negative Last Edit by Desiree White on 05/15/25 09 :36 Coding Level of Care Code OB Routine Diagnoses Supervision of high risk in second trimester O09.92 Trimester: second trimester 25 weeks gestation of Z3A.25 Weeks of gestation: 25 weeks History of prior with short cervix, currently O09.299 History of ectopic Z87.59 Obesity affecting in second trimester, unspecified obesity type O99.212 Obesity type affecting : unspecified obesity Trimester: second trimester Short cervix affecting O26.879 History of recurrent miscarriages N96 Assessment and Plan Assessment and Plan (1) Supervision of high-risk : Status: Acute Qualifiers: Trimester: second trimester Qualified Code(s): O09.92 - Supervision of high risk , unspecified, second trimester Comment: PRR , ANT 08/22/25,boy PC Benny Guerrero (2) : Status: Acute Qualifiers: Weeks of gestation: 25 weeks Qualified Code(s): Z3A.25 - 25 weeks gestation of Comment: NIPT w gender & carrier - declines On US incomplete visual of nose but states palate, lips profile ok. Patient elects not to rpt US for nose. (3) History of prior with short cervix, currently : Status: Acute (4) History of ectopic : Status: Acute (5) Obesity affecting : Status: Acute Qualifiers: Obesity type affecting : unspecified obesity Trimester: second trimester Qualified Code(s): O99.212 - Obesity complicating , second trimester Comment: BMI 32.6% (6) Short cervix affecting : Status: Acute Comment: with last preg- prometrium 200 mg PV/causes her to cramp and would like to DC after anatomy scan if CX stable mfm scan ordered for 16 weeks:40mm; Anatomy US:42mm. Patient has elected to cont vag progesterone due to hx. (7) History of recurrent miscarriages: Status: Acute Comment: APL negative. discussed chromosomal testing also. discussed progesterone 1tm support- ordered prometrium Orders: Orders POC Urinalysis 2 Dip (Clinic) Today CBC W/Diff, Automated Today O09.92 - Supervision of high risk , unspecified, second trimester Glucose Challenge Gest 1H 50g Today O09.92 - Supervision of high risk , unspecified, second trimester, Z13.1 - Encounter for screening for diabetes mellitus HIV Today O09.92 - Supervision of high risk , unspecified, second trimester Syphilis Antibodies Today O09.92 - Supervision of high risk , unspecified, second trimester Plan problem list reviewed and updated for most current plan of care and appropriate orders placed. Relevant counseling for the gestational age appropriate provided and ACOG education checklist updated. Continue routine care and follow up. 05/15/25 0907 <Electronically signed by Jessica boss REAL ESTATE EXECUTIVE ASSISTANT REAL ESTATE EXECUTIVE ASSISTANT-C> Date _ Jessica Bella REAL ESTATE EXECUTIVE ASSISTANT REAL ESTATE EXECUTIVE ASSISTANT-C Cosigner Signature: Date (if applicable) CC: ~ [facility] Work Phone: Progress note Author Paradise Mackey [facility] Note Date/Time June 12, 2025 10:14am [facility] [address], [address] [place] [address] OFFICE VISIT Date of Service: 06/12/25 MR#: [id number] Acct: [id number] Name: JENNY IBARRA Rep #: [id number] : 1995 Provider: Dr. Reinier Mackey MD Age/Sex: 29/F Location: [facility] Status: Signed Intake Vital Signs 04/16/25 15:11 05/15/25 09:35 06/12/25 09:27 Height 5 ft 4 in 5 ft 4 in 5 ft 4 in Weight: 216 lb 9 oz BMI 37.1 BP 110/71 Intake Visit Reasons: 30wk ob Property Maintenance Technician Required: No Is patient in pain?: No Allergies No Known Allergies Allergy (Verified 06/12/25 09:42) Medications ?Medication ?Instructions ?Recorded ?Confirmed ?Type multivitamin no.47-iron fum 27 1 cap PO DAILY Check wi th primary 06/11/22 06/12/25 History mg-folate no.1 1 mg-dha 300 mg doctor capsule (PNV-DHA) magnesium 1 cap PO/SL DAILY leg cramps 01/18/23 06/12/25 History doxylamine succinate 25 mg tablet 25 mg PO QHS PRN 06/12/25 History (Unisom (doxylamine)) pyridoxine (vitamin B6) 10 mg 10 mg PO QDAY 01/10/25 0 06/12/25 History tablet progesterone micronized 200 mg 200 mg vaginal ONCE #30 caps 04/01/25 06/12/25 Rx capsule (Prometrium) Last Menstrual Period: 10/08/24 Zika: Zika virus screening: Negative : No PFSH PFSH Medical History Short cervix affecting History of miscarriage, currently Gestational diabetes Infertility Vacuum extractor delivery, delivered care and examination Acute bronchitis Gestational diabetes PCOS (polycystic ovarian syndrome) Surgical History History of surgery Family History Father Cancer mouth/throat Social History adopted: No household members: spouse and children housing: house number of children: 1 current occupational status: employed current occupation: [employer] current occupational exposures/hazards: No pets and animals: Yes pets and animals: dog(s) history of recent travel: No sexually active: Yes Smoking Status: Never smoker alcohol intake: former details: not while pregnany, social only substance use type: does not use well-balanced diet: about half the time caffeine: No eating out: 1-3 times/week during the past year weight has: remained stable what type of physical activity do you participate in: walking frequency: 1-2 times per week duration: 15-30 minutes/day keturah/baptist: Uatsdin seatbelt use: always do you feel safe at home: Yes additional social history: - Guerrero, Dinora Fay History 4 Elective abortions Hx Para 1 Spontaneous abortions 1 Hx # Term Pregnancies Ectopic pregnancies 1 Hx # Pregnancies Multiple births # of living children 1 Past Pregnancies Del. Date Name GA/Weeks Outcome Route Bth Weight Infant Gen Labor Lgth Anesthesia Del Locatn Provider FOB Unknown ectopic Unknown spontaneous 01/19/23 Benny 40 live - full term Male [facility] Dr. Araya Delivery Date: 01/19/23 Last Updated by: Anitha Cook Shortened cervix, gestational diabetes HPI 30wk ob Details: JENNY IBARRA is a 29 year old who presents for routine OB visit. OB Visit ANT Calculator Estimated Delivery Date Method Current WG Current Estimate 08/22/25 Ultrasound #1 29w 6d Other Estimates 07/15/25 LMP (Uncertain) 35w 2d Expected Delivery Route/Plan Labor Preferences- CB/BF classes:no labor support person: Guerrero labor intervention preferences: [] pain management options preferred: epidural if requested cut cord/dad catch: yes : yes PP control planned: discussed discussed possible routes of delivery and associated risks: [] special requests: [] Specific Issue/Plans Covid status: [] Flu vaccine: [] Tdap vaccine: [] Rhogam: na LARC form signed: yes Problem list reviewed and updated with the most current plan of care details and appropriate orders placed. Relevant counseling for the gestational age provided. Continue routine care and follow up unless otherwise noted in visit notes/problem list details Initial Weight: Not Recorded Date -?-?-?-?-?-?-?-?-?-?-?-?- EGA Weight BP Urine Prot -?-?-?-?-?-?-?-?-?-?-?-?- Glucose FHR FuHt Pres Dilation -?-?-?-?-?-?-?-?-?-?-?-?- Effaced St Visit Note 01/23/25 -?-?-?-?-?-?-?-?-?-?-?-?- 9w 6d 201 lb 4 oz 122/77 -?-?-?-?-?-?-?-?-?-?-?-?- 170 -?-?-?-?-?-?-?-?-?-?-?-?- JV - CRL consist ent with last scan at care center She is measuring 10 weeks 2 days today. Should be 9 weeks 6 days from first scan there. JV - CRL consistent with las t scan at care center She is measuring 10 weeks 2 days today. Should be 9 weeks 6 days from first scan there. Declines NIPT. Taking progesterone for short cx last . ordering 16 week cx 02/19/25 -?-?-?-?-?-?-?-?-?-?-?-?- 13w 5d 205 lb 6 oz 106/74 Nega tive -?-?-?-?-?-?-?-?-?-?-?-?- Negative 168 -?-?-?-?-?-?-?-?-?-?-?-?- KW- no vb/crampi ng. some low pelvic pressure at the end of the day. MFM consult in 2 weeks for cervical length. KW- no vb/cramping. some low pelvic pressure at the end of the day. MFM consult in 2 weeks for cervical length. MFM anatomy US ordered. 03/20/25 -?-?-?-?-?-?-?-?-?--?-?-?- 17w 6d 206 lb 120/64 Negative -?-?-?-?-?-?-?-?-?-?-?-?- Negative 152 -?-?-?-?-?-?-?-?-?-?-?-?- -No VB. Promet rium for hx short cervix-causes cramping. Hopes to DC after anatomy scan next week. Denies other concerns. 04/16/25 -?-?-?-?-?-?-?-?-?-?-?-?- 21w 5d 211 lb 4 oz 117/75 -?-?-?-?-?-?--?-?-?-?-?-?- 160 -?-?-?-?-?-?-?-?-?-?-?-?- SM- no vb lof go od fm no reuglar ctx SM- no vb lof good fm no reu glar ctx discussed limited views on anatomy scan 05/15/25 -?-?-?-?-?-?-?-?-?-?-?-?- 25w 6d 214 lb 4 oz 114/72 Nega tive -?-?-?-?-?-?-?-?-?-?-?-?- Negative 150 27 -?-?-?-?-?-?-?-?-?-?-?-?- -No Vb, LOF. G ood FM. 28 wk labs pending. Larc 06/12/25 -?-?-?-?-?-?-?-?-?-?-?-?- 29w 6d 216 lb 9 oz 110/71 Nega tive -?-?-?-?-?-?-?-?-?-?-?-?- Negative 160 30 -?-?-?-?-?-?-?-?-?-?-?-?- SM- no vb lof go od fm n oregular ctx discussed getting 3 hour gtt done, patient has been checking sugars at home and they have been normal ACOG First Trimester First Trimester: Discussed Second Trimester Second Trimester: Signs and Symptoms of Labor, Selecting a care provider, Reproductive Life Planning & Contreception, Care Planning, Depression/Anxiety and Intimate Partner Violence; Discussed Tobacco Cessation Third Trimester Third Trimester: Pain Management Plans, Labor support person(s), Immediate Larc, Circumcision preference, Movement Monitoring, Signs and Symptoms of Preeclampsia, Labor Signs, Cervical Ripening/Labor Induction Counseling, Infant Feeding No , [place] Education, Family Medical Leave or Disability Forms, Depression and Depression; Discussed Trial of Labor after Counseling and Discussed Tobacco Cessation Results POC Urinalysis 2 Dip (Clinic) Office Urine Glucose Negative Last Edit by Jessica Jay on 06/12/25 09:44 Office Urine Protein Negative Last Edit by Jessica Jay on 06/12/25 09:44 Coding Level of Care Code OB Routine Diagnoses History of gestational diabetes in prior , currently O09.299; Z86.32 Short cervix affecting O26.879 Obesity affecting in second trimester, unspecified obesity type O99.212 Obesity type affecting : unspecified obesity Trimester: second trimester History of ectopic Z87.59 History of prior with short cervix, currently O09.299 Supervision of high risk in second trimester O09.92 Trimester: second trimester 29 weeks gestation of Z3A.29 Weeks of gestation: 29 weeks History of recurrent miscarriages N96 Assessment and Plan Assessment and Plan (1) History of gestational diabetes in prior , currently : Status: Acute Comment: If abnormal 1 hr glucose, she prefers to do QID testing and defer 3 hr GTT Failed 1 hr: will do QID BS testing. Decline chemical process project engineer consult (2) Short cervix affecting : Status: Acute Comment: with last preg- prometrium 200 mg PV/causes her to cramp and would like to DC after anatomy scan if CX stable mfm scan ordered for 16 weeks:40mm; Anatomy US:42mm. Patient has elected to cont vag progesterone due to hx. (3) Obesity affecting : Status: Acute Qualifiers: Obesity type affecting : unspecified obesity Trimester: second trimester Qualified Code(s): O99.212 - Obesity complicating , second trimester Comment: BMI 32.6% (4) History of ectopic : Status: Acute (5) History of prior with short cervix, currently : Status: Acute (6) Supervision of high-risk : Status: Acute Qualifiers: Trimester: second trimester Qualified Code(s): O09.92 - Supervision of high risk , unspecified, second trimester Comment: PRR , ANT 08/22/25,boy PC Benny Guerrero (7) : Status: Acute Qualifiers: Weeks of gestation: 29 weeks Qualified Code(s): Z3A.29 - 29 weeks gestation of Comment: NIPT w gender & carrier - declines On US incomplete visual of nose but states palate, lips profile ok. Patient elects not to rpt US for nose. (8) History of recurrent miscarriages: Status: Acute Comment: APL negative. discussed chromosomal testing also. discussed progesterone 1tm support- ordered prometrium Orders: Orders POC Urinalysis 2 Dip (Clinic) Today 06/12/25 1014 <Electronically signed by Paradise brar MD> Date _ Paradise Mackey MD Cosigner Signature: Date (if applicable) CC: ~ [facility] Work Phone: Progrxms note Author Guadalupe Reyes [facility] Note Date/Time June 26, 2025 9: 52am [facility] [address] [place] [address], [address] [place] [address] OFFICE VISIT Date of Service: 06/26/25 MR#: [id number] Acct: [id number] Name: JENNY IBARRA Rep #: [id number] : 1995 Provider: Dr. Pilar Garcia DO Age/Sex: 29/F Location: [facility] [place] Status: Signed Intake Vital Signs 04/16/25 15:11 06/12/25 09:27 10/01/25 09:29 Height 5 ft 4 in 5 ft 4 in 5 ft 4 in Weight: 219 lb 7 oz BMI 37.6 BP 104/63 Intake Visit Reasons: 31w 6d ob Property Maintenance Technician Required: No Is patient in pain?: No Allergies No Known Allergies Allergy (Verified 06/26/25 09:28) Medications ?Medication ?Instructions ?Recorded ?Confirmed ?Type multivitamin no.47-iron fum 27 1 cap PO DAILY Check wi th primary 06/11/22 06/26/25 History mg-folate no.1 1 mg-dha 300 mg doctor capsule (PNV-DHA) magnesium 1 cap PO/SL DAILY leg cramps 01/18/23 06/26/25 History doxylamine succinate 25 mg tablet 25 mg PO QHS PRN 06/26/25 History (Unisom (doxylamine)) pyridoxine (vitamin B6) 10 mg 10 mg PO QDAY 01/10/25 1 History tablet progesterone micronized 200 mg 200 mg vaginal ONCE #30 caps 04/01/25 06/26/25 Rx capsule (Prometrium) Last Menstrual Period: 10/08/24 Zika: Zika virus screening: Negative : No Have you fallen in the past year?: No PFSH PFSH Medical History Short cervix affecting History of miscarriage, currently Gestational diabetes Infertility Vacuum extractor delivery, delivered care and examination Acute bronchitis Gestational diabetes PCOS (polycystic ovarian syndrome) Surgical History History of surgery Family History Father Cancer mouth/throat Social History adopted: No household members: spouse and children housing: house number of children: 1 current occupational status: employed current occupation: [employer] current occupational exposures/hazards: No pets and animals: Yes pets and animals: dog(s) history of recent travel: No sexually active: Yes Smoking Status: Never smoker alcohol intake: former details: not while pregnany, social only substance use type: does not use well-balanced diet: about half the time caffeine: No eating out: 1-3 times/week during the past year weight has: remained stable what type of physical activity do you participate in: walking frequency: 1-2 times per week duration: 15-30 minutes/day keturah/baptist: Uatsdin seatbelt use: always do you feel safe at home: Yes additional social history: - Guerrero, Faithful Juliet Fay History 4 Elective abortions Hx Para 1 Spontaneous abortions 1 Hx # Term Pregnancies Ectopic pregnancies 1 Hx # Pregnancies Multiple births # of living children 1 Past Pregnancies Del. Date Name GA/Weeks Outcome Route Bth Weight Gen Labor Lgth Anesthesia Del Locatn Provider FOB Unknown ectopic Unknown spontaneous 01/19/23 Benny 40 live - full term Male [facility] Dr. Araya Delivery Date: 01/19/23 Last Updated by: Anitha Cook Shortened cervix, gestational diabetes HPI 31w 6d ob Details: JENNY IBARRA is a 29 year old who presents for routine OB visit. OB Visit ANT Calculator 2 Estimated Delivery Date Method Current WG Current Estimate 08/22/25 Ultrasound #1 31w 6d Other Estimates 07/15/25 LMP (Uncertain) 37w 2d Expected Delivery Route/Plan Labor Preferences- CB/BF classes:no labor support person: Guerrero labor intervention preferences: [] pain management options preferred: epidural if requested cut cord/dad catch: yes : yes PP control planned: discussed discussed possible routes of delivery and associated risks: [] special requests: [] Specific Issue/Plans Covid status: [] Flu vaccine: [] Tdap vaccine: [] Rhogam: na LARC form signed: yes Problem list reviewed and updated with the most current plan of care details and appropriate orders placed. Relevant counseling for the gestational age provided. Continue routine care and follow up unless otherwise noted in visit notes/problem list details Initial Weight: Not Recorded Date -?-?-?-?-?-?-?-?-?-?-?-?- EGA Weight BP Urine Prot -?-?-?-?-?-?-?-?-?-?-?-?- Glucose FHR FuHt Pres Dilation -?-?-?-?-?-?-?-?-?-?-?-?- Effaced St Visit Note 01/23/25 -?-?-?-?-?-?-?-?-?-?-?-?- 9w 6d 201 lb 4 oz 122/77 -?-?-?-?-?-?-?-?-?-?-?-?- 170 -?-?-?-?-?-?-?-?-?-?-?-?- JV - CRL consist ent with last scan at [facility] She is measuring 10 weeks 2 days today. Should be 9 weeks 6 days from first scan there. JV - CRL consistent with las t scan at [facility] She is measuring 10 weeks 2 days today. Should be 9 weeks 6 days from first scan there. Declines NIPT. Taking progesterone for short cx last . ordering 16 week cx 02/19/25 -?-?-?-?-?-?-?-?-?--?-?-?- 13w 5d 205 lb 6 oz 106/74 Nega tive -?-?-?-?-?-?-?-?-?-?-?-?- Negative 168 -?-?-?-?-?-?-?-?-?-?-?-?- KW- no vb/crampi ng. some low pelvic pressure at the end of the day. MFM consult in 2 weeks for cervical length. KW- no vb/cramping. some low pelvic pressure at the end of the day. MFM consult in 2 weeks for cervical length. [facility] anatomy US ordered. 03/20/25 -?-?-?-?-?-?-?-?-?-?-?-?- 17w 6d 206 lb 120/64 Negative -?-?-?-?-?-?-?-?-?-?-?-?- Negative 152 -?-?-?-?-?--?-?-?-?-?-?-?- MH-No VB. Promet rium for hx short cervix-causes cramping. Hopes to DC after anatomy scan next week. Denies other concerns. 04/16/25 -?-?-?-?-?-?-?-?-?-?-?-?- 21w 5d 211 lb 4 oz 117/75 -?-?-?-?-?-?-?-?-?-?-?-?- 160 -?-?-?-?-?-?-?-?-?-?-?-?- SM- no vb lof go od fm no reuglar ctx SM- no vb lof good fm no reu glar ctx discussed limited views on anatomy scan 05/15/25 -?-?-?-?-?-?-?-?-?-?-?-?- 25w 6d 214 lb 4 oz 114/72 Nega tive -?-?-?-?-?-?-?-?-?-?-?-?- Negative 150 27 -?-?-?-?-?-?-?-?-?-?-?-?- MH-No Vb, LOF. G ood FM. 28 wk labs pending. Larc 06/12/25 -?-?-?-?-?-?-?-?-?-?-?-?- 29w 6d 216 lb 9 oz 110/71 Nega tive -?-?-?-?-?-?-?-?-?-?-?-?- Negative 160 30 -?-?-?-?-?-?-?-?-?-?-?-?- SM- no vb lof go od fm n oregular ctx discussed getting 3 hour gtt done, patient has been checking sugars at home and they have been normal 06/26/25 -?-?-?-?-?-?-?-?-?-?-?-?- 31w 6d 219 lb 7 oz 104/63 Nega tive -?-?-?-?-?-?-?-?-?-?-?-?- Negative 145 31 -?-?-?-?-?-?-?-?-?-?-?-?- JV- declines flu . wants to try to avoid IOL. long discussion. glucose levels normal. plan membrane sweep at 39 weeks. ACOG First Trimester First Trimester: Discussed Second Trimester Second Trimester: Signs and Symptoms of Labor, Selecting a care provider, Reproductive Life Planning & Contreception, Care Planning, Depression/Anxiety and Intimate Partner Violence; Discussed Tobacco Cessation Third Trimester Third Trimester: Pain Management Plans, Labor support person(s), Immediate Larc, Circumcision preference, Movement Monitoring, Signs and Symptoms of Preeclampsia, Labor Signs, Cervical Ripening/Labor Induction Counseling, Feeding No , Education, Family Medical Leave or Disability Forms, Depression and Depression; Discussed Trial of Labor after Counseling and Discussed Tobacco Cessation Results POC Urinalysis 2 Dip (Clinic) Office Urine Glucose Negative Last Edit by Bryanna Og on 06/26/25 09:38 Office Urine Protein Negative Last Edit by Bryanna Og on 06/26/25 09:38 Coding Level of Care Code OB Routine Diagnoses History of gestational diabetes in prior , currently O09.299; Z86.32 Short cervix affecting O26.879 Obesity affecting in second trimester, unspecified obesity type O99.212 Obesity type affecting : unspecified obesity Trimester: second trimester History of ectopic Z87.59 History of prior with short cervix, currently O09.299 Supervision of high risk in second trimester O Trimester: second trimester 31 weeks gestation of Z3A.31 Weeks of gestation: 31 weeks History of recurrent miscarriages N96 Assessment and Plan Assessment and Plan (1) History of gestational diabetes in prior , currently : Status: Acute Comment: If abnormal 1 hr glucose, she prefers to do QID testing and defer 3 hr GTT Failed 1 hr: will do QID BS testing. Decline chemical process project engineer consult (2) Short cervix affecting : Status: Acute Comment: with last preg- prometrium 200 mg PV/causes her to cramp and would like to DC after anatomy scan if CX stable mfm scan ordered for 16 weeks:40mm; Anatomy US:42mm. Patient has elected to cont vag progesterone due to hx. (3) Obesity affecting : Status: Acute Qualifiers: Obesity type affecting : unspecified obesity Trimester: second trimester Qualified Code(s): O99.212 - Obesity complicating , second trimester Comment: BMI 32.6% (4) History of ectopic : Status: Acute (5) History of prior with short cervix, currently : Status: Acute (6) Supervision of high-risk : Status: Acute Qualifiers: Trimester: second trimester Qualified Code(s): O09.92 - Supervision of high risk , unspecified, second trimester Comment: PRR , ANT 08/22/25,boy PC Benny Guerrero (7) : Status: Acute Qualifiers: Weeks of gestation: 31 weeks Qualified Code(s): Z3A.31 - 31 weeks gestation of Comment: NIPT w gender & carrier - declines On US incomplete visual of nose but states palate, lips profile ok. Patient elects not to rpt US for nose. (8) History of recurrent miscarriages: Status: Acute Comment: APL negative. discussed chromosomal testing also. discussed progesterone 1tm support- ordered prometrium Orders: Orders POC Urinalysis 2 Dip (Clinic) Today Clinical Quality Measures Falls Risk Screening/Assistive Devices Have you fallen in the past year?: No 06/26/25 0956 <Electronically signed by Guadalupe Lal DO> Date _ Guadalupe Garcia DO Cosigner Signature: Date (if applicable) CC: ~ [facility] Work Phone: Progress note Author Margarita Rollins [facility] Note Date/Time July 08, 2025 1 1:01am [facility] [address], [address] [place] [address] OFFICE VISIT Date of Service: 07/08/25 MR#: [id number] Acct: [id number] Name: JENNY IBARRA Rep #: [id number] : 1995 Provider: AVIS Rollins Age/Sex: 29/F Location: [facility] [facility] Status: Signed Intake Vital Signs 06/12/25 09:27 06/26/25 09:29 07/08/25 10:42 Height 5 ft 4 in 5 ft 4 in 5 ft 4 in Weight: 216 lb 9 oz 219 lb 7 oz 217 lb 9 oz BMI 37.1 37.6 37.3 BP 110/71 104/63 117/81 H Intake Visit Reasons: 33w 4d ob Chief Complaint: 33wk OB Property Maintenance Technician Required: No Is patient in pain?: No Allergies No Known Allergies Allergy (Verified 07/08/25 10:40) Medications ?Medication ?Instructions ?Recorded ?Confirmed ?Type multivitamin no.47-iron fum 27 1 cap PO DAILY Check wi th primary 06/11/22 07/08/25 History mg-folate no.1 1 mg-dha 300 mg doctor capsule (PNV-DHA) magnesium 1 cap PO/SL DAILY leg cramps 01/18/23 07/08/25 History doxylamine succinate 25 mg tablet 25 mg PO QHS PRN 07/08/25 History (Unisom (doxylamine)) pyridoxine (vitamin B6) 10 mg 10 mg PO QDAY 01/10/25 1 History tablet progesterone micronized 200 mg 200 mg vaginal ONCE #30 caps 04/01/25 07/08/25 Rx capsule (Prometrium) Last Menstrual Period: 10/08/24 : No Have you fallen in the past year?: No PFSH PFSH Medical History Short cervix affecting History of miscarriage, currently Gestational diabetes Infertility Vacuum extractor delivery, delivered care and examination Acute bronchitis Gestational diabetes PCOS (polycystic ovarian syndrome) Surgical History History of surgery Family History Father Cancer mouth/throat Social History adopted: No household members: spouse and children housing: house number of children: 1 current occupational status: employed current occupation: [employer] current occupational exposures/hazards: No pets and animals: Yes pets and animals: dog(s) history of recent travel: No sexually active: Yes Smoking Status: Never smoker alcohol intake: former details: not while pregnany, social only substance use type: does not use well-balanced diet: about half the time caffeine: No eating out: 1-3 times/week during the past year weight has: remained stable what type of physical activity do you participate in: walking frequency: 1-2 times per week duration: 15-30 minutes/day keturah/baptist: Uatsdin seatbelt use: always do you feel safe at home: Yes additional social history: - Guerrero, Faithful Juliet Fay History 4 Elective abortions Hx Para 1 Spontaneous abortions 1 Hx # Term Pregnancies Ectopic pregnancies 1 Hx # Pregnancies Multiple births # of living children 1 Past Pregnancies Del. Date Name GA/Weeks Outcome Route Bth Weight Infant Gen Labor Lgth Anesthesia Del Locatn Provider FOB Unknown ectopic Unknown spontaneous 01/19/23 Benny 40 live - full term Male [facility] Dr. Araya Delivery Date: 01/19/23 Last Updated by: Anitha Cook Shortened cervix, gestational diabetes HPI 33w 4d ob Details: JENNY IBARRA is a 29 year old who presents for routine OB visit. OB Visit ANT Calculator Estimated Delivery Date Method Current WG Current Estimate 08/22/25 Ultrasound #1 33w 4d Other Estimates 07/15/25 LMP (Uncertain) 39w 0d Expected Delivery Route/Plan Labor Preferences- CB/BF classes:no labor support person: Guerrero labor intervention preferences: [] pain management options preferred: epidural if requested cut cord/dad catch: yes : yes PP control planned: discussed discussed possible routes of delivery and associated risks: [] special requests: [] Specific Issue/Plans Covid status: [] Flu vaccine: [] Tdap vaccine: [] Rhogam: na LARC form signed: yes Problem list reviewed and updated with the most current plan of care details and appropriate orders placed. Relevant counseling for the gestational age provided. Continue routine care and follow up unless otherwise noted in visit notes/problem list details Initial Weight: Not Recorded Date -?-?-?-?-?-?-?-?-?-?-?-?- EGA Weight BP Urine Prot -?-?-?-?-?-?-?-?-?-?-?-?- Glucose FHR FuHt Pres Dilation -?-?-?-?-?-?-?-?-?-?-?-?- Effaced St Visit Note 01/23/25 -?-?-?-?-?-?-?-?-?-?-?-?- 9w 6d 201 lb 4 oz 122/77 -?-?-?-?-?-?-?-?-?-?-?-?- 170 -?-?-?-?-?-?-?-?-?-?-?-?- JV - CRL consist ent with last scan at care center She is measuring 10 weeks 2 days today. Should be 9 weeks 6 days from first scan there. JV - CRL consistent with las t scan at care center She is measuring 10 weeks 2 days today. Should be 9 weeks 6 days from first scan there. Declines NIPT. Taking progesterone for short cx last . ordering 16 week cx 02/19/25 -?-?-?-?-?-?-?-?-?-?-?-?- 13w 5d 205 lb 6 oz 106/74 Nega tive -?-?-?-?-?-?-?-?-?-?-?-?- Negative 168 -?-?-?-?-?-?-?-?-?-?-?-?- KW- no vb/crampi ng. some low pelvic pressure at the end of the day. MFM consult in 2 weeks for cervical length. KW- no vb/cramping. some low pelvic pressure at the end of the day. MFM consult in 2 weeks for cervical length. [facility] anatomy US ordered. 03/20/25 -?-?-?-?-?-?-?-?-?-?-?-?- 17w 6d 206 lb 120/64 Negative -?-?-?-?-?-?-?-?-?-?-?-?- Negative 152 -?-?-?-?-?-?-?-?-?-?-?-?- MH-No VB. Promet rium for hx short cervix-causes cramping. Hopes to DC after anatomy scan next week. Denies other concerns. 04/16/25 -?-?-?-?-?-?-?-?-?-?-?-?- 21w 5d 211 lb 4 oz 117/75 -?-?-?-?-?-?-?-?-?-?-?-?- 160 -?-?-?-?-?-?-?-?-?-?-?-?- SM- no vb lof go od fm no reuglar ctx SM- no vb lof good fm no reu glar ctx discussed limited views on anatomy scan 05/15/25 -?-?-?-?-?-?-?-?-?-?-?-?- 25w 6d 214 lb 4 oz 114/72 Nega tive -?-?-?-?--?-?-?-?-?-?-?-?- Negative 150 27 -?-?-?-?-?-?-?-?-?-?-?-?- MH-No Vb, LOF. G ood FM. 28 wk labs pending. Larc 06/12/25 -?-?-?-?-?-?-?-?-?-?-?-?- 29w 6d 216 lb 9 oz 110/71 Nega tive -?-?-?-?-?-?-?-?-?-?-?-?- Negative 160 30 -?-?-?-?-?-?-?-?-?-?-?-?- SM- no vb lof go od fm n oregular ctx discussed getting 3 hour gtt done, patient has been checking sugars at home and they have been normal 06/26/25 -?-?-?-?-?-?-?-?-?-?-?-?- 31w 6d 219 lb 7 oz 104/63 Nega tive -?-?-?-?-?-?-?-?-?-?-?-?- Negative 145 31 -?-?-?-?-?-?-?-?-?-?-?-?- JV- declines flu . wants to try to avoid IOL. long discussion. glucose levels normal. plan membrane sweep at 39 weeks. 07/08/25 -?-?-?-?-?-?-?-?-?-?-?-?- 33w 4d 217 lb 9 oz 117/81 Nega tive -?-?-?-?-?-?-?-?-?-?-?-?- Negative 150 33 -?-?-?-?-?-?-?-?-?-?-?-?- KW- no vb/lof/ct x. good fm. compression hose for leg cramps KW- no vb/lof/ctx. good fm. compression hose for leg cramps. blood sugars reviewed and normal ACOG First Trimester First Trimester: Discussed Second Trimester Second Trimester: Signs and Symptoms of Labor, Selecting a care provider, Reproductive Life Planning & Contreception, Care Planning, Depression/Anxiety and Intimate Partner Violence; Discussed Tobacco Cessation Third Trimester Third Trimester: Pain Management Plans, Labor support person(s), Immediate Larc, Circumcision preference, Movement Monitoring, Signs and Symptoms of Preeclampsia, Labor Signs, Cervical Ripening/Labor Induction Counseling, Infant Feeding No , [place] Education, Family Medical Leave or Disability Forms, Depression and Depression; Discussed Trial of Labor after Counseling and Discussed Tobacco Cessation ROS Const Reports system reviewed and no additional complaints, except as documented Eyes Reports system reviewed and no additional complaints, except as documented ENT Reports system reviewed and no additional complaints, except as documented Card Reports system reviewed and no additional complaints, except as documented Resp Reports system reviewed and no additional complaints, except as documented GI Reports system reviewed and no additional complaints, except as documented, Denies nausea and Denies vomiting Reports system reviewed and no additional complaints, except as documented Musc Reports system reviewed and no additional complaints, except as documented Skin/Breast Reports system reviewed and no additional complaints, except as documented Neuro Yes system reviewed and no additional complaints, except as documented Psych Reports system reviewed and no additional complaints, except as documented Endo Reports system reviewed and no additional complaints, except as documented Regan/Lymph Reports system reviewed and no additional complaints, except as documented Aller/Immun Reports system reviewed and no additional complaints, except as documented Exam Const General: cooperative, healthy appearing and no acute distress Orientation: alert, awake and oriented x3 Neck Neck: normal visual inspection and full ROM Resp Effort & Inspection: normal respiratory effort, able to speak in complete sentences and symmetric chest movement GI Inspection: normal to inspection Palpation: soft and other Other: gravid Skin General: no rashes or lesions noted Neuro General: patient alert, patient awake and patient oriented x3 Cognition: normal cognition Speech: speech normal Gait: normal gait Motor: muscle tone normal throughout Extrem General: normal to inspection and full ROM Psych Appearance: grossly normal Mental Status: mental status grossly normal Mood: congruent mood Affect: normal affect Speech and Movement: speech and movement normal Attitude: cooperative Thought Process: normal Thought Content: normal Judgment: judgment good Results POC Urinalysis 2 Dip (Clinic) Office Urine Glucose Negative Last Edit by Becca Gonzalez on 07/08/25 10:49 Office Urine Protein Negative Last Edit by Becca Gonzalez on 07/08/25 10:49 Coding Level of Care Code OB Routine Diagnoses History of gestational diabetes in prior , currently O09.299; Z86.32 Short cervix affecting O26.879 Obesity affecting in second trimester, unspecified obesity type O99.212 Obesity type affecting : unspecified obesity Trimester: second trimester History of ectopic Z87.59 History of prior with short cervix, currently O09.299 Supervision of high risk in second trimester O. Trimester: second trimester 33 weeks gestation of Z3A.33 Weeks of gestation: 33 weeks History of recurrent miscarriages N96 Assessment and Plan Assessment and Plan (1) History of gestational diabetes in prior , currently : Status: Acute Comment: If abnormal 1 hr glucose, she prefers to do QID testing and defer 3 hr GTT Failed 1 hr: will do QID BS testing. Decline chemical process project engineer consult (2) Short cervix affecting : Status: Acute Comment: with last preg- prometrium 200 mg PV/causes her to cramp and would like to DC after anatomy scan if CX stable mfm scan ordered for 16 weeks:40mm; Anatomy US:42mm. Patient has elected to cont vag progesterone due to hx. (3) Obesity affecting : Status: Acute Qualifiers: Obesity type affecting : unspecified obesity Trimester: second trimester Qualified Code(s): O99.212 - Obesity complicating , second trimester Comment: BMI 32.6% (4) History of ectopic : Status: Acute (5) History of prior with short cervix, currently : Status: Acute (6) Supervision of high-risk : Status: Acute Qualifiers: Trimester: second trimester Qualified Code(s): O09.92 - Supervision of high risk , unspecified, second trimester Comment: PRR , ANT 08/22/25,boy PC Benny Guerrero (7) : Status: Acute Qualifiers: Weeks of gestation: 33 weeks Qualified Code(s): Z3A.33 - 33 weeks gestation of Comment: NIPT w gender & carrier - declines On US incomplete visual of nose but states palate, lips profile ok. Patient elects not to rpt US for nose. (8) History of recurrent miscarriages: Status: Acute Comment: APL negative. discussed chromosomal testing also. discussed progesterone 1tm support- ordered prometrium Orders: Orders POC Urinalysis 2 Dip (Clinic) Today OB Limited With Biometrics 3 Weeks O09.299 - Supervision of with other poor reproductive or obstetric history, unspecified trimester, Z86.32 - Personal history of gestational diabetes Plan Details Additional Comments: ACOG trimester education reviewed and updated. see problem list details for updated plan management information and see below for orders placed at this visit. GA appropriate handout given. Clinical Quality Measures Falls Risk Screening/Assistive Devices Have you fallen in the past year?: No 07/08/25 1101 <Electronically signed by Margarita boss CNM> Date _ Margarita Rollins CNM Cosigner Signature: Date (if applicable) CC: ~ [facility] Work Phone: Reason for referral (narrative)No reason for referral information availableWSelect [facility] [place] Work Phone: Chief Complaint and Reason for Visit Chief Complaint 4m f/u Reason for Visit Infertility PCOS (polycystic ovarian syndrome) Chief Complaint 4m f/u ECTOPIC MISCARRIAGE Reason for Visit Infertility PCOS (polycystic ovarian syndrome) Chief Complaint 4m f/u ECTOPIC MISCARRIAGE f/u miscarraige Reason for Visit Infertility PCOS (polycystic ovarian syndrome) Miscarriage PCOS (polycystic ovarian syndrome) Chief Complaint 4m f/u ECTOPIC MISCARRIAGE f/u miscarraige ectopic methotrexate injection Reason for Visit Infertility PCOS (polycystic ovarian syndrome) PCOS (polycystic ovarian syndrome) Ectopic Chief Complaint 4m f/u ECTOPIC MISCARRIAGE f/u miscarraige ectopic methotrexate injection EORDER Reason for Visit Infertility PCOS (polycystic ovarian syndrome) PCOS (polycystic ovarian syndrome) Ectopic Chief Complaint ectopic FU and discu ss genetic testing eorders HX OF MISCARRIAGES Reason for Visit History of recurrent miscarriages PCOS (polycystic ovarian syndrome) Chief Complaint ectopic FU and discu ss genetic testing eorders HX OF MISCARRIAGES THREATENED Reason for Visit History of recurrent miscarriages PCOS (polycystic ovarian syndrome) Chief Complaint eorders HX OF MISCARRIAGES THREATENED nob lmp 04/12/22 Reason for Visit History of recurrent miscarriages Infertility Supervision of high risk , antepartum Chief Complaint eorders HX OF MISCARRIAGES THREATENED nob lmp 04/12/22 12 WK OB Reason for Visit History of recurrent miscarriages Infertility Supervision of high risk , antepartum History of recurrent miscarriages Infertility Supervision of high risk , antepartum Chief Complaint eorders HX OF MISCARRIAGES THREATENED nob lmp 04/12/22 12 WK OB SCREENING FOR DIABETES MELLITUS 14 WK OB Reason for Visit History of recurrent miscarriages Infertility Supervision of high risk , antepartum History of recurrent miscarriages Infertility Supervision of high risk , antepartum Abnormal glucose level History of recurrent miscarriages Infertility Supervision of high risk , antepartum Chief Complaint 12 WK OB SCREENING FOR DIABETES MELLITUS 14 WK OB 18 WK OB 23wk ob 27 WK OB/GLUCOSE Reason for Visit History of recurrent miscarriages Infertility Supervision of high risk , antepartum Abnormal glucose level History of recurrent miscarriages Infertility Supervision of high risk , antepartum Abnormal glucose level History of recurrent miscarriages Infertility Supervision of high risk , antepartum Abnormal glucose level History of recurrent miscarriages Infertility Short cervix affecting Supervision of high risk , antepartum Abnormal glucose level History of recurrent miscarriages Infertility Short cervix affecting Supervision of high risk , antepartum Chief Complaint 18 WK OB 23wk ob 27 WK OB/GLUCOSE 30 WK OB Reason for Visit Abnormal glucose lev el History of recurrent miscarriages Infertility Supervision of high risk , antepartum Abnormal glucose level History of recurrent miscarriages Infertility Short cervix affecting Supervision of high risk , antepartum Abnormal glucose level History of recurrent miscarriages Infertility Short cervix affecting Supervision of high risk , antepartum Abnormal glucose level History of recurrent miscarriages Infertility Short cervix affecting Supervision of high risk , antepartum Chief Complaint 23wk ob 27 WK OB/GLUCOSE 30 WK OB 32 WK OB GESTATIONAL DIABETES 34 WK OB 36 WK OB GROWTH Reason for Visit History of recurrent miscarriages Infertility Short cervix affecting Supervision of high risk , antepartum Abnormal glucose level History of recurrent miscarriages Infertility Short cervix affecting Supervision of high risk , antepartum Abnormal glucose level History of recurrent miscarriages Infertility Short cervix affecting Supervision of high risk , antepartum Abnormal glucose level Gestational diabetes History of recurrent miscarriages Infertility Short cervix affecting Supervision of high risk , antepartum Gestational diabetes History of recurrent miscarriages Infertility Short cervix affecting Supervision of high risk , antepartum Gestational diabetes History of recurrent miscarriages Infertility Short cervix affecting Supervision of high risk , antepartum Chief Complaint 23wk ob 27 WK OB/GLUCOSE 30 WK OB 32 WK OB GESTATIONAL DIABETES 34 WK OB 36 WK OB GROWTH 37 WK OB Reason for Visit History of recurrent miscarriages Infertility Short cervix affecting Supervision of high risk , antepartum Abnormal glucose level History of recurrent miscarriages Infertility Short cervix affecting Supervision of high risk , antepartum Abnormal glucose level History of recurrent miscarriages Infertility Short cervix affecting Supervision of high risk , antepartum Abnormal glucose level Gestational diabetes History of recurrent miscarriages Infertility Short cervix affecting Supervision of high risk , antepartum Gestational diabetes History of recurrent miscarriages Infertility Short cervix affecting Supervision of high risk , antepartum Gestational diabetes History of recurrent miscarriages Infertility Short cervix affecting Supervision of high risk , antepartum Gestational diabetes History of recurrent miscarriages Infertility Short cervix affecting Supervision of high risk , antepartum Chief Complaint 23wk ob 27 WK OB/GLUCOSE 30 WK OB 32 WK OB GESTATIONAL DIABETES 34 WK OB 36 WK OB GROWTH 37 WK OB 38 WK OB 39 WK OB MEMBRANE SWEEP VAG INDUCTION VAG VAG Reason for Visit History of recurrent miscarriages Infertility Abnormal glucose level Supervision of high risk , antepartum History of recurrent miscarriages Infertility Abnormal glucose level Supervision of high risk , antepartum History of recurrent miscarriages Infertility Abnormal glucose level Supervision of high risk , antepartum Gestational diabetes History of recurrent miscarriages Infertility Supervision of high risk , antepartum Gestational diabetes History of recurrent miscarriages Infertility Supervision of high risk , antepartum Gestational diabetes History of recurrent miscarriages Infertility Supervision of high risk , antepartum Gestational diabetes History of recurrent miscarriages Infertility Supervision of high risk , antepartum Gestational diabetes History of recurrent miscarriages Infertility Supervision of high risk , antepartum Gestational diabetes History of recurrent miscarriages Infertility Supervision of high risk , antepartum Gestational diabetes History of recurrent miscarriages Infertility Supervision of high risk , antepartum Gestational diabetes History of recurrent miscarriages Infertility Vacuum extractor delivery, delivered Supervision of high risk , antepartum Chief Complaint Admit Date FERTILITY CONSULT October 19, 2024 1 :34pm INT LABS November 01, 2024 8 :08am Reason for Visit Admit Date History of recurrent miscarriages Januar y 2024 1:34pm Infertility October 19, 2024 1 :34pm Chief Complaint Admit Date FERTILITY CONSULT October 19, 2024 1 :34pm INT LABS November 01, 2024 8 :08am NOB US #1 ANT 08/22/25 January 23, 2025 8:52am Reason for Visit Admit Date History of recurrent miscarriages Sepuar y 2024 1:34pm Infertility October 19, 2024 1 :34pm History of ectopic January 23, 2025 8:52am History of prior w ith short cervix, currently January 23, 2025 8:52am History of recurrent miscarriages January 23, 2025 8:52am Obesity affecting January 23, 2025 8:52am January 23, 2025 8:5 2am Supervision of high-risk January 23, 2025 8:52am Chief Complaint Admit Date INT LABS November 01, 2024 8 :08am NOB US #1 ANT 08/22/25 January 23, 2025 8:52am 14wk1d ob February 19, 2025 2:14p m Reason for Visit Admit Date History of ectopic January 23, 2025 8:52am History of prior w ith short cervix, currently January 23, 2025 8:52am History of recurrent miscarriages January 23, 2025 8:52am Obesity affecting January 23, 2025 8:52am January 23, 2025 8:5 2am Supervision of high-risk January 23, 2025 8:52am History of ectopic February 19, 025 2:14pm History of prior w ith short cervix, currently February 19, 2025 2:14pm History of recurrent miscarriages February 192024 2:14pm Obesity affecting February 19 2:14pm February 19, 2025 2:14p m Short cervix affecting January 2:14pm Supervision of high-risk January 252024 2:14pm Chief Complaint Admit Date NOB US #1 ANT 08/22/25 January 23, 2025 8:52am [email or web address] ob February 19, 2025 2:14p m 18wk2d ob March 20, 2025 8:35 am Reason for Visit Admit Date History of ectopic January 23, 2025 8:52am History of prior w ith short cervix, currently January 23, 2025 8:52am History of recurrent miscarriages January 23, 2025 8:52am Obesity affecting January 23, 2025 8:52am January 23, 2025 8:5 2am Supervision of high-risk January 23, 2025 8:52am History of ectopic February 19, 025 2:14pm History of prior w ith short cervix, currently February 19, 2025 2:14pm History of recurrent miscarriages February 192024 2:14pm Obesity affecting February 19 2:14pm February 19, 2025 2:14p m Short cervix affecting January 2:14pm Supervision of high-risk January 252024 2:14pm History of ectopic March 20, 2025 8:35am History of prior w ith short cervix, currently March 20, 2025 8:35am History of recurrent miscarriages February 252024 8:35am Obesity affecting March 20, 2 025 8:35am March 20, 2025 8:35 am Short cervix affecting March 202024 8:35am Supervision of high-risk March 20, 2025 8:35am Chief Complaint Admit Date NOB US #1 ANT 08/22/25 January 23, 2025 8:52am 14wk1d ob February 19, 2025 2:14p m 18wk2d ob March 20, 2025 8:35 am 22wk ob April 16, 2025 3:01 pm Reason for Visit Admit Date History of ectopic January 23, 2025 8:52am History of prior w ith short cervix, currently January 23, 2025 8:52am History of recurrent miscarriages January 23, 2025 8:52am Obesity affecting January 23, 2025 8:52am January 23, 2025 8:5 2am Supervision of high-risk January 23, 2025 8:52am History of ectopic February 19, 025 2:14pm History of prior w ith short cervix, currently February 19, 2025 2:14pm History of recurrent miscarriages February 192024 2:14pm Obesity affecting February 19 2:14pm February 19, 2025 2:14p m Short cervix affecting January 2:14pm Supervision of high-risk January 252024 2:14pm History of ectopic March 20, 2025 8:35am History of prior w ith short cervix, currently March 20, 2025 8:35am History of recurrent miscarriages February 252024 8:35am Obesity affecting March 20, 2 025 8:35am March 20, 2025 8:35 am Short cervix affecting March 202024 8:35am Supervision of high-risk March 20, 2025 8:35am History of ectopic April 16, 2025 3:01pm History of prior w ith short cervix, currently April 16, 2025 3:01pm History of recurrent miscarriages March 272024 3:01pm Obesity affecting April 16, 2 025 3:01pm April 16, 2025 3:01 pm Short cervix affecting April 162024 3:01pm Supervision of high-risk April 16, 2025 3:01pm Chief Complaint Admit Date NOB US #1 ANT 08/22/25 January 23, 2025 8:52am 14wk1d ob February 19, 2025 2:14p m 18wk2d ob March 20, 2025 8:35 am 22wk ob April 16, 2025 3:01 pm 26wk ob/glucose May 15, 2025 9: 22am Reason for Visit Admit Date History of ectopic January 23, 2025 8:52am History of prior w ith short cervix, currently January 23, 2025 8:52am History of recurrent miscarriages January 23, 2025 8:52am Obesity affecting January 23, 2025 8:52am January 23, 2025 8:5 2am Supervision of high-risk January 23, 2025 8:52am History of ectopic February 19, 025 2:14pm History of prior w ith short cervix, currently February 19, 2025 2:14pm History of recurrent miscarriages February 192024 2:14pm Obesity affecting February 19 2:14pm February 19, 2025 2:14p m Short cervix affecting January 2:14pm Supervision of high-risk January 252024 2:14pm History of ectopic March 20, 2025 8:35am History of prior w ith short cervix, currently March 20, 2025 8:35am History of recurrent miscarriages February 252024 8:35am Obesity affecting March 20 025 8:35am March 20, 2025 8:35 am Short cervix affecting March 202024 8:35am Supervision of high-risk March 20, 2025 8:35am History of ectopic April 16, 2025 3:01pm History of prior w ith short cervix, currently April 16, 2025 3:01pm History of recurrent miscarriages March 272024 3:01pm Obesity affecting April 16, 025 3:01pm April 16, 2025 3:01 pm Short cervix affecting April 162024 3:01pm Supervision of high-risk April 16, 2025 3:01pm History of ectopic April 9:22am History of prior w ith short cervix, currently May 15, 2025 9:22am History of recurrent miscarriages May 15, 2025 9:22am Obesity affecting May 15, 2025 9:22am May 15, 2025 9: 22am Short cervix affecting May 15, 2025 9:22am Supervision of high-risk Augus t 2024 9:22am Chief Complaint Admit Date 14wk1d ob February 19, 2025 2:14p m 18wk2d ob March 20, 2025 8:35 am 22wk ob April 16, 2025 3:01 pm 26wk ob/glucose May 15, 2025 9: 22am 30wk ob June 12, 2025 9:11am Reason for Visit Admit Date History of ectopic February 19, 025 2:14pm History of prior w ith short cervix, currently February 19, 2025 2:14pm History of recurrent miscarriages February 192024 2:14pm Obesity affecting February 19 2:14pm February 19, 2025 2:14p m Short cervix affecting January 2:14pm Supervision of high-risk January 252024 2:14pm History of ectopic March 20, 2025 8:35am History of prior w ith short cervix, currently March 20, 2025 8:35am History of recurrent miscarriages February 252024 8:35am Obesity affecting March 20, 025 8:35am March 20, 2025 8:35 am Short cervix affecting March 202024 8:35am Supervision of high-risk March 20, 2025 8:35am History of ectopic April 16, 2025 3:01pm History of prior w ith short cervix, currently April 16, 2025 3:01pm History of recurrent miscarriages March 272024 3:01pm Obesity affecting April 16, 025 3:01pm April 16, 2025 3:01 pm Short cervix affecting April 162024 3:01pm Supervision of high-risk April 16, 2025 3:01pm History of ectopic April 9:22am History of prior w ith short cervix, currently May 15, 2025 9:22am History of recurrent miscarriages May 15, 2025 9:22am Obesity affecting May 15, 2025 9:22am May 15, 2025 9: 22am Short cervix affecting May 15, 2025 9:22am Supervision of high-risk Augus 2024 9:22am History of ectopic May 272024 9:11am History of gestational diabe roma in prior , currently June 12, 2025 9:11am History of prior w ith short cervix, currently June 12, 2025 9:11am History of recurrent miscarriages Septem jessica 2024 9:11am Obesity affecting June 122024 9:11am June 12, 2025 9:11am Short cervix affecting Septemb er 2024 9:11am Supervision of high-risk Krishane mber 2024 9:11am Chief Complaint Admit Date 18wk2d ob March 20, 2025 8:35 am 22wk ob April 16, 2025 3:01 pm 26wk ob/glucose May 15, 2025 9: 22am 30wk ob June 12, 2025 9:11am 31w 6d ob June 26, 2025 9: 17am Reason for Visit Admit Date History of ectopic March 20, 2025 8:35am History of prior w ith short cervix, currently March 20, 2025 8:35am History of recurrent miscarriages February 252024 8:35am Obesity affecting March 20, 2 025 8:35am March 20, 2025 8:35 am Short cervix affecting March 202024 8:35am Supervision of high-risk March 20, 2025 8:35am History of ectopic April 16, 2025 3:01pm History of prior w ith short cervix, currently April 16, 2025 3:01pm History of recurrent miscarriages March 272024 3:01pm Obesity affecting April 16, 025 3:01pm April 16, 2025 3:01 pm Short cervix affecting April 162024 3:01pm Supervision of high-risk April 16, 2025 3:01pm History of ectopic April 9:22am History of prior w ith short cervix, currently May 15, 2025 9:22am History of recurrent miscarriages May 15, 2025 9:22am Obesity affecting May 15, 2025 9:22am May 15, 2025 9: 22am Short cervix affecting May 15, 2025 9:22am Supervision of high-risk Augus 2024 9:22am History of ectopic May 272024 9:11am History of gestational diabe roma in prior , currently June 12, 2025 9:11am History of prior w ith short cervix, currently June 12, 2025 9:11am History of recurrent miscarriages Septem jessica 2024 9:11am Obesity affecting June 122024 9:11am June 12, 2025 9:11am [facility] Supervision of high-risk Septe mber 2024 9:11am History of ectopic June 9:17am History of gestational diabe roma in prior , currently June 26, 2025 9:17am History of prior w ith short cervix, currently June 26, 2025 9:17am History of recurrent miscarriages Octobe r 2024 9:17am Obesity affecting June 26, 2025 9:17am June 26, 2025 9: 17am Short cervix affecting June 26, 2025 9:17am Supervision of high-risk Octob er 2024 9:17am Chief Complaint Admit Date wk ob April 16, 2025 3:01 pm 26wk ob/glucose May 15, 2025 9: 22am 30wk ob June 12, 2025 9:11am 31w 6d ob June 26, 2025 9: 17am 33w 4d ob July 08, 2025 1 0:39am Reason for Visit Admit Date History of ectopic April 16, 2025 3:01pm History of prior w ith short cervix, currently April 16, 2025 3:01pm History of recurrent miscarriages March 272024 3:01pm Obesity affecting April 16, 2 025 3:01pm April 16, 2025 3:01 pm Short cervix affecting April 162024 3:01pm Supervision of high-risk April 16, 2025 3:01pm History of ectopic April 9:22am History of prior w ith short cervix, currently May 15, 2025 9:22am History of recurrent miscarriages May 15, 2025 9:22am Obesity affecting May 15, 2025 9:22am May 15, 2025 9: 22am Short cervix affecting May 15, 2025 9:22am Supervision of high-risk Augus t 2024 9:22am History of ectopic May 272024 9:11am History of gestational diabe roma in prior , currently June 12, 2025 9:11am History of prior w ith short cervix, currently June 12, 2025 9:11am History of recurrent miscarriages Septem jessica 2024 9:11am Obesity affecting June 122024 9:11am June 12, 2025 9:11am Short cervix affecting Septemb er 2024 9:11am Supervision of high-risk Septe mber 2024 9:11am History of ectopic June 9:17am History of gestational diabe roma in prior , currently June 26, 2025 9:17am History of prior w ith short cervix, currently June 26, 2025 9:17am History of recurrent miscarriages Octobe r 2024 9:17am Obesity affecting June 26, 2025 9:17am June 26, 2025 9: 17am Short cervix affecting June 26, 2025 9:17am Supervision of high-risk Octob er 2024 9:17am History of ectopic June 10:39am History of gestational diabe roma in prior , currently July 08, 2025 10:39am History of prior w ith short cervix, currently July 08, 2025 10:39am History of recurrent miscarriages Octobe r 2024 10:39am Obesity affecting June 10:39am July 08, 2025 1 0:39am Short cervix affecting July 08, 2025 10:39am Supervision of high-risk Octob er 2024 10:39am Advance Directives No Advanced Directives Records Found Advance Directive Response Recorded Date/ Time Living Will No January 12, 2022 11:41am Power of Waste Disposal Plant Operator No January 12 11:41am Advance Directive Response Recorded Date/ Time Living Will No January 12, 2022 10:41am Power of Waste Disposal Plant Operator No January 12 10:41am Advance Directive Response Recorded Date/ Time Name of Medical Power of Waste Disposal Plant Operator Guerrero Ibarra January 18, 2023 7:54am Living Will Yes January 18, 2023 7:54am Power of Waste Disposal Plant Operator Yes January 18 7:54am Summary Purpose Family History No Family History Records Found Relationship Condition Age at Onset Recorded Date/T laith father Malignant neoplasm Unknown Additional Source Comments Goals (unrecognized section and content) Type Care Experience svdLabor Preferences -CB/BF classes: encouragedlabor support person: Madi intervention preferences: min interventionpain management options preferred: limited intervention. epidural okcut cord/dad catch: cordbreastfeeding: yesPP control planned: discusseddiscussed possible routes of delivery and associated risks: []special requests: [] Care Experience Labor Preference s-CB/BF classes:nolabor support person: Genia intervention preferences: []pain management options preferred: epidural if requestedcut cord/dad catch: yesbreastfeeding: yesPP control planned: discusseddiscussed possible routes of delivery and associated risks: []special requests: [] Care Teams (unrecognized sec tion and content) Team Status: Active Member Role Status Dates Dr. Francisco Villanueva MD Family Provider Active Margaux Jay REAL ESTATE EXECUTIVE ASSISTANT, REAL ESTATE EXECUTIVE ASSISTANT-C Primary Care Provider Active Team Status: Inactive Member Role Status Dates Margaux Jay NP, REAL ESTATE EXECUTIVE ASSISTANT-C Primary Care Provider, Referri ng Provider Active Dr. Guadalupe Garcia DO Attending Provider Activ e Team Status: Inactive Member Role Status Dates Margaux Jay NP, REAL ESTATE EXECUTIVE ASSISTANT-C Primary Care Provider, Referri ng Provider Active Dr. Paradise Mackey MD Attending Provider Active Team Status: Inactive Member Role Status Dates Margaux Jay REAL ESTATE EXECUTIVE ASSISTANT, REAL ESTATE EXECUTIVE ASSISTANT-C Primary Care Provider, Referri ng Provider Active Leela Hough CNM Attending Provider Active Team Status: Inactive Member Role Status Dates Margaux Jay REAL ESTATE EXECUTIVE ASSISTANT, REAL ESTATE EXECUTIVE ASSISTANT-C Primary Care Provider, Referri ng Provider Active Jessica Bella NP, REAL ESTATE EXECUTIVE ASSISTANT-C Attending Provider Active Team Status: Inactive Member Role Status Dates Margaux Jay NP, REAL ESTATE EXECUTIVE ASSISTANT-C Primary Care Provider Active Dr. Paradise Mackey MD Attending Provider, Referr ing Provider Active Team Status: Inactive Member Role Status Dates Margaux Jay NP, REAL ESTATE EXECUTIVE ASSISTANT-C Primary Care Provider Active Leela Hough , CNM Attending Provider, Referring Pr ovider Active Team Status: Inactive Member Role Status Dates Margaux Jay REAL ESTATE EXECUTIVE ASSISTANT, REAL ESTATE EXECUTIVE ASSISTANT-C Primary Care Provider Active Jessica Bella REAL ESTATE EXECUTIVE ASSISTANT, REAL ESTATE EXECUTIVE ASSISTANT-C Attending Provider, Referring Provider Active Server Security Administrator Relationship Specialty Start Date End Date Igor Richardson DO [address] [place] [address] PCP - General Family Medicine 10/13/15 Team Status: Inactive Member Role Status Dates Margaux Jay REAL ESTATE EXECUTIVE ASSISTANT, REAL ESTATE EXECUTIVE ASSISTANT-C Primary Care Provider, Referri ng Provider Active Margarita Rollins CNM Attending Provider Active Team Status: Inactive Member Role Status Dates Margaux Jay REAL ESTATE EXECUTIVE ASSISTANT, REAL ESTATE EXECUTIVE ASSISTANT-C Primary Care Provider Active Jessica Bella REAL ESTATE EXECUTIVE ASSISTANT, REAL ESTATE EXECUTIVE ASSISTANT-C Attending Provider Active Team Status: Active Member Role Status Dates Margaux Jay REAL ESTATE EXECUTIVE ASSISTANT, REAL ESTATE EXECUTIVE ASSISTANT-C Primary Care Provider Active Dr. Paradise Mackey MD Attending Provider Active Team Status: Active Member Role Status Dates Margaux Jay REAL ESTATE EXECUTIVE ASSISTANT, REAL ESTATE EXECUTIVE ASSISTANT-C Primary Care Provider Active Dr. Guadalupe Garcia DO Attending Provider, Refe rring Provider Active Team Status: Inactive Member Role Status Dates Margaux Jay REAL ESTATE EXECUTIVE ASSISTANT, REAL ESTATE EXECUTIVE ASSISTANT-C Primary Care Provider Active Dr. Paradise Mackey MD Attending Provider Active Team Status: Inactive Member Role Status Xavier Jay REAL ESTATE EXECUTIVE ASSISTANT, REAL ESTATE EXECUTIVE ASSISTANT-C Primary Care Provider Active Dr. Guadalupe Garcia DO Attending Provider, Refe rring Provider Active Team Status: Active Member Role Status Dates Margaux Jay REAL ESTATE EXECUTIVE ASSISTANT, REAL ESTATE EXECUTIVE ASSISTANT-C Primary Care Provider Active Margarita Rollins CNM Admit Provider, Att ending Provider, Referring Provider, Other Provider Active Team Status: Active Member Role Status Dates Margaux Jay REAL ESTATE EXECUTIVE ASSISTANT, REAL ESTATE EXECUTIVE ASSISTANT-C Primary Care Provider Active Dr. Guadalupe Garcia DO Admit Prov ider, Attending Provider, Other Provider Active Team Status: Active Member Role Status Dates Margaux Jay REAL ESTATE EXECUTIVE ASSISTANT, REAL ESTATE EXECUTIVE ASSISTANT-C Primary Care Provider Active Dr. Guadalupe Garcia DO Admit Provider, Other Pr ovider Active Jessica Bella REAL ESTATE EXECUTIVE ASSISTANT, REAL ESTATE EXECUTIVE ASSISTANT-C Attending Provider Active Team Status: Inactive Member Role Status Xavier Jay REAL ESTATE EXECUTIVE ASSISTANT, REAL ESTATE EXECUTIVE ASSISTANT-C Primary Care Provider Active Dr. Guadalupe Garcia DO Admit Provider, Attendin g Provider Active Team Status: Active Member Role Status Dates Dr. Francisco Villanueva MD Family Provider Active No Primary Care Physician Primary Care Provider Active Team Status: Inactive Member Role Status Dates Margaux Jay REAL ESTATE EXECUTIVE ASSISTANT, REAL ESTATE EXECUTIVE ASSISTANT-C Primary Care Provider Active Start: October 19, 2024 End: October 19, 2024 Margaux Jay REAL ESTATE EXECUTIVE ASSISTANT, REAL ESTATE EXECUTIVE ASSISTANT-C Referring Provider Active Start: October 19, 2024 End: October 19, 2024 Margarita Rollins CNM Attending Provider Active S tart: October 19, 2024 End: October 19, 2024 Team Status: Inactive Member Role Status Dates No Primary Care Physician Primary Care Provider Active Start: November 01, 2024 End: November 01, 2024 Margarita Rollins CNM Attending Provider Active S tart: November 01, 2024 End: November 01, 2024 Margarita Rollins CNM Referring Provider Active S tart: November 01, 2024 End: November 01, 2024 Team Status: Inactive Member Role Status Dates No Primary Care Physician Primary Care Provider Active Start: December 10, 2024 End: December 10, 2024 Margarita Rollins CNM Attending Provider Active S tart: December 10, 2024 End: December 10, 2024 Margarita Rollins CNM Referring Provider Active S tart: December 10, 2024 End: December 10, 2024 Team Status: Active Member Role Status Dates No Primary Care Physician Primary Care Provider Active Start: December 12, 2024 Margarita Rollins CNM Attending Provider Active S tart: December 12, 2024 Margarita Rollins CNM Referring Provider Active S tart: December 12, 2024 Team Status: Active Member Role Status Dates No Primary Care Physician Primary Care Provider Active Start: December 18, 2024 Margarita Rollins CNM Attending Provider Active S tart: December 18, 2024 Margarita Rollins CNM Referring Provider Active S tart: December 18, 2024 Team Status: Inactive Member Role Status Dates No Primary Care Physician Primary Care Provider Active Start: December 12, 2024 End: December 12, 2024 Margarita Rollins CNM Attending Provider Active S tart: December 12, 2024 End: December 12, 2024 Margarita Rollins CNM Referring Provider Active S tart: December 12, 2024 End: December 12, 2024 Team Status: Inactive Member Role Status Dates No Primary Care Physician Primary Care Provider Active Start: December 18, 2024 End: December 18, 2024 Margarita Rollins CNM Attending Provider Active S tart: December 18, 2024 End: December 18, 2024 Margarita Rollins CNM Referring Provider Active S tart: December 18, 2024 End: December 18, 2024 Team Status: Inactive Member Role Status Dates No Primary Care Physician Primary Care Provider Active Start: January 23, 2025 End: January 23, 2025 No Primary Care Physician Referring Provider Active Start: January 23, 2025 End: January 23, 2025 Dr. Guadalupe Garcia , DO Attending Provider Activ e Start: January 23, 2025 End: January 23, 2025 Team Status: Inactive Member Role Status Dates No Primary Care Physician Primary Care Provider Active Start: January 23, 2025 End: January 23, 2025 Dr. Guadalupe Garcia , DO Attending Provider Activ e Start: January 23, 2025 End: January 23, 2025 Dr. Guadalupe Garcia , DO Referring Provider Activ e Start: January 23, 2025 End: January 23, 2025 Team Status: Inactive Member Role Status Dates No Primary Care Physician Primary Care Provider Active Start: February 19, 2025 End: February 19, 2025 No Primary Care Physician Referring Provider Active Start: February 19, 2025 End: February 19, 2025 Maragrita Rollins CNM Attending Provider Active S tart: February 19, 2025 End: February 19, 2025 Team Status: Inactive Member Role Status Dates No Primary Care Physician Primary Care Provider Active Start: March 20, 2025 End: March 20, 2025 No Primary Care Physician Referring Provider Active Start: March 20, 2025 End: March 20, 2025 Jessica Bella REAL ESTATE EXECUTIVE ASSISTANT, REAL ESTATE EXECUTIVE ASSISTANT-C Attending Provider Active Start: March 20, 2025 End: March 20, 2025 Team Status: Active Member Role/Relationship Status Dates Dr. Francisco Villanueva MD Family Provider Active No Primary Care Physician Primary Care Provider Active Team Status: Inactive Member Role/Relationship Status Dates No Primary Care Physician Primary Care Provider Active Start: December 18, 2024 End: December 18, 2024 Margarita Rollins CNM Attending Provider Active S tart: December 18, 2024 End: December 18, 2024 Margarita Rollins CNM Referring Provider Active S tart: December 18, 2024 End: December 18, 2024 Team Status: Inactive Member Role/Relationship Status Dates No Primary Care Physician Primary Care Provider Active Start: January 23, 2025 End: January 23, 2025 No Primary Care Physician Referring Provider Active Start: January 23, 2025 End: January 23, 2025 Dr. Guadalupe Garcia DO Attending Provider Activ e Start: January 23, 2025 End: January 23, 2025 Team Status: Inactive Member Role/Relationship Status Dates No Primary Care Physician Primary Care Provider Active Start: January 23, 2025 End: January 23, 2025 Dr. Guadalupe Garcia DO Attending Provider Activ e Start: January 23, 2025 End: January 23, 2025 Dr. Guadalupe Garcia DO Referring Provider Activ e Start: January 23, 2025 End: January 23, 2025 Team Status: Inactive Member Role/Relationship Status Dates No Primary Care Physician Primary Care Provider Active Start: February 19, 2025 End: February 19, 2025 No Primary Care Physician Referring Provider Active Start: February 19, 2025 End: February 19, 2025 Margarita Rollins CNM Attending Provider Active S tart: February 19, 2025 End: February 19, 2025 Team Status: Inactive Member Role/Relationship Status Dates No Primary Care Physician Primary Care Provider Active Start: March 20, 2025 End: March 20, 2025 No Primary Care Physician Referring Provider Active Start: March 20, 2025 End: March 20, 2025 Jessica Bella NP, REAL ESTATE EXECUTIVE ASSISTANT-C Attending Provider Active Start: March 20, 2025 End: March 20, 2025 Team Status: Inactive Member Role/Relationship Status Dates No Primary Care Physician Primary Care Provider Active Start: April 16, 2025 End: April 16, 2025 No Primary Care Physician Referring Provider Active Start: April 16, 2025 End: April 16, 2025 Dr. Paradise Mackey MD Attending Provider Active Start: April 16, 2025 End: April 16, 2025 Team Status: Inactive Member Role/Relationship Status Dates No Primary Care Physician Primary Care Provider Active Start: January 23, 2025 End: January 23, 2025 No Primary Care Physician Referring Provider Active Start: January 23, 2025 End: January 23, 2025 Dr. Guadalupe Vande Velde , DO Attending Provider Activ e Start: January 23, 2025 End: January 23, 2025 Team Status: Inactive Member Role/Relationship Status Dates No Primary Care Physician Primary Care Provider Active Start: January 23, 2025 End: January 23, 2025 Dr. Guadalupe Garcia , DO Attending Provider Activ e Start: January 23, 2025 End: January 23, 2025 Dr. Guadalupe Garcia , DO Referring Provider Activ e Start: January 23, 2025 End: January 23, 2025 Team Status: Inactive Member Role/Relationship Status Dates No Primary Care Physician Primary Care Provider Active Start: February 19, 2025 End: February 19, 2025 No Primary Care Physician Referring Provider Active Start: February 19, 2025 End: February 19, 2025 Margarita Rollins CNM Attending Provider Active S tart: February 19, 2025 End: February 19, 2025 Team Status: Inactive Member Role/Relationship Status Dates No Primary Care Physician Primary Care Provider Active Start: March 20, 2025 End: March 20, 2025 No Primary Care Physician Referring Provider Active Start: March 20, 2025 End: March 20, 2025 Jessica Bella NP, REAL ESTATE EXECUTIVE ASSISTANT-C Attending Provider Active Start: March 20, 2025 End: March 20, 2025 Team Status: Inactive Member Role/Relationship Status Dates No Primary Care Physician Primary Care Provider Active Start: April 16, 2025 End: April 16, 2025 No Primary Care Physician Referring Provider Active Start: April 16, 2025 End: April 16, 2025 Dr. Paradise Mackey MD Attending Provider Active Start: April 16, 2025 End: April 16, 2025 Team Status: Inactive Member Role/Relationship Status Dates No Primary Care Physician Primary Care Provider Active Start: May 15, 2025 End: May 15, 2025 No Primary Care Physician Referring Provider Active Start: May 15, 2025 End: May 15, 2025 Jessica Bella NP, REAL ESTATE EXECUTIVE ASSISTANT-C Attending Provider Active Start: May 15, 2025 End: May 15, 2025 Team Status: Active Member Role/Relationship Status Dates No Primary Care Physician Primary Care Provider Active Start: May 15, 2025 Jessica Bella NP, REAL ESTATE EXECUTIVE ASSISTANT-C Attending Provider Active Start: May 15, 2025 Team Status: Inactive Member Role/Relationship Status Dates No Primary Care Physician Primary Care Provider Active Start: May 15, 2025 End: May 15, 2025 Jessica Bella REAL ESTATE EXECUTIVE ASSISTANT, REAL ESTATE EXECUTIVE ASSISTANT-C Attending Provider Active Start: May 15, 2025 End: May 15, 2025 Team Status: Active Member Role/Relationship Status Dates Dr. Francisco Villanueva MD Primary care physician Active No Primary Care Physician Primary care physician Activ e Team Status: Inactive Member Role/Relationship Status Dates No Primary Care Physician Primary care physician Activ e Start: February 19, 2025 End: February 19, 2025 No Primary Care Physician Referring Provider Active Start: February 19, 2025 End: February 19, 2025 Margarita Rollins CNM Attending physician Active Start: February 19, 2025 End: February 19, 2025 Team Status: Inactive Member Role/Relationship Status Dates No Primary Care Physician Primary care physician Activ e Start: March 20, 2025 End: March 20, 2025 No Primary Care Physician Referring Provider Active Start: March 20, 2025 End: March 20, 2025 Jessica Bella NP, REAL ESTATE EXECUTIVE ASSISTANT-C Attending physician Active Start: March 20, 2025 End: March 20, 2025 Team Status: Inactive Member Role/Relationship Status Dates No Primary Care Physician Primary care physician Activ e Start: April 16, 2025 End: April 16, 2025 No Primary Care Physician Referring Provider Active Start: April 16, 2025 End: April 16, 2025 Dr. Paradise Mackey MD Attending physician Active Start: April 16, 2025 End: April 16, 2025 Team Status: Inactive Member Role/Relationship Status Dates No Primary Care Physician Primary care physician Activ e Start: May 15, 2025 End: May 15, 2025 No Primary Care Physician Referring Provider Active Start: May 15, 2025 End: May 15, 2025 Jessica Bella NP, REAL ESTATE EXECUTIVE ASSISTANT-C Attending physician Active Start: May 15, 2025 End: May 15, 2025 Team Status: Inactive Member Role/Relationship Status Dates No Primary Care Physician Primary care physician Activ e Start: May 15, 2025 End: May 15, 2025 Jessica Bella NP, REAL ESTATE EXECUTIVE ASSISTANT-C Attending physician Active Start: May 15, 2025 End: May 15, 2025 Team Status: Inactive Member Role/Relationship Status Dates No Primary Care Physician Primary care physician Activ e Start: June 12, 2025 End: June 12, 2025 No Primary Care Physician Referring Provider Active Start: June 12, 2025 End: June 12, 2025 Dr. Paradise Mackey MD Attending physician Active Start: June 12, 2025 End: June 12, 2025 Team Status: Active Member Role/Relationship Status Dates No Primary Care Physician Primary care physician Activ e Team Status: Inactive Member Role/Relationship Status Dates No Primary Care Physician Primary care physician Activ e Start: March 20, 2025 End: March 20, 2025 No Primary Care Physician Referring Provider Active Start: March 20, 2025 End: March 20, 2025 Jessica Bella NP, REAL ESTATE EXECUTIVE ASSISTANT-C Attending physician Active Start: March 20, 2025 End: March 20, 2025 Team Status: Inactive Member Role/Relationship Status Dates No Primary Care Physician Primary care physician Activ e Start: April 16, 2025 End: April 16, 2025 No Primary Care Physician Referring Provider Active Start: April 16, 2025 End: April 16, 2025 Dr. Paradise Mackey MD Attending physician Active Start: April 16, 2025 End: April 16, 2025 Team Status: Inactive Member Role/Relationship Status Dates No Primary Care Physician Primary care physician Activ e Start: May 15, 2025 End: May 15, 2025 No Primary Care Physician Referring Provider Active Start: May 15, 2025 End: May 15, 2025 Jessica Bella NP REAL ESTATE EXECUTIVE ASSISTANT-C Attending physician Active Start: May 15, 2025 End: May 15, 2025 Team Status: Inactive Member Role/Relationship Status Dates No Primary Care Physician Primary care physician Activ e Start: May 15, 2025 End: May 15, 2025 Jessica Bella NP REAL ESTATE EXECUTIVE ASSISTANT-C Attending physician Active Start: May 15, 2025 End: May 15, 2025 Team Status: Inactive Member Role/Relationship Status Dates No Primary Care Physician Primary care physician Activ e Start: June 12, 2025 End: June 12, 2025 No Primary Care Physician Referring Provider Active Start: June 12, 2025 End: June 12, 2025 Dr. Paradise Mackey MD Attending physician Active Start: June 12, 2025 End: June 12, 2025 Team Status: Inactive Member Role/Relationship Status Dates No Primary Care Physician Primary care physician Activ e Start: June 26, 2025 End: June 26, 2025 No Primary Care Physician Referring Provider Active Start: June 26, 2025 End: June 26, 2025 Dr. Guadalupe Garcia DO Attending physician Acti ve Start: June 26, 2025 End: June 26, 2025 Team Status: Inactive Member Role/Relationship Status Dates No Primary Care Physician Primary care physician Activ e Start: April 16, 2025 End: April 16, 2025 No Primary Care Physician Referring Provider Active Start: April 16, 2025 End: April 16, 2025 Dr. Paradise Mackey MD Attending physician Active Start: April 16, 2025 End: April 16, 2025 Team Status: Inactive Member Role/Relationship Status Dates No Primary Care Physician Primary care physician Activ e Start: May 15, 2025 End: May 15, 2025 No Primary Care Physician Referring Provider Active Start: May 15, 2025 End: May 15, 2025 Jessica Bella NP, REAL ESTATE EXECUTIVE ASSISTANT-C Attending physician Active Start: May 15, 2025 End: May 15, 2025 Team Status: Inactive Member Role/Relationship Status Dates No Primary Care Physician Primary care physician Activ e Start: May 15, 2025 End: May 15, 2025 Jessica Bella NP, REAL ESTATE EXECUTIVE ASSISTANT-C Attending physician Active Start: May 15, 2025 End: May 15, 2025 Team Status: Inactive Member Role/Relationship Status Dates No Primary Care Physician Primary care physician Activ e Start: June 12, 2025 End: June 12, 2025 No Primary Care Physician Referring Provider Active Start: June 12, 2025 End: June 12, 2025 Dr. Paradise Mackey MD Attending physician Active Start: June 12, 2025 End: June 12, 2025 Team Status: Inactive Member Role/Relationship Status Dates No Primary Care Physician Primary care physician Activ e Start: June 26, 2025 End: June 26, 2025 No Primary Care Physician Referring Provider Active Start: June 26, 2025 End: June 26, 2025 Dr. Guadalupe Garcia DO Attending physician Acti ve Start: June 26, 2025 End: June 26, 2025 Team Status: Inactive Member Role/Relationship Status Dates No Primary Care Physician Primary care physician Activ e Start: July 08, 2025 End: July 08, 2025 No Primary Care Physician Referring Provider Active Start: July 08, 2025 End: July 08, 2025 Margarita Rollins CNM Attending physician Active Start: July 08, 2025 End: July 08, 2025 Source Comments (unrecognize d section and content) In the event this informatio n is protected by the Federal Confidentiality of Alcohol and Drug Abuse Patient Records regulations: The Federal rules restrict any use of the information to criminally investigate or prosecute any alcohol or drug abuse patient.[facility] Reason for Visit (unrecogniz ed section and content) Reason Comments Appointment INFORMATION SOURCE (unrecogn ized section and content) DATE CREATED AUTHOR 12/03/2022 [facility] DATE CREATED AUTHOR AUTHOR'S ORGANIZ ATION 03/28/2025 [facility] DATE CREATED AUTHOR AUTHOR'S ORGANIZ ATION 08/07/2025 [facility] FOR RECORDS PERTAINING TO PATIENTS WHO ARE OR HAVE BEEN ENROLLED IN A CHEMICAL DEPENDENCY/SUBSTANCEABUSE PROGRAM, SOME INFORMATION MAY BE OMITTED. This clinical summary was aggregated from multiple sources. Caution should be exercised in using it in the provision of clinical care. This summary normalizes information from multiple sources, and as a consequence, information in this document may materially change the coding, format and clinical context of patient data. In addition, data may be omitted in some cases. CLINICAL DECISIONS SHOULD BE BASED ON THE PRIMARY CLINICAL RECORDS. [employer] provides no warranty or guarantee of the accuracy or completeness of information in this document.
--- OUTSIDE RECORDS SUMMARY | 2025-08-24 07:25 | XMS RPT_ITS | CCD ---
Author Organization [facility] CliniSymd Care Team Providers Care [employer] Pump Tender Name Role Phone Haagen HEEL BLACKER, HEEL BLACKER-C Margaux Primary Care Provider [phone] Haagen HEEL BLACKER, HEEL BLACKER-C Margaux Referring Provider Dr. Paradise Mackey Attending Provider Haagen HEEL BLACKER, HEEL BLACKER-C Margaux Primary Care Provider Haagen HEEL BLACKER, HEEL BLACKER-C Margaux Referring Provider Dr. Paradise Mackey Attending Provider Dr. Guadalupe Garcia Attending Provider Haagen HEEL BLACKER, HEEL BLACKER-C Margaux Primary Care Provider Haagen HEEL BLACKER, HEEL BLACKER-C Margaux Referring Provider Dr. Guadalupe Garcia Attending Provider Dr. Paradise Mackey Attending Provider AVIS Hough Attending Provider Shayne HEEL BLACKER, HEEL BLACKER-C Jessica Attending Provider Haagen HEEL BLACKER, HEEL BLACKER-C Margaux Primary Care Provider [phone] Haagen HEEL BLACKER, HEEL BLACKER-C Margaux Referring Provider Igor Richardson DO Primary Care Provider Haagen HEEL BLACKER, HEEL BLACKER-C Margaux Primary Care Provider [phone] Haagen HEEL BLACKER, HEEL BLACKER-C Margaux Referring Provider AVIS Hough Attending Provider [place] HEEL BLACKER, HEEL BLACKER-C Jessica Attending Provider Dr. Paradise Mackey Attending Provider [phone] AVIS Rollins Attending Provider [phone] Dr. Guadalupe Garcia Attending Provider [phone] AVIS Rollins Admit Provider [phone] AVIS Rollins Referring Provider [phone] AVIS Rollins Other Provider [phone] Guadalupe Garcia Admit Provider Dr. Guadalupe Garcia Other Provider Haagen HEEL BLACKER-C, Margaux Primary Care Provider Haagen HEEL BLACKER-C, Margaux Referring Provider Margarita Rollins CNM Attending [...] [phone] Margarita Rollins CNM Referring Provider [phone] [place] HEEL BLACKER-CJessica Attending Provider [phone] GUADALUPE OCONNOR Referring [...] [phone] Dr. Paradise Mackey MD Attending Provider [phone] Care Physician, No Primary Primary Care Provider Unavailable Margarita Rollins CNM Attending Provider [phone] Care Physician, No Primary Primary Care Physicia n Unavailable Care Physician, No Primary Referring Provider Un available Margarita Rollins CNM Attending Physician [phone] Shayne KNIGHT-CJessica Attending Physician [phone] Key ALLEN, Dr. Ghotra Attending Physician Care Physician, No Primary Primary Care Physicia n Unavailable Care Physician, No Primary Referring Provider Un available Yuly Reyes DO, Dr. Butcher Attending Physician Care Physician, No Primary Primary Care Physicia n Unavailable Care Physician, No Primary Referring Provider Un available Jessica Mitchell Attending Physician [phone] Margarita Rollins CNM Attending Physician [phone] Care Physician, No Primary Primary Care Unava [...] Primary Primary Care Unava ilable Paradise Mackey Referring Unavailable Paradise Mackey Attending Unavailable Care Physician, No Primary Primary Care Unava ilable Margarita Rollins Referring Unavailable Margarita Rollins Attending Unavailable Haagen HEEL BLACKER, Margaux Referring Unavailable Pierre HEEL BLACKER, Margaux Primary Care Unavailable Margarita Rollins Attending Unavailable Care Physician, No Primary Referring Unava ilable Guadalupe Garcia Attending Unavailabl e Care Physician, No Primary Primary Care Unava ilable Care Physician, No Primary Referring Unava ilable Care Physician, No Primary Primary Care Unava ilable Margarita Rollins Attending Unavailable Care Physician, No Primary Referring Unava ilable Shayne HEEL BLACKER, Jessica Attending Unavailable Care Physician, No Primary Primary Care Unava ilable Care Physician, No Primary Referring Unava ilable Care Physician, No Primary Primary Care Unava ilable Paradise Mackey Attending Unavailable Marcanthony, Paradise Attending Unavailable Care Physician, No Primary Referring Unava ilable Care Physician, No Primary Primary Care Unava ilable Care Physician, No Primary Referring Unava ilable Shayne HEEL BLACKER, Jessica Attending Unavailable Care Physician, No Primary [...] Translations: [AMOXICILLIN-POT CLAVULANATE] Drug Allergy 09-04-2005 [facility] Medications Current Medications Medication Drug Class(es) Dates [...] Start: 01-18-2023 take 1 capsule by mo [facility] once daily magnesium Active 1 CAP SL/PO DAILY January 18, 2023 12:00am Multivit 05-Orej-Pweejj 1-Dh a (Pnv-Dha) 27 mg iron-1 mg [...] capsule by mo uth once daily Multivit 76-Gulb-Caaezm 1-Dha (Pnv-Dha) 27 mg iron-1 mg -300 [...] 07-22-2022 Episodic Comment on above: PRR , NAT 01/19/ 3(per [place]), boy Spouse Guerrero , [...] hr: will do QID BS testing. Decline juice scaleman consult Other complications of (2 sources) Supervision [...] Test Name Value Interpretation Reference Range Facility Water Service Dispatcher Office Visit Reporton 08-06-2025 Water Service Dispatcher Office Visit Report [facility] [address], [address] [place] [address] OFFICE VISIT Date of Service: 08/06/25 MR#: [id number] Acct: [id number] Name: JENNY IBARRA Rep #: [id number] : 1995 Provider: AVIS Doe ams Age/Sex: 29/F Location: [facility] Status: Signed Intake Vital Signs 06/12/25 09:27 07/30/25 08:27 08/06/25 10:21 08/06/25 10:22 Height 5 ft 4 in 5 ft 4 in 5 ft 4 in 5 ft 4 in Weight: 219 lb 2 oz BMI 37.5 BP 113/71 Intake Visit Reasons: 37w 5d ob Support Clerk Required: No Is patient in pain?: No [...] current occupational status: employed current occupation: [employer] current occupational exposures/hazards: No pets and animals: [...] 1-2 times per week duration: 15-30 minutes/day keturah/jew: Jain seatbelt use: always do you feel safe [...] Benny 40 live - full term Male [facility] Dr. Alma Delia Masters Delivery Date: 01/19/23 [...] -???-???-???-???-???-?? ?-???-? (more content not included)... Normal [facility] Rule out Beta Strep (Grp. B) on 08-01-2025 ABILIO Group B Beta Streptococcus is not isolated. Normal [facility] Comment on above: Performed By: #### M 100.3400 ####[facility] [address] [place], [address] CBC W/Diff, Automatedon 11-0 Absolute Lymph 1.30 X10 3/uL Normal 0.83-4.51 [facility] Comment on above: Performed By: #### L 100.0100, L500.4050 ####[facility] [address] [place], [address] Absolute Neut 3.4 X10 3/uL Normal 2.0-7.7 [facility] Comment on above: Performed By: #### L 100.0100, L500.4050 ####[facility] [address] [place], [address] Basophils/100 WBC (Bld) 0.6 % Normal 0-1 [facility] Comment on above: Performed By: #### L 100.0100, L500.4050 ####[facility] [address] [place], [address] Eosinophils/100 WBC (Bld) 1.9 % Normal 0-5 [facility] Comment on above: Performed By: #### L 100.0100, L500.4050 ####[facility] [address] [place], [address] Erythrocyte distribution width (RBC) [Ratio] 13.0 % Normal 11.6-14.6 [facility] Comment on above: Performed By: #### L 100.0100, L500.4050 ####[facility] [address] [place], [address] Hematocrit (Bld) [Volume fraction] 33.6 % Low 37-47 [facility] Comment on above: Performed By: #### L 100.0100, L500.4050 ####[facility] [address] [place], [address] Hemoglobin (Bld) [Mass/Vol] 12.1 g/dL Normal 12.0-15.0 [facility] Comment on above: Performed By: #### L 100.0100, L500.4050 ####[facility] [address] [place], [address] IG% 0.400 Normal 0.0-0.9 [facility] Comment on above: Result Comment: IG% - Immature Granulocytes (promyelocytes, myelocytes and metamyelocytes) > 1% indicates that a LEFT SHIFT is Present. Performed By: #### L 100.0100, L500.4050 ####[facility] [address] [place], [address] Lymphocytes/100 WBC (Bld) 25.1 % Normal 19-41 [facility] Comment on above: Performed By: #### L 100.0100, L500.4050 ####[facility] [address] [place], [address] MCH (RBC) [Entitic mass] 32.1 pg High 27.0-32.0 [facility] Comment on above: Performed By: #### L 100.0100, L500.4050 ####[facility] [address] [place], [address] MCHC (RBC) [Mass/Vol] 36.0 g/dL Normal 32-36 [facility] Comment on above: Performed By: #### L 100.0100, L500.4050 ####[facility] [address] [place], [address] MCV (RBC) [Entitic vol] 89.1 fL Normal 81-99 [facility] Comment on above: Performed By: #### L 100.0100, L500.4050 ####[facility] [address] [place], [address] Monocytes/100 WBC (Bld) 5.4 % Normal 0-10 [facility] Comment on above: Performed By: #### L 100.0100, L500.4050 ####[facility] [address] [place], [address] Neutrophils/100 WBC (Bld) 66.6 % Normal 47-70 [facility] Comment on above: Performed By: #### L 100.0100, L500.4050 ####[facility] [address] [place], [address] Nucleated RBC (Bld) [#/Vol] 0 10*3/uL Normal 0-5 [facility] Comment on above: Performed By: #### L 100.0100, L500.4050 ####[facility] [address] [place], [address] Platelet mean volume (Bld) [Entitic vol] 11.0 fL Normal 6.2-12.0 [facility] Comment on above: Performed By: #### L 100.0100, L500.4050 ####[facility] [address] [place], [address] Platelets (Bld) [#/Vol] 147 10*3/uL Low 150-450 [facility] Comment on above: Performed By: #### L 100.0100, L500.4050 ####[facility] [address] [place], [address] RBC (Bld) [#/Vol] 3.77 10*6/uL Low 4.2-5.4 [facility] Comment on above: Performed By: #### L 100.0100, L500.4050 ####[facility] [address] [place], [address] RDW SD 42.5 fl Normal 35.1-43.9 [facility] Comment on above: Performed By: #### L 100.0100, L500.4050 ####[facility] [address] [place], [address] WBC (Bld) [#/Vol] 5.2 10*3/uL Normal 4.4-11.0 [facility] Comment on above: Performed By: #### L 100.0100, L500.4050 ####[facility] [address] [place], [address] Comprehensive Metabolic Prof ilon 07-30-2025 Albumin [Mass/Vol] 3.5 g/dL Normal 3.5-5.0 [facility] Comment on above: Performed By: #### L 100.0100, L500.4050 ####[facility] [address] [place], [address] Albumin/Globulin [Mass ratio] 1.6 {ratio} Normal 0.9-2.4 [facility] Comment on above: Performed By: #### L 100.0100, L500.4050 ####[facility] [address] [place], [address] ALK PHOS 75 U/L Normal 35-104 [facility] Comment on above: Performed By: #### L 100.0100, L500.4050 ####[facility] [address] [place], [address] ALT [Catalytic activity/Vol] 15 U/L Normal <=34 [facility] Comment on above: Performed By: #### L 100.0100, L500.4050 ####[facility] [address] [place], [address] AST [Catalytic activity/Vol] 19 U/L Normal <=31 [facility] Comment on above: Performed By: #### L 100.0100, L500.4050 ####[facility] [address] [place], [address] Bilirubin [Mass/Vol] 0.30 mg/dL Normal 0.00-1.30 [facility] Comment on above: Performed By: #### L 100.0100, L500.4050 ####[facility] [address] [place], [address] BUN/CRE 14.5 RATIO Normal 10-20 [facility] Comment on above: Performed By: #### L 100.0100, L500.4050 ####[facility] [address] [place], [address] Calcium [Mass/Vol] 8.6 mg/dL Normal 7.6-11.0 [facility] Comment on above: Performed By: #### L 100.0100, L500.4050 ####[facility] [address] [place], [address] Chloride [Moles/Vol] 105 mmol/L Normal 98-108 [facility] Comment on above: Performed By: #### L 100.0100, L500.4050 ####[facility] [address] [place], [address] CO2 [Moles/Vol] 23.8 mmol/L Normal 21.0-32.0 [facility] Comment on above: Performed By: #### L 100.0100, L500.4050 ####[facility] [address] [place], [address] Creatinine [Mass/Vol] 0.66 mg/dL Low 0.70-1.20 [facility] Comment on above: Performed By: #### L 100.0100, L500.4050 ####[facility] [address] [place], [address] GAP 9 Normal 5-15 [facility] Comment on above: Performed By: #### L 100.0100, L500.4050 ####[facility] [address] [place], [address] GFR/1.73 sq M.predicted among non-blacks MDRD (S/P/Bld) [Vol rate/Area] 122 mL/min/{1.73_m2} Normal >60 [facility] Comment on above: Result Comment: mL/m in/1.73m2 CKD-EPI Creatinine Equation (2020) Performed By: #### L 100.0100, L500.4050 ####[facility] [address] [place], [address] Globulin (S) [Mass/Vol] 2.3 g/dL Normal 2.2-4.2 [facility] Comment on above: Performed By: #### L 100.0100, L500.4050 ####[facility] [address] [place], [address] Glucose [Mass/Vol] 112 mg/dL High 70-99 [facility] Comment on above: Performed By: #### L 100.0100, L500.4050 ####[facility] [address] [place], [address] Potassium [Moles/Vol] 3.8 mmol/L Normal 3.3-5.1 [facility] Comment on above: Performed By: #### L 100.0100, L500.4050 ####[facility] [address] [place], [address] Sodium [Moles/Vol] 138 mmol/L Normal 133-145 [facility] Comment on above: Performed By: #### L 100.0100, L500.4050 ####[facility] [address] [place], [address] T PROT 5.7 g/dL Low 5.9-8.4 [facility] Comment on above: Performed By: #### L 100.0100, L500.4050 ####[facility] [address] [place], [address] Urea nitrogen [Mass/Vol] 10 mg/dL Normal 4-19 [facility] Comment on above: Performed By: #### L 100.0100, L500.4050 ####[facility] [address] [place], [address] OB Limited With Biometricson 07-30-2025 OB Limited With Biometrics [facility] [address] [place] [address] OB Limited With Biometrics MR#: [id number] Acct: [id number] Name: JENNY IBARRA Rep #: [id number] : 1995 F 29 From: Julio Cesar benitez MD PCP: Care Physician,No Primary Status: REG CLI Study: OB Limited With Biometrics Date of Exam: 07/30 Exam# [id number] Ordering Dr: Margarita Rollins CNM PROCEDURE: OB [...] 37 weeks and 3 days. Reading Location: [facility] CC: AVIS Rollins; No Primary Care Physician Nailer Hand: Signed Normal [facility] Water Service Dispatcher Office Visit Reporton 07-30-2025 Water Service Dispatcher Office Visit Report [facility] [address], [address] [place] [address] OFFICE VISIT Date of Service: 07/30/25 MR#: [id number] Acct: [id number] Name: JENNY IBARRA Rep #: [id number] : 1995 Provider: Dr. Guadalupe Jarvis DO Age/Sex: 29/F Location: [facility] Status: Signed Intake Vital Signs 06/12/25 09:27 07/23/25 14:05 07/30/25 08:27 Height 5 ft 4 in 5 ft 4 in 5 ft 4 in Weight: 218 lb 3 oz BMI 37.4 BP 116/69 Intake Visit Reasons: 36w 5 d ob Chief Complaint: 36wk OB Support Clerk Required: No Is patient in pain?: No [...] current occupational status: employed current occupation: [employer] current occupational exposures/hazards: No pets and animals: [...] 1-2 times per week duration: 15-30 minutes/day keturah/jew: Jain seatbelt use: always do you feel safe at home: Yes additional social history: - Guerrero, [employer] [place] [employer] History 4 Elective abortions Hx Para 1 Spontaneous abortions 1 Hx # Term Pregnancies Ectopic pregnancies 1 Hx # Pregnancies Multiple births # of living children 1 Past Pregnancies Del. Date Name GA/Weeks Outcome Route Bth Weight Infant [facility] F[facility] Unknown ectopic Unknown spontaneous 01/19/23 Benny 40 live - full term Male [facility] Dr. Alma Delia Reyes Guerrero Delivery Date: [...] -???-???-???-???-???-?? ?-???-???-???- (more content not included)... Normal [facility] Water Service Dispatcher Office Visit Reporton 07-23-2025 Water Service Dispatcher Office Visit Report [facility] [address], [address] [place] [address] OFFICE VISIT Date of Service: 07/23/25 MR#: [id number] Acct: [id number] Name: JENNY IBARRA Rep #: [id number] : 1995 Provider: Dr. Paradise bright MD Age/Sex: 29/F Location: [facility] Status: Signed Intake Vital Signs 06/12/25 09:27 07/08/25 10:42 07/23/25 14:05 Height 5 ft 4 in 5 ft 4 in 5 ft 4 in Weight: 219 lb 8 oz BMI 37.6 BP 127/75 H Intake Visit Reasons: 35w 5d ob Support Clerk Required: No Is patient in pain?: No [...] current occupational status: employed current occupation: [employer] current occupational exposures/hazards: No pets and animals: [...] 1-2 times per week duration: 15-30 minutes/day keturah/jew: Jain seatbelt use: always do you feel safe at home: Yes additional social history: - Guerrero, [employer] History 4 Elective abortions Hx Para 1 Spontaneous abortions 1 Hx # Term Pregnancies Ectopic pregnancies 1 Hx # Pregnancies Multiple births # of living children 1 Past Pregnancies Del. Date Name GA/Weeks Outcome Route Bth Weight Infant Gen Labor Lgth Anesthesia Del Locatn Provider FOB Unknown ectopic Unknown spontaneous 01/19/23 Benny 40 live - full term Male [facility] Dr. Alma Delia Reyes Guerrero Delivery Date: [...] ??- 170 (more content not included)... Normal [facility] Laboratory - Chemistry and C hemistry - challengeOrdered By: Margarita Rollins on 10-13-2025 Glucose Ql (U) Negative [facility] Laboratory - UrinalysisOrder ed By: Margarita Rollins on 07-08-2025 Protein Ql (U) Negative [facility] Water Service Dispatcher Office Visit Reporton 07-08-2025 Water Service Dispatcher Office Visit Report [facility] [address], [address] [place] [address] OFFICE VISIT Date of Service: 07/08/25 MR#: [id number] Acct: [id number] Name: JENNY IBARRA Rep #: [id number] : 1995 Provider: AVIS Doe ams Age/Sex: 29/F Location: [facility] Status: Signed Intake Vital Signs 06/12/25 09:27 06/26/25 09:29 07/08/25 10:42 Height 5 ft 4 in 5 ft 4 in 5 ft 4 in Weight: 216 lb 9 oz 219 lb 7 oz 217 lb 9 oz BMI 37.1 37.6 37.3 BP 110/71 104/63 117/81 H Intake Visit Reasons: 33w 4d ob Chief Complaint: 33wk OB Support Clerk Required: No Is patient in pain?: No [...] current occupational status: employed current occupation: [employer] [place] [employer] current occupational exposures/hazards: No pets and animals: [...] 1-2 times per week duration: 15-30 minutes/day keturah/jew: Jain seatbelt use: always do you feel safe [...] Benny 40 live - full term Male [facility] Dr. Alma Delia Masters Delivery Date: 01/19/23 [...] -???-???-???-???-???-?? ?-? (more content not included)... Normal [facility] Laboratory - Chemistry and C hemistry - challengeOrdered By: Guadalupe Reyes on 06-26-2025 Glucose Ql (U) Negative [facility] Laboratory - UrinalysisOrder ed By: Guadalupe Reyes on 06-26-2025 Protein Ql (U) Negative [facility] Water Service Dispatcher Office Visit Reporton 06-26-2025 Water Service Dispatcher Office Visit Report [facility] [address], [address] [place] [address] OFFICE VISIT Date of Service: 06/26/25 MR#: [id number] Acct: [id number] Name: JENNY IBARRA Rep #: [id number] : 1995 Provider: Dr. Guadalupe Jarvis, Age/Sex: 29/F Location: [facility] Status: Signed Intake Vital Signs 04/16/25 15:11 06/12/25 09:27 06/26/25 09:29 Height 5 ft 4 in 5 ft 4 in 5 ft 4 in Weight: 219 lb 7 oz BMI 37.6 BP 104/63 Intake Visit Reasons: 31w 6d ob Support Clerk Required: No Is patient in pain?: No [...] current occupational status: employed current occupation: [employer] current occupational exposures/hazards: No pets and animals: [...] 1-2 times per week duration: 15-30 minutes/day keturah/jew: Jain seatbelt use: always do you feel safe [...] Benny 40 live - full term Male [facility] Dr. Alma Delia Masters Delivery Date: 01/19/23 [...] ?-???-???-???-???-???-? ??- (more content not included)... Normal [facility] Laboratory - Chemistry and C hemistry - challengeOrdered By: Paradise Mackey on 06-12-2025 Glucose Ql (U) Negative [facility] Laboratory - UrinalysisOrder ed By: Paradise Mackey on 06-12-2025 Protein Ql (U) Negative [facility] Water Service Dispatcher Office Visit Reporton 06-12-2025 Water Service Dispatcher Office Visit Report [facility] [address], [address] [place] [address] OFFICE VISIT Date of Service: 06/12/25 MR#: [id number] Acct: [id number] Name: JENNY IBARRA Rep #: [id number] : 1995 Provider: Dr. Paradise bright MD Age/Sex: 29/F Location: [facility] Status: Signed Intake Vital Signs 04/16/25 15:11 05/15/25 09:35 06/12/25 09:27 Height 5 ft 4 in 5 ft 4 in 5 ft 4 in Weight: 216 lb 9 oz BMI 37.1 BP 110/71 Intake Visit Reasons: 30wk ob Support Clerk Required: No Is patient in pain?: No [...] current occupational status: employed current occupation: [employer] current occupational exposures/hazards: No pets and animals: [...] 1-2 times per week duration: 15-30 minutes/day keturah/jew: Jain seatbelt use: always do you feel safe at home: Yes additional social history: - Guerrero, [employer] History 4 Elective abortions Hx Para 1 Spontaneous abortions 1 Hx # Term Pregnancies Ectopic pregnancies 1 Hx # Pregnancies Multiple births # of living children 1 Past Pregnancies Del. Date Name GA/Weeks Outcome Route Bth Weight Gen Labor Lgth Anesthesia Del Locatn Provider FOB Unknown ectopic Unknown spontaneous 01/19/23 Benny 40 live - full term Male [facility] Dr. Alma Delia Reyes Guerrero Delivery Date: [...] 122/77 -???-???- (more content not included)... Normal [facility] Absolute lymphocyte countOrd ered By: Jessica Bella on 05-15-2025 Lymphocytes Auto (Unsp spec) [#/Vol] 1.25 10*3/uL 0.83-4.51 [facility] Absolute neutrophil countOrd ered By: Jessica Bella on 05-15-2025 Neutrophils (Bld) [#/Vol] 4.4 10*3/uL 2.0-7.7 [facility] Automated lymphocyte count a s percentage of total leukocytesOrdered By: Jessica Bella on 05-15-2025 Lymphocytes/100 WBC Auto (Unsp spec) 20.4 % 19-41 [facility] Basophil percentageOrdered B y: Jessica Bella on 05-15-2025 Basophils/100 WBC (Bld) 0.5 % 0-1 [facility] CBC W/Diff, Automatedon 04-27 Absolute Lymph 1.25 X10 3/uL Normal 0.83-4.51 [facility] Comment on above: Performed By: #### L 3890.6006, L509.8002, L501.0250, L100.0100 #### [facility] [address] [place], [address] Absolute Neut 4.4 X10 3/uL Normal 2.0-7.7 [facility] Comment on above: Performed By: #### L 3890.6006, L509.8002, L501.0250, L100.0100 #### [facility] [address] [place], [address] Basophils/100 WBC (Bld) 0.5 % Normal 0-1 [facility] Comment on above: Performed By: #### L 3890.6006, L509.8002, L501.0250, L100.0100 #### [facility] [address] [place], [address] Eosinophils/100 WBC (Bld) 2.4 % Normal 0-5 [facility] Comment on above: Performed By: #### L 3890.6006, L509.8002, L501.0250, L100.0100 #### [facility] [address] [place], [address] Erythrocyte distribution width (RBC) [Ratio] 12.3 % Normal 11.6-14.6 [facility] Comment on above: Performed By: #### L 3890.6006, L509.8002, L501.0250, L100.0100 #### [facility] [address] [place], [address] Hematocrit (Bld) [Volume fraction] 32.5 % Low 37-47 [facility] Comment on above: Performed By: #### L 3890.6006, L509.8002, L501.0250, L100.0100 #### [facility] [address] [place], [address] Hemoglobin (Bld) [Mass/Vol] 11.5 g/dL Low 12.0-15.0 [facility] Comment on above: Performed By: #### L 3890.6006, L509.8002, L501.0250, L100.0100 #### [facility] [address] [place], [address] IG% 0.200 Normal 0.0-0.9 [facility] Comment on above: Result Comment: IG% - Immature Granulocytes (promyelocytes, myelocytes and metamyelocytes) > 1% indicates that a LEFT SHIFT is Present. Performed By: #### L 3890.6006, L509.8002, L501.0250, L100.0100 #### [facility] [address] [place], [address] Lymphocytes/100 WBC (Bld) 20.4 % Normal 19-41 [facility] Comment on above: Performed By: #### L 3890.6006, L509.8002, L501.0250, L100.0100 #### [facility] [address] [place], [address] MCH (RBC) [Entitic mass] 31.9 pg Normal 27.0-32.0 [facility] Comment on above: Performed By: #### L 3890.6006, L509.8002, L501.0250, L100.0100 #### [facility] [address] [place], [address] MCHC (RBC) [Mass/Vol] 35.4 g/dL Normal 32-36 [facility] Comment on above: Performed By: #### L 3890.6006, L509.8002, L501.0250, L100.0100 #### [facility] [address] [place], [address] MCV (RBC) [Entitic vol] 90.3 fL Normal 81-99 [facility] Comment on above: Performed By: #### L 3890.6006, L509.8002, L501.0250, L100.0100 #### [facility] [address] [place], [address] Monocytes/100 WBC (Bld) 4.1 % Normal 0-10 [facility] Comment on above: Performed By: #### L 3890.6006, L509.8002, L501.0250, L100.0100 #### [facility] [address] [place], [address] Neutrophils/100 WBC (Bld) 72.4 % High 47-70 [facility] Comment on above: Performed By: #### L 3890.6006, L509.8002, L501.0250, L100.0100 #### [facility] [address] [place], [address] Nucleated RBC (Bld) [#/Vol] 0 10*3/uL Normal 0-5 [facility] Comment on above: Performed By: #### L 3890.6006, L509.8002, L501.0250, L100.0100 #### [facility] [address] [place], [address] Platelet mean volume (Bld) [Entitic vol] 10.6 fL Normal 6.2-12.0 [facility] Comment on above: Performed By: #### L 3890.6006, L509.8002, L501.0250, L100.0100 #### [facility] [address] [place], [address] Platelets (Bld) [#/Vol] 206 10*3/uL Normal 150-450 [facility] Comment on above: Performed By: #### L 3890.6006, L509.8002, L501.0250, L100.0100 #### [facility] [address] [place], [address] RBC (Bld) [#/Vol] 3.60 10*6/uL Low 4.2-5.4 [facility] Comment on above: Performed By: #### L 3890.6006, L509.8002, L501.0250, L100.0100 #### [facility] [address] [place], [address] RDW SD 40.2 fl Normal 35.1-43.9 [facility] Comment on above: Performed By: #### L 3890.6006, L509.8002, L501.0250, L100.0100 #### [facility] [address] [place], [address] WBC (Bld) [#/Vol] 6.1 10*3/uL Normal 4.4-11.0 [facility] Comment on above: Performed By: #### L 3890.6006, L509.8002, L501.0250, L100.0100 #### [facility] [address] [place], [address] Eosinophil percentageOrdered By: Jessica Bella on 05-15-2025 Eosinophils/100 WBC (Bld) 2.4 % 0-5 [facility] Erythrocyte distribution wid th ratioOrdered By: Jessica Aguiartings on 05-15-2025 Erythrocyte distribution width (RBC) [Ratio] 12.3 % 11.6-14.6 [facility] Erythrocyte distribution wid th standard deviationOrdered By: Jessicakleber Bella on 05-15-2025 Erythrocyte distribution width (RBC) [Ratio] 40.2 fl 35.1-43.9 [facility] Glucose Challenge Gest 1H 50 chevy 05-15-2025 GLU GEST 50g 1H 158 mg/dL High 70-140 [facility] Comment on above: Performed By: #### L 3890.6006, L509.8002, L501.0250, L100.0100 #### [facility] [address] [place], [address] Glucose measurement at 2 aide rs post-dose gestational glucose tolerance testOrdered By: Jessica Bella on 05-15-2025 Glucose [Mass/Vol] 158 mg/dL High 70-140 [facility] HIVon 05-15-2025 HIV Non-Reactive Normal Nonreactive [facility] Comment on above: Result Comment: Non- Reactive Reactive Repeatedly reactive samples must be confirmed according to CDC recommended confirmatory algorithms. The subresults for either HIVAG or AHIV can be used as an aid in the selection of the confirmation algorithm for reactive samples. Send out specimens with Reactive results to [facility] for confirmation. Order the HIV antibody detection and differentiation: lc#[id number] Performed By: #### L 3890.6006, L509.8002, L501.0250, L100.0100 #### [facility] [address] [place], [address] Hematocrit Auto (Bld) [Volum e fraction]Ordered By: Jessica Bella on 05-15-2025 Hematocrit (Bld) [Volume fraction] 32.5 % Low 37-47 [facility] Hemoglobin measurementOrdere d By: Jessica Bella on 05-15-2025 Hemoglobin (Bld) [Mass/Vol] 11.5 g/dL Low 12.0-15.0 [facility] Immature granulocytes/100 WB C Auto (Bld)Ordered By: Jessica Bella on 05-15-2025 Immature granulocytes/100 WBC (Bld) 0.200 % 0.0-0.9 [facility] Comment on above: IG% - Immature Granu locytes (promyelocytes, myelocytes and metamyelocytes) > 1% indicates that a LEFT SHIFT is Present. Laboratory - Chemistry and C hemistry - challengeOrdered By: Jessica Bella on 05-15-2025 Glucose Ql (U) Negative [facility] - UrinalysisOrder ed By: Jessica Bella on 05-15-2025 Protein Ql (U) Negative [facility] MCV (mean corpuscular volume ) determinationOrdered By: Jessica Bella on 05-15-2025 MCV (RBC) [Entitic vol] 90.3 fL 81-99 [facility] Mean corpuscular hemoglobin (MCH) determinationOrdered By: Jessica Bella on 05-15-2025 MCH (RBC) [Entitic mass] 31.9 pg 27.0-32.0 [facility] Mean corpuscular hemoglobin concentration (MCHC) determinationOrdered By: Jessica Bella on 05-15-2025 MCHC (RBC) [Mass/Vol] 35.4 g/dL 32-36 [facility] Mean platelet volume determi nationOrdered By: Jessica Bella on 05-15-2025 Platelet mean volume (Bld) [Entitic vol] 10.6 fL 6.2-12.0 [facility] Monocyte percentageOrdered B y: Jessica Bella on 05-15-2025 Monocytes/100 WBC (Bld) 4.1 % 0-10 [facility] Neutrophil percentageOrdered By: Jessica Bella on 05-15-2025 Neutrophils/100 WBC (Bld) 72.4 % High 47-70 [facility] No Panel InformationOrdered By: Jessica Bella on 05-15-2025 HIV (1&2) Antibody Non-Reactive Nonreactive [facility] Comment on above: Non-ReactiveReactive Repeatedly reactive samples must be confirmed according to CDC recommended confirmatory algorithms. The subresults for either HIVAG or AHIV can be used as an aid in the selection of the confirmation algorithm for reactive samples.Send out specimens with Reactive results to [facility] for confirmation.Order the HIV antibody detection and differentiation: #[id number] Nucleated red blood cell per centageOrdered By: Jessica Bella on 05-15-2025 Nucleated RBC/100 WBC (Bld) [Ratio] 0 % 0-5 [facility] Water Service Dispatcher Office Visit Reporton 05-15-2025 Water Service Dispatcher Office Visit Report [facility] [address], [address] [place] [address] OFFICE VISIT Date of Service: 05/15/25 MR#: [id number] Acct: [id number] Name: JENNY IBARRA Rep #: [id number] : 1995 Provider: KENDY brown Age/Sex: 29/F Location: [facility] Status: Signed Intake Vital Signs 02/19/25 14:19 04/16/25 15:11 05/15/25 09:26 05/15/25 09:35 Height 5 ft 4 in 5 ft 4 in 5 ft 4 in 5 ft 4 in Weight: 214 lb 4 oz BMI 36.8 BP 114/72 Intake Visit Reasons: 26wk ob/glucose Chief Complaint: 26 Week OB/Glucose Support Clerk Required: No Is patient in pain?: No [...] current occupational status: employed current occupation: [employer] current occupational exposures/hazards: No pets and animals: [...] 1-2 times per week duration: 15-30 minutes/day keturah/jew: Jain seatbelt use: always do you feel safe at home: Yes additional social history: - Guerrero, [employer] History 4 Elective abortions Hx Para 1 Spontaneous abortions 1 Hx # Term Pregnancies Ectopic pregnancies 1 Hx # Pregnancies Multiple births # of living children 1 Past Pregnancies Del. Date Name GA/Weeks Outcome Route Bth Weight Gen Labor Lgth Anesthesia Del Locatn Provider FOB Unknown ectopic Unknown spontaneous 01/19/23 Benny 40 live - full term Male [facility] Dr. Alma Delia Masters Delivery Date: 01/19/23 [...] 01/23/25 - (more content not included)... Normal [facility] Platelet countOrdered By: Toño Bella on 05-15-2025 Platelets (Bld) [#/Vol] 206 10*3/uL 150-450 [facility] RBC Auto (Bld) [#/Vol]Ordere d By: Jessica Bella on 05-15-2025 RBC (Bld) [#/Vol] 3.60 10*6/uL Low 4.2-5.4 [facility] Syphilis Antibodieson 2024 Syphilis Abs Non-Reactive Normal Nonreactive [facility] Comment on above: Performed By: #### L 3890.6006, L509.8002, L501.0250, L100.0100 #### [facility] [address] [place], [address] White blood cell (WBC) count Ordered By: Jessica Bella on 05-15-2025 WBC (Bld) [#/Vol] 6.1 10*3/uL 4.4-11.0 [facility] Water Service Dispatcher Office Visit Reporton 04-16-2025 Water Service Dispatcher Office Visit Report [facility] [address], [address] [place] [address] OFFICE VISIT Date of Service: 04/16/25 MR#: [id number] Acct: [id number] Name: JENNY IBARRA Rep #: [id number] : 1995 Provider: Dr. Paradise bright MD Age/Sex: 29/F Location: [facility] [place] Status: Signed Intake Vital Signs 02/19/25 14:19 03/20/25 08:43 04/16/25 15:11 Height 5 ft 4 in 5 ft 4 in 5 ft 4 in Weight: 211 lb 4 oz BMI 36.2 BP 117/75 Intake Visit Reasons: 22wk ob Support Clerk Required: No Is patient in pain?: No [...] current occupational status: employed current occupation: [employer] current occupational exposures/hazards: No pets and animals: [...] 1-2 times per week duration: 15-30 minutes/day keturah/jew: Jain seatbelt use: always do you feel safe at home: Yes additional social history: - Guerrero, [employer] History 4 Elective abortions Hx Para 1 Spontaneous abortions 1 Hx # Term Pregnancies Ectopic pregnancies 1 Hx # Pregnancies Multiple births # of living children 1 Past Pregnancies Del. Date Name GA/Weeks Outcome Route Bth Weight Gen Labor Lgth Anesthesia Del Locatn Provider FOB Unknown ectopic Unknown spontaneous 01/19/23 Benny 40 live - full term Male [facility] Dr. Alma Delia Reyes [place] Delivery Date: [...] -???-???-???-???-???-?? ?-???-???-???-???- (more content not included)... Normal [facility] - Chemistry and C hemistry - challengeOrdered By: Jessica Bella on 03-20-2025 Glucose Ql (U) Negative [facility] - UrinalysisOrder ed By: Jessica Bella on 03-20-2025 Protein Ql (U) Negative [facility] Water Service Dispatcher Office Visit Reporton 03-20-2025 Water Service Dispatcher Office Visit Report [facility] [address] [place] [address], [address] [place] [address] OFFICE VISIT Date of Service: 03/20/25 MR#: [id number] Acct: [id number] Name: JENNY IBARRA Rep #: [id number] : 1995 Provider: KENDY brown Age/Sex: 29/F Location: [facility] [place] Status: Signed Intake Vital Signs 01/23/25 08:57 02/19/25 14:19 03/20/25 08:38 03/20/25 08:43 Height 5 ft 4 in 5 ft 4 in 5 ft 4 in 5 ft 4 in Weight: 206 lb BMI 35.3 BP 120/64 Intake Visit Reasons: 18wk2d ob Chief Complaint: 18 Week OB Support Clerk Required: No Is patient in pain?: No [...] (Updated 03/20/25 @ 08:56 by Jessica Bella HEEL BLACKER, HEEL BLACKER-C) Short cervix affecting History of miscarriage, currently Gestational diabetes Infertility Vacuum extractor delivery, delivered care and examination Acute bronchitis Gestational diabetes PCOS (polycystic ovarian syndrome) Surgical History History of surgery Family History Father Cancer mouth/throat Social History adopted: No household members: spouse and children housing: house number of children: 1 current occupational status: employed current occupation: [employer] current occupational exposures/hazards: No pets and animals: [...] 1-2 times per week duration: 15-30 minutes/day keturah/jew: Jain seatbelt use: always do you feel safe at home: Yes additional social history: - Guerrero, KeturahWoop![employer] Juliet Fay History 4 Elective abortions Hx Para 1 Spontaneous abortions 1 Hx # Term Pregnancies Ectopic pregnancies 1 Hx # Pregnancies Multiple births # of living children 1 Past Pregnancies Del. Date Name GA/Weeks Outcome Route Bth Weight Gen Labor Lgth Anesthesia Del Locatn Provider FOB Unknown ectopic Unknown spontaneous 01/19/23 Benny 40 live - full term Male [facility] Dr. Alma Delia Reyes [place] Delivery Date: [...] 6d 20 (more content not included)... Normal [facility] Progress Noteon 03-04-2025 Street Department Dispatcher Authentication Interface Message Text [facility] MATERNAL- MEDICINE CONSULT Referring/Requesting Provider: Guadalupe Oconnor, [...] for the 03/04/25 encounter (Office Visit) with Kacie Shaver, DO Medication Sig Dispense Refill Doxylamine Succinate, Sleep, 25 MG TABS 1 Tablet (25 mg) Pyridoxine HCl 10 MG TABS 1 Tablet (10 mg) Magnesium 200 MG CHEW Take by mouth [DISCONTINUED] Doxylamine Succinate, Sleep, (UNISOM PO) Take by mouth Prenat w/o H-BB-Rrbnhrx-FA-DHA (PNV-DHA PO) Take by mouth Progesterone 200 [...] Allergies Allergen Reactions Amoxicillin-Pot Clavulanate Rash Normal [facility] Laboratory - Chemistry and C hemistry - challengeOrdered By: Margarita Rollins on 02-19-2025 Glucose Ql (U) Negative [facility] - UrinalysisOrder ed By: Margarita Rollins on 02-19-2025 Protein Ql (U) Negative [facility] Water Service Dispatcher Office Visit Reporton 02-19-2025 Water Service Dispatcher Office Visit Report [facility] [address], [address] [place] [address] OFFICE VISIT Date of Service: 02/19/25 MR#: [id number] Acct: [id number] Name: JENNY IBARRA Rep #: [id number] : 1995 Provider: AVIS Doe ams Age/Sex: 29/F Location: [facility] [place] Status: Signed Intake Vital Signs 10/19/24 13:39 01/23/25 08:57 02/19/25 14:19 Height 5 ft 4 in 5 ft 4 in 5 ft 4 in Weight: 205 lb 6 oz BMI 35.2 BP 106/74 Intake Visit Reasons: 14wk1d ob Chief Complaint: 14wk OB Support Clerk Required: No Is patient in pain?: No [...] current occupational status: employed current occupation: [employer] current occupational exposures/hazards: No pets and animals: [...] 1-2 times per week duration: 15-30 minutes/day keturah/jew: Jain seatbelt use: always do you feel safe [...] Benny 40 live - full term Male [facility] Dr. Alma Delia johnson Jordanjossy Guerrero Delivery [...] -???-???-???-???-???-?? ?-???-???-?? (more content not included)... Normal [facility] Chlamydia/GC MINDY aptimaon CHLAMY,NUC ACID Negative Normal Negative [facility] Comment on above: Performed By: #### L 7000.1800, L7400.0353, M1 ####[facility] [address] [place], [place], [id number] GC BY NUC ACID Negative Normal Negative [facility] Comment on above: Result Comment: Perf ormed at: =G - [facility] [address] [id number] Almond Paste Mixer: Mable Kruse MD, Phone: [phone] Performed By: #### L 7000.1800, L7400.0353, ####[facility] [address] [place], [place], [address] PAP I-G w/rfx hrHPV-Aptimaon 01-25-2025 ADEQ Comment Normal . [facility] Comment on above: Order Comment: Hua monsivais Comment: [id number] Comment: No. of containers..01 ThinPrep Vial Result Comment: Sati sfactory for evaluation. No endocervical component is identified. An endocervical component is not commonly seen in the patient. Performed By: #### L 7000.1800, L7400.0353, M1.2199 ####[facility] [address] [place], [address] COMM . Normal . [facility] Comment on above: Order Comment: Speci men Comment: [id number] Comment: No. of containers..01 ThinPrep Vial Performed By: #### L 7000.1800, L7400.0353, M100.2199 ####[facility] [address] [place], [address] COMMENT Comment Normal . [facility] Comment on above: Order Comment: Speci men Comment: [id number] Comment: No. of containers..01 ThinPrep Vial Result Comment: This liquid based ThinPrep(R) pap test was screened with the use of an image guided system. Performed By: #### L 7000.1800, L7400.0353, M1.2199 ####[facility] [address] [place], [place], [id number] DIAG Comment Normal . [facility] Comment on above: Order Comment: Speci men Comment: [id number] Comment: No. of containers..01 ThinPrep Vial Result Comment: NEGA TIVE FOR INTRAEPITHELIAL LESION OR MALIGNANCY. Performed By: #### L 7000.1800, L7400.0353, ####[facility] [address] [place], [place], [phone] HPV RFLX Comment Normal . [facility] Comment on above: Order Comment: Speci men Comment: [id number] Comment: No. of containers..01 ThinPrep Vial Result Comment: The HPV DNA reflex criteria were not met with this specimen result therefore, no HPV testing was performed. Performed at: [address] [id number] [employer]mond Paste Mixer: Mable Kruse MD, Phone: [phone] Performed By: #### L 7000.1800, L7400.0353, M100.0 ####[facility] [address] [place], [place], [address] PAPSMR Comment Normal . [facility] Comment on above: Order Comment: Speci men Comment: [id number] Comment: No. of containers..01 ThinPrep Vial Result Comment: The Pap smear is a screening test designed to aid in the detection of premalignant and malignant conditions of the uterine cervix. It is not a diagnostic procedure and should not be used as the sole means of detecting cervical cancer. Both false-positive and false-negative reports do occur. Performed By: #### L 7000.1800, L7400.0353, M100.2200 ####[facility] [address] [place], [place], [address] PERFORM Comment Normal . [facility] Comment on above: Order Comment: Speci men Comment: [id number] Comment: No. of containers..01 ThinPrep Vial Result Comment: Chichi Kasper, Family Services Specialist (ASCP) Performed By: #### L 7000.1800, L7400.0353, M100.2200 ####[facility] [address] [place], [address] Urine Cultureon 01-24-2025 URC Culture exhibits no growth. Normal [facility] Comment on above: Performed By: #### L 7000.1800, L7400.0353, M100.2200 ####[facility] [address] [place], [address] Absolute lymphocyte countOrd ered By: Guadalupe Reyes on 01-23-2025 Lymphocytes Auto (Unsp spec) [#/Vol] 0.62 10*3/uL Low 0.83-4.51 [facility] Absolute neutrophil countOrd ered By: Guadalupe Reyes on 01-23-2025 Neutrophils (Bld) [#/Vol] 7.5 10*3/uL 2.0-7.7 [facility] Automated lymphocyte count a s percentage of total leukocytesOrdered By: Guadalupe Reyes on 01-23-2025 Lymphocytes/100 WBC Auto (Unsp spec) 7.2 % Low 19-41 [facility] Basophil percentageOrdered B y: Guadalupe Reyes on 01-23-2025 Basophils/100 WBC (Bld) 0.2 % 0-1 [facility] CBC W/Diff, Automatedon - 0-2024 Absolute Lymph 0.62 X10 3/uL Low 0.83-4.51 [facility] Comment on above: Performed By: #### L 509.4006, L3890.6301, BTS, L501.9985, L3890.6006, L3890.6102, L509.8002, L100.0100 ####[facility] [address] [place], [address] Absolute Neut 7.5 X10 3/uL Normal 2.0-7.7 [facility] Comment on above: Performed By: #### L 509.4006, L3890.6301, BTS, L501.9985, L3890.6006, L3890.6102, L509.8002, L100.0100 ####[facility] [address] [place], [address] Basophils/100 WBC (Bld) 0.2 % Normal 0-1 [facility] Comment on above: Performed By: #### L 509.4006, L3890.6301, BTS, L501.9985, L3890.6006, L3890.6102, L509.8002, L100.0100 ####[facility] [address] [place], [address] Eosinophils/100 WBC (Bld) 0.5 % Normal 0-5 [facility] Comment on above: Performed By: #### L 509.4006, L3890.6301, BTS, L501.9985, L3890.6006, L3890.6102, L509.8002, L100.0100 ####[facility] [address] [place], [address] Erythrocyte distribution width (RBC) [Ratio] 11.5 % Low 11.6-14.6 [facility] Comment on above: Performed By: #### L 509.4006, L3890.6301, BTS, L501.9985, L3890.6006, L3890.6102, L509.8002, L100.0100 ####[facility] [address] [place], [address] Hematocrit (Bld) [Volume fraction] 37.8 % Normal 37-47 [facility] Comment on above: Performed By: #### L 509.4006, L3890.6301, BTS, L501.9985, L3890.6006, L3890.6102, L509.8002, L100.0100 ####[facility] [address] [place], [address] Hemoglobin (Bld) [Mass/Vol] 13.4 g/dL Normal 12.0-15.0 [facility] Comment on above: Performed By: #### L 509.4006, L3890.6301, BTS, L501.9985, L3890.6006, L3890.6102, L509.8002, L100.0100 ####[facility] [address] [place], [address] IG% 0.300 Normal 0.0-0.9 [facility] Comment on above: Result Comment: IG% - Immature Granulocytes (promyelocytes, myelocytes and metamyelocytes) > 1% indicates that a LEFT SHIFT is Present. Performed By: #### L 509.4006, L3890.6301, BTS, L501.9985, L3890.6006, L3890.6102, L509.8002, L100.0100 ####[facility] [address] [place], [address] Lymphocytes/100 WBC (Bld) 7.2 % Low 19-41 [facility] Comment on above: Performed By: #### L 509.4006, L3890.6301, BTS, L501.9985, L3890.6006, L3890.6102, L509.8002, L100.0100 ####[facility] [address] [place], [address] MCH (RBC) [Entitic mass] 31.5 pg Normal 27.0-32.0 [facility] Comment on above: Performed By: #### L 509.4006, L3890.6301, BTS, L501.9985, L3890.6006, L3890.6102, L509.8002, L100.0100 ####[facility] [address] [place], [address] MCHC (RBC) [Mass/Vol] 35.4 g/dL Normal 32-36 [facility] Comment on above: Performed By: #### L 509.4006, L3890.6301, BTS, L501.9985, L3890.6006, L3890.6102, L509.8002, L100.0100 ####[facility] [address] [place], [address] MCV (RBC) [Entitic vol] 88.7 fL Normal 81-99 [facility] Comment on above: Performed By: #### L 509.4006, L3890.6301, BTS, L501.9985, L3890.6006, L3890.6102, L509.8002, L100.0100 ####[facility] [address] [place], [address] Monocytes/100 WBC (Bld) 4.8 % Normal 0-10 [facility] Comment on above: Performed By: #### L 509.4006, L3890.6301, BTS, L501.9985, L3890.6006, L3890.6102, L509.8002, L100.0100 ####[facility] [address] [place], [address] Neutrophils/100 WBC (Bld) 87.0 % High 47-70 [facility] Comment on above: Performed By: #### L 509.4006, L3890.6301, BTS, L501.9985, L3890.6006, L3890.6102, L509.8002, L100.0100 ####[facility] [address] [place], [address] Nucleated RBC (Bld) [#/Vol] 0 10*3/uL Normal 0-5 [facility] Comment on above: Performed By: #### L 509.4006, L3890.6301, BTS, L501.9985, L3890.6006, L3890.6102, L509.8002, L100.0100 ####[facility] [address] [place], [address] Platelet mean volume (Bld) [Entitic vol] 10.6 fL Normal 6.2-12.0 [facility] Comment on above: Performed By: #### L 509.4006, L3890.6301, BTS, L501.9985, L3890.6006, L3890.6102, L509.8002, L100.0100 ####[facility] [address] [place], [address] Platelets (Bld) [#/Vol] 227 10*3/uL Normal 150-450 [facility] Comment on above: Performed By: #### L 509.4006, L3890.6301, BTS, L501.9985, L3890.6006, L3890.6102, L509.8002, L100.0100 ####[facility] [address] [place], [address] RBC (Bld) [#/Vol] 4.26 10*6/uL Normal 4.2-5.4 [facility] Comment on above: Performed By: #### L 509.4006, L3890.6301, BTS, L501.9985, L3890.6006, L3890.6102, L509.8002, L100.0100 ####[facility] [address] [place], [address] RDW SD 36.6 fl Normal 35.1-43.9 [facility] Comment on above: Performed By: #### L 509.4006, L3890.6301, BTS, L501.9985, L3890.6006, L3890.6102, L509.8002, L100.0100 ####[facility] [address] [place], [address] WBC (Bld) [#/Vol] 8.6 10*3/uL Normal 4.4-11.0 [facility] Comment on above: Performed By: #### L 509.4006, L3890.6301, BTS, L501.9985, L3890.6006, L3890.6102, L509.8002, L100.0100 ####[facility] [address] [place], [address] Cervical or vagninal specime n microscopic examination by cytology stain (reported asOrdered By: Guadalupe Reyes on 01-23-2025 Cytology report Cyto stain Doc (Cvx/Vag) Comment . [facility] Comment on above: The Pap smear [...] rRNA MINDY+probe Ql (Unsp spec) Negative Negative [facility] Eosinophil percentageOrdered By: Guadalupe Reyes on 01-23-2025 Eosinophils/100 WBC (Bld) 0.5 % 0-5 [facility] Erythrocyte distribution wid th ratioOrdered By: Guadalupe Reyes on 01-23-2025 Erythrocyte distribution width (RBC) [Ratio] 11.5 % Low 11.6-14.6 [facility] Erythrocyte distribution wid th standard deviationOrdered By: Guadalupe Reyes on 01-23-2025 Erythrocyte distribution width (RBC) [Ratio] 36.6 fl 35.1-43.9 [facility] HIVon 01-23-2025 HIV Non-Reactive Normal Nonreactive [facility] Comment on above: Result Comment: Non- Reactive Reactive Repeatedly reactive samples must be confirmed according to CDC recommended confirmatory algorithms. The subresults for either HIVAG or AHIV can be used as an aid in the selection of the confirmation algorithm for reactive samples. Send out specimens with Reactive results to [facility] for confirmation. Order the HIV antibody detection and differentiation: #[id number] Performed By: #### L 509.4006, L3890.6301, BTS, L501.9985, L3890.6006, L3890.6102, L509.8002, L100.0100 ####[facility] [address] [place], [address] Hematocrit Auto (Bld) [Volum e fraction]Ordered By: Guadalupe Amy on 01-23-2025 Hematocrit (Bld) [Volume fraction] 37.8 % 37-47 [facility] Hemoglobin A1con 01-23-2025 HbA1c (Bld) [Mass fraction] 5.0 % Normal <=5.6 [facility] Comment on above: Result Comment: Norm al < 5.7 % Prediabetic 5.7 - 6.4 % Diabetic >or= 6.5 % Please note range changes. Performed By: #### L 509.4006, L3890.6301, BTS, L501.9985, L3890.6006, L3890.6102, L509.8002, L100.0100 ####[facility] [address] [place], [place], [id number] Hemoglobin A1c percentageOrd ered By: Guadalupe Ortegajossy on 01-23-2025 HbA1c (Bld) [Mass fraction] 5.0 % <5.7 [facility] Comment on above: Normal < 5.7 % Predi abetic 5.7 - 6.4 % Diabetic >or= 6.5 % Please note range changes. Hemoglobin measurementOrdere d By: Guadalupe Ortegajossy on 01-23-2025 Hemoglobin (Bld) [Mass/Vol] 13.4 g/dL 12.0-15.0 [facility] Hepatitis C Antibodyon 01-23 Hepatitis C Ab Non-Reactive Normal Nonreactive [facility] Comment on above: Result Comment: Reac tive: Presumptive evidence of antibodies to HCV. Follow CDC recommendations for supplemental testing. Non-Reactive: Antibodies to HCV were not detected; does not exclude the possibility of exposure to HCV Reactive Results are presumptive evidence of antibodies to HCV. Follow CDC recommendations for supplemental testing. Order confirmation testing: HCV Quant by PCR testing - HCVPCR #[id number] Non Reactive: < 0.8 Equivocal: >/= 0.8 to < 1.0 Reactive: >/= 1.0 The CDC requires that a reactive/equivocal HCV antibody result be sent out for confirmation. HCV Quant by PCR testing. Performed By: #### L 509.4006, L3890.6301, BTS, L501.9985, L3890.6006, L3890.6102, L509.8002, L100.0100 ####[facility] [address] [place], [address] Immature granulocytes/100 WB C Auto (Bld)Ordered By: Guadalupe Amy on 01-23-2025 Immature granulocytes/100 WBC (Bld) 0.300 % 0.0-0.9 [facility] Comment on above: IG% - Immature Granu locytes (promyelocytes, myelocytes and metamyelocytes) > 1% indicates that a LEFT SHIFT is Present. L3890.6102on 01-23-2025 HEP B Surf Ag Non-Reactive Normal Nonreactive [facility] Comment on above: Result Comment: Reac tive: Presumptive evidence of HBV. Repeatedly reactive samples must be confirmed using a neutralization test ([employer] HBsAg Confirmatory Test) Non-Reactive: HBsAg not detected; does not exclude the possibility of exposure to HBV Performed By: #### L 509.4006, L3890.6301, BTS, L501.9985, L3890.6006, L3890.6102, L509.8002, L100.0100 ####[facility] [address] [place], [place], [address] L509.4006on 01-23-2025 Rubella IgG REAC Normal Nonreactive [facility] Comment on above: Result Comment: Anti body Result: Interpretation Non-Reactive: Non-Immune Reactive: Immune The following results were obtained with the [employer] Rubella IgG assay. Results from assays of other manufacturers cannot be used interchangeably. Performed By: #### L 509.4006, L3890.6301, BTS, L501.9985, L3890.6006, L3890.6102, L509.8002, L100.0100 ####[facility] [address] [place], [place], [id number] Laboratory - CytologyOrdered By: Guadalupe Reyes on 01-23-2025 Family Services Specialist Cyto stain Nom (Cvx/Vag) [ID] Comment . [facility] Comment on above: [place] tologist ([facility]) Laboratory - Microbiology an d Antimicrobial susceptibilityOrdered By: Guadalupe Reyes on 01-23-2025 HBV surface Ag Ql (S) Non-Reactive Nonreactive [facility] Comment on above: Reactive: Presumptiv e evidence of HBV. Repeatedly reactive samples must be confirmed using a neutralization test ([employer] HBsAg Confirmatory Test)Non-Reactive: HBsAg not detected; does not exclude the possibility of exposure to HBV Laboratory - Miscellaneous t estsOrdered By: Guadalupe Reyes on 01-23-2025 Service comment (Unsp spec) [Interp] . . [facility] MCV (mean corpuscular volume ) determinationOrdered By: Guadalupe Reyes on 01-23-2025 MCV (RBC) [Entitic vol] 88.7 fL 81-99 [facility] Mean corpuscular hemoglobin (MCH) determinationOrdered By: Guadalupe Reyes on 01-23-2025 MCH (RBC) [Entitic mass] 31.5 pg 27.0-32.0 [facility] Mean corpuscular hemoglobin concentration (MCHC) determinationOrdered By: Guadalupe Reyes on 01-23-2025 MCHC (RBC) [Mass/Vol] 35.4 g/dL 32-36 [facility] Mean platelet volume determi nationOrdered By: Guadalupe Reyes on 01-23-2025 Platelet mean volume (Bld) [Entitic vol] 10.6 fL 6.2-12.0 [facility] Monocyte percentageOrdered B y: Guadalupe Reyes on 01-23-2025 Monocytes/100 WBC (Bld) 4.8 % 0-10 [facility] Neisseria gonorrhoeae nuclei c acid detection by amplified probe techniqueOrdered By: Guadalupe Reyes on 01-23-2025 N. gonorrhoeae DNA MINDY+probe Ql (Unsp spec) Negative Negative [facility] Comment on above: Performed at: =[address] [id number] Director: Mable Kruse MD, Phone: [phone] Neutrophil percentageOrdered By: Guadalupe Reyes on 01-23-2025 Neutrophils/100 WBC (Bld) 87.0 % High 47-70 [facility] No Panel InformationOrdered By: Guadalupe Reyes on 01-23-2025 Pap Smear Specimen Adequacy Comment . [facility] Comment on above: Satisfactory for tameka luation. No endocervical component is identified.An endocervical component is not commonly seen in the patient. HIV (1&2) Antibody Non-Reactive Nonreactive [facility] Comment on above: Non-ReactiveReactive Repeatedly reactive samples must be confirmed according to CDC recommended confirmatory algorithms. The subresults for either HIVAG or AHIV can be used as an aid in the selection of the confirmation algorithm for reactive samples.Send out specimens with Reactive results to [facility] for confirmation.Order the HIV antibody detection and differentiation: #[id number] Nucleated red blood cell per centageOrdered By: Guadalupe Reyes on 01-23-2025 Nucleated RBC/100 WBC (Bld) [Ratio] 0 % 0-5 [facility] Water Service Dispatcher Office Visit Reporton 01-23-2025 Water Service Dispatcher Office Visit Report [facility] [address], [address] [place] [address] OFFICE VISIT Date of Service: 01/23/25 MR#: [id number] Acct: [id number] Name: JENNY IBARRA Rep #: [id number] : 1995 Provider: Dr. Guadalupe Jarvis DO Age/Sex: 29/F Location: [facility] Status: Signed Intake Vital Signs 10/19/24 13:39 01/23/25 08:57 01/23/25 08:57 Height 5 ft 4 in 5 ft 4 in 5 ft 4 in Weight: 201 lb 4 oz BMI 34.5 BP 122/77 H Intake Visit Reasons: NOB US #1 NAT 08/22/25 Support Clerk Required: No Is patient in pain?: No [...] current occupational status: employed current occupation: [employer] current occupational exposures/hazards: No pets [...] 1-2 times per week duration: 15-30 minutes/day keturah/jew: Jain seatbelt use: always do you feel safe [...] Benny 41 live - full term Male [facility] Dr. Alma Delia Masters Delivery Date: 01/19/23 [...] ?-???-???-???-???-???-? ??- (more content not included)... Normal [facility] Platelet countOrdered By: Nikko Reyes on 01-23-2025 Platelets (Bld) [#/Vol] 227 10*3/uL 150-450 [facility] RBC Auto (Bld) [#/Vol]Ordere d By: Guadalupe Reyes on 01-23-2025 RBC (Bld) [#/Vol] 4.26 10*6/uL 4.2-5.4 [facility] Syphilis Antibodieson 2024 Syphilis Abs Non-Reactive Normal Nonreactive [facility] Comment on above: Performed By: #### L 509.4006, L3890.6301, BTS, L501.9985, L3890.6006, L3890.6102, L509.8002, L100.0100 ####[facility] [address] [place] [place], [address] Type AND Screenon 01-23-2025 Ab SCREEN GEL Negative Normal [facility] Comment on above: Order Comment: PN Performed By: #### L 509.4006, L3890.6301, BTS, L501.9985, L3890.6006, L3890.6102, L509.8002, L100.0100 ####[facility] [address] [place], [place], [address] Urine cultureOrdered By: Rae Reyes on 01-23-2025 Bacteria identified Cx Nom (U) Culture exhibits no growth. [facility] White blood cell (WBC) count Ordered By: Guadalupe Reyes on 01-23-2025 WBC (Bld) [#/Vol] 8.6 10*3/uL 4.4-11.0 [facility] HCG ( test) QlOrder ed By: Margarita Rollins on 12-18-2024 Human Chorionic Gonadotropin, Quant 1470 mIU/mL High <9 [facility] Comment on above: Gestational Age0.2-1 Week: 5-50 mIU/mL1-2 Weeks: 50-500 mIU/mL2-3 Weeks: 100-5000 mIU/mL3-4 Weeks: 500-10,000 mIU/mL4-5 Weeks:1000-50,000 mIU/mL5-6 Weeks: 10,000-100,000 mIU/mL6-8 Weeks: 15,000-200,000 mIU/mL2-3 Months:10,000-100,000 mIU/mL Serum human chorionic gonado tropin detection for pregnancyOrdered By: Margarita Rollins on 12-18-2024 HCG ( test) Ql 1470 mIU/mL High <9 [facility] Comment on above: Gestational Age0.2-1 Week: 5-50 mIU/mL1-2 Weeks: 50-500 mIU/mL2-3 Weeks: 100-5000 mIU/mL3-4 Weeks: 500-10,000 mIU/mL4-5 Weeks:1000-50,000 mIU/mL5-6 Weeks: 10,000-100,000 mIU/mL6-8 Weeks: 15,000-200,000 mIU/mL2-3 Months:10,000-100,000 mIU/mL hCG Titer Quant., Serumon HCG QUANT. 1470 mIU/mL High <9 non-preg [facility] Comment on above: Result Comment: Gest ational Age 0.2-1 Week: 5-50 mIU/mL 1-2 Weeks: 50-500 mIU/mL 2-3 Weeks: 100-5000 mIU/mL 3-4 Weeks: 500-10,000 mIU/mL 4-5 Weeks:1000-50,000 mIU/mL 5-6 Weeks: 10,000-100,000 mIU/mL 6-8 Weeks: 15,000-200,000 mIU/mL 2-3 Months:10,000-100,000 mIU/mL Performed By: #### L 700.8000 ####[facility] [address] [place], [address] HCG ( test) QlOrder ed By: Margarita Rollins on 12-12-2024 Human Chorionic Gonadotropin, Quant 86 mIU/mL High <9 [facility] Comment on above: Gestational Age0.2-1 Week: 5-50 mIU/mL1-2 Weeks: 50-500 mIU/mL2-3 Weeks: 100-5000 mIU/mL3-4 Weeks: 500-10,000 mIU/mL4-5 Weeks:1000-50,000 mIU/mL5-6 Weeks: 10,000-100,000 mIU/mL6-8 Weeks: 15,000-200,000 mIU/mL2-3 Months:10,000-100,000 mIU/mL Serum human chorionic gonado tropin detection for pregnancyOrdered By: Margarita Rollins on 12-12-2024 HCG ( test) Ql 86 mIU/mL High <9 [facility] Comment on above: Gestational Age0.2-1 Week: 5-50 mIU/mL1-2 Weeks: 50-500 mIU/mL2-3 Weeks: 100-5000 mIU/mL3-4 Weeks: 500-10,000 mIU/mL4-5 Weeks:1000-50,000 mIU/mL5-6 Weeks: 10,000-100,000 mIU/mL6-8 Weeks: 15,000-200,000 mIU/mL2-3 Months:10,000-100,000 mIU/mL hCG Titer Quant., Serumon HCG QUANT. 86 mIU/mL High <9 non-preg [facility] Comment on above: Result Comment: Gest ational Age 0.2-1 Week: 5-50 mIU/mL 1-2 Weeks: 50-500 mIU/mL 2-3 Weeks: 100-5000 mIU/mL 3-4 Weeks: 500-10,000 mIU/mL 4-5 Weeks:1000-50,000 mIU/mL 5-6 Weeks: 10,000-100,000 mIU/mL 6-8 Weeks: 15,000-200,000 mIU/mL 2-3 Months:10,000-100,000 mIU/mL Performed By: #### L 700.8000 ####[facility] [address], [place], [address] HCG ( test) QlOrder ed By: Margarita Rollins on 12-10-2024 Human Chorionic Gonadotropin, Quant 30 mIU/mL High <9 [facility] Comment on above: Gestational Age0.2-1 Week: 5-50 mIU/mL1-2 Weeks: 50-500 mIU/mL2-3 Weeks: 100-5000 mIU/mL3-4 Weeks: 500-10,000 mIU/mL4-5 Weeks:1000-50,000 mIU/mL5-6 Weeks: 10,000-100,000 mIU/mL6-8 Weeks: 15,000-200,000 mIU/mL2-3 Months:10,000-100,000 mIU/mL Serum human chorionic gonado tropin detection for pregnancyOrdered By: Margarita Rollins on 12-10-2024 HCG ( test) Ql 30 mIU/mL High <9 [facility] Comment on above: Gestational Age0.2-1 Week: 5-50 mIU/mL1-2 Weeks: 50-500 mIU/mL2-3 Weeks: 100-5000 mIU/mL3-4 Weeks: 500-10,000 mIU/mL4-5 Weeks:1000-50,000 mIU/mL5-6 Weeks: 10,000-100,000 mIU/mL6-8 Weeks: 15,000-200,000 mIU/mL2-3 Months:10,000-100,000 mIU/mL hCG Titer Quant., Serumon HCG QUANT. 30 mIU/mL High <9 non-preg [facility] Comment on above: Result Comment: Gest ational Age 0.2-1 Week: 5-50 mIU/mL 1-2 Weeks: 50-500 mIU/mL 2-3 Weeks: 100-5000 mIU/mL 3-4 Weeks: 500-10,000 mIU/mL 4-5 Weeks:1000-50,000 mIU/mL 5-6 Weeks: 10,000-100,000 mIU/mL 6-8 Weeks: 15,000-200,000 mIU/mL 2-3 Months:10,000-100,000 mIU/mL Performed By: #### L 700.8000 #### [facility] [address] [place], [address] PROGESTERONE 4317on 11-02-19 25 PROGESTERONE 0.1 ng/mL Normal . [facility] Comment on above: Order Comment: N Result Comment: Foll icular phase 0.1 - 0.9 Luteal phase 1.8 - 23.9 Ovulation phase 0.1 - 12.0 First trimester 11.0 - 44.3 Second trimester 25.4 - 83.3 Third trimester 58.7 - 214.0 Postmenopausal 0.0 - 0.1 Performed at: [address] [id number] [employer]er: Houston Steve PhD, Phone: [phone] Performed By: #### L 621.4302, L604.5778 #### [facility] [address] [place], [address] Quantitative serum progester one measurement by electrochemiluminescence immunoassay (Ordered By: Margarita Rollins on 11-01-2024 Progesterone Level 0.1 ng/mL . [facility] Comment on above: Follicular phase 0.1 - 0.9 Luteal phase 1.8 - 23.9 Ovulation phase 0.1 - 12.0 First trimester 11.0 - 44.3 Second trimester 25.4 - 83.3 Third trimester 58.7 - 214.0 Postmenopausal 0.0 - 0.1Performed at: CB - [facility] [address] [place], [place] [id number] Director: [place] Steve PhD, Phone: [phone] Serum or plasma thyroid stim ulating hormone (TSH) measurement (units/volume)Ordered By: Margarita Rollins on 11-01-2024 TSH Qn 2.250 uIU/mL 0.358-3.740 [facility] TSH QnOrdered By: Margarita evans on 11-01-2024 Thyroid Stimulating Hormone (TSH) 2.250 uIU/mL 0.358-3.740 [facility] Thyroid Stim Hormone (TSH)on 11-01-2024 TSH 2.250 uIU/mL Normal 0.358-3.740 [facility] Comment on above: Performed By: #### L 501.9520, L801.2600 #### [facility] [address] [place], [place], [id number] Water Service Dispatcher Office Visit Reporton 10-19-2024 Water Service Dispatcher Office Visit Report [facility] [address], [address] [place] [address] OFFICE VISIT Date of Service: 10/19/24 MR#: [id number] Acct: [id number] Name: JENNY IBARRA Rep #: [id number] : 1995 Provider: AVIS Doe ams Age/Sex: 29/F Location: [facility] Status: Signed Intake Vital Signs 01/26/24 13:38 [...] room air Intake Visit Reasons: FERTILITY CONSULT Support Clerk Required: No Is patient in pain?: No [...] current occupational status: employed current occupation: [employer] current occupational exposures/hazards: No pets and animals: [...] 1-2 times per week duration: 15-30 minutes/day keturah/jew: Jain seatbelt use: always do you feel safe at home: Yes additional social history: - [facility] FERTILITY CONSULT Details: JENNY IBARRA is a [...] FOB [birth year] 41 live - full term [facility] Dr. Alma Delia Masters Delivery Date: 01/19/23 [...] cooperative, healthy (more content not included)... Normal [facility] Basophil percentageOrdered B y: Margarita Rollins on 01-20-2023 WBC (Bld) [#/Vol] 12.1 10*3/uL 4.4-11.0 [facility] Blood erythrocytes count (nu mber/volume)Ordered By: Margarita Rollins on 01-20-2023 RBC (Bld) [#/Vol] 2.90 10*6/uL 4.2-5.4 [facility] Blood hemoglobin measurement (mass/volume)Ordered By: Margarita Rollins on 01-20-2023 Hemoglobin (Bld) [Mass/Vol] 9.2 g/dL 12.0-15.0 [facility] Blood platelet mean volumeOr dered By: Margarita Rollins on 01-20-2023 Platelet mean volume (Bld) [Entitic vol] 11.1 fL 6.2-12.0 [facility] Determination of erythrocyte mean corpuscular volume (MCV)Ordered By: Margarita Rollins on 01-20-2023 MCV (RBC) [Entitic vol] 94.5 fL 81-99 [facility] Glucose Glucometer (BldC) [M ass/Vol]Ordered By: Dr. Reyes on 01-20-2023 Glucose [Mass/Vol] 83 mg/dL 74-106 [facility] Comment on above: MANAGEMENT OF PATIEN T CARE PER NURSING PROTOCOL Hematocrit Auto (Bld) [Volum e fraction]Ordered By: Margarita Rollins on 01-20-2023 Hematocrit (Bld) [Volume fraction] 27.4 % 37-47 [facility] Laboratory - Hematology and Cell countsOrdered By: Margarita Rollins on 01-20-2023 Erythrocyte distribution width (RBC) [Entitic vol] 45.0 fL 35.1-43.9 [facility] Erythrocyte distribution width (RBC) [Ratio] 13.4 % 11.6-14.6 [facility] MCH (RBC) [Entitic mass] 31.7 pg 27.0-32.0 [facility] MCHC Auto (RBC) [Mass/Vol]Or dered By: Margarita Rollins on 01-20-2023 MCHC (RBC) [Mass/Vol] 33.6 g/dL 32-36 [facility] Platelets bldOrdered By: Compa Rollins on 01-20-2023 Platelets (Bld) [#/Vol] 144 10*3/uL 150-450 [facility] Absolute lymphocyte countOrd ered By: Margarita Rollins on 01-18-2023 Lymphocytes Auto (Unsp spec) [#/Vol] 1.43 10*3/uL 0.83-4.51 [facility] Basophil percentageOrdered B y: Margarita Rollins on 01-18-2023 Basophils/100 WBC (Bld) 0.6 % 0-1 [facility] Eosinophils/100 WBC (Bld) 2.8 % 0-5 [facility] Neutrophils (Bld) [#/Vol] 4.2 10*3/uL 2.0-7.7 [facility] Neutrophils/100 WBC (Bld) 67.5 % 47-70 [facility] Blood lymphocytes/100 leukoc ytesOrdered By: Margarita Rollins on 01-18-2023 Lymphocytes/100 WBC (Bld) 23.2 % 19-41 [facility] Blood monocytes/100 leukocyt esOrdered By: Margarita Rollins on 01-18-2023 Monocytes/100 WBC (Bld) 5.3 % 0-10 [facility] - Hematology and Cell countsOrdered By: Margarita Rollins on 01-18-2023 Immature granulocytes/100 WBC (Bld) 0.600 % 0.0-0.9 [facility] Comment on above: IG% - Immature Granu locytes (promyelocytes, myelocytes and metamyelocytes) > 1% indicates that a LEFT SHIFT is Present. Nucleated RBC/100 WBC (Bld) [Ratio] 0 % 0-5 [facility] Serum Treponema species anti body detectionOrdered By: Margarita Rollins on 01-18-2023 Treponema sp Ab Ql (S) Non-Reactive [facility] Laboratory - Chemistry and C hemistry - challengeon 01-13-2023 Glucose Ql (U) Negative [facility] - Urinalysison Protein Ql (U) Negative [facility] - Chemistry and C hemistry - challengeon 01-11-2023 Glucose Ql (U) Negative [facility] - Urinalysison Protein Ql (U) Negative [facility] - Chemistry and C hemistry - challengeon 01-04-2023 Glucose Ql (U) Negative [facility] - Urinalysison Protein Ql (U) Negative [facility] - Chemistry and C hemistry - challengeon 12-28-2022 Glucose Ql (U) Negative [facility] - Urinalysison Protein Ql (U) Negative [facility] No Panel InformationOrdered By: Dr. Reyes on 12-24-2022 Group B Streptococcus Culture Group B Beta Streptococcus is not isolated. [facility] - Chemistry and C hemistry - challengeon 12-21-2022 Glucose Ql (U) Negative [facility] - Urinalysison Protein Ql (U) Negative [facility] - Chemistry and C hemistry - challengeon 12-07-2022 Glucose Ql (U) Negative [facility] - Urinalysison Protein Ql (U) Negative [facility] CNPNon 12-01-2022 CNPN Telephone ([facility]) JENNY IBARRA ([id number]) 1995 F Date Time Provider Department 12/01/22 [facility] During your visit today, we recorded [...] by DAYANARA BIRD RN on 12/01/22 Normal [facility] Laboratory - Chemistry and C hemistry - challengeon 11-23-2022 Glucose Ql (U) Negative [facility] - Urinalysison Protein Ql (U) Negative [facility] Quantitative serum or plasma 3 hour gestational glucose tolerance panelOrdered By: Jessica Bella on 11-11-2022 Glucose tolerance 3 hours gestational panel See comment [facility] Comment on above: FASTING 88 Col: [...] - challengeon 11-10-2022 Glucose Ql (U) Negative [facility] - Urinalysison Protein Ql (U) Negative [facility] Absolute lymphocyte countOrd ered By: Leela Hough on 10-19-2022 Lymphocytes Auto (Unsp spec) [#/Vol] 1.62 10*3/uL 0.83-4.51 [facility] Basophil percentageOrdered B y: Leela Hough on 10-19-2022 Basophils/100 WBC (Bld) 0.4 % 0-1 [facility] Eosinophils/100 WBC (Bld) 3.0 % 0-5 [facility] Neutrophils (Bld) [#/Vol] 5.9 10*3/uL 2.0-7.7 [facility] Neutrophils/100 WBC (Bld) 71.9 % 47-70 [facility] WBC (Bld) [#/Vol] 8.1 10*3/uL 4.4-11.0 [facility] Blood erythrocytes count (nu mber/volume)Ordered By: Leela Hough on 10-19-2022 RBC (Bld) [#/Vol] 3.69 10*6/uL 4.2-5.4 [facility] Blood hemoglobin measurement (mass/volume)Ordered By: Leela Hough on 10-19-2022 Hemoglobin (Bld) [Mass/Vol] 11.8 g/dL 12.0-15.0 [facility] Blood lymphocytes/100 leukoc ytesOrdered By: Leela Hough on 10-19-2022 Lymphocytes/100 WBC (Bld) 19.9 % 19-41 [facility] Blood monocytes/100 leukocyt esOrdered By: Leela Hough on 10-19-2022 Monocytes/100 WBC (Bld) 4.4 % 0-10 [facility] Blood platelet mean volumeOr dered By: Leela Hough on 10-19-2022 Platelet mean volume (Bld) [Entitic vol] 9.9 fL 6.2-12.0 [facility] Determination of erythrocyte mean corpuscular volume (MCV)Ordered By: Leela Hough on 10-19-2022 MCV (RBC) [Entitic vol] 90.8 fL 81-99 [facility] Gestational diabetes screen 1-hour screen with 50g oral glucose loadOrdered By: Leela Hough on 10-19-2022 Glucose 1 Hr post 50 g glucose PO [Mass/Vol] 170 mg/dL 70-140 [facility] HIV 1 and HIV-2 antibody ass ay with HIV-1 p24 antigen detectionOrdered By: Leela Hough on 10-19-2022 HIV 1+2 Ab+HIV1 p24 Ag IA Ql Non-Reactive Nonreactive [facility] Hematocrit Auto (Bld) [Volum e fraction]Ordered By: Leela Hough on 10-19-2022 Hematocrit (Bld) [Volume fraction] 33.5 % 37-47 [facility] - Chemistry and C hemistry - challengeon 10-19-2022 Glucose Ql (U) Negative [facility] - Hematology and Cell countsOrdered By: Leela Hough on 10-19-2022 Erythrocyte distribution width (RBC) [Entitic vol] 41.4 fL 35.1-43.9 [facility] Erythrocyte distribution width (RBC) [Ratio] 12.6 % 11.6-14.6 [facility] Immature granulocytes/100 WBC (Bld) 0.400 % 0.0-0.9 [facility] Comment on above: IG% - Immature Granu locytes (promyelocytes, myelocytes and metamyelocytes) > 1% indicates that a LEFT SHIFT is Present. MCH (RBC) [Entitic mass] 32.0 pg 27.0-32.0 [facility] Nucleated RBC/100 WBC (Bld) [Ratio] 0 % 0-5 [facility] Laboratory - Urinalysison Protein Ql (U) Negative [facility] MCHC Auto (RBC) [Mass/Vol]Or dered By: Leela Hough on 10-19-2022 MCHC (RBC) [Mass/Vol] 35.2 g/dL 32-36 [facility] Platelets bldOrdered By: Leslie Hough on 10-19-2022 Platelets (Bld) [#/Vol] 236 10*3/uL 150-450 [facility] Serum Treponema species anti body detectionOrdered By: Leela Hough on 10-19-2022 Treponema sp Ab Ql (S) Non-Reactive [facility] - Chemistry and C hemistry - challengeon 08-16-2022 Glucose Ql (U) Negative [facility] - Urinalysison Protein Ql (U) Negative [facility] Quantitative serum or plasma 3 hour gestational glucose tolerance panelOrdered By: Dr. Mackey on 07-20-2022 Glucose tolerance 3 hours gestational panel See comment [facility] Comment on above: FASTING 88 Col: [...] Auto (Unsp spec) [#/Vol] 1.67 10*3/uL 0.83-4.51 [facility] Basophil percentageOrdered B y: Dr. Mackey on 07-08-2022 Basophils/100 WBC (Bld) 0.5 % 0-1 [facility] Eosinophils/100 WBC (Bld) 1.3 % 0-5 [facility] Neutrophils (Bld) [#/Vol] 7.2 10*3/uL 2.0-7.7 [facility] Neutrophils/100 WBC (Bld) 75.7 % 47-70 [facility] WBC (Bld) [#/Vol] 9.5 10*3/uL 4.4-11.0 [facility] Blood erythrocytes count (nu mber/volume)Ordered By: Dr. Mackey on 07-08-2022 RBC (Bld) [#/Vol] 4.06 10*6/uL 4.2-5.4 [facility] Blood hemoglobin measurement (mass/volume)Ordered By: Dr. Mackey on 07-08-2022 Hemoglobin (Bld) [Mass/Vol] 13.0 g/dL 12.0-15.0 [facility] Blood lymphocytes/100 leukoc ytesOrdered By: Dr. Mackey on 07-08-2022 Lymphocytes/100 WBC (Bld) 17.5 % 19-41 [facility] Blood monocytes/100 leukocyt esOrdered By: Dr. Mackey on 07-08-2022 Monocytes/100 WBC (Bld) 4.7 % 0-10 [facility] Blood platelet mean volumeOr dered By: Dr. Mackey on 07-08-2022 Platelet mean volume (Bld) [Entitic vol] 10.1 fL 6.2-12.0 [facility] Determination of erythrocyte mean corpuscular volume (MCV)Ordered By: Dr. Mackey on 07-08-2022 MCV (RBC) [Entitic vol] 89.9 fL 81-99 [facility] Gestational diabetes screen 1-hour screen with 50g oral glucose loadOrdered By: Dr. Mackey on 07-08-2022 Glucose 1 Hr post 50 g glucose PO [Mass/Vol] 147 mg/dL 70-140 [facility] HIV 1 and HIV-2 antibody ass ay with HIV-1 p24 antigen detectionOrdered By: Dr. Mackey on 07-08-2022 HIV 1+2 Ab+HIV1 p24 Ag IA Ql Non-Reactive Nonreactive [facility] Hematocrit Auto (Bld) [Volum e fraction]Ordered By: Dr. Mackey on 07-08-2022 Hematocrit (Bld) [Volume fraction] 36.5 % 37-47 [facility] - Hematology and Cell countsOrdered By: Dr. Mackey on 07-08-2022 Erythrocyte distribution width (RBC) [Entitic vol] 36.9 fL 35.1-43.9 [facility] Erythrocyte distribution width (RBC) [Ratio] 11.3 % 11.6-14.6 [facility] Immature granulocytes/100 WBC (Bld) 0.300 % 0.0-0.9 [facility] Comment on above: IG% - Immature Granu locytes (promyelocytes, myelocytes and metamyelocytes) > 1% indicates that a LEFT SHIFT is Present. MCH (RBC) [Entitic mass] 32.0 pg 27.0-32.0 [facility] Nucleated RBC/100 WBC (Bld) [Ratio] 0 % 0-5 [facility] MCHC Auto (RBC) [Mass/Vol]Or dered By: Dr. Mackey on 07-08-2022 MCHC (RBC) [Mass/Vol] 35.6 g/dL 32-36 [facility] No Panel InformationOrdered By: Dr. Mackey on 07-08-2022 Hepatitis B Surface Antigen Non-Reactive Nonreactive [facility] Hepatitis C Antibody Non-Reactive Nonreactive [facility] Comment on above: Non Reactive: < 0.8 Equivocal: >/= 0.8 to < 1.0 Reactive: >/= 1.0The CDC recommends that a reactive/equivocal HCV antibody result be followed up by the HCV Nucleic Acid Amplificationtest (075568) Rubella IgG Antibody Reactive Nonreactive [facility] Comment on above: Antibody Results Int erpretation of Immune Status Non Reactive Presumed Non-Immune Equivocal Equivocal Reactive Presumed Immune Platelets bldOrdered By: Dr. Mackey on 07-08-2022 Platelets (Bld) [#/Vol] 266 10*3/uL 150-450 [facility] Serum Treponema species anti body detectionOrdered By: Dr. Mackey on 07-08-2022 Treponema sp Ab Ql (S) Non-Reactive [facility] Chlamydia trachomatis rRNA d etection by probe and target amplification methodon 06-17-2022 C. trachomatis rRNA MINDY+probe Ql (Unsp spec) Negative Negative [facility] Work Phone: Laboratory - Drug toxicology on 06-17-2022 Amphetamines Ql (U) Negative <1000 ng/mL [facility] Work Phone: Benzodiazepines Ql (U) Negative < 200 ng/mL [facility] Work Phone: Cannabinoids Screen Ql (U) Negative < 50 ng/mL [facility] Work Phone: Cocaine Ql (U) Negative < 300 ng/mL [facility] Work Phone: Opiates Ql (U) Negative < 300 ng/mL [facility] Work Phone: Laboratory - Microbiology an d Antimicrobial susceptibilityon 06-17-2022 N. gonorrhoeae DNA MINDY+probe Ql (Unsp spec) Negative Negative [facility] Work Phone: Comment on above: Performed at: =[address] [id number] Director: Mable Kruse MD, Phone: [phone] No Panel Informationon 06-17 MDMA (Ecstasy) Screen Negative < 500 ng/mL [facility] Work Phone: Urine Barbiturates Screen Negative < 200 ng/m L [facility] Work Phone: Urine Drug Screen Comment [facility] Work Phone: Comment on above: CONFIRMATORY [...] Methadone Screen Negative < 300 ng/mL [facility] Work Phone: Urine phencyclidine (PCP) de tectionon 06-17-2022 Phencyclidine Ql (U) Negative < 25 ng/mL [facility] Work Phone: Serum or plasma choriogonado tropin detectionon 05-22-2022 HCG ( test) Ql 4445 mIU/mL <4 [facility] Work Phone: Comment on above: hCG levels with Gest ational AgeGestational Age hCG mIU/mL (IU/L)0.2 - 1 week 5 - 501-2 weeks 50 - 5002-3 weeks 100 - 92466-8 weeks 500 - 573124-9 weeks 1000 - 679224-1 weeks 35080 - 100,0006-8 weeks 19265 - 200,0002-3 months 27276 - 100,000 Serum or plasma choriogonado tropin detectionon 05-20-2022 HCG ( test) Ql 2023 mIU/mL <4 [facility] Work Phone: Comment on above: hCG levels with Gest ational AgeGestational Age hCG mIU/mL (IU/L)0.2 - 1 week 5 - 501-2 weeks 50 - 5002-3 weeks 100 - 68681-4 weeks 500 - 726609-0 weeks 1000 - 096988-4 weeks 80257 - 100,0006-8 weeks 47716 - 200,0002-3 months 02664 - 100,000 Serum or plasma choriogonado tropin detectionon 01-29-2022 HCG ( test) Ql 4 mIU/mL <4 [facility] Work Phone: Comment on above: hCG levels with Gest ational AgeGestational Age hCG mIU/mL (IU/L)0.2 - 1 week 5 - 501-2 weeks 50 - 5002-3 weeks 100 - 90572-9 weeks 500 - 921268-0 weeks 1000 - 918969-5 weeks 75815 - 100,0006-8 weeks 68648 - 200,0002-3 months 03846 - 100,000 Serum or plasma choriogonado tropin detectionon 01-26-2022 HCG ( test) Ql 25 mIU/mL <4 [facility] Work Phone: Comment on above: hCG levels with Gest ational AgeGestational Age hCG mIU/mL (IU/L)0.2 - 1 week 5 - 501-2 weeks 50 - 5002-3 weeks 100 - 63416-1 weeks 500 - 002262-4 weeks 1000 - 767829-6 weeks 29556 - 100,0006-8 weeks 77210 - 200,0002-3 months 49754 - 100,000 Serum or plasma choriogonado tropin detectionon 01-23-2022 HCG ( test) Ql 214 mIU/mL <4 [facility] Work Phone: Comment on above: hCG levels with Gest ational AgeGestational Age hCG mIU/mL (IU/L)0.2 - 1 week 5 - 501-2 weeks 50 - 5002-3 weeks 100 - 02130-3 weeks 500 - 837325-7 weeks 1000 - 296176-9 weeks 24160 - 100,0006-8 weeks 96973 - 200,0002-3 months 35789 - 100,000 Basophil percentageon 2021 Bilirubin [Mass/Vol] 0.50 mg/dL 0.20-1.00 [facility] Work Phone: Comment on above: For patients on eltr ombopag therapy, use of Dimension [place] TBIL is not recommended. Chloride [Moles/Vol] 107 mmol/L 98-107 [facility] Work Phone: Glucose [Mass/Vol] 116 mg/dL 74-106 [facility] Work Phone: Comment on above: Fasting Glucose resu lt from 100 to 125 mg/dL suggests IMPAIRED HOMEOSTASIS per A.D.A. criteria. Potassium [Moles/Vol] 3.7 mmol/L 3.5-5.1 [facility] Work Phone: Protein [Mass/Vol] 6.7 g/dL 6.4-8.2 [facility] Work Phone: Sodium [Moles/Vol] 139 mmol/L 136-145 [facility] Work Phone: Dilute Jorje's viper venom timeon 01-18-2022 dRVVT Coag (PPP) [Time] 33.6 s [facility] Work Phone: Laboratory - Chemistry and C hemistry - challengeon 01-18-2022 ALP [Catalytic activity/Vol] 36 U/L 45-117 [facility] Work Phone: ALT [Catalytic activity/Vol] 34 U/L 13-56 [facility] Work Phone: CO2 [Moles/Vol] 28.0 mmol/L 21.0-32.0 [facility] Work Phone: Globulin (S) [Mass/Vol] 2.9 g/dL 2.2-4.2 [facility] Work Phone: Urea nitrogen/Creatinine [Mass ratio] 7.2 mg/mg 10-20 [facility] Work Phone: No Panel Informationon 01-18 Anti-Cardiolipin IgM Antibody 12 MPL U/mL [facility] Work Phone: Comment on above: Negative: <13 Indete rminate: 13 - 20 Low-Med Positive: >20 - 80 High Positive: >80 Estimated GFR (MDRD) Amer 107 mL/min >60 [facility] Work Phone: Comment on above: GFR Calc Estimated GFR (MDRD) Non-Af Amer 89 mL/min >60 [facility] Work Phone: Comment on above: Non- GFR Calc Serum beta 2 glycoprotein 1 IgA antibody detectionon 01-18-2022 Beta 2 glycoprotein 1 IgA Ql (S) <9 [facility] Work Phone: Comment on above: Result Units: GPI Ig A unitsThe reference interval reflects a 3SD or 99th percentileinterval, which is thought to represent a potentiallyclinically significant result in accordance with theInternational Consensus Statement on the classificationcriteria for definitive antiphospholipid syndrome (APS). JThromb Haem 2006;4:295-306. Serum beta 2 glycoprotein 1 IgG antibody detectionon 01-18-2022 Beta 2 glycoprotein 1 IgG Ql (S) <9 [facility] Work Phone: Comment on above: Result Units: GPI Ig G unitsThe reference interval reflects a 3SD or 99th percentileinterval, which is thought to represent a potentiallyclinically significant result in accordance with theInternational Consensus Statement on the classificationcriteria for definitive antiphospholipid syndrome (APS). JThromb Haem 2006;4:295-306. Serum beta 2 glycoprotein 1 IgM antibody detectionon 01-18-2022 Beta 2 glycoprotein 1 IgM Ql (S) <9 [facility] Work Phone: Comment on above: Result Units: GPI Ig M unitsThe reference interval reflects a 3SD or 99th percentileinterval, which is thought to represent a potentiallyclinically significant result in accordance with theInternational Consensus Statement on the classificationcriteria for definitive antiphospholipid syndrome (APS). JThromb Haem 2006;4:295-306.Performed at: [employer] [address] [id number] Director: Carl Torres MD, Phone: [phone] at: [facility] [address] [id number] Director: [place] Steve PhD, Phone: [phone] Serum cardiolipin IgG antibo dy assay by immunoassay (units/volume)on 01-18-2022 Cardiolipin IgG IA Qn (S) < 9 GPL U/mL [facility] Work Phone: Comment on above: Negative: <15 Indete rminate: 15 - 20 Low-Med Positive: >20 - 80 High Positive: >80 Serum or plasma albumin ruiz urement (mass/volume)on 01-18-2022 Albumin [Mass/Vol] 3.8 g/dL 3.2-5.0 [facility] Work Phone: Serum or plasma albumin/glob ulin mass ratioon 01-18-2022 Albumin/Globulin [Mass ratio] 1.3 {ratio} 0.9-2.4 [facility] Work Phone: Serum or plasma calcium ruiz urement (mass/volume)on 01-18-2022 Calcium [Mass/Vol] 8.5 mg/dL 8.5-10.1 [facility] Work Phone: Serum or plasma cardiolipin IgA antibody assay (units/volume)on 01-18-2022 Cardiolipin IgA Qn < 9 APL U/mL [facility] Work Phone: Comment on above: Negative: <12 Indete rminate: 12 - 20 Low-Med Positive: >20 - 80 High Positive: >80 Serum or plasma choriogonado tropin detectionon 01-18-2022 HCG ( test) Ql 337 mIU/mL <4 [facility] Work Phone: Comment on above: hCG levels with Gest ational AgeGestational Age hCG mIU/mL (IU/L)0.2 - 1 week 5 - 501-2 weeks 50 - 5002-3 weeks 100 - 33683-4 weeks 500 - 022628-7 weeks 1000 - 282270-5 weeks 99248 - 100,0006-8 weeks 87570 - 200,0002-3 months 74295 - 100,000 Serum or plasma creatinine m easurement (mass/volume)on 01-18-2022 Creatinine [Mass/Vol] 0.83 mg/dL 0.55-1.02 [facility] Work Phone: Comment on above: The validity of the calculated GFR & GFRAA in patients over 70 years has not been determined. Clinical correlation is essential. Serum or plasma urea nitroge n measurement (mass/volume)on 01-18-2022 Urea nitrogen [Mass/Vol] 6 mg/dL 7-18 [facility] Work Phone: Thin prep Papanicolaou smear with manual screeningon 01-18-2022 Thin prep Papanicolaou smear with manual screening 17 U/L 15-37 [facility] Work Phone: Thin prep Papanicolaou smear with manual screening 4 5-15 [facility] Work Phone: Thin prep Papanicolaou smear with manual screening 35.7 sec [facility] Work Phone: Thin prep Papanicolaou smear with manual screening 1.02 Ratio [facility] Work Phone: Thin prep Papanicolaou smear with manual screening 31.4 sec [facility] Work Phone: Thin prep Papanicolaou smear with manual screening Comment: [facility] Work Phone: Comment on above: No lupus anticoagula nt was detected. Thrombin time in platelet po or plasmaon 01-18-2022 Thrombin time Coag (PPP) [Time] 17.8 sec [facility] Work Phone: Serum or plasma choriogonado tropin detectionon 01-14-2022 HCG ( test) Ql 325 mIU/mL <4 [facility] Work Phone: Comment on above: hCG levels with Gest ational AgeGestational Age hCG mIU/mL (IU/L)0.2 - 1 week 5 - 501-2 weeks 50 - 5002-3 weeks 100 - 54976-5 weeks 500 - 336005-6 weeks 1000 - 243493-9 weeks 02209 - 100,0006-8 weeks 41339 - 200,0002-3 months 46472 - 100,000 Absolute lymphocyte counton 01-12-2022 Lymphocytes Auto (Unsp spec) [#/Vol] 1.80 10*3/uL 0.83-4.51 [facility] Work Phone: Basophil percentageon 2021 Basophils/100 WBC (Bld) 0.5 % 0-1 [facility] Work Phone: Eosinophils/100 WBC (Bld) 3.7 % 0-5 [facility] Work Phone: Neutrophils (Bld) [#/Vol] 5.2 10*3/uL 2.0-7.7 [facility] Work Phone: Neutrophils/100 WBC (Bld) 66.6 % 47-70 [facility] Work Phone: WBC (Bld) [#/Vol] 7.8 10*3/uL 4.4-11.0 [facility] Work Phone: [phone] Blood erythrocytes count (nu mber/volume)on 01-12-2022 RBC (Bld) [#/Vol] 4.31 10*6/uL 4.2-5.4 [facility] Work Phone: Blood hemoglobin measurement (mass/volume)on 01-12-2022 Hemoglobin (Bld) [Mass/Vol] 13.6 g/dL 12.0-15.0 [facility] Work Phone: [phone] Blood lymphocytes/100 leukoc yteson 01-12-2022 Lymphocytes/100 WBC (Bld) 23.2 % 19-41 [facility] Work Phone: Blood monocytes/100 leukocyt eson 01-12-2022 Monocytes/100 WBC (Bld) 5.7 % 0-10 [facility] Work Phone: [phone] Blood platelet mean volumeon 01-12-2022 Platelet mean volume (Bld) [Entitic vol] 10.1 fL 6.2-12.0 [facility] Work Phone: Determination of erythrocyte mean corpuscular volume (MCV)on 01-12-2022 MCV (RBC) [Entitic vol] 90.5 fL 81-99 [facility] Work Phone: [phone] Hematocrit Auto (Bld) [Volum e fraction]on 01-12-2022 Hematocrit (Bld) [Volume fraction] 39.0 % 37-47 [facility] Work Phone: [phone] Laboratory - Hematology and Cell countson 01-12-2022 Erythrocyte distribution width (RBC) [Entitic vol] 38.6 fL 35.1-43.9 [facility] Work Phone: [phone] Erythrocyte distribution width (RBC) [Ratio] 11.6 % 11.6-14.6 [facility] Work Phone: [phone] Immature granulocytes/100 WBC (Bld) 0.300 % 0.0-0.9 [facility] Work Phone: [phone] Comment on above: IG% - Immature Granu locytes (promyelocytes, myelocytes and metamyelocytes) > 1% indicates that a LEFT SHIFT is Present. MCH (RBC) [Entitic mass] 31.6 pg 27.0-32.0 [facility] Work Phone: Nucleated RBC/100 WBC (Bld) [Ratio] 0 % 0-5 [facility] Work Phone: MCHC Auto (RBC) [Mass/Vol]on 01-12-2022 MCHC (RBC) [Mass/Vol] 34.9 g/dL 32-36 [facility] Work Phone: Platelets bldon 01-12-2022 Platelets (Bld) [#/Vol] 266 10*3/uL 150-450 [facility] Work Phone: Serum or plasma choriogonado tropin detectionon 01-12-2022 HCG ( test) Ql 310 mIU/mL <4 [facility] Work Phone: Comment on above: hCG levels with Gest ational AgeGestational Age hCG mIU/mL (IU/L)0.2 - 1 week 5 - 501-2 weeks 50 - 5002-3 weeks 100 - 45778-5 weeks 500 - 927407-4 weeks 1000 - 553226-0 weeks 72287 - 100,0006-8 weeks 99075 - 200,0002-3 months 73103 - 100,000 HCG ( test) Ql 317 mIU/mL <4 [facility] Work Phone: Comment on above: hCG levels with Gest ational AgeGestational Age hCG mIU/mL (IU/L)0.2 - 1 week 5 - 501-2 weeks 50 - 5002-3 weeks 100 - 72982-6 weeks 500 - 059643-8 weeks 1000 - 920419-7 weeks 82138 - 100,0006-8 weeks 31296 - 200,0002-3 months 90755 - 100,000 Serum or plasma choriogonado tropin detectionon 01-04-2022 HCG ( test) Ql 289 mIU/mL <4 [facility] Work Phone: Comment on above: hCG levels with Gest ational AgeGestational Age hCG mIU/mL (IU/L)0.2 - 1 week 5 - 501-2 weeks 50 - 5002-3 weeks 100 - 12158-4 weeks 500 - 969487-2 weeks 1000 - 148863-2 weeks 92234 - 100,0006-8 weeks 15806 - 200,0002-3 months 43629 - 100,000 Serum or plasma choriogonado tropin detectionon 12-30-2021 HCG ( test) Ql 582 mIU/mL <4 [facility] Work Phone: Comment on above: hCG levels with Gest ational AgeGestational Age hCG mIU/mL (IU/L)0.2 - 1 week 5 - 501-2 weeks 50 - 5002-3 weeks 100 - 99690-5 weeks 500 - 155499-7 weeks 1000 - 492145-7 weeks 81072 - 100,0006-8 weeks 82716 - 200,0002-3 months 15369 - 100,000 Serum or plasma choriogonado tropin detectionon 12-28-2021 HCG ( test) Ql 496 mIU/mL <4 [facility] Work Phone: Comment on above: hCG levels with Gest ational AgeGestational Age hCG mIU/mL (IU/L)0.2 - 1 week 5 - 501-2 weeks 50 - 5002-3 weeks 100 - 29301-0 weeks 500 - 871184-8 weeks 1000 - 718198-8 weeks 56488 - 100,0006-8 weeks 75445 - 200,0002-3 months 63382 - 100,000 Serum or plasma choriogonado tropin detectionon 12-26-2021 HCG ( test) Ql 369 mIU/mL <4 [facility] Work Phone: Comment on above: hCG levels with Gest ational AgeGestational Age hCG mIU/mL (IU/L)0.2 - 1 week 5 - 501-2 weeks 50 - 5002-3 weeks 100 - 69875-7 weeks 500 - 342719-9 weeks 1000 - 187707-2 weeks 70610 - 100,0006-8 weeks 84482 - 200,0002-3 months 39970 - 100,000 Serum or plasma choriogonado tropin detectionon 12-24-2021 HCG ( test) Ql 257 mIU/mL <4 [facility] Work Phone: Comment on above: hCG levels with Gest ational AgeGestational Age hCG mIU/mL (IU/L)0.2 - 1 week 5 - 501-2 weeks 50 - 5002-3 weeks 100 - 22491-6 weeks 500 - 033654-6 weeks 1000 - 501727-3 weeks 78329 - 100,0006-8 weeks 53813 - 200,0002-3 months 23765 - 100,000 Basophil percentageon 2021 Cholesterol [Mass/Vol] 172 mg/dL <200 [facility] Work Phone: Comment on above: <200 mg/dL Desirable 200-240 mg/dL Borderline >240 mg/dL High Risk Glucose [Mass/Vol] 95 mg/dL 74-106 [facility] Work Phone: Triglyceride [Mass/Vol] 77 mg/dL [facility] Work Phone: Comment on above: The drugs N-Acetylcy steine and Metamizole may falsely depress this assay.Serum Triglycerides Reference Interval Normal <150 mg/dL Borderline high 150 - 199 mg/dL High 200 - 499 mg/dL Very High > or = 500 mg/dL No Panel Informationon 11-30 Thyroid Stimulating Hormone (TSH) 2.41 uIU/mL 0.358-3.74 [facility] Work Phone: Vitamin D 25-Hydroxy 21.1 ng/mL [facility] Work Phone: Comment on above: Vitamin D 25(OH) Sta tus Range Deficiency <20 ng/mL (50nmol/L) Insufficiency 20 - 30 ng/mL (50 - 75 nmol/L) Sufficiency 30 - 100 ng/mL (75 - 250 nmol/L) Toxicity >100 ng/mL (>250 nmol/L) Serum or plasma cholesterol in HDL measurement (mass/volume)on 11-30-2021 Cholesterol in HDL [Mass/Vol] 60 mg/dL [facility] Work Phone: Comment on above: The drugs N-Acetylcy steine and Metamizole may falsely depress this assay. Reference Range HDL <40 mg/dL Low HDL Cholesterol HDL >or= 60 mg/dL High HDL Cholesterol Serum or plasma cholesterol in VLDL measurement (mass/volume)on 11-30-2021 Cholesterol in VLDL [Mass/Vol] 15 mg/dL 5-40 [facility] Work Phone: Serum or plasma low density lipoprotein (LDL) cholesterol measurement (mass/volume)on 11-30-2021 Cholesterol in LDL [Mass/Vol] 97 mg/dL 0-130 [facility] Work Phone: Serum or plasma progesterone measurement (mass/volume)on 11-30-2021 Progesterone [Mass/Vol] 1.05 ng/mL See Comment [facility] Work Phone: Comment on above: Progesterone Referen ce Table: UNITS Female: Follicular 0.15 - 1.40 ng/mL Luteal 3.34 - 25.56 ng/mL Mid-luteal 4.44 - 28.03 ng/mL Postmenopausal 0.0 - 0.73 ng/mL : 1st Trimester 11.22 - 90.00 ng/mL 2nd Trimester 25.55 - 89.40 ng/mL 3rd Trimester 48.40 -422.50 ng/mL Culture, urine Bacteria identified Cx Nom (U) Positive [facility] Work Phone: Vital Signs Date Time Vital Sign Value Performing Clinician Faci lity 07-08-2025 10:42-0400 Body height 162.56 cm No Primary Care Physician [facility] 07-08-2025 10:42-0400 Body mass index (BMI) [Ratio] 37.3 kg/m2 No Primary Care Physician [facility] 07-08-2025 10:42-0400 Body weight 98.68 kg No Primary Care Physician [facility] 07-08-2025 10:42-0400 Diastolic blood pressure 81 mm[Hg] No Primary Care Physician [facility] 07-08-2025 10:42-0400 Systolic blood pressure 117 mm[Hg] No Primary Care Physician [facility] 06-26-2025 09:29-0400 Body height 162.56 cm No Primary Care Physician [facility] 06-26-2025 09:29-0400 Body mass index (BMI) [Ratio] 37.6 kg/m2 No Primary Care Physician [facility] 06-26-2025 09:29-0400 Body weight 99.53 kg No Primary Care Physician [facility] 06-26-2025 09:29-0400 Diastolic blood pressure 63 mm[Hg] No Primary Care Physician [facility] 06-26-2025 09:29-0400 Systolic blood pressure 104 mm[Hg] No Primary Care Physician [facility] 06-12-2025 09:270400 Body height 162.56 cm No Primary Care Physician [facility] 06-12-2025 09:270400 Body mass index (BMI) [Ratio] 37.1 kg/m2 No Primary Care Physician [facility] 06-12-2025 09:27-0400 Body weight 98.23 kg No Primary Care Physician [facility] 06-12-2025 09:27-0400 Diastolic blood pressure 71 mm[Hg] No Primary Care Physician [facility] 06-12-2025 09:27-0400 Systolic blood pressure 110 mm[Hg] No Primary Care Physician [facility] 05-15-2025 09:35-0400 Body height 162.56 cm No Primary Care Physician [facility] 05-15-2025 09:26-0400 Body mass index (BMI) [Ratio] 36.8 kg/m2 No Primary Care Physician [facility] 05-15-2025 09:260400 Body weight 97.18 kg No Primary Care Physician [facility] 05-15-2025 09:26-0400 Diastolic blood pressure 72 mm[Hg] No Primary Care Physician [facility] 05-15-2025 09:26-0400 Systolic blood pressure 114 mm[Hg] No Primary Care Physician [facility] 04-16-2025 15:11-0400 Body height 162.56 cm No Primary Care Physician [facility] 04-16-2025 15:11-0400 Body mass index (BMI) [Ratio] 36.2 kg/m2 No Primary Care Physician [facility] 04-16-2025 15:11-0400 Body weight 95.82 kg No Primary Care Physician [facility] 04-16-2025 15:11-0400 Diastolic blood pressure 75 mm[Hg] No Primary Care Physician [facility] 04-16-2025 15:11-0400 Systolic blood pressure 117 mm[Hg] No Primary Care Physician [facility] 03-20-2025 08:43-0400 Body height 162.56 cm No Primary Care Physician [facility] 03-20-2025 08:38-0400 Body mass index (BMI) [Ratio] 35.3 kg/m2 No Primary Care Physician [facility] 03-20-2025 08:38-0400 Body weight 93.44 kg No Primary Care Physician [facility] 03-20-2025 08:38-0400 Diastolic blood pressure 64 mm[Hg] No Primary Care Physician [facility] 03-20-2025 08:38-0400 Systolic blood pressure 120 mm[Hg] No Primary Care Physician [facility] 02-19-2025 14:19-0400 Body height 162.56 cm No Primary Care Physician [facility] 02-19-2025 14:19-0400 Body mass index (BMI) [Ratio] 35.2 kg/m2 No Primary Care Physician [facility] 02-19-2025 14:19-0400 Body weight 93.15 kg No Primary Care Physician [facility] 02-19-2025 14:19-0400 Diastolic blood pressure 74 mm[Hg] No Primary Care Physician [facility] 02-19-2025 14:19-0400 Systolic blood pressure 106 mm[Hg] No Primary Care Physician [facility] 01-23-2025 08:57-0400 Body height 162.56 cm Margaux Jay [facility] Work Phone: 0(567)582-528125 [place] [address] 01-23-2025 08:57-0400 Body mass index (BMI) [Ratio] 34.5 kg/m2 Margaux Haagen [facility] Work Phone: 0(420)619-759025 [place] [address] 01-23-2025 08:57-0400 Body weight 91.28 kg Margaux Haagen [facility] Work Phone: 9(031)274-169406 [place] [address] 01-23-2025 08:57-0400 Diastolic blood pressure 77 mm[Hg] Margaux Haagen [facility] Work Phone: 0(027)147-128606 [place] [address] 01-23-2025 08:57-0400 Systolic blood pressure 122 mm[Hg] Margaux Haagen [facility] Work Phone: 8(774)716-894925 [place] [address] 10-19-2024 13:39-0500 Body height 162.56 cm Margaux Mataagen [facility] Work Phone: 0(135)942-883025 [place] [address] 10-19-2024 13:38-0500 Body mass index (BMI) [Ratio] 34.3 kg/m2 Margaux Jay [facility] Work Phone: 4(598)123-591125 [place] [address] 10-19-2024 13:38-0500 Body weight 90.71 kg Margaux Jay [facility] Work Phone: 3(022)305-089525 [place] [address] 10-19-2024 13:38-0500 Diastolic blood pressure 82 mm[Hg] Margaux Jay [facility] Work Phone: 2(106)381-399325 [place] [address] 10-19-2024 13:38-0500 Systolic blood pressure 142 mm[Hg] Margaux Jay [facility] Work Phone: 0(020)786-274025 [place] [address] 01-20-2023 13:01-0400 Body temperature 98 [degF] [facility] Margaux Jay [facility] Work Phone: 8(865)321-860725 [place] [address] 01-20-2023 13:01-0400 Diastolic blood pressure 64 mm[Hg] [facility] Margaux Jay [facility] Work Phone: 7(977)310-830025 [place] [address] 01-20-2023 13:01-0400 Heart rate 89 /min [facility] Margaux Jay [employer] Work Phone: 6(636)703-116825 [place] [address] 01-20-2023 13:01-0400 Respiratory rate 16 /min [facility] Margaux Jay [facility] Work Phone: 1(032)599-766825 [place] [address] 01-20-2023 13:01-0400 SaO2% (BldA) [Mass fraction] 100 % [facility] Margaux Jay [facility] Work Phone: 5(943)191-283725 [place] [address] 01-20-2023 13:01-0400 Systolic blood pressure 107 mm[Hg] [facility] Margaux Jay [facility] Work Phone: 2(899)121-035725 [place] [address] 01-18-2023 07:13-0400 Body height 162.56 cm [facility] Margaux Jay [facility] Work Phone: 0(288)958-517325 [place] [address] 01-18-2023 07:13-0400 Body mass index (BMI) [Ratio] 38.9 kg/m2 [facility] Margaux Jay [employer] Work Phone: 6(780)166-607725 [place] [address] 01-18-2023 07:13-0400 Body weight 103 kg [facility] Margaux Mataagen [facility] Work Phone: 4(238)984-597825 [place] [address] 01-13-2023 08:34-0400 Body mass index (BMI) [Ratio] 38.5 kg/m2 [facility] Margaux Haagen [employer] Work Phone: 6(430)230-003925 [place] [address] 01-13-2023 08:34-0400 Body weight 101.83 kg [facility] Margaux Haagen [employer] Work Phone: 9(713)563-454125 [place] [address] 01-13-2023 08:34-0400 Diastolic blood pressure 72 mm[Hg] [facility] Margaux Mataagen [facility] Work Phone: 2(613)352-776325 [place] [address] 01-13-2023 08:34-0400 Systolic blood pressure 112 mm[Hg] [facility] Margaux Haagen [employer] Work Phone: 7(060)761-695625 [place] [address] 01-11-2023 10:23-0400 Body mass index (BMI) [Ratio] 38.9 kg/m2 [facility] Margaux Haagen [employer] Work Phone: 6(261)364-779625 [place] [address] 01-11-2023 10:23-0400 Body weight 103.07 kg [facility] Margaux Haagen [employer] Work Phone: 8(621)793-951625 [place] [address] 01-11-2023 10:23-0400 Diastolic blood pressure 87 mm[Hg] [facility] Margaux Mataagen [employer] Work Phone: 4(000)253-020425 [place] [address] 01-11-2023 10:23-0400 Systolic blood pressure 131 mm[Hg] [facility] Margaux Haagen [employer] Work Phone: 2(805)558-579225 [place] [address] 01-04-2023 10:44-0400 Body mass index (BMI) [Ratio] 38.7 kg/m2 [facility] Margaux Haagen [employer] Work Phone: 8(900)454-654225 [place] [address] 01-04-2023 10:44-0400 Body weight 102.51 kg [facility] Margaux Mataagen [facility] Work Phone: 1(729)463-645025 [place] [address] 01-04-2023 10:44-0400 Diastolic blood pressure 82 mm[Hg] [facility] Margaux Haagen [employer] Work Phone: [facility] 01-04-2023 10:44-0400 Systolic blood pressure 124 mm[Hg] [facility] Margaux Haagen [facility] Work Phone: [facility] 12-28-2022 08:38-0400 Body height 162.56 cm [facility] Margaux Haagen [employer] Work Phone: 4(567)990-307706 [place] [address] 12-28-2022 08:38-0400 Body mass index (BMI) [Ratio] 38.6 kg/m2 [facility] Margaux Haagen [employer] Work Phone: 1(085)759-547825 [place] [address] 12-28-2022 08:38-0400 Body weight 102.11 kg [facility] Margaux Jay [employer] Work Phone: 0(135)444-434325 [place] [address] 12-28-2022 08:38-0400 Diastolic blood pressure 80 mm[Hg] [facility] Margaux Haagen [employer] Work Phone: 9(276)491-969025 [place] [address] 12-28-2022 08:38-0400 Systolic blood pressure 119 mm[Hg] [facility] Margaux Haagen [employer] Work Phone: 5(288)563-544825 [place] [address] 12-21-2022 11:00-0400 Body height 162.56 cm [facility] Margaux Jay [employer] Work Phone: 1(916)645-397125 [place] [address] 12-21-2022 11:00-0400 Body mass index (BMI) [Ratio] 38.7 kg/m2 [facility] Margaux Haagen [employer] Work Phone: 6(712)640-140606 [place] [address] 12-21-2022 11:00-0400 Body weight 102.28 kg [facility] Margaux Haagen [employer] Work Phone: 5(109)957-038625 [place] [address] 12-21-2022 11:00-0400 Diastolic blood pressure 82 mm[Hg] [facility] Margaux Haagen [employer] Work Phone: 0(953)392-079525 [place] [address] 12-21-2022 11:00-0400 Systolic blood pressure 120 mm[Hg] [facility] Margaux Hanasrin [employer] Work Phone: 3(591)901-587225 [place] [address] 12-07-2022 08:20-0400 Body mass index (BMI) [Ratio] 38.1 kg/m2 [facility] Margaux Haagen [employer] Work Phone: 5(325)887-504425 [place] [address] 12-07-2022 08:20-0400 Body weight 100.75 kg [facility] Margaux Haagen [employer] Work Phone: 1(496)809-172325 [place] [address] 12-07-2022 08:20-0400 Diastolic blood pressure 77 mm[Hg] [facility] Margaux Haagen [facility] Work Phone: 8(351)598-122825 [place] [address] 12-07-2022 08:20-0400 Systolic blood pressure 118 mm[Hg] [facility] Margaux Haagen [facility] Work Phone: 8(145)722-640225 [place] [address] 11-29-2022 16:37-0500 Body weight 99.79 kg [facility] Margaux Haagen [employer] Work Phone: 6(832)947-593325 [place] [address] 11-23-2022 10:11-0500 Body mass index (BMI) [Ratio] 37.8 kg/m2 [facility] [facility] Margaux Haagen [employer] Work Phone: 2(815)665-554125 [place] [address] 11-23-2022 10:11-0500 Body weight 99.79 kg [facility] Margaux Haagen [employer] Work Phone: 4(815)253-516325 [place] [address] 11-23-2022 10:11-0500 Diastolic blood pressure 77 mm[Hg] [facility] Margaux Haagen [facility] Work Phone: 2(486)070-988425 [place] [address] 11-23-2022 10:11-0500 Systolic blood pressure 123 mm[Hg] [facility] Margaux Haagen [facility] Work Phone: 8(670)460-147725 [place] [address] 11-10-2022 10:06-0500 Diastolic blood pressure 83 mm[Hg] [facility] Margaux Haagen [facility] Work Phone: 6(852)815-183325 [place] [address] 11-10-2022 10:06-0500 Systolic blood pressure 130 mm[Hg] [facility] Margaux Haagen [facility] Work Phone: 4(908)485-159825 [place] [address] 11-10-2022 09:43-0500 Body height 162.56 cm [facility] Margaux Jay [facility] Work Phone: 5(729)577-386725 [place] [address] 11-10-2022 09:40-0500 Body mass index (BMI) [Ratio] 37.5 kg/m2 [facility] Margaux Mataagen [facility] Work Phone: 6(130)702-155125 [place] [address] 11-10-2022 09:40-0500 Body weight 99.1 kg [facility] Margaux Mataagen [facility] Work Phone: 3(499)601-386925 [place] [address] 10-19-2022 08:13-0500 Body height 162.56 cm [facility] Margaux Jay [facility] Work Phone: 7(266)410-232325 [place] [address] 10-19-2022 08:09-0500 Body mass index (BMI) [Ratio] 37 kg/m2 [facility] Margaux Jay [facility] Work Phone: 5(183)069-217725 [place] [address] 10-19-2022 08:09-0500 Body weight 98.08 kg [facility] Margaux Jay [facility] Work Phone: 4(004)655-051525 [place] [address] 10-19-2022 08:09-0500 Diastolic blood pressure 78 mm[Hg] [facility] Margaux Jay [facility] Work Phone: 4(905)462-035225 [place] [address] 10-19-2022 08:09-0500 Systolic blood pressure 124 mm[Hg] [facility] Margaux Jay [facility] Work Phone: 8(129)591-118525 [place] [address] 09-22-2022 14:34-0500 Body weight 95.61 kg [facility] Margaux Jay [facility] Work Phone: 8(856)495-033225 [place] [address] 09-22-2022 14:34-0500 Diastolic blood pressure 74 mm[Hg] [facility] Margaux Haagen [facility] Work Phone: 6(559)360-090025 [place] [address] 09-22-2022 14:34-0500 Systolic blood pressure 104 mm[Hg] [facility] Margaux Mataagen [facility] Work Phone: 4(937)061-640825 [place] [address] 08-16-2022 15:27-0500 Body mass index (BMI) [Ratio] 35.9 kg/m2 [facility] Margaux Mataagen [facility] Work Phone: 8(956)458-390206 [place] [address] 08-16-2022 15:27-0500 Body weight 94.8 kg [facility] Margaux Haagen [facility] Work Phone: 7(021)175-301825 [place] [address] 08-16-2022 15:27-0500 Diastolic blood pressure 80 mm[Hg] [facility] Margaux Mataagen [facility] Work Phone: 5(658)288-898825 [place] [address] 08-16-2022 15:27-0500 Systolic blood pressure 118 mm[Hg] [facility] Margaux Mataagen [facility] Work Phone: 1(940)125-182525 [place] [address] 07-22-2022 15:46-0400 Body height 162.56 cm [facility] Margaux Mataagen [facility] Work Phone: 7(454)991-011525 [place] [address] Work Phone: 07-22-2022 15:46-0400 Body mass index (BMI) [Ratio] 34.8 kg/m2 [facility] Margaux Mataagen [facility] Work Phone: 7(169)419-466125 [place] [address] 07-22-2022 15:46-0400 Body weight 92.07 kg [facility] Margaux Haagen [facility] Work Phone: 7(744)053-449625 [place] [address] 07-22-2022 15:46-0400 Diastolic blood pressure 60 mm[Hg] [facility] Margaux Mataagen [facility] Work Phone: 4(784)609-020125 [place] [address] 07-22-2022 15:46-0400 Systolic blood pressure 127 mm[Hg] [facility] Margaux Haagen [facility] Work Phone: 1(052)467-337125 [place] [address] 07-08-2022 13:16-0400 Body height 162.56 cm [facility] Margaux Haagen [facility] Work Phone: [facility] Work Phone: 07-08-2022 13:13-0400 Body mass index (BMI) [Ratio] 34.7 kg/m2 [facility] [facility] Margaux Haagen [facility] Work Phone: 5(434)546-232806 [place] [address] 07-08-2022 13:13-0400 Body weight 91.79 kg [facility] Margaux Jay [employer] Work Phone: [facility] 07-08-2022 13:13-0400 Diastolic blood pressure 73 mm[Hg] [facility] [facility] Margaux Jay [facility] Work Phone: [facility] 07-08-2022 13:13-0400 Systolic blood pressure 116 mm[Hg] [facility] Margaux Jay [facility] Work Phone: [facility] 06-17-2022 13:51-0400 Body height 162.56 cm [facility] Margaux Jay [facility] Work Phone: [facility] Work Phone: 06-17-2022 13:49-0400 Body mass index (BMI) [Ratio] 34.7 kg/m2 [facility] [facility] Margaux Jay [facility] Work Phone: [facility] Work Phone: 06-17-2022 13:49-0400 Body weight 91.62 kg [facility] Margaux Jay [facility] Work Phone: [facility] Work Phone: 06-17-2022 13:49-0400 Diastolic blood pressure 75 mm[Hg] [facility] Margaux Jay [facility] Work Phone: [facility] Work Phone: 06-17-2022 13:49-0400 Systolic blood pressure 123 mm[Hg] [facility] Margaux Jay [facility] Work Phone: [facility] Work Phone: 02-12-2022 09:50-0400 Body height 162.56 cm [facility] Margaux Jay [facility] Work Phone: [facility] Work Phone: 02-12-2022 09:50-0400 Body mass index (BMI) [Ratio] 34.3 kg/m2 [facility] [facility] Margaux Jay [facility] Work Phone: [facility] Work Phone: 02-12-2022 09:50-0400 Body weight 90.71 kg [facility] Margaux Jay [facility] Work Phone: [facility] Work Phone: 02-12-2022 09:50-0400 Diastolic blood pressure 76 mm[Hg] [facility] Margaux Jay [facility] Work Phone: [facility] Work Phone: 02-12-2022 09:50-0400 Systolic blood pressure 120 mm[Hg] [facility] Margaux Jay [facility] Work Phone: [facility] Work Phone: 01-19-2022 08:05-0400 Body height 162.56 cm [facility] Margaux Jay [facility] Work Phone: [facility] Work Phone: 01-19-2022 08:05-0400 Body mass index (BMI) [Ratio] 34.8 kg/m2 [facility] [facility] Margaux Jay [facility] Work Phone: [facility] Work Phone: 01-19-2022 08:05-0400 Body weight 92.07 kg [facility] Margaux Jay [facility] Work Phone: [facility] Work Phone: 01-19-2022 08:05-0400 Diastolic blood pressure 74 mm[Hg] [facility] Margaux Jay [facility] Work Phone: [facility] Work Phone: 01-19-2022 08:05-0400 Systolic blood pressure 118 mm[Hg] [facility] Margaux Jay [facility] Work Phone: [facility] Work Phone: 01-14-2022 12:21-0400 Body height 162.56 cm [facility] Margaux Jay [facility] Work Phone: [facility] Work Phone: 01-14-2022 12:21-0400 Body mass index (BMI) [Ratio] 34.7 kg/m2 [facility] [facility] Margaux Jay [facility] Work Phone: [facility] Work Phone: 01-14-2022 12:21-0400 Body weight 91.85 kg [facility] Margaux Jay [employer] Work Phone: [facility] Work Phone: 01-14-2022 12:21-0400 Diastolic blood pressure 62 mm[Hg] [facility] Margaux Jay [facility] Work Phone: [facility] Work Phone: 01-14-2022 12:21-0400 Systolic blood pressure 118 mm[Hg] [facility] Margaux Jay [facility] Work Phone: [facility] Work Phone: 01-12-2022 11:31-0400 Body height 162.56 cm [facility] [facility] Margaux Jay [facility] Work Phone: [facility] Work Phone: 01-12-2022 11:31-0400 Body mass index (BMI) [Ratio] 34.9 kg/m2 [facility] [facility] Margaux Jay [employer] Work Phone: [facility] Work Phone: 01-12-2022 11:31-0400 Body temperature 96.9 [degF] [facility] [facility] Margaux Jay [facility] Work Phone: [facility] Work Phone: 01-12-2022 11:31-0400 Body weight 92.4 kg [facility] [facility] Margaux Jay [employer] Work Phone: [facility] Work Phone: 01-12-2022 11:31-0400 Diastolic blood pressure 106 mm[Hg] [facility] [facility] Margaux Jay [employer] Work Phone: [facility] Work Phone: 01-12-2022 11:31-0400 Heart rate 103 /min [facility] [facility] Margaux Jay [employer] Work Phone: [facility] Work Phone: 01-12-2022 11:31-0400 Respiratory rate 16 /min [facility] [facility] Margaux Jay [employer] Work Phone: [facility] Work Phone: 01-12-2022 11:31-0400 SaO2% (BldA) [Mass fraction] 100 % [facility] Margaux Jay [employer] Work Phone: [facility] Work Phone: 01-12-2022 11:31-0400 Systolic blood pressure 154 mm[Hg] [facility] [facility] Margaux Jay [employer] Work Phone: [facility] Work Phone: 11-02-2021 08:28-0500 Body mass index (BMI) [Ratio] 35.2 kg/m2 [facility] [facility]Daniel Jay [employer] Work Phone: [facility] Work Phone: 11-02-2021 08:28-0500 Diastolic blood pressure 82 mm[Hg] [facility] [facility] Margaux Jay [employer] Work Phone: [facility] Work Phone: 11-02-2021 08:28-0500 Systolic blood pressure 142 mm[Hg] HEEL BLACKER-C Margaux Jay HEEL BLACKER Work Phone: [facility] Work Phone: 11-02-2021 07:57-0500 Body height 162.56 cm HEEL BL[employer]ER-Daniel Jay HEEL BL[employer] Work Phone: [facility] Work Phone: 11-02-2021 07:57-0500 Body weight 92.98 kg HEEL BLACKER-C Margaux Jay HEEL BL[employer]ER Work Phone: [facility] Work Phone: Encounters Encounter Date Encounter Type Care Provider Facility Start: 08-06-2025 End: 08-06-2025 ambulatory No Primary Care Physician Facility:[facility] Start: 07-30-2025 ambulatory No Primary Car e Physician Facility:[facility] Start: 07-30-2025 End: 07-30-2025 ambulatory Guadalupe Garcia Facility:[facility] Start: 07-23-2025 End: 07-23-2025 ambulatory No Primary Care Physician Facility:[facility] Start: 07-08-2025 End: 07-08-2025 Patient encounter procedure Margarita Rollins CNM -[facility] Work Phone: Start: 07-08-2025 End: 07-08-2025 ambulatory No Primary Care Physician -[facility] Start: 06-26-2025 End: 06-26-[address] Guadalupe Garcia DO -[facility] Work Phone: Start: 06-26-2025 End: 06-26-2025 ambulatory No Primary Care Physician -[facility] Start: 06-12-2025 End: 06-12-[address] Paradise Mackey MD -[facility] Work Phone: Start: 06-12-2025 End: 06-12-2025 ambulatory No Primary Care Physician -[facility] Start: 05-15-2025 End: 05-15-2025 Patient encounter procedure Jessica Bella HEEL BLACKER- -[facility] Work Phone: Start: 05-15-2025 End: 05-15-2025 ambulatory No Primary Care Physician -[facility] Start: 05-15-2025 End: 05-15-2025 ambulatory Jessica Bella HEEL BLACKER Facility:[facility] Start: 04-16-2025 End: 04-16-[address] Paradise Mackey MD -[facility] Work Phone: Start: 04-16-2025 End: 04-16-2025 ambulatory No Primary Care Physician -[facility] Start: 03-26-2025 End: 03-26-2025 ambulatory GUADALUPE OCONNOR [facility] Start: 03-20-2025 End: 03-20-2025 Patient encounter procedure Jessica Bella HEEL BLACKER-C -[facility] Work Phone: Start: 03-20-2025 End: 03-20-2025 ambulatory No Primary Care Physician [facility] Work Phone: Start: 03-04-2025 End: 03-04-2025 ambulatory GUADALUPE OCONNOR [facility] Start: 02-19-2025 End: 02-19-2025 Patient encounter procedure Margarita Rollins CNM -[facility] Work Phone: Start: 02-19-2025 End: 02-19-2025 ambulatory No Primary Care Physician [facility] Work Phone: Start: 01-23-2025 End: 01-23-[address] Guadalupe Garcia DO -[facility] Work Phone: Start: 01-23-2025 End: 01-23-2025 ambulatory Margaux Haagen HEEL BLACKER-C Work Phone: [facility] Work Phone: Start: 01-23-2025 End: 01-23-2025 ambulatory Guadalupe Garcia Facility:[facility] Start: 12-18-2024 End: 12-18-2024 ambulatory Margaux Haagen HEEL BLACKER-C Work Phone: [facility] Work Phone: Start: 12-18-2024 End: 12-18-2024 Patient encounter procedure Margarita DAWSONM -Lab, [facility] Start: 12-18-2024 End: 12-18-2024 ambulatory No Primary Care Physician Facility:[facility] Start: 12-12-2024 End: 12-12-2024 ambulatory Margaux Haagen HEEL BLACKER-C Work Phone: [facility] Work Phone: Start: 12-12-2024 End: 12-12-2024 Patient encounter procedure Margarita DAWSONM -Lab, [facility] Start: 12-12-2024 End: 12-12-2024 ambulatory No Primary Care Physician Facility:[facility] Start: 12-10-2024 End: 12-10-2024 ambulatory Margaux Jay HEEL BLACKER-C Work Phone: [facility] Work Phone: Start: 12-10-2024 End: 12-10-2024 Patient encounter procedure Margarita Rollins CNM -Lab, [facility] Start: 12-10-2024 End: 12-10-2024 ambulatory No Primary Care Physician Facility:[facility] Start: 11-01-2024 End: 11-01-2024 Patient encounter procedure Margarita Rollins CNM -Laboratory Work Phone: Start: 11-01-2024 End: 11-01-2024 ambulatory No Primary Care Physician Facility:[facility] Start: 10-19-2024 End: 10-19-2024 Patient encounter procedure Margarita Rollins CNM -[facility] Work Phone: Start: 10-19-2024 End: 10-19-2024 ambulatory Margaux Jay HEEL BLACKER Facility:[facility] Start: 01-20-2023 Non-patient / Non-visit HEEL BLACKER-C C mich Jay HEEL BLACKER Work Phone: [facility] Start: 01-19-2023 Non-patient / Non-visit HEEL BLACKER-C C cristhiany Haagen HEEL BLACKER Work Phone: [facility] Start: 01-18-2023 Non-patient / Non-visit HEEL BLACKER-C C hristy Haagen HEEL BLACKER Work Phone: [facility] Start: 01-18-2023 End: 01-20-2023 Evaluation and management of inpatient HEEL BLACKER-C Margaux Jay HEEL BLACKER Work Phone: [facility] Start: 01-13-2023 End: 01-13-2023 Patient encounter procedure HEEL BLACKER-C Margaux Jay HEEL BLACKER Work Phone: [facility] Start: 01-11-2023 End: 01-11-2023 Patient encounter procedure HEEL BLACKER-C Margaux Jay HEEL BLACKER Work Phone: [facility] Start: 01-04-2023 End: 01-04-2023 Patient encounter procedure HEEL BLACKER-C Margaux Jay HEEL BLACKER Work Phone: [facility] Start: 12-28-2022 End: 12-28-2022 Patient encounter procedure HEEL BLACKER-C Margaux Jay HEEL BLACKER Work Phone: [facility] Start: 12-21-2022 End: 12-21-2022 ambulatory HEEL BLACKER-C Margaux Jay HEEL BLACKER Work Phone: [facility] Work Phone: Start: 12-21-2022 End: 12-21-2022 Patient encounter procedure HEEL BLACKER-C Margaux Jay HEEL BLACKER Work Phone: [facility]-Ultrasound, [facility] Start: 12-21-2022 End: 12-21-2022 ambulatory HEEL BLACKER-C Margaux Jay HEEL BLACKER Work Phone: [facility] Work Phone: Start: 12-21-2022 End: 12-21-2022 Patient encounter procedure HEEL BLACKER-Danile Jay HEEL BLACKER Work Phone: [facility]-Laboratory, Specimen Start: 12-07-2022 End: 12-07-2022 Patient encounter procedure HEEL BLACKER-C Margaux Jay HEEL BLACKER Work Phone: [facility] Start: 12-01-2022 Telephone encounter Igor mccormack DO Work Phone: [facility] Comment on above: Appointment Start: 11-29-2022 End: 12-24-2022 ambulatory HEEL BLACKER-Daniel Jay HEEL BLACKER Work Phone: [facility] Work Phone: Start: 11-29-2022 End: 03-31-2023 Discharged Recurring HEEL BLACKER-C Margaux Jay HEEL BLACKER Work Phone: [facility]-Diabetic [facility] Start: 11-23-2022 End: 11-23-2022 Patient encounter procedure HEEL BLACKER-Daniel Jay HEEL BLACKER Work Phone: [facility] Start: 11-11-2022 End: 11-11-2022 ambulatory HEEL BLACKER-Daniel Jay HEEL BLACKER Work Phone: [facility] Work Phone: Start: 11-11-2022 End: 11-11-2022 Patient encounter procedure HEEL BLACKER-C Margaux Jay HEEL BLACKER Work Phone: [facility]-Laboratory Start: 11-10-2022 End: 11-10-2022 Patient encounter procedure HEEL BLACKER-Daniel Jay HEEL BLACKER Work Phone: [facility] Start: 10-19-2022 End: 10-19-2022 ambulatory HEEL BLACKER-C Margaux Jay HEEL BLACKER Work Phone: [facility] Work Phone: Start: 10-19-2022 End: 10-19-2022 Patient encounter procedure HEEL BLACKER-C Margaux Jay HEEL BLACKER Work Phone: [facility] Start: 09-22-2022 End: 09-22-2022 Patient encounter procedure HEEL BLACKER-Daniel Jay HEEL BLACKER Work Phone: [facility] Start: 08-16-2022 End: 08-16-2022 Patient encounter procedure HEEL BLACKER-Daniel Jay HEEL BLACKER Work Phone: [facility] Start: 07-22-2022 End: 07-22-2022 Patient encounter procedure HEEL BLACKER-Daniel Jay HEEL BLACKER Work Phone: [facility] Start: 07-20-2022 End: 07-20-2022 ambulatory HEEL BLACKER-C Margaux Jay HEEL BLACKER Work Phone: [facility] Work Phone: Start: 07-20-2022 End: 07-20-2022 Patient encounter procedure HEEL BLACKER-C Margaux Jay HEEL BLACKER Work Phone: [facility]-Laboratory Start: 07-08-2022 End: 07-08-2022 ambulatory HEEL BLACKER-C Margaux Jay HEEL BLACKER Work Phone: [facility] Work Phone: Start: 07-08-2022 End: 07-08-2022 Patient encounter procedure HEEL BLACKER-C Margaux Jya HEEL BLACKER Work Phone: [facility] Start: 06-17-2022 End: 06-17-2022 ambulatory HEEL BLACKER-C Margaux Jay HEEL BLACKER Work Phone: [facility] Work Phone: Start: 06-17-2022 End: 06-17-2022 Patient encounter procedure HEEL BLACKER-C Margaux Jay [facility]EL BLACKER [facility] Start: 06-17-2022 End: 06-17-2022 Patient encounter procedure HEEL BLACKER-C Margaux Jay HEEL BLACKER Work Phone: [facility] Start: 06-01-2022 End: 06-01-2022 ambulatory HEEL BLACKER-C Margaux Jay HEEL BLACKER Work Phone: [facility] Work Phone: Start: 06-01-2022 End: 06-01-2022 Patient encounter procedure HEEL BLACKER-C Margaux Jay HEEL BLACKER Work Phone: [facility], [facility] Start: 05-22-2022 End: 05-22-2022 ambulatory HEEL BLACKER-C Margaux Jay HEEL BLACKER Work Phone: [facility] Work Phone: Start: 05-22-2022 End: 05-22-2022 Patient encounter procedure HEEL BLACKER-C Margaux Jay HEEL BLACKER Work Phone: [facility]-Laboratory Start: 05-20-2022 End: 05-20-2022 ambulatory HEEL BLACKER-C Margaux Jay HEEL BLACKER Work Phone: [facility] Work Phone: Start: 05-20-2022 End: 05-20-2022 Patient encounter procedure HEEL BLACKER-Daniel Jay HEEL BLACKER [facility] Start: 02-12-2022 End: 02-12-2022 Patient encounter procedure HEEL BLACKER-Daniel Jay HEEL BLACKER Work Phone: [facility] Start: 01-29-2022 End: 01-29-2022 Patient encounter procedure HEEL BLACKER-C Margaux Jay HEEL BLACKER [facility] Start: 01-26-2022 End: 01-26-2022 Patient encounter procedure HEEL BLACKER-Daniel Jay HEEL BLACKER [facility] Start: 01-23-2022 End: 01-23-2022 Patient encounter procedure HEEL BLACKER-Daniel Jay HEEL BLACKER [facility] Start: 01-19-2022 End: 01-19-2022 Patient encounter procedure HEEL BLACKER-Daniel Jay HEEL BLACKER Work Phone: [facility] Start: 01-18-2022 End: 01-18-2022 Patient encounter procedure HEEL BLACKER-Daniel Jay HEEL BLACKER [facility] Start: 01-14-2022 End: 01-14-2022 Patient encounter procedure HEEL BLACKER-Daniel Jay HEEL BLACKER Work Phone: [facility] Start: 01-14-2022 End: 01-14-2022 Patient encounter procedure HEEL BLACKER-Daniel Jay HEEL BLACKER [facility] Start: 01-12-2022 End: 01-12-2022 Emergency department patient visit HEEL BLACKER-Daniel Jay HEEL BLACKER Work Phone: [facility]-Emergency Department Start: 01-12-2022 End: 01-12-2022 Patient encounter procedure HEEL BLACKER-Daniel Jay HEEL BLACKER [facility] Start: 01-04-2022 End: 01-04-2022 Patient encounter procedure HEEL BLACKER-Daniel Jay HEEL BLACKER [facility] Start: 12-30-2021 End: 12-30-2021 Patient encounter procedure HEEL BLACKER-Daniel Jay HEEL BLACKER [facility] Start: 12-28-2021 End: 12-28-2021 Patient encounter procedure HEEL BLACKER-Daniel Jay HEEL BLACKER [facility] Start: 12-26-2021 End: 12-26-2021 Patient encounter procedure HEEL BLACKER-Daniel Jay HEEL BLACKER [facility] Start: 12-24-2021 End: 12-24-2021 Patient encounter procedure HEEL BLACKER-Daniel Jay HEEL BLACKER [facility] Start: 11-30-2021 End: 11-30-2021 Patient encounter procedure HEEL BLACKER-Daniel Jay HEEL BLACKER [facility] Start: 11-02-2021 End: 11-02-2021 Patient encounter procedure HEEL BLACKER-Daniel Jay HEEL BLACKER Work Phone: [facility] Start: 10-13-2015 Patient encounter status Igor Richardson DO Work Phone: [facility] Work Phone: Procedures Date Procedure Procedure Detail Performing Clinician Start: 05-15-2025 Serologic test for syphilis No Primary Care Physician Start: 01-23-2025 Liquid based cervica l cytology screening Margaux Jay HEEL BLACKER-C Work Phone: Comment on above: NEGATIVE FOR INTRAEP ITHELIAL LESION OR MALIGNANCY. This liquid based Th inPrep(R) pap test was screened withthe use of an image guided system. The HPV DNA reflex c riteria were not met with this specimenresult therefore, no HPV testing was performed.Performed at: [address] [id number] Director: Mable Kruse MD, Phone: [phone] Start: 01-23-2025 Urine culture Margaux galloway HEEL BLACKER-C Work Phone: Start: 01-23-2025 Hepatitis C antibody measurement Margaux Jay HEEL BLACKER-C Work Phone: Comment on above: Reactive: Presumptiv e evidence of antibodies to HCV. Follow CDC recommendations for supplemental testing.Non-Reactive: Antibodies to HCV were not detected; does not exclude the possibility of exposure to HCVReactive Results are presumptive evidence of antibodies to HCV. Follow CDC recommendations for supplemental testing.Order confirmation testing: HCV Quant by PCR testing - HCVPCR #[id number] Non Reactive: < 0.8 Equivocal: >/= 0.8 to < 1.0 Reactive: >/= 1.0The CDC requires that a reactive/equivocal HCV antibody result be sent out for confirmation. HCV Quant by PCR testing. Start: 01-23-2025 Rubella IgG measurement Margaux [employer] Work Phone: Comment on above: Antibody Result: Int erpretationNon-Reactive: Non- ImmuneReactive: ImmuneThe following results were obtained with the [employer] Rubella IgG assay. Results from assays of other manufacturers cannot be used interchangeably. Start: 01-23-2025 Serologic test for syphilis Margaux [employer] Work Phone: Start: 11-01-2024 Serum progesterone measurement Margaux [employer] Work Phone: Comment on above: Follicular phase 0.1 - 0.9 Luteal phase 1.8 - 23.9 Ovulation phase 0.1 - 12.0 First trimester 11.0 - 44.3 Second trimester 25.4 - 83.3 Third trimester 58.7 - 214.0 Postmenopausal 0.0 - 0.1Performed at: CB - [facility] [id number] [place], [place] [id number] Director: [place] Steve PhD, Phone: [phone] Start: 12-21-2022 Ultrasound scan for growth HEEL BLACKER-Daniel Jay HEEL BLACKER Work Phone: Start: 06-01-2022 Transvaginal obstetr ic ultrasonography HEEL BLACKER-C Margaux Jay HEEL BLACKER Work Phone: Start: 01-12-2022 Transvaginal obstetr ic ultrasonography HEEL BLACKER-C Margaux Jay HEEL BLACKER Work Phone: Group B Streptococcu s Culture HEEL BLACKER-Daniel Jay HEEL BLACKER Work Phone: Urine culture HEEL BLACKER-C Margaux galloway HEEL BLACKER Work Phone: Plan of Treatment Date Care Activity Detail Author Start: 08-19-2025 ambulatory Ambulatory Facility:[facility] Start: 06-12-2025 [facility] Start: 05-15-2025 CBC W Auto Differential panel - Blood [facility] Start: 05-15-2025 Measurement of glucose 2 hours after glucose challenge for glucose tolerance test [facility] Start: 05-15-2025 Serologic test for syphilis [facility] Start: 05-15-2025 [facility] Start: 04-16-2025 [facility] Start: 03-18-2024 PAP TESTING PAP TESTING [facility] Start: 01-20-2023 Patient discharge [facility] Start: 01-19-2023 Administration of medication [facility] Start: 01-19-2023 Application of ice collar, cap or bag [facility] Start: 01-19-2023 Catheterization of vein [facility] Start: 01-19-2023 Introduction of urinary catheter [facility] Start: 01-19-2023 Measuring intake and output [facility] Start: 01-19-2023 Notification of physician [facility] Start: 01-19-2023 Procedure discontinued [facility] Start: 01-19-2023 Provision of activity privileges [facility] Start: 01-19-2023 Vital signs measurements [facility] Start: 01-19-2023 [facility] Start: 01-18-2023 Admission procedure [facility] Start: 09-26-2022 DEPRESSION ASSESSMENT DEPRESSION ASSESSMENT [facility] Start: 05-27-2022 Influenza vaccination INFLUENZA (#1) [facility] Start: 03-18-2021 Urine microalbumin profile DTAP,TDAP,TD (7 - Td or Tdap) [facility] Start: 2014 HEPATITIS C SCREENING HEPATITIS C SCREENING [facility] Start: 2014 HIV SCREENING HIV SCREENING [facility] Start: 2010 PEDS TO ADULT TRANSITION ANNUAL ASSESSMENT PEDS TO ADULT TRANSITION ANNUAL ASSESSMENT [facility] Start: 2008 PEDS TO ADULT TRANSITION INITIAL DISCUSSION PEDS TO ADULT TRANSITION INITIAL DISCUSSION [facility] Start: 2006 MENINGOCOCCAL B: Consider based on risk (1 of 2 - Risk Bexsero 2-dose series) MENINGOCOCCAL B: Consider based on risk (1 of 2 - Risk Bexsero 2-dose series) [facility] Start: 02-14-1997 COVID-19 VACCINE (#1) COVID-19 VACCINE (#1) [facility] CBC W Auto Different ial panel - Blood [facility] Work Phone: Erythrocyte mean corpuscular volume determination [facility] Glucose [Mass/volume ] in Serum or Plasma --1 hour post 50 g glucose PO [facility] Work Phone: Hematocrit [Volume Fraction] of Blood [facility] Hemoglobin [Mass/vol ume] in Blood [facility] Hepatitis B surface antigen measurement [facility] Work Phone: Hepatitis C antibody measurement [facility] Work Phone: HIV 1+2 Ab+HIV1 p24 Ag [Presence] in Serum or Plasma by Immunoassay [facility] Work Phone: Leukocytes [#/volume ] in Blood [facility] Mean corpuscular hemoglobin concentration determination [facility] Mean corpuscular hemoglobin determination [facility] Measurement of gluco se 3 hours after glucose challenge for glucose tolerance test [facility] Neutrophil count [facility] Neutrophil percent differential count [facility] Patient Education [facility] Work Phone: Patient referral [facility] Work Phone: Platelets [#/volume] in Blood [facility] Procedure [facility] Work Phone: Red blood cell count [facility] Red cell distributio n width determination [facility] Rubella IgG measurement [facility] Work Phone: Treponema sp Ab [Pre sence] in Serum [facility] Work Phone: Ultrasound scan for growth [facility] [place] [place] Immunizations Immunization Date Immunization Notes Care Provider Jessica morris 11-24-2017 typhoid vaccine, unspecified formulation Igor Richardson DO Work Phone: [facility] Work Phone: 10-04-2014 hepatitis A vaccine, pediatric/adolescent dosage, 2 dose schedule Igor Richardson DO Work Phone: [facility] Work Phone: 03-13-2014 meningococcal polysaccharide (groups A, C, Y and W-135) diphtheria toxoid conjugate vaccine (MCV4P) Igor Richardson DO Work Phone: [facility] 03-13-2014 varicella virus vaccine Jord an Richardson DO Work Phone: [facility] 09-22-2011 human papilloma viru s vaccine, quadrivalent Igor Richardson DO Work Phone: [facility] Work Phone: 05-15-2011 human papilloma viru s vaccine, quadrivalent Igor Richardson DO Work Phone: [facility] 05-15-2011 Meningococcal, MCV4, unspecified conjugate formulation(groups A, C, Y and W-135) Igor Richardson DO Work Phone: [facility] 03-18-2011 human papilloma viru s vaccine, quadrivalent Igor Richardson DO Work Phone: [facility] Work Phone: 03-18-2011 tetanus toxoid, redu glenn diphtheria toxoid, and acellular pertussis vaccine, adsorbed Igor Richardson DO Work Phone: [facility] Work Phone: 09-04-2005 influenza virus vacc ine, unspecified formulation Igor Richardson DO Work Phone: [facility] 08-24-2003 influenza virus vacc ine, unspecified formulation Igor Richardson DO Work Phone: [facility] Work Phone: 08-23-2001 diphtheria, tetanus toxoids and acellular pertussis vaccine Igor Richardson DO Work Phone: [facility] Work Phone: 08-23-2001 measles, mumps and rubella virus vaccine Igor Richardson DO Work Phone: [facility] Work Phone: 08-24-2000 poliovirus vaccine, inactivated Igor Richardson DO Work Phone: [facility] Work Phone: 11-20-1997 diphtheria, tetanus toxoids and acellular pertussis vaccine Igor Richardson DO Work Phone: [facility] Work Phone: 11-20-1997 haemophilus influenz ae type b vaccine, HbOC conjugate Igor Richardson DO Work Phone: [facility] Work Phone: 11-20-1997 varicella virus vaccine Jord an Richardson DO Work Phone: [facility] Work Phone: 08-21-1997 measles, mumps and rubella virus vaccine Igor Richardson DO Work Phone: [facility] Work Phone: 08-21-1997 poliovirus vaccine, inactivated Igor Richardson DO Work Phone: [facility] Work Phone: 03-13-1997 diphtheria, tetanus toxoids and acellular pertussis vaccine Igor Richardson DO Work Phone: [facility] Work Phone: 03-13-1997 haemophilus influenz ae type b vaccine, HbOC conjugate Igor Richardson DO Work Phone: [facility] Work Phone: 03-13-1997 hepatitis B vaccine, pediatric or pediatric/adolescent dosage Igor Richardson DO Work Phone: [facility] Work Phone: 1996 diphtheria, tetanus toxoids and acellular pertussis vaccine Igor Richardson DO Work Phone: [facility] Work Phone: 1996 haemophilus influenz ae type b vaccine, HbOC conjugate Igor Richardson DO Work Phone: [facility] Work Phone: 1996 poliovirus vaccine, inactivated Igor Richardson DO Work Phone: [facility] Work Phone: 1996 diphtheria, tetanus toxoids and acellular pertussis vaccine Igor Richardson DO Work Phone: [facility] Work Phone: 1996 haemophilus influenz ae type b vaccine, HbOC conjugate Igor Richardson DO Work Phone: [facility] Work Phone: 1996 poliovirus vaccine, inactivated Igor Richardson DO Work Phone: [facility] Work Phone: 1996 hepatitis B vaccine, pediatric or pediatric/adolescent dosage Igor Richardson DO Work Phone: [facility] Work Phone: 1996 hepatitis B vaccine, pediatric or pediatric/adolescent dosage Igor Richardson DO Work Phone: [facility] Work Phone: Payers Date Payer Category Payer Unknown [id number] Self-pay [id number] 2019 Unknown [id number]. [id number] 5 1996 Unknown [id number] 2.16. 840.1.640488.3.579.2.479 1996 Unknown [id number] 2.16. 840.1.481489.3.579.2.479 Unknown [id number] Unknown [facility] [id number] Unknown [id number] 2.16.8 40.1.153056.3.579.2.462 Unknown [id number] 2.16.8 40.1.795250.3.579.2.462 Unknown [id number] 2.16.8 40.1.789727.3.579.2.462 Unknown [id number] 2.16.8 40.1.325110.3.579.2.462 Unknown [id number] 2.16.8 40.1.370811.3.579.2.462 Unknown [id number] 2.16.8 40.1.670770.3.579.2.462 Unknown [id number] 2.16.8 40.1.207955.3.579.2.462 Unknown [id number] 2.16.8 40.1.968274.3.579.2.462 Unknown [id number] 2.16.8 40.1.152855.3.579.2.462 Unknown [id number] 2.16.8 40.1.186804.3.579.2.462 Unknown [id number] 2.16.8 40.1.920752.3.579.2.462 Unknown [id number] 2.16.8 40.1.814056.3.579.2.462 Unknown [id number] 2.16.8 40.1.759897.3.579.2.462 Unknown [id number] 2.16.8 40.1.626111.3.579.2.462 Unknown [id number] 2.16.8 40.1.190999.3.579.2.462 Unknown [id number] 2.16.8 40.1.749655.3.579.2.462 Unknown [id number] 2.16.8 40.1.315108.3.579.2.462 Unknown [id number] 2.16.8 40.1.981253.3.579.2.462 Unknown [id number] 2.16.8 40.1.239894.3.579.2.462 Unknown [id number] 2.16.8 40.1.803873.3.579.2.462 Unknown [id number] 2.16.8 40.1.961799.3.579.2.462 Social History Date Type Detail Facility Start: 11-02-2021 End: 01-18-2023 Tobacco smoking status IAIS Unknown if ever smoked [facility] Start: 1995 Sex Assigned At Female [facility] Start: 05-03-2012 End: 01-10-2025 Tobacco smoking status IAIS Never smoked tobacco [facility] Work Phone: Start: 05-03-2012 Tobacco use and exposure Smokeless tobacco non-user [facility] Work Phone: Start: 10-21-2020 Alcohol intake 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 alcohol (finding) [facility] Start: 12-19-2024 End: 12-24-2024 Sex Female (finding) [facility] Sex Female [facility] Medical Equipment Procedure Code Equipment Code Equipment [...] & Type Note Facility 07-08-2025 Progress note [facility] 06-26-2025 Progress note [facility] 06-12-2025 Progress note [facility] 05-15-2025 Progress note [facility] 04-16-2025 Evaluation note Diagnosis Onset [...] 10:39am Supervision of high-risk acute June 10:39am [facility] Work Phone: 1(119) 318-484307-22-2025 Progress [facility] [address] [place] [address], [address] [place] [address] OFFICE VISIT Date of Service: 04/16/25 MR#: [id number] Acct: [id number] Name: JENNY IBARRA Rep #: [id number] : 1995 Provider: Dr. Reinier Mackey MD Age/Sex: 29/F Location: [facility] Status: Signed Intake Vital Signs 02/19/25 14:19 03/20/25 08:43 04/16/25 15:11 Height 5 ft 4 in 5 ft 4 in 5 ft 4 in Weight: 211 lb 4 oz BMI 36.2 BP 117/75 Intake Visit Reasons: 22wk ob Support Clerk Required: No Is patient in pain?: No [...] current occupational status: employed current occupation: [employer] current occupational exposures/hazards: No pets and animals: [...] 1-2 times per week duration: 15-30 minutes/day keturah/jew: Jain seatbelt use: always do you feel safe [...] Benny 40 live - full term Male [facility] Dr. Araya Delivery Date: 01/19/23 Last Updated [...] Ripening/Labor Induction Counseling, Infant Feeding No , [place] Education, Family Medical Leave or Disability Forms, [...] Cosigner Signature: Date (if applicable) CC: ~ [facility]07-22-2025 Progress note Author Paradise Mackey [facility] Note Date/Time April 16, 2025 3:59 pm [facility] [address], [address] [place] [address] OFFICE VISIT Date of Service: 04/16/25 MR#: [id number] Acct: [id number] Name: JENNY IBARRA Rep #: [id number] : 1995 Provider: Dr. Reinier Mackey MD Age/Sex: 29/F Location: [facility] Status: Signed Intake Vital Signs 02/19/25 14:19 03/20/25 08:43 04/16/25 15:11 Height 5 ft 4 in 5 ft 4 in 5 ft 4 in Weight: 211 lb 4 oz BMI 36.2 BP 117/75 Intake Visit Reasons: 22wk ob Support Clerk Required: No Is patient in pain?: No [...] 1-2 times per week duration: 15-30 minutes/day keturah/jew: Jain seatbelt use: always do you feel safe [...] Benny 40 live - full term Male [facility] Dr. Araya Delivery Date: 01/19/23 Last Updated [...] CRL consist ent with last scan at [facility] She is measuring 10 weeks 2 days today. Should be 9 weeks 6 days from first scan there. JV - CRL consistent with las t scan at [facility] She is measuring 10 weeks 2 [...] POC Urinalysis 2 Dip (Clinic) Today 04/16/25 9718 <Electronically signed by Paradise brar MD> Date _ Paradise Mackey MD Cosigner Signature: Date (if applicable) CC: ~ [facility] Work Phone: 1(842) 786-802706-25-2025 Evaluation note* Diagnosis Onset Date Resolution Status [...] Supervision of high-risk acute June 26 9:17am [facility] Work Phone: 1(243) 902-674305-27-2025 Evaluation note* Diagnosis Onset Date Resolution Status [...] of high-risk acute June 12, 2025 9:11am [facility] Work Phone: 1(857) 683-655705-27-2025 Progress [facility] [address] [place] [address], [address] [place] [address] OFFICE VISIT Date of Service: 02/19/25 MR#: [id number] Acct: [id number] Name: JENNY IBARRA Rep #: [id number] : 1995 Provider: AVIS Rollins Age/Sex: 29/F Location: [facility] Status: Signed Intake Vital Signs 10/19/24 13:39 01/23/25 08:57 02/19/25 14:19 Height 5 ft 4 in 5 ft 4 in 5 ft 4 in Weight: 205 lb 6 oz BMI 35.2 BP 106/74 Intake Visit Reasons: 14wk1d ob Chief Complaint: 14wk OB Support Clerk Required: No Is patient in pain?: No [...] current occupational status: employed current occupation: [employer] current occupational exposures/hazards: No pets and animals: [...] 1-2 times per week duration: 15-30 minutes/day keturah/jew: Jain seatbelt use: always do you feel safe [...] Benny 40 live - full term Male [facility] Dr. Araya Delivery Date: 01/19/23 Last Updated [...] Ripening/Labor Induction Counseling, Infant Feeding No , [place] Education, Family Medical Leave or Disability Forms, [...] Cosigner Signature: Date (if applicable) CC: ~ [facility]05-27-2025 Progress note Author Margarita Rollins [facility] Note Date/Time February 19, 2025 2:38p m [facility] [address] [place] [address], [address] [place] [address] OFFICE VISIT Date of Service: 02/19/25 MR#: [id number] Acct: [id number] Name: JENNY IBARRA Rep #: [id number] : 1995 Provider: AVIS Rollins Age/Sex: 29/F Location: [facility] Status: Signed Intake Vital Signs 10/19/24 13:39 01/23/25 08:57 02/19/25 14:19 Height 5 ft 4 in 5 ft 4 in 5 ft 4 in Weight: 205 lb 6 oz BMI 35.2 BP 106/74 Intake Visit Reasons: 14wk1d ob Chief Complaint: 14wk OB Support Clerk Required: No Is patient in pain?: No [...] current occupational status: employed current occupation: [employer] current occupational exposures/hazards: No pets and animals: [...] 1-2 times per week duration: 15-30 minutes/day keturah/jew: Jain seatbelt use: always do you feel safe [...] Benny 40 live - full term Male [facility] Dr. Araya Delivery Date: 01/19/23 Last Updated [...] Cervical Ripening/Labor Induction Counseling, Feeding No , [place] Education, Family Medical Leave or Disability Forms, [...] Cosigner Signature: Date (if applicable) CC: ~ [facility] Work Phone: 1(897) 170-965004-30-2025 Evaluation note* Diagnosis Onset Date Resolution Status [...] high-risk acute February 19, 2025 2 :14pm [facility] Work Phone: 1([phone]) 772-478904-30-2025 Evaluation note* Diagnosis Onset Date Resolution Status [...] of high-risk acute March 20, 2025 8:35am [facility] Work Phone: 1(174) 119-491904-30-2025 Evaluation note* Diagnosis Onset Date Resolution Status [...] of high-risk acute April 16, 2025 3:01pm [facility] Work Phone: 1(552) 538-705304-30-2025 Evaluation note* Diagnosis Onset Date Resolution Status [...] Supervision of high-risk acute May 15 9:22am [facility] Work Phone: [phone]) 186-419901-24-2025 Evaluation note* Diagnosis Onset Date Resolution Status Admit Date History of recurrent miscarriages acute October 19 1:34pm Infertility acute October 19, 2024 1:34pm [facility] Work Phone: 1([phone]) 458-637901-24-2025 Evaluation note* Diagnosis Onset Date Resolution Status [...] of high-risk acute January 23, 2025 8:52am [facility] Work Phone: 1(180) 842-358004-27-2023 Progress note Author Jessica Bella [facility] January 20, 2023 7:50am Note Date/Time January 20, 2023 7:5 0am [facility] Medical Records Department [address] [place] [address] Progress Note - OBGYN 01/20/23 0748 MR#: [id number] Acct: [id number] Name: JENNY IBARRA Rep #:[id number] : 1995 27 From: Jessica Bella NP HEEL BLACKER-C PCP: KENDY Olson Status:ADM I N Location: [place] [address]-1 Subjective Subjective Patient doing well without complaints. [...] 0750 <Electronically signed by Jessica Bella NP HEEL BLACKER-C> Cosigner Signature (if applicable): CC: ~ Signed [facility] Work Phone: 1(607) 576-957104-26-2023 Discharge summary Author Margarita Rollins [facility] January 19, 2023 1:45am Note Date/Time January 19, 2023 1:4 5am [facility] Medical Records Department [address] [place] [address] Instructions for Home/Discharge Instructions 01/19/23144 MR#: [id number] Acct: [id number] Name: JENNY IBARRA Rep #:[id number] : [...] Referrals / Follow Up: Margaux Jay NP, HEEL BLACKER-C [Primary Care Provider] - 01/19/23144<Electronically signed by Margarita Rollins CNM>Margarita Rollins CNM CC: HEEL BLACKER-C Margaux Jay ~ Signed [facility] Work Phone: [phone]) 969-456904-26-2023 Procedure [facility] 01-18-2023 Progress note Author Margarita Rollins [facility] January 18, 2023 8:53pm Note Date/Time January 18, 2023 8:4 3pm [facility] Medical Records Department [address] [place] [address] Progress Note 01/18/232039 MR#: [id number] Acct: [id number] Name: JENNY IBARRA Rep #:[id number] : 1995 27 From: Margarita Rollins CNM PCP: KENDY Olson Status:ADM I N Location: [place] [address] Progress Note Comfortable with epidural current tracing: FHT: 120 Moderate variability reactive, some variables and early decelerations noted, category II tracing, overall reassuring [place]: Contractions every 2-3 palpating strong Pitocin at 5 mu Internal monitors placed SVE 9.5/90/0 A/P: anticipate Multi Select Codes Urinary/Genital Urinary/Genital CPT Codes: No Charge 01/18/232052 <Electronically signed by Margarita Rollins CNM> Margarita Rollins CNM Cosigner Signature (if applicable): CC: ~ Signed [facility] Work Phone: 1(953) 779-826004-25-2023 Progress note Author Margarita Rollins [facility] January 18, 2023 4:36pm Note Date/Time January 18, 2023 4:3 6pm [facility] Medical Records Department [address] [place] [address] Progress Note 01/18/23 1634 MR#: [id number] Acct: [id number] Name: JENNY IBARRA Rep #:[id number] : 1995 27 From: Margarita Rollins CNM PCP: KENDY Olson Status:ADM I N Location: [place] [address] Progress Note Patient tolerating contractions well. denies need for epidural current tracing: FHT: 115 Moderate variability reactive no decelerations category I tracing [place]: every 2-3 minutes strong Contractions Pitocin at 18 SVE 8/90/0 A/P: continue position changes anticipate Multi Select Codes Urinary/Genital Urinary/Genital CPT Codes: No Charge 01/18/23 1636 <Electronically signed by Margarita Rollins CNM> Margarita Rollins CNM Cosigner Signature (if applicable): CC: ~ Signed [facility] Work Phone: 1([phone]) 853-893704-25-2023 Progress note Author Margarita Rollins [facility] January 18, 2023 2:05pm Note Date/Time January 18, 2023 2:0 5pm [facility] Medical Records Department [address] [place] [address] Progress Note 01/18/23 1400 MR#: [id number] Acct: [id number] Name: JENNY IBARRA Rep #:[id number] : 1995 27 From: Margarita Rollins CNM PCP: CODY OlsonC Status:ADM I N Location: [place] [address] Progress Note Patient coping well with contractions. Denies need for epidural. current tracing: FHT: 115 Moderate variability reactive no decelerations category I tracing [place]: moderate to strong Contractions q 4 minutes Pitocin at 14mu AROM for bloody fluid at 1315 6/80/-1 A/P: Epidural PRN continue current POC anticipate Reviewed with JAlma Delia. Agrees with POC Multi Select Codes Urinary/Genital Urinary/Genital CPT Codes: No Charge 01/18/23 1405 <Electronically signed by Margarita Rollins CNM> Margarita Rollins CNM Cosigner Signature (if applicable): CC: ~ Signed [facility] Work Phone: 1([phone]) 913-931904-25-2023 History and physical note Author Margarita Rollins [facility] January 18, 2023 8:01am Note Date/Time January 18, 2023 8:0 1am [facility] Medical Records Department [address] [place] [address] H&P Exam - GALLERY ASSISTANT 01/18/23 0755 MR#: [id number] Acct: [id number] Name: JENNY IBARRA Rep #:[id number] : 1995 27 From: Margarita Rollins CNM PCP: Margaux Haagen, HEEL BLACKER-C Status:ADM I N Location: [facility]-8 HPI - General General Date of Admission: [...] current occupational status: employed current occupation: [employer] current occupational exposures/hazards: No pets and animals: [...] 1-2 times per week duration: 15-30 minutes/day keturah/jew: Jain seatbelt use: always do you feel safe at home: Yes additional [facility] history: [facility] 3 Elective abortions Hx [...] controlle d with diet, hasn't met with lathe sander yet. 12/07/22 -?-?-?-?-?-?-?-?-?-?-?-?- 34w 1d 222 lb [...] Assessment & Plan (1) Gestational diabetes: COMMENT: juice scaleman referral done, Glucose testing 2x/day-controlled PLAN: per [...] Cosigner Signature (if applicable): CC: AVIS Rollins; HEEL BLACKERMax Jay~ Signed [facility] Work Phone: 1([phone]) 148-299403-08-2023 Miscellaneous Notes* Telephone Encounter - Dayanara [place] [...] Dr. Villanueva. Please advise documented [facility] ClinicEvaluation [facility]* Diagnosis Onset Date Resolution Status Infertility acute PCOS (polycystic ovarian syndrome) acute [facility] Work Phone: Evaluation note* Diagnosis Onset Date Resolution Status Infertility acute PCOS (polycystic ovarian syndrome) acute Miscarriage acute PCOS (polycystic ovarian syndrome) acute [facility] Work Phone: Evaluation note* Diagnosis Onset Date Resolution Status Infertility acute PCOS (polycystic ovarian syndrome) acute PCOS (polycystic ovarian syndrome) acute Ectopic acute [facility] Work Phone: evaluation note* Diagnosis Onset Date Resolution Status History of recurrent miscarriages acute PCOS (polycystic ovarian syndrome) acute [facility] Work Phone: evaluation note* Diagnosis Onset Date Resolution Status History of recurrent miscarriages acute Infertility acute acute Supervision of high risk , antepartum acute [facility] Work Phone: evaluation note* Diagnosis Onset Date Resolution Status History of recurrent miscarriages acute Infertility acute acute Supervision of high risk , antepartum acute History of recurrent miscarriages acute Infertility acute acute Supervision of high risk , antepartum acute [facility] Work Phone: evaluation note* Diagnosis Onset Date Resolution Status History of recurrent miscarriages acute Infertility acute acute Supervision of high risk , antepartum acute History of recurrent miscarriages acute Infertility acute acute Supervision of high risk , antepartum acute Abnormal glucose level acute History of recurrent miscarriages acute Infertility acute acute Supervision of high risk , antepartum acute [facility] Work Phone: evaluation note* Diagnosis Onset [...] Supervision of high risk , antepartum acute [facility] Work Phone: evaluation note* Diagnosis Onset [...] Supervision of high risk , antepartum acute [facility] Work Phone: Evaluation note* Diagnosis Onset [...] Supervision of high risk , antepartum acute [facility] Work Phone: evaluation note* Diagnosis Onset [...] Supervision of high risk , antepartum acute [facility] Work Phone: Evaluation note* Diagnosis Onset [...] Supervision of high risk , antepartum resolved [facility] Work Phone: Progress note Author Jessica Bella [facility] Note Date/Time May 15, 2025 9: 47am [facility] [address] [place] [address], [address] [place] [address] OFFICE VISIT Date of Service: 05/15/25 MR#: [id number] Acct: [id number] Name: JENNY IBARRA Rep #: [id number] : 1995 Provider: KENDY Bella Age/Sex: 29/F Location: [facility] Status: Signed Intake Vital Signs 02/19/25 14:19 04/16/25 15:11 05/15/25 09:26 05/15/25 09:35 Height 5 ft 4 in 5 ft 4 in 5 ft 4 in 5 ft 4 in Weight: 214 lb 4 oz BMI 36.8 BP 114/72 Intake Visit Reasons: 26wk ob/glucose Chief Complaint: 26 Week OB/Glucose Support Clerk Required: No Is patient in pain?: No [...] current occupational status: employed current occupation: [employer] current occupational exposures/hazards: No pets and animals: [...] 1-2 times per week duration: 15-30 minutes/day keturah/jew: Jain seatbelt use: always do you feel safe at home: Yes additional social history: - Guerrero, [employer] History 4 Elective abortions Hx Para 1 Spontaneous abortions 1 Hx # Term Pregnancies Ectopic pregnancies 1 Hx # Pregnancies Multiple births # of living children 1 Past Pregnancies Del. Date Name GA/Weeks Outcome Route Bth Weight Gen Labor Lgth Anesthesia Del Locatn Provider FOB Unknown ectopic Unknown spontaneous 01/19/23 Benny 40 live - full term Male [facility] Dr. Garcia Guerrero Delivery Date: 01/19/23 Last [...] CRL consist ent with last scan at [facility] She is measuring 10 weeks 2 days today. Should be 9 weeks 6 days from first scan there. JV - CRL consistent with las t scan at [facility] She is measuring [...] consult in 2 weeks for cervical length. [facility] anatomy US ordered. 03/20/25 -?-?-?-?-?-?-?-?-?-?-?-?- 17w [...] Continue routine care and follow up. 05/15/25 0905 <Electronically signed by Jessica boss HEEL BLACKER HEEL BLACKER-C> Date _ Jessica Bella HEEL BLACKER HEEL BLACKER-C Cosigner Signature: Date (if applicable) CC: ~ [facility] Work Phone: Progress note Author Paradise Mackey [facility] Note Date/Time June 12, 2025 10:14am [facility] [address], [address] [place] [address] OFFICE VISIT Date of Service: 06/12/25 MR#: [id number] Acct: [id number] Name: JENNY IBARRA Rep #: [id number] : 1995 Provider: Dr. Reinier Mackey MD Age/Sex: 29/F Location: [facility] Status: Signed Intake Vital Signs 04/16/25 15:11 05/15/25 09:35 06/12/25 09:27 Height 5 ft 4 in 5 ft 4 in 5 ft 4 in Weight: 216 lb 9 oz BMI 37.1 BP 110/71 Intake Visit Reasons: 30wk ob Support Clerk Required: No Is patient in pain?: No [...] current occupational status: employed current occupation: [employer] current occupational exposures/hazards: No pets and animals: [...] 1-2 times per week duration: 15-30 minutes/day keturah/jew: Jain seatbelt use: always do you feel safe [...] Benny 40 live - full term Male [facility] Dr. Araya Delivery Date: 01/19/23 Last Updated [...] Ripening/Labor Induction Counseling, Infant Feeding No , [place] Education, Family Medical Leave or Disability Forms, [...] hr: will do QID BS testing. Decline juice scaleman consult (2) Short cervix affecting : Status: [...] Cosigner Signature: Date (if applicable) CC: ~ [facility] Work Phone: Progrrsf note Author Guadalupe Reyes [facility] Note Date/Time June 26, 2025 9: 52am [facility] [address] [place] [address], [address] [place] [address] OFFICE VISIT Date of Service: 06/26/25 MR#: [id number] Acct: [id number] Name: JENNY IBARRA Rep #: [id number] : 1995 Provider: Dr. Pilar Garcia DO Age/Sex: 29/F Location: [facility] Status: Signed Intake Vital Signs 04/16/25 15:11 06/12/25 09:27 10/01/25 09:29 Height 5 ft 4 in 5 ft 4 in 5 ft 4 in Weight: 219 lb 7 oz BMI 37.6 BP 104/63 Intake Visit Reasons: 31w 6d ob Support Clerk Required: No Is patient in pain?: No [...] current occupational status: employed current occupation: [employer] current occupational exposures/hazards: No pets and animals: [...] 1-2 times per week duration: 15-30 minutes/day keturah/jew: Jain seatbelt use: always do you feel safe [...] Benny 40 live - full term Male [facility] Dr. Araya Delivery Date: 01/19/23 Last Updated [...] CRL consist ent with last scan at [facility] She is measuring 10 weeks 2 days today. Should be 9 weeks 6 days from first scan there. JV - CRL consistent with las t scan at [facility] She is measuring 10 weeks 2 [...] consult in 2 weeks for cervical length. [facility] anatomy US ordered. 03/20/25 -?-?-?-?-?-?-?-?-?-?-?-?- 17w [...] hr: will do QID BS testing. Decline juice scaleman consult (2) Short cervix affecting : Status: [...] Cosigner Signature: Date (if applicable) CC: ~ [facility] Work Phone: Progress note Author Margarita Rollins [facility] Note Date/Time July 08, 2025 1 1:01am [facility] [address], [address] [place] [address] OFFICE VISIT Date of Service: 07/08/25 MR#: [id number] Acct: [id number] Name: JENNY IBARRA Rep #: [id number] : 1995 Provider: AVIS Rollins Age/Sex: 29/F Location: [facility] Status: Signed Intake Vital Signs 06/12/25 09:27 06/26/25 09:29 07/08/25 10:42 Height 5 ft 4 in 5 ft 4 in 5 ft 4 in Weight: 216 lb 9 oz 219 lb 7 oz 217 lb 9 oz BMI 37.1 37.6 37.3 BP 110/71 104/63 117/81 H Intake Visit Reasons: 33w 4d ob Chief Complaint: 33wk OB Support Clerk Required: No Is patient in pain?: No [...] current occupational status: employed current occupation: [employer] current occupational exposures/hazards: No pets and animals: [...] 1-2 times per week duration: 15-30 minutes/day keturah/jew: Jain seatbelt use: always do you feel safe [...] Benny 40 live - full term Male [facility] Dr. Araya Delivery Date: 01/19/23 Last Updated [...] consult in 2 weeks for cervical length. [facility] anatomy US ordered. 03/20/25 -?-?-?-?-?-?-?-?-?-?-?-?- 17w [...] Ripening/Labor Induction Counseling, Infant Feeding No , [place] Education, Family Medical Leave or Disability Forms, [...] hr: will do QID BS testing. Decline juice scaleman consult (2) Short cervix affecting : Status: [...] Cosigner Signature: Date (if applicable) CC: ~ [facility] Work Phone: Reason for referral (narrative)No reason for referral information availableWShelby [facility] Work Phone: Chief Complaint and Reason for [...] June 12, 2025 9:11am [facility] 9:11am Supervision of high-risk [...] No January 12, 2022 11:41am Power of Fractionating Still Operator No January 12 11:41am Advance Directive Response Recorded Date/ Time Living Will No January 12, 2022 10:41am Power of Fractionating Still Operator No January 12 10:41am Advance Directive Response Recorded Date/ Time Name of Medical Power of Fractionating Still Operator Guerrero Ibarra January 18, 2023 7:54am Living Will Yes January 18, 2023 7:54am Power of Fractionating Still Operator Yes January 18 7:54am Summary Purpose [...] Villanueva MD Family Provider Active Margaux Jay HEEL BLACKER, HEEL BLACKER-C Primary Care Provider Active Team Status: Inactive Member Role Status Dates Margaux Jay NP, HEEL BLACKER-C Primary Care Provider, Referri ng Provider Active Dr. Guadalupe Garcia DO Attending Provider Activ e Team Status: Inactive Member Role Status Dates Margaux Jay NP, HEEL BLACKER-C Primary Care Provider, Referri ng Provider Active Dr. Paradise Mackey MD Attending Provider Active Team Status: Inactive Member Role Status Dates Margaux Jay HEEL BLACKER, HEEL BLACKER-C Primary Care Provider, Referri ng Provider Active Leela Hough CNM Attending Provider Active Team Status: Inactive Member Role Status Dates Margaux Jay HEEL BLACKER, HEEL BLACKER-C Primary Care Provider, Referri ng Provider Active Jessica Bella NP, HEEL BLACKER-C Attending Provider Active Team Status: Inactive Member Role Status Dates Margaux Jay NP, HEEL BLACKER-C Primary Care Provider Active Dr. Paradise Mackey MD Attending Provider, Referr ing Provider Active Team Status: Inactive Member Role Status Dates Margaux Jay NP, HEEL BLACKER-C Primary Care Provider Active Leela Hough , CNM Attending Provider, Referring Pr ovider Active Team Status: Inactive Member Role Status Dates Margaux Jay HEEL BLACKER, HEEL BLACKER-C Primary Care Provider Active Jessica Bella HEEL BLACKER, HEEL BLACKER-C Attending Provider, Referring Provider Active [employer] Pump Tender Relationship Specialty Start Date End Date Igor Richardson DO [address] [place] [address] PCP - General Family Medicine 10/13/15 Team Status: Inactive Member Role Status Dates Margaux Jay HEEL BLACKER, HEEL BLACKER-C Primary Care Provider, Referri ng Provider Active Margarita Rollins CNM Attending Provider Active Team Status: Inactive Member Role Status Dates Margaux Jay HEEL BLACKER, HEEL BLACKER-C Primary Care Provider Active Jessica Bella HEEL BLACKER, HEEL BLACKER-C Attending Provider Active Team Status: Active Member Role Status Dates Margaux Jay HEEL BLACKER, HEEL BLACKER-C Primary Care Provider Active Dr. Paradise Mackey MD Attending Provider Active Team Status: Active Member Role Status Dates Margaux Jay HEEL BLACKER, HEEL BLACKER-C Primary Care Provider Active Dr. Guadalupe Garcia DO Attending Provider, Refe rring Provider Active Team Status: Inactive Member Role Status Dates Margaux Jay HEEL BLACKER, HEEL BLACKER-C Primary Care Provider Active Dr. Paradise Mackey MD Attending Provider Active Team Status: Inactive Member Role Status Xavier Jay HEEL BLACKER, HEEL BLACKER-C Primary Care Provider Active Dr. Guadalupe Garcia DO Attending Provider, Refe rring Provider Active Team Status: Active Member Role Status Dates Margaux Jay HEEL BLACKER, HEEL BLACKER-C Primary Care Provider Active Margarita Rollins CNM Admit Provider, Att ending Provider, Referring Provider, Other Provider Active Team Status: Active Member Role Status Dates Margaux Jay HEEL BLACKER, HEEL BLACKER-C Primary Care Provider Active Dr. Guadalupe Garcia DO Admit Prov ider, Attending Provider, Other Provider Active Team Status: Active Member Role Status Dates Margaux Jay HEEL BLACKER, HEEL BLACKER-C Primary Care Provider Active Dr. Guadalupe Garcia DO Admit Provider, Other Pr ovider Active Jessica Bella HEEL BLACKER, HEEL BLACKER-C Attending Provider Active Team Status: Inactive Member Role Status Xavier Jay HEEL BLACKER, HEEL BLACKER-C Primary Care Provider Active Dr. Guadalupe Garcia DO Admit Provider, Attendin g Provider Active Team Status: Active Member Role Status Dates Dr. Francisco Villanueva MD Family Provider Active No Primary Care Physician Primary Care Provider Active Team Status: Inactive Member Role Status Dates Margaux Jay HEEL BLACKER, HEEL BLACKER-C Primary Care Provider Active Start: October 19, 2024 End: October 19, 2024 Margaux Jay HEEL BLACKER, HEEL BLACKER-C Referring Provider Active Start: October 19, 2024 [...] Active S tart: December 18, 2024 Margarita oRllins CNM Referring Provider Active S tart: December [...] 2025 End: March 20, 2025 Jessica Bella HEEL BLACKER, HEEL BLACKER-C Attending Provider Active Start: March 20, 2025 [...] End: March 20, 2025 Jessica Bella NP, HEEL BLACKER-C Attending Provider Active Start: March 20, 2025 [...] End: March 20, 2025 Jessica Bella NP, HEEL BLACKER-C Attending Provider Active Start: March 20, 2025 [...] End: May 15, 2025 Jessica Bella NP, HEEL BLACKER-C Attending Provider Active Start: May 15, 2025 End: May 15, 2025 Team Status: Active Member Role/Relationship Status Dates No Primary Care Physician Primary Care Provider Active Start: May 15, 2025 Jessica Bella NP, HEEL BLACKER-C Attending Provider Active Start: May 15, 2025 Team Status: Inactive Member Role/Relationship Status Dates No Primary Care Physician Primary Care Provider Active Start: May 15, 2025 End: May 15, 2025 Jessica Bella HEEL BLACKER, HEEL BLACKER-C Attending Provider Active Start: May 15, 2025 [...] End: March 20, 2025 Jessica Bella NP, HEEL BLACKER-C Attending physician Active Start: March 20, 2025 [...] End: May 15, 2025 Jessica Bella NP, HEEL BLACKER-C Attending physician Active Start: May 15, 2025 End: May 15, 2025 Team Status: Inactive Member Role/Relationship Status Dates No Primary Care Physician Primary care physician Activ e Start: May 15, 2025 End: May 15, 2025 Jessica Bella NP, HEEL BLACKER-C Attending physician Active Start: May 15, 2025 [...] End: March 20, 2025 Jessica Bella NP, HEEL BLACKER-C Attending physician Active Start: March 20, 2025 [...] End: May 15, 2025 Jessica Bella NP HEEL BLACKER-C Attending physician Active Start: May 15, 2025 End: May 15, 2025 Team Status: Inactive Member Role/Relationship Status Dates No Primary Care Physician Primary care physician Activ e Start: May 15, 2025 End: May 15, 2025 Jessica Bella NP HEEL BLACKER-C Attending physician Active Start: May 15, 2025 [...] End: May 15, 2025 Jessica Bella NP, HEEL BLACKER-C Attending physician Active Start: May 15, 2025 End: May 15, 2025 Team Status: Inactive Member Role/Relationship Status Dates No Primary Care Physician Primary care physician Activ e Start: May 15, 2025 End: May 15, 2025 Jessica Bella NP, HEEL BLACKER-C Attending physician Active Start: May 15, 2025 [...] or prosecute any alcohol or drug abuse patient.[facility] Reason for Visit (unrecogniz ed section and content) Reason Comments Appointment INFORMATION SOURCE (unrecogn ized section and content) DATE CREATED AUTHOR 12/03/2022 [facility] DATE CREATED AUTHOR AUTHOR'S ORGANIZ ATION 03/28/2025 [facility] DATE CREATED AUTHOR AUTHOR'S ORGANIZ ATION 08/07/2025 [facility] FOR RECORDS PERTAINING TO PATIENTS WHO [...] BE BASED ON THE PRIMARY CLINICAL RECORDS. [employer] provides no warranty or guarantee of the accuracy or completeness of information in this document.
[2025-08-24] MEDS: Lactated Ringers 1,000 ML 50 ML IV (07:35)
[2025-08-24 08:06] LABS: Hematocrit 38.5 % (37-47); Hemoglobin 13.6 g/dL (12.0-15.0); Immature Granulocytes Count 0.030 X10^3/uL (0.0-0.0); Mean Corp Hgb Conc 35.3 g/dL (32-36); Mean Corpuscular Volume 90.0 fL (81-99); Mean Platelet Vol. 11.2 fl (6.2-12.0); NRBC Flagged by Analyzer 0 % (0-5); Platelet Count 156 K/mm3 (150-450); RBC Distribution Width CV 12.8 % (11.6-14.6); RBC Distribution Width SD 41.3 fl (35.1-43.9); Red Blood Count 4.28 M/mm3 (4.2-5.4); White Blood Count 6.8 K/mm3 (4.4-11.0)
--- NOTE | 2025-08-24 08:06 | HP.PCM.OB_ITS ---
HPI - General General Date of Admission: 08/24/25 HPI Narrative WAGNER IBARRA, is a 30 F who presents for IOL at term. Maternal Data Information ANT Calculator Estimated Delivery Date Method Current WG Current Estimate 08/22/25 Ultrasound #1 40w 2d Other Estimates 07/15/25 LMP (Uncertain) 45w 5d PFSH PFSH Medical History Short cervix affecting History of miscarriage, currently Gestational diabetes Infertility Vacuum extractor delivery, delivered care and examination Acute bronchitis Gestational diabetes PCOS (polycystic ovarian syndrome) Home Medications Medication Instructions Recorded Last Taken Type multivitamin no.47-iron fum 27 1 cap PO DAILY Check wi th primary 06/11/22 01/17/23 21:00 History mg-folate no.1 1 mg-dha 300 mg doctor capsule (PNV-DHA) magnesium 1 cap PO/SL DAILY leg cramps 01/18/23 01/17/23 21:00 History pyridoxine (vitamin B6) 10 mg 10 mg PO QDAY supplement 01/10/25 Unknown History tablet Allergy/AdvReac Type Severity Reaction Status Date / Time No Known Allergies Allergy Verified 08/24/25 07:30 Family History Father Cancer mouth/throat Surgical History History of surgery Social History adopted: No household members: spouse and children housing: house number of children: 1 current occupational status: employed current occupation: [employer] current occupational exposures/hazards: No pets and animals: Yes pets and animals: dog(s) history of recent travel: No sexually active: Yes Smoking Status: Never smoker alcohol intake: former details: not while pregnany, social only substance use type: does not use well-balanced diet: about half the time caffeine: No eating out: 1-3 times/week during the past year weight has: remained stable what type of physical activity do you participate in: walking frequency: 1-2 times per week duration: 15-30 minutes/day ok/yazidism: Religious seatbelt use: always do you feel safe at home: Yes additional social history: - Guerrero, Faithful Juliet Fay History 4 Elective abortions Hx Para 1 Spontaneous abortions 1 Hx # Term Pregnancies Ectopic pregnancies 1 Hx # Pregnancies Multiple births # of living children 1 Past Pregnancies Del. Date Name GA/Weeks Outcome Route Bth Weight Infant Gen Labor Lgth Anesthesia Del Locatn Provider FOB Unknown ectopic Unknown spontaneous 01/19/23 Benny 40 live - full term Male [facility] Dr. Araya Delivery Date: 01/19/23 Last Updated by: Anitha Cook Shortened cervix, gestational diabetes Visit Details Expected Delivery Route/Plan Labor Preferences- CB/BF classes:no labor support person: Guerrero labor intervention preferences: [] pain management options preferred: epidural if requested cut cord/dad catch: yes : yes PP control planned: discussed discussed possible routes of delivery and associated risks: [] special requests: [] Plans Covid status: [] Flu vaccine: declined Tdap vaccine: declined Rhogam: na LARC form signed: yes movement and labor precautions reviewed. Problem list reviewed and updated with the most current plan of care details and appropriate orders placed. Relevant counseling for the gestational age provided. Continue routine care and follow up unless otherwise noted in visit notes/problem list details OB Flowsheet Initial Weight: Not Recorded Date - - - - - - - - - - - - - EGA Weight BP Urine Prot - - - - - - - - - - - - - Glucose FHR FuHt Pres Dilation - - - - - - - - - - - - - Effaced St Visit Note 01/23/25 - - - - - - - - - - - - - 9w 6d 201 lb 4 oz 122/77 - - - - - - - - - - - - - 170 - - - - -- - - - - - - - - JV - CRL consist ent with last scan at care center She is measuring 10 weeks 2 days today. Should be 9 weeks 6 days from first scan there. JV - CRL consistent with las t scan at care center She is measuring 10 weeks 2 days today. Should be 9 weeks 6 days from first scan there. Declines NIPT. Taking progesterone for short cx last . ordering 16 week cx 02/19/25 - - - - - - - - - - - - - 13w 5d 205 lb 6 oz 106/74 Nega tive - - - - - - - - - - - - - Negative 168 - - - - - - - - - - -- - - KW- no vb/crampi ng. some low pelvic pressure at the end of the day. MFM consult in 2 weeks for cervical length. KW- no vb/cramping. some low pelvic pressure at the end of the day. MFM consult in 2 weeks for cervical length. [facility] anatomy US ordered. 03/20/25 - - - - - - - - - - - - - 17w 6d 206 lb 120/64 Negative - - - - - - - - - - - - - Negative 152 - - - - - - - - - - - - - MH-No VB. Promet rium for hx short cervix-causes cramping. Hopes to DC after anatomy scan next week. Denies other concerns. 04/16/25 - - - - - - - - - - - - - 21w 5d 211 lb 4 oz 117/75 - - - - - - - - - - - - - 160 - - - - - - - - - - - - - SM- no vb lof go od fm no reuglar ctx SM- no vb lof good fm no reu glar ctx discussed limited views on anatomy scan 05/15/25 - - - - - - - - - - - - - 25w 6d 214 lb 4 oz 114/72 Nega tive - - - - - - - - - - - - - Negative 150 27 - - - - - - - - - - - - - MH-No Vb, LOF. G ood FM. 28 wk labs pending. Larc 06/12/25 - - - - - - - - - - - - - 29w 6d 216 lb 9 oz 110/71 Nega tive - - - - - - - - - - - - - Negative 160 30 - - - - - - - - - - - - - SM- no vb lof go od fm n oregular ctx discussed getting 3 hour gtt done, patient has been checking sugars at home and they have been normal 06/26/25 - - - - - - - - - - - - - 31w 6d 219 lb 7 oz 104/63 Nega tive - - - - - - - - - - - - - Negative 145 31 - - - - - - - - - - - - - JV- declines flu . wants to try to avoid IOL. long discussion. glucose levels normal. plan membrane sweep at 39 weeks. 07/08/25 - - - - - - - - - - - - - 33w 4d 217 lb 9 oz 117/81 Nega tive - - - - - - - - - - - - - Negative 150 33 - - - - - - - - - - - - - KW- no vb/lof/ct x. good fm. compression hose for leg cramps KW- no vb/lof/ctx. good fm. compression hose for leg cramps. blood sugars reviewed and normal 07/23/25 - - - - - - - - - - - - - 35w 5d 219 lb 8 oz 127/75 Nega tive - - - - - - - - - - - - - Negative 150 34 - - - - - - - - - - - - - SM- has had a he adache and had episode of floaters yesterday which resolved normal bps and negative proteinuria today. hasn't had tylenol. reviewed precautions and instructions 07/30/25 - - - - - - - - - - - - - 36w 5d 218 lb 3 oz 116/69 Nega tive - - - - - - - - - - - - - Negative 147 37 - - - - - - - - - - - - - JV- no lof, vagi nal bleeding, or dec fm. + heart fluttering and intermittent arm weakness this week. no headaches. She did check a few glucose levels and one was 160 2 hours after meals. plan to check cbc, cmp, and has a growth scan now. JV- GBS today. no lof, vagin al bleeding, or dec fm. + heart fluttering and intermittent arm weakness this week. no headaches. She did check a few glucose levels and one was 160 2 hours after meals. plan to check cbc, cmp, and has a growth scan now. 08/06/25 - - - - - - - - - - - - - 37w 5d 219 lb 2 oz 113/71 Nega tive - - - - - - - - - - - - - Negative 145 38 - - - - - - - - - - - - - KW- no vb/lof/ct x. good fm. declines vaginal exam today 08/13/25 - - - - - - - - - - - - - 38w 5d 217 lb 7 oz 122/85 Trac e - - - - - - - - - - - - - Negative 150 39 Cephalic 4 .5 - - - - - - - - - - - - - 80 -2 JV- no lof , vaginal bleeding, or dec fm. 08/20/25 - - - - - - - - - - - - - 39w 5d 218 lb 9 oz 124/78 Nega tive - - - - - - - - - - - - - Negative 140 40 Cephalic 5 - - - - - - - - - - - - - 80 -1 Sm- no vb lof good fm no regualr ctx Sm- no vb lof good fm no reg ualr ctx elective IOL tuesday 5 cm dilated membranes swept ROS Constitutional Constitutional: Reports systems reviewed and no addt'l complaints, except as documented Respiratory/Chest Respiratory/Chest: Reports systems reviewed and no addt'l complaints, except as documented Gastrointestinal Gastrointestinal: Reports systems reviewed and no addt'l complaints, except as documented Genitourinary Genitourinary: Reports systems reviewed and no addt'l complaints, except as documented Musculoskeletal Musculoskeletal: Reports systems reviewed and no addt'l complaints, except as documented Integumentary Integumentary: Reports systems reviewed and no addt'l complaints, except as documented Neurologic Neurologic: Reports systems reviewed and no addt'l complaints, except as documented Psychiatric Psychiatric: Reports systems reviewed and no addt'l complaints, except as documented Vital Signs Vital Signs Vital Signs: Weight Weight: 215 lb 9.793 oz Body Mass Index (BMI) 37.0 Physical Exam Const alert, oriented x3 and no apparent distress General Appearance: cooperative and comfortable HEENT normocephalic Resp normal respiratory effort and no retractions Resp Narrative: Respirations eased & unlabored. No s/s of Respiratory distress noted. GI normal to inspection, nondistended, normoactive bowel sounds GI Narrative: Gravid, soft, non-tender to touch. Manual OB Exam: presentation cephalic, dilated 5-6cm, effaced 60% and station -1 Skin no rashes or lesions noted Psych mental status grossly normal, affect normal, speech normal and activity/motor behavior normal Labs Labs Labs: Blood Type A POSITIVE Antibody Screen NEGATIVE Hct, (37-47) 38.5 % Hgb, (12.0-15.0) 13.6 g/dL Obstetrics Ultrasound Syphilis Total Ab, (Nonreactive) Nonreactive Rubella IgG Antibody, (Nonreactive) REAC Hep Bs Antigen, (Nonreactive) Nonreactive Hepatitis C Antibody, (Nonreactive) Nonreactive Chlamydia DNA (MINDY), (Negative) Negative N.gonorrhoeae DNA (MINDY), (Negative) Negative HIV 1&2 Antibody, (Nonreactive) Nonreactive Glucose 1 Hr 50 gm, (70-140) 158 mg/dL H Gest Glucose Tolerance MG/DL Rhogam given: No Miscellaneous Test Assessment & Plan (1) History of gestational diabetes in prior , currently : COMMENT: If abnormal 1 hr glucose, she prefers to do QID testing and defer 3 hr GTT Failed 1 hr: will do QID BS testing. Decline mainframe programmer consult (2) Obesity affecting : QUALIFIERS: Obesity type affecting : unspecified obesity Trimester: second trimester Qualified Code(s): O99.212 - Obesity complicating , second trimester COMMENT: BMI 32.6% (3) Supervision of high-risk : QUALIFIERS: Trimester: second trimester Qualified Code(s): O09.92 - Supervision of high risk , unspecified, second trimester COMMENT: GBS neg PRR , ANT 08/22/25,boy PC Benny Guerrero PLAN: current tracing: FHT: 140, accelerations present, occasional variable deceleration noted, Moderate variability reactive, category 2 tracing [place]: Contractions every 4 to 11 mins, lasting 30 to 90 seconds, palpates mild. PLAN: Plan Patient presents for IOL, pt desires to avoid Pitocin, plan AROM & ambulation, pitocin prn, anticipate . Pain management: plans natural childbirth, freedom of movement, but open to epidural prn. GBS Negative. Management of any complications: juice fluids prn. I have reviewed the [facility] and made any clinically relevant updates.
--- NOTE | 2025-08-24 08:06 | PCM.HP.OB ---
HPI - General General Date of Admission: 08/24/25 HPI Narrative WAGNER IBARRA, is a 30 F who presents for IOL at term. Maternal Data Information ANT Calculator Estimated Delivery Date Method Current WG Current Estimate 08/22/25 Ultrasound #1 40w 2d Other Estimates 07/15/25 LMP (Uncertain) 45w 5d PFSH PFSH Medical History Short cervix affecting History of miscarriage, currently Gestational diabetes Infertility Vacuum extractor delivery, delivered care and examination Acute bronchitis Gestational diabetes PCOS (polycystic ovarian syndrome) Home Medications Medication Instructions Recorded Last Taken Type multivitamin no.47-iron fum 27 1 cap PO DAILY Check with primary 06/11/22 01/17/23 21:00 History mg-folate no.1 1 mg-dha 300 mg doctor capsule (PNV-DHA) magnesium 1 cap PO/SL DAILY leg cramps 01/18/23 01/17/23 21:00 History pyridoxine (vitamin B6) 10 mg 10 mg PO QDAY supplement 01/10/25 Unknown History tablet Allergy/AdvReac Type Severity Reaction Status Date / Time No Known Allergies Allergy Verified 08/24/25 07:30 Family History Father Cancer mouth/throat Surgical History History of surgery Social History adopted: No household members: spouse and children housing: house number of children: 1 current occupational status: employed current occupation: [employer] current occupational exposures/hazards: No pets and animals: Yes pets and animals: dog(s) history of recent travel: No sexually active: Yes Smoking Status: Never smoker alcohol intake: former details: not while pregnany, social only substance use type: does not use well-balanced diet: about half the time caffeine: No eating out: 1-3 times/week during the past year weight has: remained stable what type of physical activity do you participate in: walking frequency: 1-2 times per week duration: 15-30 minutes/day ok/sabianist: Yazdanism seatbelt use: always do you feel safe at home: Yes additional social history: - Guerrero, Faithful Juliet Fay History 4 Elective abortions Hx Para 1 Spontaneous abortions 1 Hx # Term Pregnancies Ectopic pregnancies 1 Hx # Pregnancies Multiple births # of living children 1 Past Pregnancies Del. Date Name GA/Weeks Outcome Route Bth Weight Gen Labor Lgth Anesthesia Del Locatn Provider FOB Unknown ectopic Unknown spontaneous 01/19/23 Benny 40 live - full term Male [facility] Dr. Araya Delivery Date: 01/19/23 Last Updated by: Anitha Cook Shortened cervix, gestational diabetes Visit Details Expected Delivery Route/Plan Labor Preferences- CB/BF classes:no labor support person: Guerrero labor intervention preferences: [] pain management options preferred: epidural if requested cut cord/dad catch: yes : yes PP control planned: discussed discussed possible routes of delivery and associated risks: [] special requests: [] Plans Covid status: [] Flu vaccine: declined Tdap vaccine: declined Rhogam: na LARC form signed: yes movement and labor precautions reviewed. Problem list reviewed and updated with the most current plan of care details and appropriate orders placed. Relevant counseling for the gestational age provided. Continue routine care and follow up unless otherwise noted in visit notes/problem list details OB Flowsheet Initial Weight: Not Recorded Date <del> </del> EGA Weight BP Urine Prot <del> </del> Glucose FHR FuHt Pres Dilation <del> </del> Effaced St Visit Note 01/23/25 <del> </del> 9w 6d 201 lb 4 oz 122/77 <del> </del> 170 <del> </del> JV - CRL consistent with last scan at care center She is measuring 10 weeks 2 days today. Should be 9 weeks 6 days from first scan there. JV - CRL consistent with last scan at care center She is measuring 10 weeks 2 days today. Should be 9 weeks 6 days from first scan there. Declines NIPT. Taking progesterone for short cx last . ordering 16 week cx 02/19/25 <del> </del> 13w 5d 205 lb 6 oz 106/74 Negative <del> </del> Negative 168 <del> </del> KW- no vb/cramping. some low pelvic pressure at the end of the day. MFM consult in 2 weeks for cervical length. KW- no vb/cramping. some low pelvic pressure at the end of the day. MFM consult in 2 weeks for cervical length. M anatomy US ordered. 03/20/25 <del> </del> 17w 6d 206 lb 120/64 Negative <del> </del> Negative 152 <del> </del> MH-No VB. Prometrium for hx short cervix-causes cramping. Hopes to DC after anatomy scan next week. Denies other concerns. 04/16/25 <del> </del> 21w 5d 211 lb 4 oz 117/75 <del> </del> 160 <del> </del> SM- no vb lof good fm no reuglar ctx SM- no vb lof good fm no reuglar ctx discussed limited views on anatomy scan 05/15/25 <del> </del> 25w 6d 214 lb 4 oz 114/72 Negative <del> </del> Negative 150 27 <del> </del> MH-No Vb, LOF. Good FM. 28 wk labs pending. Larc 06/12/25 <del> </del> 29w 6d 216 lb 9 oz 110/71 Negative <del> </del> Negative 160 30 <del> </del> SM- no vb lof good fm n oregular ctx discussed getting 3 hour gtt done, patient has been checking sugars at home and they have been normal 06/26/25 <del> </del> 31w 6d 219 lb 7 oz 104/63 Negative <del> </del> Negative 145 31 <del> </del> JV- declines flu. wants to try to avoid IOL. long discussion. glucose levels normal. plan membrane sweep at 39 weeks. 07/08/25 <del> </del> 33w 4d 217 lb 9 oz 117/81 Negative <del> </del> Negative 150 33 <del> </del> KW- no vb/lof/ctx. good fm. compression hose for leg cramps KW- no vb/lof/ctx. good fm. compression hose for leg cramps. blood sugars reviewed and normal 07/23/25 <del> </del> 35w 5d 219 lb 8 oz 127/75 Negative <del> </del> Negative 150 34 <del> </del> SM- has had a headache and had episode of floaters yesterday which resolved normal bps and negative proteinuria today. hasn't had tylenol. reviewed precautions and instructions 07/30/25 <del> </del> 36w 5d 218 lb 3 oz 116/69 Negative <del> </del> Negative 147 37 <del> </del> JV- no lof, vaginal bleeding, or dec fm. + heart fluttering and intermittent arm weakness this week. no headaches. She did check a few glucose levels and one was 160 2 hours after meals. plan to check cbc, cmp, and has a growth scan now. JV- GBS today. no lof, vaginal bleeding, or dec fm. + heart fluttering and intermittent arm weakness this week. no headaches. She did check a few glucose levels and one was 160 2 hours after meals. plan to check cbc, cmp, and has a growth scan now. 08/06/25 <del> </del> 37w 5d 219 lb 2 oz 113/71 Negative <del> </del> Negative 145 38 <del> </del> KW- no vb/lof/ctx. good fm. declines vaginal exam today 08/13/25 <del> </del> 38w 5d 217 lb 7 oz 122/85 Trace <del> </del> Negative 150 39 Cephalic 4.5 <del> </del> 80 -2 JV- no lof, vaginal bleeding, or dec fm. 08/20/25 <del> </del> 39w 5d 218 lb 9 oz 124/78 Negative <del> </del> Negative 140 40 Cephalic 5 <del> </del> 80 -1 Sm- no vb lof good fm no regualr ctx Sm- no vb lof good fm no regualr ctx elective IOL tuesday 5 cm dilated membranes swept ROS Constitutional Constitutional: Reports systems reviewed and no addt'l complaints, except as documented Respiratory/Chest Respiratory/Chest: Reports systems reviewed and no addt'l complaints, except as documented Gastrointestinal Gastrointestinal: Reports systems reviewed and no addt'l complaints, except as documented Genitourinary Genitourinary: Reports systems reviewed and no addt'l complaints, except as documented Musculoskeletal Musculoskeletal: Reports systems reviewed and no addt'l complaints, except as documented Integumentary Integumentary: Reports systems reviewed and no addt'l complaints, except as documented Neurologic Neurologic: Reports systems reviewed and no addt'l complaints, except as documented Psychiatric Psychiatric: Reports systems reviewed and no addt'l complaints, except as documented Vital Signs Vital Signs Vital Signs: Weight Weight: 215 lb 9.793 oz Body Mass Index (BMI) 37.0 Physical Exam Const alert, oriented x3 and no apparent distress General Appearance: cooperative and comfortable HEENT normocephalic Resp normal respiratory effort and no retractions Resp Narrative: Respirations eased & unlabored. No s/s of Respiratory distress noted. GI normal to inspection, nondistended, normoactive bowel sounds GI Narrative: Gravid, soft, non-tender to touch. Manual OB Exam: presentation cephalic, dilated 5-6cm, effaced 60% and station -1 Skin no rashes or lesions noted Psych mental status grossly normal, affect normal, speech normal and activity/motor behavior normal Labs Labs Labs: Blood Type A POSITIVE Antibody Screen NEGATIVE Hct, (37-47) 38.5 % Hgb, (12.0-15.0) 13.6 g/dL Obstetrics Ultrasound Syphilis Total Ab, (Nonreactive) Nonreactive Rubella IgG Antibody, (Nonreactive) REAC Hep Bs Antigen, (Nonreactive) Nonreactive Hepatitis C Antibody, (Nonreactive) Nonreactive Chlamydia DNA (MINDY), (Negative) Negative N.gonorrhoeae DNA (MINDY), (Negative) Negative HIV 1&2 Antibody, (Nonreactive) Nonreactive Glucose 1 Hr 50 gm, (70-140) 158 mg/dL H Gest Glucose Tolerance MG/DL Rhogam given: No Miscellaneous Test Assessment & Plan (1) History of gestational diabetes in prior , currently : COMMENT: If abnormal 1 hr glucose, she prefers to do QID testing and defer 3 hr GTT Failed 1 hr: will do QID BS testing. Decline stud setter consult (2) Obesity affecting : QUALIFIERS: Obesity type affecting : unspecified obesity Trimester: second trimester Qualified Code(s): O99.212 - Obesity complicating , second trimester COMMENT: BMI 32.6% (3) Supervision of high-risk : QUALIFIERS: Trimester: second trimester Qualified Code(s): O09.92 - Supervision of high risk , unspecified, second trimester COMMENT: GBS neg PRR , ANT 08/22/25,boy PC Benny Guerrero PLAN: current tracing: FHT: 140, accelerations present, occasional variable deceleration noted, Moderate variability reactive, category 2 tracing [place]: Contractions every 4 to 11 mins, lasting 30 to 90 seconds, palpates mild. PLAN: Plan Patient presents for IOL, pt desires to avoid Pitocin, plan AROM & ambulation, pitocin prn, anticipate . Pain management: plans natural childbirth, freedom of movement, but open to epidural prn. GBS Negative. Management of any complications: juice fluids prn. I have reviewed the [facility] and made any clinically relevant updates.
[2025-08-24 08:44] LABS: Syphilis Antibodies Nonreactive (Nonreactive)
[2025-08-24] MEDS: Oxytocin 15 Units/NS 250ml 15 UNITS/250 ML IV.SOLN 334 UNITS IV (12:44)
[2025-08-24] MEDS: Lidocaine 1% (20 ml mdv) 20 ML Vial INFILT (12:53)
--- NOTE | 2025-08-24 13:21 | EX.PCM.OBVAG ---
Assessment & Plan (1) History of gestational diabetes in prior , currently : COMMENT: If abnormal 1 hr glucose, she prefers to do QID testing and defer 3 hr GTT Failed 1 hr: will do QID BS testing. Decline marketing support specialist consult (2) Supervision of high-risk : QUALIFIERS: Trimester: second trimester Qualified Code(s): O09.92 - Supervision of high risk , unspecified, second trimester COMMENT: GBS neg PRR , ANT 08/22/25,boy PC Benny Guerrero (3) : QUALIFIERS: Weeks of gestation: 39 weeks Qualified Code(s): Z3A.39 - 39 weeks gestation of COMMENT: NIPT w gender & carrier - declines On US incomplete visual of nose but states palate, lips profile ok. Patient elects not to rpt US for nose. GBS negative. (4) Vaginal delivery: COMMENT: KMM, , 2nd degree lac w/repair, 40 wks 2 days, Male "Ricardo" PLAN: Patient began pushing and delivered the head in the [place] presentation. The head was delivered atraumatically w/right hand by face at delivery. The anterior and posterior shoulders delivered without complication followed by the rest of the and the was placed on the maternal abdomen. Delayed cord clamping was employed for approximately 3 minutes. Cord was clamped and cut and gentle traction was applied to the cord and the placenta delivered spontaneously immediately following it was noted to be intact with three-vessel cord. The perineum and vagina were inspected and noted to have a shallows 2nd degree midline laceration repaired w/3-0 Vicryl, right periurethral abrasion noted - no repair. EBL was 250cc. Patient and infant tolerated delivery well. Maternal Data Information ANT Calculator Estimated Delivery Date Method Current WG Current Estimate 08/22/25 Ultrasound #1 40w 2d Other Estimates 07/15/25 LMP (Uncertain) 45w 5d Vaginal Delivery Maternal Presentation Maternal Presentation: Elective Induction Type of Induction: Amniotomy Vaginal Delivery Information Procedure Performed: Spontaneous Vaginal Delivery Surgeon/Practitioner: Yulisa White Date of Procedure: 08/24/25 Type of anesthesia: None and Local with 1% Lidocaine (for repair) Estimated Blood Loss: 250cc Time of Delivery: 12:40 (pm) Findings Presentation: Vertex and ROYAL Amniotic Membrane Rupture Type: Artificial Amniotic Fluid Description: Clear Placental Delivery Description: Spontaneous Placenta Disposition: [facility] Cord Vessel Description: 3 Vessels Infant A Gender: Male (1 minute): 9 (5 minute): 9 Delayed Cord Clamping: Yes Post Vaginal Deli Medications given after delivery: IV Pitocin Laceration: Midline and 2nd degree (Repaired w/3-0 Vicryl) Complication Complications: No Multi Select Codes Urinary/Genital Urinary/Genital CPT Codes: 08302 Vaginal Delivery [facility]
[2025-08-24] MEDS: Oxytocin 15 Units/NS 250ml 15 UNITS/250 ML IV.SOLN 83 UNITS IV (13:25)
--- NOTE | 2025-08-24 13:52 | DS.PCM_ITS ---
Providers Date of Admission: 08/24/25 Primary Care Physician: Sara Primary Care Phys Reason For Visit: VAGINAL DELIVERY Diagnosis Discharge Diagnosis (1) History of gestational diabetes in prior , currently : Status: Acute Code(s): O09.299 - Supervision of with other poor reproductive or obstetric history, unspecified trimester; Z86.32 - Personal history of gestational diabetes (2) Supervision of high-risk : Status: Acute Code(s): O09.90 - Supervision of high risk , unspecified, unspecified trimester Qualifiers: Trimester: second trimester Qualified Code(s): O09.92 - Supervision of high risk , unspecified, second trimester (3) : Status: Acute Code(s): Z34.90 - Encounter for supervision of normal , unspecified, unspecified trimester Qualifiers: Weeks of gestation: 39 weeks Qualified Code(s): Z3A.39 - 39 weeks gestation of (4) Vaginal delivery: Status: Acute Code(s): O80 - Encounter for full-term uncomplicated delivery Plan: Patient began pushing and delivered the head in the [place] presentation. The head was delivered atraumatically w/right hand by face at delivery. The anterior and posterior shoulders delivered without complication followed by the rest of the and the infant was placed on the maternal abdomen. Delayed cord clamping was employed for approximately 3 minutes. Cord was clamped and cut and gentle traction was applied to the cord and the placenta delivered spontaneously immediately following it was noted to be intact with three-vessel cord. The perineum and vagina were inspected and noted to have a shallows 2nd degree midline laceration repaired w/3-0 Vicryl, right periurethral abrasion noted - no repair. EBL was 250cc. Patient and infant tolerated delivery well. Plan s/p PPD # 1 1. routine post delivery care 2. breast feeding- support given 3. rh positive 4. rubella immune Medications at Discharge Home Medications multivitamin no.47-iron fum 27 mg-folate no.1 1 mg-dha 300 mg capsule (PNV-DHA) 1 cap PO DAILY Check with primary doctor 06/11/22 magnesium 1 cap PO/SL DAILY leg cramps 01/18/23 pyridoxine (vitamin B6) 10 mg tablet 10 mg PO QDAY supplement 01/10/25 Physical Exam Const alert, oriented x3 and no apparent distress General Appearance: cooperative, comfortable and well kempt HEENT normocephalic Resp normal respiratory effort, normal air movement and no retractions Resp Narrative: Respirations eased & unlabored. No s/s of resp distress noted. Uterus Palpation: uterus fundus firm (midline, u/1, small dark red lochia, no odor.) and other OB Perineum healing well. Psych mental status grossly normal, thought process normal, cooperative and affect normal Weight / BMI Weight Weight: 215 lb 9.793 oz Body Mass Index (BMI) 37.0 PRE- weight 201 lb 6.4 oz PRE- Body Mass Index 34.5 (BMI) ABG / Lab / Microbiology Data 08/25/25 05:08 Laboratory: Laboratory Results - last 24 hr 08/24/25 09:05: POC Glucose 99 08/24/25 13:21: POC Glucose 92 08/25/25 05:08: WBC 10.0, RBC 3.81 L, Hgb 12.0, Hct 34.8 L, MCV 91.3, MCH 31.5, MCHC 34.5, RDW Std Deviation 41.9, RDW Coeff of Jacqueline 12.9, Plt Count 156, MPV 10.9, Immature Gran % (Auto) 0.400, Neut % (Auto) 77.1 H, Lymph % (Auto) 15.3 L, [place] % (Auto) 5.7, Eos % (Auto) 1.2, Baso % (Auto) 0.3, Absolute Neuts (auto) 7.7, Absolute Lymphs (auto) 1.53, Nucleated RBC % 0 08/25/25 05:47: POC Glucose 104 D/C Instructions Discharge Activity: May Shower and - (Rest, relax & enjoy baby. Slowly resume/return to normal activities. ) May resume sexual activity in: 4-6 weeks Weight Bearing Status: Full weight bearing Call your doctor if you observe: Fever of 101 or Higher, Inability to urinate, Using more than 1 pad per hour, Shortness of breath, Dizziness, Swelling in the ankles, Chest pain, Calf discomfort and Uncontrolled pain Cleanse incision/area with: Soap & Water DC O2, CPAP, BIPAP Needs Home O2 Discharge instructions: No DC home with Oxygen: No Please Follow Up With: [facility] When: at 6 weeks Meaningful Use Info Meaningful Use Meaningful Use Diagnoses (Choose all that apply): None applicable Discharge Plan Admission Admit Date/Time: 08/24/25 07:12 Attending Provider: Paradise Mackey Primary Care Provider: Care Physician,No Primary Instructions Additional Instructions / Restrictions: Rest, relax & enjoy baby! Discharge Orders/Prescriptions Prescriptions: No Action PNV-DHA 27 mg iron-1 mg -300 mg capsule 1 cap PO DAILY pyridoxine (vitamin B6) 10 mg tablet 10 mg PO QDAY magnesium capsule 1 cap PO/SL DAILY Referrals / Follow Up: Care Physician,No Primary [Primary Care Provider, Medical] Disposition Disposition (needs filled in before D/C Order can be placed): Home, Self Care
--- NOTE | 2025-08-24 14:35 | PCM.DC ---
Discharge Instructions DC O2, CPAP, BIPAP needs Home O2 Discharge instructions: No Dressing / Incision Discharge Activity: Return to Normal Activity and May Shower May resume sexual activity in: 4-6 weeks Dressing / Incision Call your doctor if you observe: Fever of 101 or Higher, Inability to urinate, Inability to have a bowel movement, Using more than 1 pad per hour, Shortness of breath, Dizziness, Swelling in the ankles, Chest pain and Uncontrolled pain Cleanse incision/area with: Soap & Water Follow Up Care Please Follow Up With: [facility] When: 6 Weeks Test Results: Test results from this visit will be discussed in further detail at your follow-up appointment, if applicable. Discharge Plan Admission Admit Date/Time: 08/24/25 07:12 Attending Provider: Paradise Mackey Primary Care Provider: Care Physician,No Primary Instructions Additional Instructions / Restrictions: Rest, relax & enjoy baby! Discharge Orders/Prescriptions Prescriptions: No Action PNV-DHA 27 mg iron-1 mg -300 mg capsule 1 cap PO DAILY pyridoxine (vitamin B6) 10 mg tablet 10 mg PO QDAY magnesium capsule 1 cap PO/SL DAILY Referrals / Follow Up: Care Physician,No Primary [Primary Care Provider, Medical]
[2025-08-24] MEDS: GLYCERIN/WITCH HAZEL (TUCKS) MED..PAD 1 EACH TOPICAL (17:09)
[2025-08-24] MEDS: Benzocaine/Lanolin/Aloe Vera 85 GM Spray 1 SPRAY TOPICAL (17:09)
[2025-08-25] VITALS (7 sets, daily range): BP systolic 101–117; BP diastolic 50–63; PULSE 70–76; RESP 14–16; TEMP 36.4–36.6; O2SAT 97–98
[2025-08-25 05:24] LABS: Hematocrit 34.8 % (37-47); Hemoglobin 12.0 g/dL (12.0-15.0); Immature Granulocytes Count 0.040 X10^3/uL (0.0-0.0); Mean Corp Hgb Conc 34.5 g/dL (32-36); Mean Corpuscular Volume 91.3 fL (81-99); Mean Platelet Vol. 10.9 fl (6.2-12.0); NRBC Flagged by Analyzer 0 % (0-5); Platelet Count 156 K/mm3 (150-450); RBC Distribution Width CV 12.9 % (11.6-14.6); RBC Distribution Width SD 41.9 fl (35.1-43.9); Red Blood Count 3.81 M/mm3 (4.2-5.4); White Blood Count 10.0 K/mm3 (4.4-11.0)
--- NOTE | 2025-08-25 09:17 | PCM.PN.CNM ---
Subjective Subjective Calm, cooperative, resting comfortably in bed. Desires d/c to home. Objective Data Objective Data Vital Signs: Vital Signs Temp Pulse Resp BP Pulse Ox O2 Del Method 97.5 F L 75 14 113/63 97 Room Air 08/25/25 08:38 08/25/25 08:38 08/25/25 08:38 08/25/25 08:38 08/25/25 08:38 08/25/25 08:38 Oxygen Delivery Method Room Air Weight: 215 lb 9.793 oz Body Mass Index (BMI) 37.0 Intake & Output: Intake and Output for Last 24 Hours 08/23/25 08/24/25 08/25/25 23:59 23:59 23:59 Intake Total 741.3 / 741.3 Output Total 850 / 850 Balance -108.7 / -108.7 Lab / Micro Data Attestation: I reviewed the patient's lab results. 08/25/25 05:08 Labs: Laboratory Results - last 24 hr 08/24/25 09:05: POC Glucose 99 08/24/25 13:21: POC Glucose 92 08/25/25 05:08: WBC 10.0, RBC 3.81 L, Hgb 12.0, Hct 34.8 L, MCV 91.3, MCH 31.5, MCHC 34.5, RDW Std Deviation 41.9, RDW Coeff of Jacqueline 12.9, Plt Count 156, MPV 10.9, Immature Gran % (Auto) 0.400, Neut % (Auto) 77.1 H, Lymph % (Auto) 15.3 L, [place] % (Auto) 5.7, Eos % (Auto) 1.2, Baso % (Auto) 0.3, Absolute Neuts (auto) 7.7, Absolute Lymphs (auto) 1.53, Nucleated RBC % 0 08/25/25 05:47: POC Glucose 104 ROS Constitutional Constitutional: Reports systems reviewed and no addt'l complaints, except as documented Cardiovascular Cardiovascular: Reports systems reviewed and no addt'l complaints, except as documented Respiratory/Chest Respiratory/Chest: Reports systems reviewed and no addt'l complaints, except as documented Gastrointestinal Gastrointestinal: Reports systems reviewed and no addt'l complaints, except as documented Genitourinary Genitourinary: Reports systems reviewed and no addt'l complaints, except as documented Neurologic Neurologic: Reports systems reviewed and no addt'l complaints, except as documented Psychiatric Psychiatric: Reports systems reviewed and no addt'l complaints, except as documented Physical Exam Const alert, oriented x3 and no apparent distress Resp normal respiratory effort Resp Narrative: Respirations eased & unlabored. No s/s of distress noted. GI Palpation: soft Uterus Palpation: uterus fundus firm (Midline, u/1, small dark red lochia, no odor. ) Neuro oriented x3 Psych mental status grossly normal, thought process normal, cooperative and affect normal Charges/Coding Multi Select Codes Urinary/Genital Urinary/Genital CPT Codes: No Charge Assessment & Plan (1) Vaginal delivery: COMMENT: JOSE, [place], 2nd degree lac w/repair, 40 wks 2 days, Male "Ricardo" PLAN: f/u at 6wks (2) History of gestational diabetes in prior , currently : COMMENT: If abnormal 1 hr glucose, she prefers to do QID testing and defer 3 hr GTT Failed 1 hr: will do QID BS testing. Decline global chief creative officer consult PLAN: Plan s/p PPD # 1 1. routine post delivery care 2. breast feeding- support given 3. rh positive 4. rubella immune 5. d/c to home today after 24 hours per pt desire.
== END 2025-08-25 14:05 | disposition home or self-care (01) | DRG 807 ==
PROVIDERS: Midwife; Admitting Provider Obstetrics & Gynecology; Referring Provider Obstetrics & Gynecology; Visit Provider Obstetrics & Gynecology
DX: O70.1 Second degree perineal laceration during delivery (principal); Z37.0 Single live birth; O26.23 Pregnancy care for patient with recurrent pregnancy loss, third trimester; O99.214 Obesity complicating childbirth; Z3A.39 39 weeks gestation of pregnancy; Z86.32 Personal history of gestational diabetes
CPT/HCPCS: 59025; 59050; 82962; 85025; 86780; 86850; 86900; 86901; 99221; G0378